=== PATIENT | female | born 1945 | race Caucasian/White ===

== ENCOUNTER 2018-11-06 16:46 | Outpatient (REF) | payer MEDICARE, BC, SELFPAY ==
[2018-11-06 22:22] LABS: ALT 27 U/L (12-78); AST 16 U/L (15-37); Albumin 4.1 g/dL (3.4-5.0); Alkaline Phosphatase 91 U/L (46-116); Anion Gap 11.8 mmol/L (3-11); BUN 13 mg/dL (7-18); Bilirubin, Total 0.9 mg/dL (0.2-1.0); CO2 26.2 mmol/L (21.0-32.0); CREATININE 0.78 mg/dL (0.55-1.02); Calcium 9.5 mg/dL (8.5-10.1); Chloride 101 mmol/L (98-107); Glucose 114 mg/dL (70-100); Potassium 4.1 mmol/L (3.5-5.1); Sodium 139 mmol/L (136-145); Total Protein 7.3 g/dL (6.4-8.2)
== END 2018-11-06 17:06 ==
LOC: NCHCN 16:46
PROVIDERS: PCP Family Medicine; Visit Provider Family Medicine
DX: I10 Essential (primary) hypertension (principal); E66.3 Overweight
CPT/HCPCS: 80053

== ENCOUNTER 2019-03-13 16:53 | Outpatient (REF) | payer MEDICARE, BC, SELFPAY ==
[2019-03-13 22:12] LABS: Anion Gap 9.4 mmol/L (3-11); BUN 14 mg/dL (7-18); CO2 26.6 mmol/L (21.0-32.0); CREATININE 0.78 mg/dL (0.55-1.02); Chloride 102 mmol/L (98-107); Glucose 113 mg/dL (70-100); Magnesium 2.1 mg/dL (1.8-2.4); Sodium 138 mmol/L (136-145); TSH (W/Ref FT4) 1.23 uIU/mL (0.36-3.74)
== END 2019-03-13 17:13 ==
LOC: NCHCN 16:53
PROVIDERS: PCP Family Medicine; Visit Provider Family Medicine
DX: I10 Essential (primary) hypertension (principal); R00.2 Palpitations
CPT/HCPCS: 80048; 83735; 84443

== ENCOUNTER 2019-08-04 23:17 | Emergency (ER) | payer MEDICARE, BC, SELFPAY ==
[2019-08-04 23:39] VITALS: BP 182/118; PULSE 141; RESP 16; TEMP 36.3; O2SAT 98
--- NOTE | 2019-08-04 23:39 | ED.GENADUL_ITS ---
Discharge Plan Disposition Patient Disposition: HOME Condition: Stable Discharge Details Chief Complaint: Palpitatns Clinical Impression: Atrial flutter with rapid ventricular response Primary Care Provider: Isidro Schmidt ED Provider: Bony Hurley Home Meds and New Rx's Prescriptions: Continued metoprolol succinate [Toprol XL] 25 MG tablet extended release 24 hr 87.5 mg PO DAILY Qty: 135 RF: 4 lisinopril 20 MG tablet 20 mg PO BID Qty: 180 RF: 4 magnesium oxide 400 MG capsule 400 mg PO TID RF: 0 multivitamin Tablet 1 tab PO DAILY RF: 0 ascorbic acid (vitamin C) [Vitamin C] 1,000 mg Tablet 2 g PO BID RF: 0 cyanocobalamin (vitamin B-12) [Vitamin B-12] 100 mcg Tablet 400 mcg PO DAILY RF: 0 Shasha 2 tab PO HS RF: 0 Discharge Instructions Instructions: Atrial Flutter (ED) Additional Instructions: follow up with your primary care provider within 1 week if you feel your heart rate is elevated again or have chest pain/pressure, difficulty breathing or feel more ill return to the emergency department Medical Decision Making 74 yo female with hx of htn and no prior cardiac history comes in with complaints of feeling her heart beating fast all day. She states she woke up with it this morning and felt it all day but did not bother her until she went to sleep and was unable to sleep through it because it was annoying so she came here. She denies any pain, pressure, dyspnea, fevers and states she otherwise feels fine. She is in what is aflutter on ekg with rate of 140 hd stable. Will obtain lab work including troponin, cbc and chemistries and also give diltiazem and monitor. pt's HR decreased to 70 after IV diltiazem given and feels much better and remains HD stable, continue to monitor labs unremarkable and patient is asympatomtic. She is HD stable with HR in the 70's. I offered observation admission but given she has normal rate and reassuring lab work she prefers d/c with close f/u with pcp. She understands to return if she has pain, increased heart rates or feels more ill in any way Differential Diagnosis Differential Diagnosis: aflutter, afib, svt Lab Data Lab results reviewed: Yes I reviewed the patient's lab results. ECG Data Attestation: I personally reviewed and interpreted this ECG (s) as follows: Prior ECG tracings: not available for review Interpretation: aflutter, rate of 142, pr 473, qtc 473 2nd ekg shows aflutter, rate of 72, qtc 418, no acute st t wave ischemic finidings HPI General Mode of arrival: ambulatory . Date/Time Provider Initiated Documentation: 08/04/19 23:21 . Limitations to Documentation: no limitations . Information obtained by: patient . History of Present Illness 74 year old F presents to the emergency department with the chief complaint of palpitations, described as moderate, Patient started experiencing this hour(s) (12) and it has been constant. No relieving factors improve symptom(s), No exacerbating factors reported . Patient notes no other symptoms.. Patient did receive the following treatments prior to arrival, none Related Data Home Medications Medication Instructions Recorded Confirmed metoprolol succinate [Toprol XL] 87.5 mg PO DAILY #135 tab-cap 04/09/15 08/05/19 lisinopril 20 mg PO BID #180 tab 04/17/15 08/05/19 magnesium oxide 400 mg PO TID 09/17/15 08/05/19 Shasha 2 tab PO HS 08/05/19 08/05/19 ascorbic acid (vitamin C) [Vitamin 2 g PO BID 08/05/19 08/05/19 C] cyanocobalamin (vitamin B-12) 400 mcg PO DAILY 08/05/19 08/05/19 [Vitamin B-12] multivitamin 1 tab PO DAILY 08/05/19 08/05/19 Allergies Allergy/AdvReac Type Severity Reaction Status Date / Time No Known Allergies Allergy Unverified 09/17/15 10:18 Review of Systems All systems reviewed & are unremarkable except as noted in HPI and below Constitutional Constitutional: Denies chills, Denies fever(s) and Denies weakness Cardiovascular Cardiovascular: Denies dyspnea Respiratory Respiratory: Denies cough and Denies dyspnea Gastrointestinal Gastrointestinal: Denies abdominal pain, Denies nausea and Denies vomiting Musculoskeletal Musculoskeletal: Denies joint swelling Neurologic Neurologic: Denies weakness Psychiatric Psychiatric: Denies depression PFSH Family History Mother Essential hypertension Heart disease Stroke Father Essential hypertension Heart disease Stroke Sister Essential hypertension Personal history of malignant neoplasm BREAST Grandfather Heart disease Grandfather Personal history of malignant neoplasm Lung Grandmother Heart disease Stroke Grandmother No problems noted. Social History Smoking/Tobacco Use Status: Former Tobacco Use Alcohol Intake: current Alcohol Intake frequency: holidays/special occasions only Drug use: Never Substance use type: does not use Do you feel safe at home: Yes Do you feel safe in your relationship?: Yes Exam Const General: no acute distress Orientation: alert HENMT Head: normal to inspection Ears: external ears normal General nose exam: external nose normal Mouth: moist mucous membranes Eyes General: appearance normal, both eyes and all related structures Neck Neck: normal visual inspection Resp Effort & Inspection: normal respiratory effort and able to speak in complete sentences Cardio Rate: tachycardic Skin General skin exam: no rashes or lesions noted Neuro General: alert and oriented x3 Extrem General: normal to inspection Psych Mental Status: mental status grossly normal Critical Care Time Critical Care Time Critical Care Time: Yes Total Critical Care Time: 45 (minutes) Attestation: Time spent reviewing lab work, ekg review, hemodynamic monitoring and administering IV rachelle blockers in patient with aflutter with rapid ventricular response and potential to deteriorate at any time
[2019-08-04 23:46] LABS: Abs Immature Grans 0.03 k/cumm (0.0-0.09); Absolute Basophil Count 0.05 k/cumm (0.0-0.2); Absolute Eosinophil Count 0.09 k/cumm (0.0-0.7); Absolute Lymphocyte Count 1.35 k/cumm (1.2-3.4); Absolute Monocyte Count 0.55 k/cumm (0.11-0.7); Absolute Neutrophil Count 5.69 k/cumm (1.2-6.7); Basophils % 0.6; Eosinophils % 1.2; HCT 44.7 % (36.0-46.0); HGB 14.8 g/dL (12.0-15.5); Immature Grans % 0.4 %; Lymphocytes % 17.4; Mean Corp. HGB Concentration 33.1 g/dL (32.0-36.0); Mean Corpuscular Hemoglobin 30.5 pg (27.0-33.0); Mean Platelet Volume 10.5 fL (8.0-11.0); Monocytes % 7.1; Neutrophils % 73.3; Platelet Count 312 x1000/uL (130-400); RBC 4.86 m/cumm (4.00-5.20); RBC Distribution Width 13.2 % (11.7-14.6); White Blood Cell Count 7.76 k/cumm (4.4-10.8)
[2019-08-04 23:47] VITALS: BP 172/117; PULSE 141
[2019-08-04] MEDS: dilTIAZem 25 MG/5 ML VIAL 20 MG IVP (23:47)
[2019-08-04] MEDS: Normal Saline Flush 10 ML SYR IVP (23:48)
[2019-08-04] MEDS: Normal Saline 1,000 ML 1000 ML IV (23:48)
[2019-08-04 23:52] VITALS: BP 157/85; PULSE 72
[2019-08-04 23:59] LABS: PTT Activated 23.2 sec (21.0-31.4); Prothrombin Time 9.9 sec (9.3-11.0)
[2019-08-05 00:01] VITALS: BP 157/85; PULSE 71; RESP 19; O2SAT 94
[2019-08-05 00:01] LABS: ALT 30 U/L (14-59); AST 19 U/L (15-37); Alkaline Phosphatase 93 U/L (46-116); Anion Gap 11.4 mmol/L (3-11); BUN 9 mg/dL (7-18); Bilirubin, Total 1.4 mg/dL (0.2-1.0); CO2 25.6 mmol/L (21.0-32.0); CREATININE 0.85 mg/dL (0.55-1.02); Calcium 8.7 mg/dL (8.5-10.1); Chloride 105 mmol/L (98-107); Glucose 119 mg/dL (74-106); Magnesium 2.2 mg/dL (1.8-2.4); Sodium 142 mmol/L (136-145); Total Protein 7.4 g/dL (6.4-8.2); Troponin I < 0.05 ng/Ml (<0.06)
--- NOTE | 2019-08-05 00:18 | NUR.NOTE ---
To room 7 with c/o palpitations, racing heart. Pt states awoke with palpitations this am, continued all day. Was unable to sleep tonight d/t racing heart sensation. Denies chest pain, SOB. Reports intermittent tightness in neck feels like necklace choking me. No tightness currently. LSCTA. #18 LAC, labs drawn. HR initially 141, down to 72 after 20mg IV Cardizem, SR with occasional PVC's. Pt does not note feeling any different after meds. NS infusing.
[2019-08-05 00:36] VITALS: BP 151/78; PULSE 72; RESP 14; O2SAT 96
--- NOTE | 2019-08-05 12:56 | NUR.NOTE ---
Nursing Note: Faxed to [facility] the referral for follow up and all the patient information from the ED visit. Ioana Galvan.
== END 2019-08-05 00:35 | disposition home or self-care (01) ==
PROVIDERS: Emergency Provider Emergency Medicine; PCP Family Medicine
DX: R00.2 Palpitations (principal); I48.92 Unspecified atrial flutter; I47.2 Ventricular tachycardia; I10 Essential (primary) hypertension
CPT/HCPCS: 36415; 80053; 93005; 96361; 96374; 99291; 83735; 84484; 85025; 85610; 85730; 93010

== ENCOUNTER 2019-08-21 04:22 | Inpatient (IN) | payer MEDICARE, BC, SELFPAY ==
[2019-08-21] VITALS (107 sets, daily range): BP systolic 135–214; BP diastolic 74–154; PULSE 51–150; RESP 9–25; TEMP 36.5–36.9; O2SAT 87–98
--- NOTE | 2019-08-21 04:45 | DI.RAD_ITS ---
EXAM: XR CHEST 2V PA LATERAL CLINICAL HISTORY: palpitations. TECHNIQUE: 2D digital imaging was performed. COMPARISON: No exams were available for comparison FINDINGS: LUNGS: Mild prominence of the interstitial markings are present. There is a small pleural effusion i dentified in the posterior costophrenic sulcus. HEART: Normal. MEDIASTINUM: Normal. OTHER FINDINGS:Mild prominence of the pulmonary vasculature is noted. BONE:Appropriate degenerative changes are seen in the spine. IMPRESSION: Mild interstitial prominence and small pleural effusion. Mild pulmonary edema cannot be excluded. P lease correlate clinically. DATA REPOSITORY: RADIATION DOSE DELIVERED:
--- NOTE | 2019-08-21 04:58 | W.ED.GENAD ---
Discharge Plan Disposition Patient Disposition: [facility] INPATIENT Condition: Fair Discharge Details Chief Complaint: Palpitatns Clinical Impression: Atrial flutter with rapid ventricular response Primary Care Provider: Isidro Schmidt ED Provider: David Mack Derby Anna and New Rx's Prescriptions: No Action lisinopril 20 MG tablet 20 mg PO BID Qty: 180 RF: 4 magnesium oxide 400 MG capsule 400 mg PO TID RF: 0 multivitamin Tablet 1 tab PO DAILY RF: 0 ascorbic acid (vitamin C) [Vitamin C] 1,000 mg Tablet 2 g PO BID RF: 0 cyanocobalamin (vitamin B-12) [Vitamin B-12] 100 mcg Tablet 400 mcg PO DAILY RF: 0 Shasha 2 tab PO HS RF: 0 metoprolol tartrate 50 mg tablet 50 mg PO DAILY AM RF: 0 metoprolol tartrate 37.5 mg tablet 37.5 mg PO HS RF: 0 Medical Decision Making Patient presenting with palpitations and found to be in SVT in the 140 range. Per previous notes this was atrial flutter. Less clear today but given history and response to diltiazem last time we will proceed with same. Of note patient is on metoprolol tartrate although low dosing. She did take extra dose when she woke up with palpitations. She denies having chest pain or shortness of breath. She came off Norvasc in the past due to lower extremity/ankle edema. Previous laboratory work-up showed normal hemoglobin and electrolytes with negative troponin. No TSH or d-dimer done. This evening will obtain both as well as repeat lytes. We will also obtain chest x-ray. Patient slowed almost immediately into the 70s with a diltiazem. She remained in atrial flutter. Chest x-ray shows mild interstitial prominence but no overt edema. She does appear to have some cardiomegaly. Electrolytes continue to be normal. TSH a little high but free T4 normal. D-dimer came back markedly elevated. I have seen her dip into the low 90s high 80s on pulse oximetry as well as remain in the high 90s and normal on room air. She continues to be in atrial flutter. She was discharged in atrial flutter. Quite possible that she is been in atrial flutter and never converted. She has a Tam vas score of 3 suggesting she should be anticoagulated. She has not yet had an echo. She has elevated d-dimer. Our CT scan is currently down and waiting repairs. After discussion with patient and her as well as with hospitalist decided the best course of action is to admit to the hospital on telemetry to obtain cardiac echo and cardiology consult today. Presume CAT scan comes back up today will also need CTA to rule out PE. Will dose with Lovenox 1 mg/kg now. She remains in rate controlled atrial flutter. Blood pressure has been fine. Medical Records Medical records reviewed: Yes I reviewed the patient's medical records. Imaging Data Radiologic Study: Attestation: I personally reviewed and interpreted this imaging study as follows: Imaging: X-Ray My impression: some cardiomegaly; ? increase interstial markings Radiologist's impression: TECHNIQUE: Imaging protocol: XR of the chest Views: 2 views. COMPARISON: No relevant prior studies available. FINDINGS: Lungs: Mild interstitial prominence. No consolidation. Pleural space: Question trace fluid in the minor fissure. No pneumothorax. Heart/Mediastinum: Borderline cardiomegaly. Bones/joints: Unremarkable. IMPRESSION: Mild interstitial prominence and question trace right fissural fluid. Mild interstitial edema cannot be completely excluded Lab Data Lab results reviewed: Yes I reviewed the patient's lab results. ECG Data Attestation: I personally reviewed and interpreted this ECG (s) as follows: Prior ECG tracings: available for review Interpretation: #1 -SVT at a rate of 147. Normal axis. Nonspecific ST changes likely rate related. Q waves in the precordial leads V1 through V3 and lead III and aVF. #2 -Atrial flutter at a rate of 77. Normal axis. Nonspecific ST changes. Q waves in the precordial leads V1 through V3 and limb lead III and aVF. HPI General Mode of arrival: ambulatory. Date/Time Provider Initiated Documentation: 08/21/19 04:29. Limitations to Documentation: no limitations. Information obtained by: patient, RN notes reviewed and old records reviewed. HPI Narrative: Patient presents to ED with complaints of palpitations and heart racing. Patient was well asleep by this. She denies having any type of chest pain or pressure. She denies any shortness of breath. She has not been ill. She was here about 2 weeks ago with similar complaints and was found to be in her rapid atrial flutter. Treated with diltiazem and offered admission but declined. Has not seen her primary care because she had been on vacation. Is on metoprolol for high blood pressure and has been continuing this in addition to her lisinopril. When she woke with palpitations she did take another 25 of metoprolol. After few hours she came in here. Related Data Home Medications Medication Instructions Recorded Confirmed lisinopril 20 mg PO BID #180 tab 04/17/15 08/21/19 magnesium oxide 400 mg PO TID 09/17/15 08/21/19 Shasha 2 tab PO HS 08/05/19 08/21/19 ascorbic acid (vitamin C) [Vitamin 2 g PO BID 08/05/19 08/21/19 C] cyanocobalamin (vitamin B-12) 400 mcg PO DAILY 08/05/19 08/21/19 [Vitamin B-12] multivitamin 1 tab PO DAILY 08/05/19 08/21/19 metoprolol tartrate 37.5 mg PO HS 08/21/19 08/21/19 metoprolol tartrate 50 mg PO DAILY AM 08/21/19 08/21/19 Allergies Allergy/AdvReac Type Severity Reaction Status Date / Time No Known Allergies Allergy Unverified 08/21/19 04:33 General Stated Complaint: Palpitatns JOSE: 3 Review of Systems Narrative: As documented in HPI otherwise negative as below. Const: no fever, chills, weakness Resp: no cough, SOB, pleuritic pain CV: no CP, diaphoresis, edema, syncope GI: no abdominal pain, nausea, vomiting, diarrhea Neuro: no headache, numbness, focal weakness, confusion [facility] Medical History Atrial flutter (Acute) HTN (hypertension) (Chronic) Surgical History S/P hernia repair (Chronic) Family History Mother Essential hypertension Heart disease Stroke Father Essential hypertension Heart disease Stroke Sister Essential hypertension Personal history of malignant neoplasm BREAST Grandfather Heart disease Grandfather Personal history of malignant neoplasm Lung Grandmother Heart disease Stroke Grandmother No problems noted. Social History Smoking/Tobacco Use Status: Former Tobacco Use Alcohol Intake: current Alcohol Intake frequency: holidays/special occasions only Drug use: Never Substance use type: does not use Do you feel safe at home: Yes Do you feel safe in your relationship?: Yes Exam Narrative Exam Narrative: Vitals: Afebrile. Tachycardic and hypertensive with normal respiratory rate and room air pulse oximetry. Const: WDWN elderly female in NAD. HEENT: NC/AT. Normal facial exam. Eyes: Normal conjunctiva and sclera. Neck: Supple. Trachea midline. Lungs: Normal respiratory effort. Lungs are clear. Cor: tachy and regular without murmur/gallop. Good radial pulses. GI: Soft. NT/ND. No guarding or rebound. Neuro: A+O x 3. Normal speech, mentation, gait. Cranial nerves II - XII grossly intact. No gross motor or sensory deficit. Ext: No C/C/E. No calf tenderness. Skin: Warm and dry without rash. Course Vital Signs Vital signs: Vital Signs Temperature 97.7 F 08/21/19 04:28 Pulse 146 H 08/21/19 04:28 Respiratory Rate 16 08/21/19 04:28 Blood Pressure 173/128 H 08/21/19 04:28 Pulse Oximetry 98 08/21/19 04:28 Temperature 97.7 F 08/21/19 04:28 Temperature Source Skin 08/21/19 04:28 Pulse 146 H 08/21/19 04:28 Respiratory Rate 16 08/21/19 04:28 Respiratory Effort 08/21/19 04:28 Blood Pressure 173/128 H 08/21/19 04:28 Pulse Oximetry 98 08/21/19 04:28 Oxygen Delivery Method Room Air 08/21/19 04:28 Oxygen Flow Rate 0 08/21/19 04:28 Pain Level 0 08/21/19 04:28 Critical Care Time Critical Care Time Critical Care Time: Yes Total Critical Care Time: 45 Attestation: Upon my evaluation, this patient had a high probability of imminent or life-threatening deterioration, which required my direct attention, intervention, and personal management. I have personally provided minutes of critical care time exclusive of time spent on separately billable procedures. Time includes review of laboratory data, radiology results, discussion with consultants, and monitoring for potential decompensation. Interventions were performed as documented above.
[2019-08-21] MEDS: Lactated Ringers 1,000 ML 150 ML IV (05:05)
[2019-08-21] MEDS: dilTIAZem 25 MG/5 ML VIAL 15 MG IVP (05:06)
--- NOTE | 2019-08-21 05:13 | NUR.NOTE ---
Nursing Note: 0512 Pt heart rate down to 77 BPM.
[2019-08-21 05:31] LABS: Anion Gap 9.8 mmol/L (3-11); BUN 12 mg/dL (7-18); CO2 25.2 mmol/L (21.0-32.0); CREATININE 0.82 mg/dL (0.55-1.02); Calcium 9.4 mg/dL (8.5-10.1); Chloride 104 mmol/L (98-107); Glucose 116 mg/dL (74-106); Magnesium 2.2 mg/dL (1.8-2.4); Potassium 3.9 mmol/L (3.5-5.1); Sodium 139 mmol/L (136-145); TSH (W/Ref FT4) 4.31 uIU/mL (0.36-3.74)
--- NOTE | 2019-08-21 05:37 | DI.VRAD_ITS ---
PROCEDURE INFORMATION: Exam: XR Chest, 2 Views Exam date and time: 08/21/2019 5:27 AM Age: 74 years old Clinical indication: Other: Palpitatations; Patient HX: Palpitations TECHNIQUE: Imaging protocol: XR of the chest Views: 2 views. COMPARISON: No relevant prior studies available. FINDINGS: Lungs: Mild interstitial prominence. No consolidation. Pleural space: Question trace fluid in the minor fissure. No pneumothorax. Heart/Mediastinum: Borderline cardiomegaly. Bones/joints: Unremarkable. IMPRESSION: Mild interstitial prominence and question trace right fissural fluid. Mild interstitial edema cannot be completely excluded Dictated and Authenticated by: Tom Marks MD. Ordering:MEG Hernandez MD
--- NOTE | 2019-08-21 05:55 | NUR.NOTE ---
Nursing Note: Pt continues to rest comfortably. No c/o or requests at this time
[2019-08-21 06:10] LABS: D-Dimer 1393 ng/mlFEU (<500)
[2019-08-21 06:13] LABS: FREE T4 1.26 ng/dL (0.76-1.46)
--- NOTE | 2019-08-21 06:30 | HPE_ITS ---
Date of service: 08/21/19 Time of Service: 06:30 Assessment and Plan Assessment and plan (1) Atrial flutter with rapid ventricular response: Start date: 08/21/19 Status: Acute Assessment and plan: This is a 74-year-old lady who is generally healthy except for chronic hypertension and probable LVH with recent onset of atrial flutter with rapid ventricular response which responded to IV diltiazem in the ED previously and having the same response this presentation. She denies any chest pain or chest pressure and only feels slight air hunger when she is having rapid ventricular response denying dyspnea or diaphoresis. She has no history of CAD. She will be admitted for continue optimization of her ventricular response to her atrial flutter which is baseline rhythm and was started on Lovenox therapeutic dosing until CTA of the chest can be performed to rule out acute PE with her elevated d-dimer. We should consider trending troponins though she is asymptomatic without ischemic changes on her EKG or residential direct support professional. Her atrial flutter is most likely a consequence of chronic hypertension with LVH. She has not seen a corporate logistics manager and this should be done either as an inpatient or scheduled soon as an outpatient. Her metoprolol will be advanced with blood pressure control and heart rate control rather than starting oral diltiazem at this time. Echocardiogram should be updated as well. Patient is a full code. (2) HTN (hypertension): Status: Chronic Assessment and plan: Uncontrolled with continued adjustment of medications. She was on metoprolol 200 mg daily in the recent past with attempted weaning recently at patient's request. For better blood pressure control and the patient may require additional medication such as hydrochlorothiazide once metoprolol and lisinopril have been maximized. She failed amlodipine. We will update echocardiogram as available and follow-up with cardiology. Qualifiers: Hypertension type: essential hypertension Qualified Code(s): I10 - Essential (primary) hypertension History of Present Illness History of Present Illness Chief Complaint: Anxiety palpitations with slight dyspnea Narrative: This is a generally healthy 74-year-old female patient who was awakened palpitations and slight air hunger and reported to the ED for evaluation being found to be in atrial flutter again with rapid ventricular response and responded to IV diltiazem. She is hesitant to call the sensations associated with palpitations shortness of breath or chest pressure and she adamantly denies chest pain. She was recently in the ED and had similar complaints of palpitations and was found to be in rapid ventricular response to atrial flutter. She responded to IV diltiazem at that time as well and went home on her metoprolol having refused to be admitted for further inpatient evaluation. She was to follow-up with her PMD to adjust medications but had not seen her PMD as of yet because of vacations and the patient refusing to see another provider. She also had lisinopril added for blood pressure control having failed amlodipine because of peripheral edema and achiness. She is a non-drinker denies any alcohol use. She does have chronic hypertension and probable LVH by her description of previous echocardiogram. She has never had CAD. She is not on anticoagulants. She has not had any recent peripheral edema and is says she has no pleuritic chest pain or described dyspnea though she states she feels air hunger when she is having palpitations. Review of Systems Narrative: 13 point review of systems otherwise unrevealing or stable. The patient's weight has not been changing. She is very active physically without restrictions. [facility] Medical History Atrial flutter (Acute) HTN (hypertension) (Chronic) Surgical History S/P hernia repair (Chronic) Family History Mother Essential hypertension Heart disease Stroke Father Essential hypertension Heart disease Stroke Sister Essential hypertension Personal history of malignant neoplasm BREAST Grandfather Heart disease Grandfather Personal history of malignant neoplasm Lung Grandmother Heart disease Stroke Grandmother No problems noted. Social History Smoking/Tobacco Use Status: Former Tobacco Use Alcohol Intake: current Alcohol Intake frequency: holidays/special occasions only Drug use: Never Substance use type: does not use Do you feel safe at home: Yes Do you feel safe in your relationship?: Yes Meds Home Medications and Allergies Home Medications Medication Instructions Recorded Confirmed Type lisinopril 20 mg PO BID #180 tab 04/17/15 08/21/19 History Shasha 2 tab PO HS 08/05/19 08/21/19 History ascorbic acid (vitamin C) [Vitamin 2 g PO BID 08/05/19 08/21/19 History C] cyanocobalamin (vitamin B-12) 400 mcg PO DAILY 08/05/19 08/21/19 History [Vitamin B-12] multivitamin 1 tab PO DAILY 08/05/19 08/21/19 History magnesium citrate 1,200 mg PO DAILY 08/21/19 08/21/19 History metoprolol tartrate 37.5 mg PO HS 08/21/19 08/21/19 History metoprolol tartrate 50 mg PO DAILY AM 08/21/19 08/21/19 History Allergies Allergy/AdvReac Type Severity Reaction Status Date / Time No Known Allergies Allergy Unverified 08/21/19 04:33 Exam Narrative Exam Narrative: General: Patient appears younger than stated age and is in no acute distress, alert and oriented x3. HEENT: Normocephalic, eyes with pupils equal and reactive to light symmetrically, extraocular movement intact and sclera anicteric. External ears normal. Oropharynx with moist mucosa and normal dentition. Neck: Supple without JVD or bruits. Back: Normal posture with no CVA tenderness. Lungs: Clear to auscultation and percussion. Breasts: Exam deferred. Heart: Regular rate and rhythm with no murmurs, gallops or rubs appreciated. Abdomen: Normal contour, soft and nontender to palpation with bowel sounds positive all quadrants. No palpable hepatosplenomegaly. No auscultated bruits. Genitalia/rectal: Exam deferred. Extremities: Without clubbing cyanosis or pitting edema. Cap refill normal and peripheral pulses intact. No significant joint abnormalities Skin: Normal color, warm and dry with no rashes or bruising. Neuro: Cranial nerves II through XII grossly intact, no focalizing motor deficits. No Babinski's. Psych: Normal mood and affect. No abnormal thought processes. Remote and recent memory intact. Results Imaging Imaging Studies: Exam: XR Chest, 2 Views Exam date and time: 08/21/2019 5:27 AM Age: 74 years old Clinical indication: Other: Palpitatations; Patient HX: Palpitations TECHNIQUE: Imaging protocol: XR of the chest Views: 2 views. COMPARISON: No relevant prior studies available. FINDINGS: Lungs: Mild interstitial prominence. No consolidation. Pleural space: Question trace fluid in the minor fissure. No pneumothorax. Heart/Mediastinum: Borderline cardiomegaly. Bones/joints: Unremarkable. IMPRESSION: Mild interstitial prominence and question trace right fissural fluid. Mild interstitial edema cannot be completely excluded Dictated and Authenticated by: Tom Marks MD. Labs Result diagrams: 08/21/19 11:12 08/21/19 04:35 Labs: Laboratory Results - last 24 hr 08/21/19 08/21/19 04:35 04:35 D-Dimer 1393 H Sodium 139 Potassium 3.9 Chloride 104 Carbon Dioxide 25.2 Anion Gap 9.8 BUN 12 Creatinine 0.82 Estimated GFR/1.73 m2 >= 60.00 Glucose 116 H Calcium 9.4 Magnesium 2.2 TSH 4.31 H Free T4 1.26 Last Vital Signs Temp 36.5 C 08/21/19 04:28 Pulse 76 08/21/19 06:01 Resp 9 L 08/21/19 06:01 BP 158/75 H 08/21/19 06:01 Pulse Ox 95 08/21/19 06:01
[2019-08-21] MEDS: Enoxaparin 80 MG/0.8 ML SYR SC ×2 (06:38→20:04)
--- NOTE | 2019-08-21 06:59 | NUR.NOTE ---
Nursing Note: Report to Christy Grigsby
[2019-08-21 07:53] LABS: Prothrombin Time 10.1 sec (9.3-11.0)
[2019-08-21] MEDS: Lisinopril 20 MG TAB PO (08:14)
[2019-08-21] MEDS: Metoprolol 50 MG TAB PO ×3 (08:15→20:04)
[2019-08-21] MEDS: Cyanocobalamin 100 MCG TABLET 400 MCG PO (08:15)
[2019-08-21] MEDS: Multivitamin TAB 1 TAB PO (08:16)
--- NOTE | 2019-08-21 10:17 | INITIAL_ITS ---
- If Service Date Differs Date of service: 08/21/19 Time of Service: 10:18 Care Management Initial Assess REASON FOR HOSPITALIZATION:: Atrial flutter with RVR PAST MEDICAL HISTORY/PAST SURGICAL HISTORY:: Medical History . Atrial flutter (Acute). HTN (hypertension) (Chronic). Surgical History . S/P hernia repair (Chronic) PREVIOUS FUNCTIONAL STATUS/SOCIAL/FAMILY SUPPORTS:: Ladan lives in [place] with her Richard and their dog and 3 cats. Ladan and Richard have a son and a daughter. 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 She does not receive any services. ADVANCE DIRECTIVES:: Has AD. Sister Virgen Pelletier is her HCA. Has patient been provided with information about the portal?: Yes Did the patient sign up for the portal?: No CODE STATUS:: Full Code INSURANCE COVERAGE / FINANCIAL ISSUES:: Medicare. BS CURRENT HOME/COMMUNITY SERVICES/EQUIPMENT:: none PRIMARY CARE PHYSICIAN:: Isidro Schmidt POTENTIAL DISCHARGE NEEDS:: Follow up with PCP and discharge plan of care PATIENT/FAMILY EDUCATION NEEDS:: Discharge plan, limitations, follow up jenni, [facility]. TRANSPORTATION:: via private vehicle with family when ready PLAN:: Ladan will likely be discharged home with no new services. She will follow up with her PCP and discharge plan of care. EDUARDA tenorio continue to support patient, family and discharge planning needs.
--- NOTE | 2019-08-21 10:45 | DI.US_ITS ---
EXAM: US EXTREMITY VENOUS BI CLINICAL HISTORY: ELEVATED D-DIMER, CONCERN FOR DVT. TECHNIQUE: Bilateral lower extremity venous ultrasound performed using grayscale, color-flow, and sp ectral Doppler analysis. COMPARISON: No exams were available for comparison FINDINGS: The bilateral common femoral, femoral and popliteal veins demonstrate normal compressibility, augment ation, and color Doppler. The posterior tibial veins are patent. The saphenofemoral junctions are unr emarkable. There is a 4.7 x 2.0 x 2.6 cm fluid collection in the right popliteal fossa. There is a 4 .4 x 2.1 x 2.1 cm fluid collection in the left popliteal fossa. The soft tissues are unremarkable. IMPRESSION: Right: Negative for DVT Left: Negative for DVT Bilateral popliteal cysts. DATA REPOSITORY:
--- NOTE | 2019-08-21 10:45 | DI.NM_ITS ---
EXAM: NM LUNG SCAN PERFUSION CLINICAL HISTORY: concern for PE. TECHNIQUE: Injected Dose: Ventilation: 28.9 mCi Tc-99m DTPA via inhalation Perfusion: 5.8 mCi Tc-99m MAA via IV COMPARISON: XR CHEST 2V PA LATERAL from 08/21/2019 FINDINGS: Chest X-Ray: Clear lungs. Perfusion: Normal. Ventilation:Normal IMPRESSION: 1. Low probability VQ examination. . . . Modified PIOPED II criteria Probability Criteria High Two or more segments of V/Q mismatch Low Normal Perfusion, Non segmental perfusion abnormalitie s, pleural effusion in at least 1/3 of pleural cavity with no other defect Radiograph/perfusion matched defect in mid to upper lung confined to segment, one to three small segmental perfusion defects (<25% of segment) Perfusion defect smaller than corresponding radiogra phic lesion. Intermediate All other findings DATA REPOSITORY:
[2019-08-21 11:23] LABS: Abs Immature Grans 0.01 k/cumm (0.0-0.09); Absolute Basophil Count 0.05 k/cumm (0.0-0.2); Absolute Eosinophil Count 0.06 k/cumm (0.0-0.7); Absolute Monocyte Count 0.45 k/cumm (0.11-0.7); Eosinophils % 1.3; HCT 39.8 % (36.0-46.0); HGB 12.8 g/dL (12.0-15.5); Immature Grans % 0.2 %; Lymphocytes % 25.2; Mean Corp. HGB Concentration 32.2 g/dL (32.0-36.0); Mean Corpuscular Hemoglobin 29.8 pg (27.0-33.0); Mean Corpuscular Volume 92.8 fL (80-95); Mean Platelet Volume 10.2 fL (8.0-11.0); Monocytes % 9.4; Neutrophils % 62.9; Platelet Count 291 x1000/uL (130-400); RBC 4.29 m/cumm (4.00-5.20); RBC Distribution Width 13.4 % (11.7-14.6); White Blood Cell Count 4.77 k/cumm (4.4-10.8)
[2019-08-21] MEDS: dilTIAZem 25 MG/5 ML VIAL 10 MG IVP (11:46)
[2019-08-21] MEDS: dilTIAZem 125 MG in Normal Saline 100 ML IV (11:48)
[2019-08-21 11:52] LABS: NT-proBNP 2666 pg/mL (<300); Troponin I < 0.05 ng/Ml (<0.06)
[2019-08-21] MEDS: Normal Saline 1,000 ML 30 ML IV (12:00)
[2019-08-21] MEDS: Metoprolol 5 MG/5 ML VIAL IVP ×3 (12:31→22:52)
--- NOTE | 2019-08-21 12:35 | W.PM.PROGNOT ---
Date of Service Date of service: 08/21/19 Time of Service: 12:36 Assessment and Plan Assessment and plan (1) Atrial flutter with rapid ventricular response: Status: Resolved Assessment and plan: Now rate controlled. Transition from IV cardizem to PO. Increase lopressor to 50 mg PO Q6hrs. Obtain copy of echo from [facility]. Continue anticoagulation with lovenox empirically. Given the fact that the patient has clinical CHF, the patient qualifies for anticoagulation. Can likely be transitioned out of ICU later today assuming HR stays controlled and BP improves. (2) Hypertensive urgency: Status: Acute Assessment and plan: As above. D/c MIVF and given lasix 20 mg IV x1. Increase beta anurag. Continue cardizem (switching from IV to PO). Would switch from Mj-i to ARB. Given prn IV lopressor. (3) Chest discomfort: Status: Acute Assessment and plan: R/o ACS and PE. Continue cardiac monitoring, check troponin at 2:30 pm, await VQ scan/venous doppler BLE's. (4) Acute CHF: Status: Acute Assessment and plan: Obtaining old echo results because we do not know prior EF. D/c IVF. Diurese gently. No echo available at [facility] today or tomorrow. Will need outpatient echo. Monitor I/O's, daily weights. (5) DVT prophylaxis: Status: Acute Assessment and plan: On therapeutic lovenox. (6) Discharge planning issues: Status: Acute Assessment and plan: Full code. Transferred to the ICU. Total Critical Care Time 45 minutes. Subjective Subjective Interval history since last seen: Transferred to the ICU due to Rapid Aflutter in 140's and SBPs in 180-220s. However, on arrival to the ICU, the HR was already in the 70's. Tolerating cardizem gtt - truthfully, without effect on either BP or HR. Denies dizziness, chest pain/discomfort at this time, shortness of breath at rest (endorses it on exertion). Denies n/v. States her echo at [facility] was several years ago, not recent. Exam Narrative Exam Narrative: General: Very pleasant female, appears much younger than her stated age, A&Ox3, sitting comfortably in a chair, having lunch HEENT: EOMI, MMM Heart: RRR, no m/r/g Lungs: Crackles at B bases Abdomen: soft, nontender, nondistended Extremities: no e/c/c BLE's Objective Objective Clinical Data: Abnormal lab results 08/21/19 08/21/19 08/21/19 Range/Units 04:35 04:35 11:12 D-Dimer 1393 H (<500) ng/mlFEU Glucose 116 H (74-106) mg/dL NT-Pro-B Natriuret Pep 2666 H (<300) pg/mL TSH 4.31 H (0.36-3.74) uIU/mL Vital Signs Temperature 36.6 C 08/21/19 12:10 Temperature Source Temporal Artery Scan 08/21/19 12:10 Pulse 79 08/21/19 12:10 Pulse Rhythm Regular 08/21/19 08:25 Pulse 80 08/21/19 10:45 Respiratory Rate 18 08/21/19 08:13 Respiratory Effort Non-Labored 08/21/19 12:10 Respiratory Depth Normal 08/21/19 12:10 Respiratory Pattern Normal 08/21/19 12:10 Blood Pressure 190/86 H 08/21/19 12:10 Blood Pressure Mean 120 08/21/19 12:10 Blood Pressure Position Sitting 08/21/19 12:10 Pulse Oximetry 98 08/21/19 12:10 Oxygen Delivery Method Room Air 08/21/19 12:10 Oxygen Flow Rate 0 08/21/19 12:10 Pain Level 3 08/21/19 12:10 Intake & Output 08/20/19 08/21/19 08/21/19 23:59 11:59 23:59 Weight 77.5 kg Other: Urine Appearance Clear Laboratory Results WBC 4.77 k/cumm (4.4-10.8) 08/21/19 11:12 RBC 4.29 m/cumm (4.00-5.20) 08/21/19 11:12 Hgb 12.8 g/dL (12.0-15.5) 08/21/19 11:12 Hct 39.8 % (36.0-46.0) 08/21/19 11:12 MCV 92.8 fL (80-95) 08/21/19 11:12 MCH 29.8 pg (27.0-33.0) 08/21/19 11:12 MCHC 32.2 g/dL (32.0-36.0) 08/21/19 11:12 RDW 13.4 % (11.7-14.6) 08/21/19 11:12 Plt Count 291 x1000/uL (130-400) 08/21/19 11:12 MPV 10.2 fL (8.0-11.0) 08/21/19 11:12 Immature Gran % 0.2 % 08/21/19 11:12 Neutrophils % 62.9 08/21/19 11:12 Lymphocytes % 25.2 08/21/19 11:12 Monocytes % 9.4 08/21/19 11:12 Eosinophils % 1.3 08/21/19 11:12 Basophils % 1.0 08/21/19 11:12 Absolute Neutrophils 3.00 k/cumm (1.2-6.7) 08/21/19 11:12 Absolute Lymphocytes 1.20 k/cumm (1.2-3.4) 08/21/19 11:12 Absolute Monocytes 0.45 k/cumm (0.11-0.7) 08/21/19 11:12 Absolute Eosinophils 0.06 k/cumm (0.0-0.7) 08/21/19 11:12 Absolute Basophils 0.05 k/cumm (0.0-0.2) 08/21/19 11:12 PT 10.1 sec (9.3-11.0) 08/21/19 04:35 INR 1.0 (0.9-1.1) 08/21/19 04:35 D-Dimer 1393 ng/mlFEU (<500) H 08/21/19 04:35 Sodium 139 mmol/L (136-145) 08/21/19 04:35 Potassium 3.9 mmol/L (3.5-5.1) 08/21/19 04:35 Chloride 104 mmol/L (98-107) 08/21/19 04:35 Carbon Dioxide 25.2 mmol/L (21.0-32.0) 08/21/19 04:35 Anion Gap 9.8 mmol/L (3-11) 08/21/19 04:35 BUN 12 mg/dL (7-18) 08/21/19 04:35 Creatinine 0.82 mg/dL (0.55-1.02) 08/21/19 04:35 Estimated GFR/1.73 m2 >= 60.00 (mL/min/1.73m2) 08/21/19 04:35 Glucose 116 mg/dL (74-106) H 08/21/19 04:35 Calcium 9.4 mg/dL (8.5-10.1) 08/21/19 04:35 Magnesium 2.2 mg/dL (1.8-2.4) 08/21/19 04:35 Troponin I < 0.05 ng/Ml (<0.06) 08/21/19 11:12 NT-Pro-B Natriuret Pep 2666 pg/mL (<300) H 08/21/19 11:12 TSH 4.31 uIU/mL (0.36-3.74) H 08/21/19 04:35 Free T4 1.26 ng/dL (0.76-1.46) 08/21/19 04:35 VQ scan, doppler BLE's pending
[2019-08-21] MEDS: Normal Saline Flush 10 ML SYR IVP ×2 (12:45→17:35)
[2019-08-21] MEDS: Furosemide 20 MG/2 ML VIAL IVP (12:45)
[2019-08-21] MEDS: dilTIAZem 30 MG TAB PO (13:12)
--- NOTE | 2019-08-21 15:37 | PHA.ADMREV ---
Pharmacy Clinical Review - Admission Clinical Review (Last Reviewed 08/21/19 @ 12:11 by Elpidio Devi) DVT prophylaxis (Acute) Discharge planning issues (Acute) Acute CHF (Acute) Chest discomfort (Acute) Hypertensive urgency (Acute) No Known Allergies Allergy (Unverified 08/21/19 04:33) Height 5 ft 4 in Weight 77.5 kg - Renal Dosing Renal Dosing: BUN 12 mg/dL (7-18) 08/21/19 04:35 Creatinine 0.82 mg/dL (0.55-1.02) 08/21/19 04:35 Medications needing adjustments: Reviewed (CrCl ~53ml/min) - Anticoagulation Anticoagulation: Hgb 12.8 g/dL (12.0-15.5) 08/21/19 11:12 Hct 39.8 % (36.0-46.0) 08/21/19 11:12 Plt Count 291 x1000/uL (130-400) 08/21/19 11:12 INR 1.0 (0.9-1.1) 08/21/19 04:35 Creatinine 0.82 mg/dL (0.55-1.02) 08/21/19 04:35 DVT Prohphylaxis: Reviewed Medications: Enoxaparin Therapeutic Anticoagulation: Reviewed Medications: Enoxaparin (80mg q12h) - Opiate Usage Evaluate Pain Scale/Pains Meds: N/A Scheduled Bowel Reg ordered if on Opiates?: Yes (PRN) - Relevant Labs Sodium 139 mmol/L (136-145) 08/21/19 04:35 Potassium 3.9 mmol/L (3.5-5.1) 08/21/19 04:35 Chloride 104 mmol/L (98-107) 08/21/19 04:35 Magnesium 2.2 mg/dL (1.8-2.4) 08/21/19 04:35 Electrolytes, C-Reactive P, ESR: Reviewed - Antimicrobial Stewardship Antibiotic appropriateness: N/A Surgical Abx d/c within 24 hr: N/A Culture review/Resistance: N/A - DM Control DM Control: Glucose 116 mg/dL (74-106) H 08/21/19 04:35 Insulin Dosing: N/A - Heart Failure/LA Heart Failure/LA: Troponin I < 0.05 ng/Ml (<0.06) 08/21/19 11:12 NT-Pro-B Natriuret Pep 2666 pg/mL (<300) H 08/21/19 11:12 EF%, ULISES's, B-Blockers, Diuretics: Reviewed (Dilt GTT started 08/20 @ 1148 + PO 30mg q6h, metoprolol 50mg po q6h) - BP Control BP Control: Blood Pressure [Left Arm] 190/86 Blood Pressure 176/89 Blood Pressure 171/96 Blood Pressure 178/98 Blood Pressure 200/95 Blood Pressure 189/98 Blood Pressure 190/86 Blood Pressure 180/90 Blood Pressure 160/115 Blood Pressure 165/115 Blood Pressure 182/97 Blood Pressure 169/98 Blood Pressure 182/105 Blood Pressure 189/101 Blood Pressure 202/95 Blood Pressure 212/78 Blood Pressure 201/107 Blood Pressure 151/74 Blood Pressure 158/75 Blood Pressure 146/76 Blood Pressure 151/89 Blood Pressure 157/92 Blood Pressure 150/87 Blood Pressure 156/80 Blood Pressure 135/107 Blood Pressure 147/111 Blood Pressure 137/104 Blood Pressure 158/117 Blood Pressure 174/123 Blood Pressure 173/128 If elevated: Reviewed - QTc Review If Elevated: Reviewed (QTc 439) - IV to PO Switch IV Medications: Reviewed - Home Meds Home Med List reviewed: Reviewed (Lisinopril 20mg BID) - Current meds Current Medication Order Review: Reviewed - Comments Comments/Follow Ups: Now rate controlled, transitioning from IV to PO cardizem. Continue lmwh, pt does have clinical CHF - was given IV 20mg x1. Will need and echo done as an outpt
[2019-08-21 16:26] LABS: Troponin I < 0.05 ng/Ml (<0.06)
--- NOTE | 2019-08-21 19:02 | NUR.NOTE ---
[facility] contacted for echo results. took fax number for icu and states they will end report Nursing Note:
[2019-08-21] MEDS: Ascorbic Acid 500 MG TAB 2000 MG PO (20:04)
[2019-08-22] VITALS (122 sets, daily range): BP systolic 101–189; BP diastolic 52–146; PULSE 51–155; RESP 10–34; TEMP 36.5–36.8; O2SAT 93–100
[2019-08-22] MEDS: Metoprolol 50 MG TAB PO ×4 (02:03→19:28)
[2019-08-22] MEDS: Metoprolol 5 MG/5 ML VIAL IVP ×3 (06:00→18:35)
[2019-08-22] MEDS: dilTIAZem 125 MG in Normal Saline 100 ML IV (06:49)
[2019-08-22 06:55] LABS: Abs Immature Grans 0.01 k/cumm (0.0-0.09); Absolute Basophil Count 0.04 k/cumm (0.0-0.2); Absolute Eosinophil Count 0.16 k/cumm (0.0-0.7); Absolute Lymphocyte Count 1.18 k/cumm (1.2-3.4); Absolute Monocyte Count 0.39 k/cumm (0.11-0.7); Absolute Neutrophil Count 2.21 k/cumm (1.2-6.7); HCT 42.7 % (36.0-46.0); Immature Grans % 0.3 %; Lymphocytes % 29.6; Mean Corp. HGB Concentration 32.8 g/dL (32.0-36.0); Mean Corpuscular Hemoglobin 29.9 pg (27.0-33.0); Mean Platelet Volume 10.9 fL (8.0-11.0); Monocytes % 9.8; Neutrophils % 55.3; Platelet Count 303 x1000/uL (130-400); RBC 4.69 m/cumm (4.00-5.20); RBC Distribution Width 13.2 % (11.7-14.6); White Blood Cell Count 3.99 k/cumm (4.4-10.8)
[2019-08-22 06:56] LABS: Anion Gap 9.6 mmol/L (3-11); BUN 8 mg/dL (7-18); CO2 27.4 mmol/L (21.0-32.0); CREATININE 0.76 mg/dL (0.55-1.02); Calcium 8.7 mg/dL (8.5-10.1); Chloride 106 mmol/L (98-107); Glucose 95 mg/dL (74-106); Potassium 3.4 mmol/L (3.5-5.1); Sodium 143 mmol/L (136-145)
[2019-08-22] MEDS: Multivitamin TAB 1 TAB PO (08:15)
[2019-08-22] MEDS: Ascorbic Acid 500 MG TAB 2000 MG PO ×2 (08:15→19:28)
[2019-08-22] MEDS: Enoxaparin 80 MG/0.8 ML SYR SC ×2 (08:16→19:28)
[2019-08-22] MEDS: Cyanocobalamin 100 MCG TABLET 400 MCG PO (08:16)
[2019-08-22] MEDS: Potassium Chloride 20 MEQ TABCR 40 MEQ PO (08:19)
[2019-08-22] MEDS: Losartan 50 MG TAB PO ×2 (08:19→19:28)
--- NOTE | 2019-08-22 08:36 | W.PM.PROGNOT ---
Date of Service Date of service: 08/22/19 Time of Service: 12:15 Assessment and Plan Assessment and plan (1) Atrial flutter with rapid ventricular response: Status: Resolved Assessment and plan: Now again rate controlled. Transitioned to PO cardizem yet again (30 TID due to low HR yesterday - down to 30's briefly) in combination with Po Lopressor - currently at 50 Q6hrs. Will try to obtain echo tomorrow. Continue lovenox empirically. Will find out if eliquis is covered. CHADSVASC score is 2 Keep in ICU. (2) Hypertensive urgency: Status: Acute Assessment and plan: As above. Continue cardizem, metoprolol. Started on losartan [address] of lisinopril and aldactone also added, especially given hypokalemia. BP's slightly better. Continue to monitor in the ICU. (3) Chest discomfort: Status: Acute Assessment and plan: No evidence of ACS or PE. (4) Acute CHF: Status: Resolved Assessment and plan: At least partially iatrogenic due to aggressive IVF yesterday. Today, she is euvolemic. Hoping for echo tomorrow. Started on aldactone predominantly for BP control. Monitor I/O's, daily weights. (5) DVT prophylaxis: Status: Acute Assessment and plan: On therapeutic lovenox. Looking into coverage for eliquis (6) Discharge planning issues: Status: Acute Assessment and plan: Full code. Total Critical Care Time 45 minutes. Subjective Subjective Interval history since last seen: No CP, SOB, dizziness. Nausea this am, no vomiting, and this has now resolved. HR in 70's; did go into 150's - Aflutter this am. Received 10 IV lopressor, 50 PO lopressor, placed on cardizem gtt @5 mg/hr this am; HR came down to 70's - transitioned to PO cardizem. Also received losartan and aldactone, SBP now in 150's. 98% on RA. She is inquiring whether or not she should be on blood thinners. She wants to find out whether her insurance covers it. Exam Narrative Exam Narrative: General: Very pleasant female, A&Ox3, sitting comfortably in a chair. HEENT: EOMI, MMM Heart: RRR, no m/r/g Lungs: CTAB Abdomen: soft, nontender, nondistended Extremities: no e/c/c BLE's Objective Objective Clinical Data: Abnormal lab results 08/21/19 08/22/19 08/22/19 Range/Units 11:12 05:58 05:58 WBC 3.99 L (4.4-10.8) k/cumm Absolute Lymphocytes 1.18 L (1.2-3.4) k/cumm Potassium 3.4 L (3.5-5.1) mmol/L NT-Pro-B Natriuret Pep 2666 H (<300) pg/mL Vital Signs Temperature 36.8 C 08/22/19 04:17 Temperature Source Temporal Artery Scan 08/22/19 04:17 Pulse 155 H 08/22/19 06:38 Pulse Rhythm Regular 08/21/19 08:25 Pulse 81 08/21/19 23:45 Respiratory Rate 16 08/22/19 04:17 Respiratory Effort Non-Labored 08/22/19 04:17 Respiratory Depth Normal 08/22/19 04:17 Respiratory Pattern Normal 08/22/19 04:17 Blood Pressure 189/129 H 08/22/19 06:38 Blood Pressure Mean 116 08/22/19 04:17 Blood Pressure Position Supine 08/22/19 04:17 Pulse Oximetry 98 08/22/19 04:17 Oxygen Delivery Method Room Air 08/22/19 04:17 Oxygen Flow Rate 0 08/22/19 04:17 Pain Level 0 08/22/19 04:17 Comment 08/21/19 13:50 Intake & Output 08/21/19 08/21/19 08/22/19 11:59 23:59 11:59 Intake Total 1000 / 2218.917 1218.917 / 2218.917 Output Total 2180 / 2180 150 / 150 Balance 1000 / 38.917 -961.083 / 38.917 -150 / -150 Weight 77.5 kg Intake: IV 1000 / 1178.917 178.917 / 1178.917 Oral 1040 / 1040 Output: Urine 2180 / 2180 150 / 150 Other: Urine Color Pale Yellow Urine Appearance Clear Clear Clear Urine Odor Normal Comment Patient in DI at this time. She voided 2 more times in bathroom--unsure of urine output amount. Mixed with toilet paper. Voiding Methods Bedside Commode Laboratory Results WBC 3.99 k/cumm (4.4-10.8) L 08/22/19 05:58 RBC 4.69 m/cumm (4.00-5.20) 08/22/19 05:58 Hgb 14.0 g/dL (12.0-15.5) 08/22/19 05:58 Hct 42.7 % (36.0-46.0) 08/22/19 05:58 MCV 91.0 fL (80-95) 08/22/19 05:58 MCH 29.9 pg (27.0-33.0) 08/22/19 05:58 MCHC 32.8 g/dL (32.0-36.0) 08/22/19 05:58 RDW 13.2 % (11.7-14.6) 08/22/19 05:58 Plt Count 303 x1000/uL (130-400) 08/22/19 05:58 MPV 10.9 fL (8.0-11.0) 08/22/19 05:58 Immature Gran % 0.3 % 08/22/19 05:58 Neutrophils % 55.3 08/22/19 05:58 Lymphocytes % 29.6 08/22/19 05:58 Monocytes % 9.8 08/22/19 05:58 Eosinophils % 4.0 08/22/19 05:58 Basophils % 1.0 08/22/19 05:58 Absolute Neutrophils 2.21 k/cumm (1.2-6.7) 08/22/19 05:58 Absolute Lymphocytes 1.18 k/cumm (1.2-3.4) L 08/22/19 05:58 Absolute Monocytes 0.39 k/cumm (0.11-0.7) 08/22/19 05:58 Absolute Eosinophils 0.16 k/cumm (0.0-0.7) 08/22/19 05:58 Absolute Basophils 0.04 k/cumm (0.0-0.2) 08/22/19 05:58 PT 10.1 sec (9.3-11.0) 08/21/19 04:35 INR 1.0 (0.9-1.1) 08/21/19 04:35 D-Dimer 1393 ng/mlFEU (<500) H 08/21/19 04:35 Sodium 143 mmol/L (136-145) 08/22/19 05:58 Potassium 3.4 mmol/L (3.5-5.1) L 08/22/19 05:58 Chloride 106 mmol/L (98-107) 08/22/19 05:58 Carbon Dioxide 27.4 mmol/L (21.0-32.0) 08/22/19 05:58 Anion Gap 9.6 mmol/L (3-11) 08/22/19 05:58 BUN 8 mg/dL (7-18) 08/22/19 05:58 Creatinine 0.76 mg/dL (0.55-1.02) 08/22/19 05:58 Estimated GFR/1.73 m2 >= 60.00 (mL/min/1.73m2) 08/22/19 05:58 Glucose 95 mg/dL (74-106) 08/22/19 05:58 Calcium 8.7 mg/dL (8.5-10.1) 08/22/19 05:58 Magnesium 2.0 mg/dL (1.8-2.4) 08/22/19 05:58 Troponin I < 0.05 ng/Ml (<0.06) 08/21/19 15:50 NT-Pro-B Natriuret Pep 2666 pg/mL (<300) H 08/21/19 11:12 TSH 4.31 uIU/mL (0.36-3.74) H 08/21/19 04:35 Free T4 1.26 ng/dL (0.76-1.46) 08/21/19 04:35
--- NOTE | 2019-08-22 08:42 | PDOC.CMIN ---
- If Service Date Differs Date of service: 08/22/19 Time of Service: 08:42 Care Management Initial Assess REASON FOR HOSPITALIZATION:: aflutter, hypertension
--- NOTE | 2019-08-22 10:00 | W.NUTCONSULT ---
Date of service: 08/22/19 Time of Service: 10:00 Nutritional Consult ASSESSMENT: 74 year old female admitted to ICU. PMH: A fib, CHF, HTN, Hx of DVT. BMI wnl for age. Following Heart Healthy Diet with adequate intake. Not considered at nutritional risk. MONITORING AND EVALUATION: will monitor po intake, weight and labs dailly Time Spent in Nutritional Counseling and Treatment: 0 time spent face to face
[2019-08-22] MEDS: dilTIAZem 30 MG TAB PO ×2 (10:40→17:49)
[2019-08-22] MEDS: Spironolactone 25 MG TAB PO (11:40)
--- NOTE | 2019-08-22 13:53 | CHAPLAIN ---
Ladan was sitting up in a chair when I visited. She was very pleasant and easily engaged in a conversation. She said she believes she has turned the corner, and is feeling better. Family members have been in to visit and will be returning. Ladan lives in [place]. Although she was being encouraged to nap, Ladan said she doesn't want to. She was able to sleep some last night, she said, with the help of ear plugs and an eye mask.
--- NOTE | 2019-08-22 18:56 | PDOC.CMPRO ---
- If Service Date Differs Date of service: 08/22/19 Time of Service: 18:56 Care Management Progress Note S/O: Ladan is now medical surgical overflow and remains in the ICU. Her heart rates have improved she is alert and sitting up in the bed. Medications continue to be adjusted to manage her blood pressure. Ladan will need to be on Eliquis a prescription was faxed to [facility] in [place]. According to Ladan she uses a mail order pharmacy through [facility] and does not have a local pharmacy. She will need to obtain her new medications through the pharmacy then obtain her refills from [facility] mail order. Ladan will need a follow up scheduled at [facility] which she states she has a difficult time obtaining an appointment. Appointment will need to be made prior to discharge from the hospital. Ladan's daughter is preset at time of assessment and appears supportive. A: Ladan is a 74 year old female admitted with aflutter and hypertension. Ladan is independent at baseline, she manages her own medications and transportation. 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 She feels that she is going to have to stop this work due to stress and ability to manage her blood pressure. P:Ladan will be discharged home on new medications, she will need assistance with coordinating medications through a local pharmacy and follow up appointment with provider. She may benefit from an Eliquis card to get through the first thirty days. Spouse will transport home at time of discharge. CM to assess for ongoing discharge needs
[2019-08-22] MEDS: Melatonin 3 MG TAB 12 MG PO (19:29)
[2019-08-23] VITALS (83 sets, daily range): BP systolic 129–218; BP diastolic 65–146; PULSE 51–155; RESP 10–34; TEMP 36.3–36.7; O2SAT 94–98
--- NOTE | 2019-08-23 | DI.US_ITS ---
APPROVED REPORT EXAM: Comprehensive 2D, Doppler, and color-flow Echocardiogram Patient Location: In-Patient Room/Bed: 219A Hybrid Car Mechanic: Daylin Osei RDCS (AE) Indications: Atrial flutter, Chest pain, CHF Conclusion Left Ventricle : The left ventricle is normal size. Left ventricular systolic function is mildly dec reased. There is normal left ventricular wall thickness. There is normal LV segmental wall motion. Diastolic function cannot be graded due to atrial flutter but there is evidence of high LV filling pr essure. LVEF is 40-44%. Right Ventricle : The right ventricle is normal size. The right ventricular systolic function is norm al. Atria : The left atrium is enlarged. The right atrium size is normal. Aortic Valve : The Aortic valve is sclerotic. Aortic valve is trileaflet. No aortic regurgitation is present. There is no aortic valvular stenosis. Mitral Valve : Mitral valve leaflets are mildly thickened. Mild to moderate mitral regurgitation. Mil d to moderate mitral stenosis via mitral valve area (mitral valve mean gradient was obtained) Great Vessels : IVC is normal in size and collapses >50% with inspiration. Estimated RVSP is 25-30 m mHg. There is no prior echocardiogram available for comparison. Wall motion Left Ventricle The left ventricle is normal size. Left ventricular systolic function is mildly decreased. There is n ormal left ventricular wall thickness. There is normal LV segmental wall motion. Diastolic function c annot be graded due to atrial flutter but there is evidence of high LV filling pressure. LVEF is 40-4 4%. Right Ventricle The right ventricle is normal size. The right ventricular systolic function is normal. Atria The left atrium is enlarged. The right atrium size is normal. Aortic Valve The Aortic valve is sclerotic. Aortic valve is trileaflet. There is no aortic valvular stenosis. No a ortic regurgitation is present. Mitral Valve Mitral valve leaflets are mildly thickened. Mild to moderate mitral stenosis via mitral valve area (m itral valve mean gradient was not obtained) Mild to moderate mitral regurgitation. Tricuspid Valve The tricuspid valve is normal in structure. There is no tricuspid valve stenosis. Mild tricuspid regu rgitation. Pulmonic Valve The pulmonary valve is normal in structure. There is no pulmonic valvular stenosis. There is no pulmo johanna valvular regurgitation. Great Vessels The aortic root is normal in size. The ascending aorta is mildly dilated. IVC is normal in size and c ollapses >50% with inspiration. Estimated RVSP is 25-30 mmHg. Pericardium There is no pericardial effusion. 2D Dimensions IVSD d PLAX 0.98 cm F: 0.6-1.0 LV Vol A2C d MOD 57.8 mL LVPW d PLAX 0.98 cm F: 0.6 - 1.0 LV Vol A4C d MOD 77.4 mL LVID d PLAX 4.08 cm F: 3.8 - 5.2 LA vol/ BSA A2C s A-L 44.1 mL/m2 LVDs 3.05 cm F: 2.2 - 3.5 LA vol/ BSA A4C s A-L 41.5 mL/m2 Ao Root d 3.26 cm F: 2.7 - 3.3 LA Vol/ BSA Biplane s A-L 43.2 mL/m2 RA Area A4C 20.93 cm2 LA Area A4C s MOD 22.95 cm2 RA Vol/ BSA A4C s A-L 38.7 mL/m2 LA Area A2C s MOD 23.89 cm2 Ao Asc Diam d 3.21 cm F: 2.3 - 3.1 LV EF A4C MOD 40.6 % LV EF Teichholz 49.4 % LV EF A2C MOD 44.7 % LVEF (Omalley's) 41.50 % F: 54 - 74 LV EF Biplane MOD 41.5 % LV Volume 52.34 mL F: 46 - 106 LV Volume Index 28.91 mL/m2 F: 29 - 61 LV Vol Biplane MOD 67.5 mL FS 24.65 % LV Diastology MV E' medial 0.070 (>0.07 m/s) MV E Vmax 1.81 (0.4-1.3 m/s) LV E/e MED 25.75 (<14) MV E' lateral 0.073 (>0.1 m/s) LV E/e LAT 24.85 (<14) MV E/E' medial 25.77 MV E/E' lateral 24.90 Aortic Valve LVOT Area 2.40 cm2 AoV Area Vmax 2.18 cm2 LVOT Vmax 1.10 m/s AoV Area/ BSA (Vmax) 1.20 cm2/m2 LVOT Mean Ty. 0.64 m/s ASHTYN Mean Ty. 1.73 cm2 LVOT Peak Grad 4.9 mmHg ASHTYN Mean Ty. Index 0.95 cm2/m2 LVOT Mean Grad 2.0 mmHg LVOT VTI 0.217 m LVOT Diam s 1.70 cm (M/F) 1.5-2.5 AoV Vmax 1.21 (0.5-1.3 m/s) Velocity Ratio 0.90 AoV Mean Ty. 0.88 m/s AoV Peak Grad 5.9 mmHg LVOT SV 51.92 mL AoV Mean Grad 3.5 (<5 mmHg) AoV VTI 0.256 (0.18-0.25 m) AoV Area VTI 2.03 (2.5-4.5 cm2) AoV Area/ BSA (VTI) 1.12 cm/m2 Mitral Valve MV DT 283 (160-240 msec) MR Vmax 4.97 m/s MV PHT 82 msec MR VTI 1.518 m MV Area PHT 2.68 cm2 MR Peak Grad 98.8 mmHg MV VTI 0.465 m MR Mean Grad 63.9 mmHg MV Area VTI 1.12 (4.0-6.0 cm2) MR PISA Radius 0.41 cm MR EROA 0.08 cm2 MR Aliasing Velocity 0.35 m/s MR PISA 1.07 cm2 Pulmonary Valve PV Vmax 0.87 (0.5-1.5 m/s) RVOT Peak Gr. 3.40 mmHg PV Peak Grad 3.0 mmHg RVOT Mean Gr. 1.85 mmHg PV Mean Grad 1.7 mmHg RVOT VTI 0.203 m PV VTI 0.173 m RVOT Vmax 0.92 m/s Tricuspid Valve TR Peak Grad 26.0 mmHg TR Vmax 2.55 m/s RA Pressure 3.00 mmHg RVSP (TR) 29.1 mmHg
[2019-08-23] MEDS: Normal Saline Flush 10 ML SYR IVP ×3 (00:27→18:32)
[2019-08-23] MEDS: Metoprolol 5 MG/5 ML VIAL IVP ×3 (00:43→18:12)
[2019-08-23] MEDS: Metoprolol 50 MG TAB PO ×4 (00:51→19:11)
[2019-08-23] MEDS: dilTIAZem 30 MG TAB PO (05:23)
[2019-08-23 06:44] LABS: Abs Immature Grans 0.02 k/cumm (0.0-0.09); Absolute Basophil Count 0.07 k/cumm (0.0-0.2); Absolute Eosinophil Count 0.18 k/cumm (0.0-0.7); Absolute Lymphocyte Count 1.21 k/cumm (1.2-3.4); Absolute Monocyte Count 0.33 k/cumm (0.11-0.7); Absolute Neutrophil Count 2.21 k/cumm (1.2-6.7); Basophils % 1.7; Eosinophils % 4.5; HGB 13.2 g/dL (12.0-15.5); Immature Grans % 0.5 %; Lymphocytes % 30.1; Mean Corpuscular Hemoglobin 30.2 pg (27.0-33.0); Mean Corpuscular Volume 91.5 fL (80-95); Mean Platelet Volume 10.7 fL (8.0-11.0); Monocytes % 8.2; Platelet Count 292 x1000/uL (130-400); RBC 4.37 m/cumm (4.00-5.20); RBC Distribution Width 13.1 % (11.7-14.6); White Blood Cell Count 4.02 k/cumm (4.4-10.8)
[2019-08-23 06:57] LABS: Anion Gap 9.8 mmol/L (3-11); BUN 12 mg/dL (7-18); CO2 26.2 mmol/L (21.0-32.0); CREATININE 0.73 mg/dL (0.55-1.02); Calcium 9.1 mg/dL (8.5-10.1); Chloride 106 mmol/L (98-107); Glucose 102 mg/dL (74-106); Magnesium 2.2 mg/dL (1.8-2.4); Potassium 4.1 mmol/L (3.5-5.1); Sodium 142 mmol/L (136-145)
[2019-08-23] MEDS: Enoxaparin 80 MG/0.8 ML SYR SC (08:37)
[2019-08-23] MEDS: Ascorbic Acid 500 MG TAB 2000 MG PO ×2 (08:38→19:11)
[2019-08-23] MEDS: dilTIAZem CD 120 MG CAPCR PO (08:38)
[2019-08-23] MEDS: Multivitamin TAB 1 TAB PO (08:38)
[2019-08-23] MEDS: Losartan 50 MG TAB PO ×2 (08:38→19:11)
[2019-08-23] MEDS: Cyanocobalamin 100 MCG TABLET 400 MCG PO (08:38)
[2019-08-23] MEDS: Spironolactone 25 MG TAB PO ×2 (08:38→19:11)
--- NOTE | 2019-08-23 14:51 | CMPROGNOTE_ITS ---
- If Service Date Differs Date of service: 08/23/19 Time of Service: 14:51 Care Management Progress Note S/O: Ladan is now medical surgical overflow and remains in the ICU. Her heart rates had improved yesterday but overnight and during the day today have returned to the 150's. Additionally, Rupalis blood pressure remains high, over 200 systolic at times. Ladan will need to be on Eliquis a prescription was faxed to [facility] in [place]. According to Ladan she uses a mail order pharmacy [facility] and does not have a local pharmacy. She will need to obtain her new medications through the pharmacy then obtain her refills from [facility] mail order. A follow up appointment was scheduled at [facility] by EDUARDA for Monday08/30/19 at 10:05 am with Rhona Elliott MD. Ladan's regular PCP in that practice is on vacation. Ladan's daughter is preset at time of assessment and appears supportive. A: Ladan is a 74 year old female admitted with aflutter and hypertension. Ladan is independent at baseline, she manages her own medications and transportation. 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 She feels that she is going to have to stop this work due to stress and ability to manage her blood pressure. P:Ladan will be discharged home on new medications. She will need assistance with coordinating medications through a local pharmacy and follow up appointment with provider. She may benefit from an Eliquis card to get through the first thirty days. Spouse will transport home at time of discharge. CM to assess for ongoing discharge needs.
--- NOTE | 2019-08-23 16:49 | PGE_ITS ---
Date of Service Date of service: 08/23/19 Time of Service: 16:49 Assessment and Plan Assessment and plan (1) Atrial flutter with rapid ventricular response: Status: Resolved Assessment and plan: With periodic spikes in HR. Now, in fact, in NSR. Cardizem CD increased to 180 mg for tomorrow am; lopressor 50 mg PO Q6H is being converted to toprol XL 200. Now again rate controlled. Echo with reduced EF, no sign of intracardiac thrombus. Does have mild pulmonary hypertension and will need an outpatient sleep study. Will transition to eliqu. Transferred to [facility] floor. (2) Hypertensive urgency: Status: Acute Assessment and plan: As above. Continue cardizem, metoprolol, losartan (BID) and aldactone (BID). Needs to address underlying anxiety. Would benefit from outpatient workup of secondary causes of hypertension. (3) Chest discomfort: Status: Acute Assessment and plan: No evidence of ACS or PE. Does have sx c/w reflux and dysphagia for solids. Outpatient referral for an EGD on discharge. Start PPI. (4) Acute CHF: Status: Resolved Assessment and plan: Combined, systolic and diastolic. EF 40-44%. BP control is meyer. Euvolemic. Will need an outpatient stress test. (5) DVT prophylaxis: Status: Acute Assessment and plan: Transition to [facility] (6) Discharge planning issues: Status: Acute Assessment and plan: Full code. Hoping for discharge home tomorrow. Subjective Subjective Interval history since last seen: Ms Patel denies dizziness, reports chest discomfort - sometimes feeling like solids get stuck in her esophagus. Endorses some shortness of breath on exertion. Denies n/v. She reports anxiety and wants me to write her lorazepam, even though she states her PCP will not write it for her. She states she has seen a therapist for her anxiety in the past, but is not sure she can afford one now. Converted to NSR. Exam Narrative Exam Narrative: General: Very pleasant female, A&Ox3, sitting comfortably in a chair, but very anxious HEENT: EOMI, MMM Heart: RRR, no m/r/g Lungs: CTAB Abdomen: soft, nontender, nondistended Extremities: no e/c/c BLE's Objective Objective Clinical Data: Abnormal lab results 08/23/19 Range/Units 06:15 WBC 4.02 L (4.4-10.8) k/cumm Vital Signs Temperature 36.7 C 08/23/19 15:45 Temperature Source Temporal Artery Scan 08/23/19 15:45 Pulse 78 08/23/19 15:46 Pulse Rhythm Regular 08/23/19 15:42 Pulse 90 08/23/19 13:31 Respiratory Rate 11 L 08/23/19 15:46 Respiratory Effort Non-Labored 08/23/19 15:42 Respiratory Depth Normal 08/23/19 15:42 Respiratory Pattern Normal 08/23/19 15:42 Blood Pressure 158/87 H 08/23/19 15:46 Blood Pressure Mean 97 08/23/19 13:31 Blood Pressure Position Sitting 08/22/19 15:01 Pulse Oximetry 98 08/23/19 15:45 Oxygen Delivery Method Room Air 08/23/19 15:45 Oxygen Flow Rate 0 08/23/19 15:45 Pain Level 0 08/23/19 15:46 Comment 08/21/19 13:50 Intake & Output 08/22/19 08/23/19 08/23/19 23:59 11:59 23:59 Intake Total 1432.5 / 1577.167 240 / 480 240 / 480 Output Total 775 / 1425 500 / 500 Balance 657.5 / 152.167 -260 / -20 240 -20 Weight 76.8 kg Intake: IV 332.5 / 357.167 Oral 1100 / 1220 240 / 480 240 / 480 Output: Urine 775 / 1425 500 / 500 Other: Urine Color Yellow Yellow Urine Appearance Clear Clear Clear Urine Odor Normal Comment Clear, yellow urine. Voiding Methods Bedside Commode Bedside Commode Laboratory Results WBC 4.02 k/cumm (4.4-10.8) L 08/23/19 06:15 RBC 4.37 m/cumm (4.00-5.20) 08/23/19 06:15 Hgb 13.2 g/dL (12.0-15.5) 08/23/19 06:15 Hct 40.0 % (36.0-46.0) 08/23/19 06:15 MCV 91.5 fL (80-95) 08/23/19 06:15 MCH 30.2 pg (27.0-33.0) 08/23/19 06:15 MCHC 33.0 g/dL (32.0-36.0) 08/23/19 06:15 RDW 13.1 % (11.7-14.6) 08/23/19 06:15 Plt Count 292 x1000/uL (130-400) 08/23/19 06:15 MPV 10.7 fL (8.0-11.0) 08/23/19 06:15 Immature Gran % 0.5 % 08/23/19 06:15 Neutrophils % 55.0 08/23/19 06:15 Lymphocytes % 30.1 08/23/19 06:15 Monocytes % 8.2 08/23/19 06:15 Eosinophils % 4.5 08/23/19 06:15 Basophils % 1.7 08/23/19 06:15 Absolute Neutrophils 2.21 k/cumm (1.2-6.7) 08/23/19 06:15 Absolute Lymphocytes 1.21 k/cumm (1.2-3.4) 08/23/19 06:15 Absolute Monocytes 0.33 k/cumm (0.11-0.7) 08/23/19 06:15 Absolute Eosinophils 0.18 k/cumm (0.0-0.7) 08/23/19 06:15 Absolute Basophils 0.07 k/cumm (0.0-0.2) 08/23/19 06:15 PT 10.1 sec (9.3-11.0) 08/21/19 04:35 INR 1.0 (0.9-1.1) 08/21/19 04:35 D-Dimer 1393 ng/mlFEU (<500) H 08/21/19 04:35 Sodium 142 mmol/L (136-145) 08/23/19 06:15 Potassium 4.1 mmol/L (3.5-5.1) D 08/23/19 06:15 Chloride 106 mmol/L (98-107) 08/23/19 06:15 Carbon Dioxide 26.2 mmol/L (21.0-32.0) 08/23/19 06:15 Anion Gap 9.8 mmol/L (3-11) 08/23/19 06:15 BUN 12 mg/dL (7-18) 08/23/19 06:15 Creatinine 0.73 mg/dL (0.55-1.02) 08/23/19 06:15 Estimated GFR/1.73 m2 >= 60.00 (mL/min/1.73m2) 08/23/19 06:15 Glucose 102 mg/dL (74-106) 08/23/19 06:15 Calcium 9.1 mg/dL (8.5-10.1) 08/23/19 06:15 Magnesium 2.2 mg/dL (1.8-2.4) 08/23/19 06:15 Troponin I < 0.05 ng/Ml (<0.06) 08/21/19 15:50 NT-Pro-B Natriuret Pep 2666 pg/mL (<300) H 08/21/19 11:12 TSH 4.31 uIU/mL (0.36-3.74) H 08/21/19 04:35 Free T4 1.26 ng/dL (0.76-1.46) 08/21/19 04:35 Echo: Left Ventricle : The left ventricle is normal size. Left ventricular systolic function is mildly decreased. There is normal left ventricular wall thickness. There is normal LV segmental wall motion. Diastolic function cannot be graded due to atrial flutter but there is evidence of high LV filling pressure. LVEF is 40-44%. Right Ventricle : The right ventricle is normal size. The right ventricular systolic function is normal. Atria : The left atrium is enlarged. The right atrium size is normal. Aortic Valve : The Aortic valve is sclerotic. Aortic valve is trileaflet. No aortic regurgitation is present. There is no aortic valvular stenosis. Mitral Valve : Mitral valve leaflets are mildly thickened. Mild to moderate mitral regurgitation. Mild to moderate mitral stenosis via mitral valve area (mitral valve mean gradient was obtained) Great Vessels : IVC is normal in size and collapses >50% with inspiration. Estimated RVSP is 25-30 mmHg. There is no prior echocardiogram available for comparison.
[2019-08-23] MEDS: Apixaban 5 MG TAB PO (19:25)
[2019-08-24] VITALS (24 sets, daily range): BP systolic 150–201; BP diastolic 78–103; PULSE 51–153; RESP 12–25; TEMP 36.4; O2SAT 94–97
[2019-08-24] MEDS: Metoprolol 5 MG/5 ML VIAL IVP (00:29)
[2019-08-24] MEDS: Normal Saline Flush 10 ML SYR IVP (00:30)
[2019-08-24] MEDS: Metoprolol 50 MG TAB PO (02:02)
[2019-08-24] MEDS: Metoprolol CR 50 MG TABCR 200 MG PO (07:05)
[2019-08-24] MEDS: Losartan 50 MG TAB PO (07:06)
[2019-08-24] MEDS: Multivitamin TAB 1 TAB PO (07:06)
[2019-08-24] MEDS: Spironolactone 25 MG TAB PO (07:06)
[2019-08-24] MEDS: Apixaban 5 MG TAB PO (07:07)
[2019-08-24] MEDS: Cyanocobalamin 100 MCG TABLET 400 MCG PO (07:07)
[2019-08-24] MEDS: dilTIAZem CD 180 MG CAPCR PO (08:05)
--- NOTE | 2019-08-24 08:17 | CMPROGNOTE_ITS ---
Care Management Progress Note S/O: Ladan remains inpatient at this time, in the ICU but on M/S status. Her heart rates continue to be monitored closely, CM continues to follow. A: Ladan is a 74 year old female admitted with aflutter and hypertension. Ladan is independent at baseline, she manages her own medications and transportation. 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 She feels that she is going to have to stop this work due to stress and ability to manage her blood pressure. P: Ladan will be discharged home on new medications. She will need assistance with coordinating medications through a local pharmacy and follow up appointment with provider. A follow up appointment was scheduled at [facility] by CM for Monday08/30/19 at 10:05 am with Rhona Elliott MD. She may benefit from an Eliquis card to get through the first thirty days. Spouse will transport home at time of discharge. CM to assess for ongoing discharge needs.
[2019-08-24] MEDS: dilTIAZem 60 MG TAB PO (11:59)
--- NOTE | 2019-08-24 14:01 | W.PM.DS.N ---
Date of service: 08/24/19 Time of Service: 14:03 DS: Diagnosis Discharge Diagnosis (1) Atrial flutter with rapid ventricular response: Status: Resolved Asessment and Plan: Initially persistent and then intermittent atrial flutter with rapid ventricular response. Medication manipulations during hospitalization included first parenteral then oral diltiazem and metoprolol with dose titration up on both. By day of discharge heart rates mainly in the 70-80 range but telemetry suggesting continuation of atrial flutter with 3-1 block. Started on anticoagulation. Discussion on efforts at restoring sinus rhythm and no action taken, defer to cardiology follow-up. Diagnostics: Flat (-) troponins. BNP elevated on admission 2666. Echocardiogram with normal LV size, mild impairment of LVEF at 40 to 44% with elevated filling pressure, reading compromised by presence of atrial flutter. Sclerotic aortic valve with no significant regurgitation or stenosis. Mild to moderate mitral insufficiency and stenosis. Estimated RV systolic pressure 25 to 30 mm. She is being discharged with a 48-hour Holter monitor to assess control of heart rate and rhythm on discharge medications. She expressed a preference to have cardiology follow-up at [facility] and will be scheduled to see Dr. Leal as an outpatient. She is being discharged on the medications noted below as well as apixaban 5 mg twice daily. She has requested a 3-week supply of medications anticipating that at her outpatient follow-up primary healthcare market consultant will then send prescriptions (doses possibly altered depending upon heart rate and blood pressure) to her mail order pharmacy. (2) Hypertensive urgency: Status: Acute Asessment and Plan: Blood pressures during early hospitalization 200s over low 100s. With progressive increase in calcium channel anurag, beta-anurag and the addition of spironolactone, and switching lisinopril to losartan, blood pressure control improved but was far from perfect. By the afternoon of discharge systolic blood pressures consistently in the 150- 160s range, diastolics in the upper 80s to low 90s. Diagnostics: BUN 8 creatinine 0.76. TSH 4.31, free T4 normal at 1.26. Being discharged on metoprolol 200 mg daily, diltiazem 240 mg daily, spironolactone 25 mg twice daily and I am placing her back on her home lisinopril 20 mg twice daily as I see no advantage to switching this to losartan and adding to her medication cost. (3) Acute CHF: Status: Resolved Asessment and Plan: Attributed to rapid heart rate and high blood pressure, she did not require any additional treatment beyond the treatments mentioned above directed towards slowing her heart rate down and addressing her blood pressure (which included the addition of spironolactone). Admission weight was 77.5 kg, discharge weight 75.4 kg. (4) Dysphagia: Status: Acute Asessment and Plan: She complained of central chest discomfort early in hospitalization prompting cycling of troponins which were all negative, low probability lung ventilation/perfusion scan (CT scanner down) and duplex scan of the lower extremities negative for DVT (incidental finding of bilateral popliteal cyst). As time went on this evolved more into dysphagia. She was placed on a PPI. The symptoms resolved. On the day of discharge she stated that she did not want to continue on the medication and would try to manage the symptom nonpharmacologically. The possibility of EGD was discussed with her but no referral was made. Discharge Plan Disposition Patient Disposition: HOME Condition: Improving Discharge Details Chief Complaint: Palpitatns Clinical Impression: Atrial flutter with rapid ventricular response Reason For Visit: ATRIAL FLUTTER WITH RVR, HYPERTENSION Admit Date/Time: 08/21/19 06:32 Admit Provider: Elpidio Devi Attending Provider: Elpidio Devi Primary Care Provider: Isidro Schmidt ED Provider: [facility] Course Hospital Course: 74-year-old woman with a history of medically refractory hypertension (?) Admitted through the emergency room with recurrent palpitations, rapid heart rate, found to be in recurrent atrial flutter with rapid ventricular response. She had been seen in the emergency room approximately 2 weeks prior with palpitations and narrow complex tachyarrhythmia. At that ER visit she slowed promptly with IV diltiazem and was discharged for outpatient follow-up. On re-presentation was again in narrow complex tachyarrhythmia with elevated blood pressure. She denied chest pain. Her BNP was elevated. Her d-dimer was elevated. She had recently discontinued amlodipine because of progressive lower extremity edema. She was admitted for further evaluation rate/rhythm control and management of her blood pressure. Please refer to the discharge diagnoses for details regarding hospital course by problem. Home Meds and New Rx's Prescriptions: New spironolactone 25 mg Tablet 25 mg PO BID Qty: 42 RF: 1 diltiazem HCl 240 mg capsule,extended release 24hr 240 mg PO DAILY Qty: 21 RF: 1 Eliquis 5 mg tablet 5 mg PO BID Qty: 60 RF: 1 metoprolol succinate 200 mg tablet extended release 24 hr 200 mg PO DAILY Qty: 21 RF: 1 Continued lisinopril 20 MG tablet 20 mg PO BID Qty: 180 RF: 4 multivitamin Tablet 1 tab PO DAILY RF: 0 ascorbic acid (vitamin C) [Vitamin C] 1,000 mg Tablet 2 g PO BID RF: 0 cyanocobalamin (vitamin B-12) [Vitamin B-12] 100 mcg Tablet 400 mcg PO DAILY RF: 0 Shasha 2 tab PO HS RF: 0 magnesium citrate 100 mg Tablet 1,200 mg PO DAILY RF: 0 Discontinued metoprolol tartrate 50 mg tablet 50 mg PO DAILY AM RF: 0 metoprolol tartrate 37.5 mg tablet 37.5 mg PO HS RF: 0 Discharge Instructions Instructions: Atrial Flutter (DC), Chronic Hypertension (DC), Safe Use of Anticoagulants (DC) Additional Instructions: Call your primary healthcare market consultant if you experience any side effects from your current medication. Return to the heart monitor to the hospital in 48 hours. Expect a phone call with cardiology appointment. If you do not hear anything by midweek, call the [facility] specialty clinic. Referrals: Rosalinda Mosqueda [ NON-[facility] STAFF PHYSICIAN] - 08/30/19 10:20 am (Keep the previously scheduled appointment with Dr. Mosqueda on August 29) Activity:: Activity as Tolerated Equipment/Supplies:: No Equipment Needed Diet:: Normal Diet Discharge Orders Discharge Orders: Discharge Order (Routine); Ordered 08/24/19 Ordered By: Dylon Good DS: Summary Status at Discharge Functional status at discharge: independent ambulation Overall status at discharge: patient is back to baseline Mental Status: mental status grossly normal Speech and Movement: speech and movement normal Mood: congruent mood Affect: normal affect Time Spent with Patient providing and/or coordinating discharge services: Greater than 30 minutes Exam Narrative Exam Narrative: On the day of discharge she is in good spirits, no distress. Telemetry at the time of discharge showing what I suspect to be continued atrial flutter with 3-1 block, heart rate in the upper 70s. Blood pressure 150-160 systolic over 85-88. Neck veins are flat. Lungs clear. Heart rhythm sounds regular, no murmur S3 or S4 heard. Active bowel sounds with no abdominal tenderness. No pitting edema of the lower extremities. Psych Mental Status: mental status grossly normal Speech and Movement: speech and movement normal Mood: congruent mood Affect: normal affect DS: Data Vitals/I&O Vitals and I&O: Vital Signs Temperature 36.4 C L 08/24/19 08:07 Temperature Source Temporal Artery Scan 08/24/19 08:07 Pulse 77 08/24/19 13:07 Pulse Rhythm Regular 08/24/19 08:07 Pulse 76 08/24/19 13:07 Respiratory Rate 18 08/24/19 13:07 Respiratory Effort Non-Labored 08/24/19 08:07 Respiratory Depth Normal 08/24/19 08:07 Respiratory Pattern Normal 08/24/19 08:07 Blood Pressure 163/95 H 08/24/19 13:07 Blood Pressure Mean 110 08/24/19 13:07 Blood Pressure Position Sitting 08/22/19 15:01 Pulse Oximetry 97 08/24/19 10:57 Oxygen Delivery Method Room Air 08/24/19 08:07 Oxygen Flow Rate 0 08/24/19 08:07 Pain Level 0 08/24/19 08:07 Comment 08/21/19 13:50 Intake & Output 08/23/19 08/24/19 08/24/19 23:59 11:59 23:59 Intake Total 480 / 720 810 / 810 Output Total 1525 / 2025 925 / 925 Balance -1045 / -1305 -115 / -115 Weight 75.4 kg Intake: IV Oral 480 / 720 800 / 800 Output: Urine 1525 / 5 925 / 925 Other: Urine Color Yellow Yellow Urine Appearance Clear Clear Urine Odor Normal Normal Comment In toilet per patient. Voiding Methods Bedside Commode Toilet please refer to discharge diagnosis section for other diagnostics. [facility] Medical History Atrial flutter (Acute) HTN (hypertension) (Chronic) Surgical History S/P hernia repair (Chronic) Family History Mother Essential hypertension Heart disease Stroke Father Essential hypertension Heart disease Stroke Sister Essential hypertension Personal history of malignant neoplasm BREAST Grandfather Heart disease Grandfather Personal history of malignant neoplasm Lung Grandmother Heart disease Stroke Grandmother No problems noted. Social History Smoking/Tobacco Use Status: Former Tobacco Use Alcohol Intake: current Alcohol Intake frequency: holidays/special occasions only Drug use: Never Substance use type: does not use Do you feel safe at home: Yes Do you feel safe in your relationship?: Yes
== END 2019-08-24 15:15 | disposition home or self-care (01) | DRG 308 ==
LOC: ER 07:36 → MS 07:46 → ICU 11:08
PROVIDERS: Internal Medicine; Admitting Provider Family Medicine; Emergency Provider Emergency Medicine; PCP Family Medicine; Visit Provider Family Medicine
DX: I48.92 Unspecified atrial flutter (principal); I50.41 Acute combined systolic (congestive) and diastolic (congestive) heart failure; I16.0 Hypertensive urgency; Z87.891 Personal history of nicotine dependence; I11.0 Hypertensive heart disease with heart failure; E87.6 Hypokalemia; I27.20 Pulmonary hypertension, unspecified; I08.3 Combined rheumatic disorders of mitral, aortic and tricuspid valves; R13.10 Dysphagia, unspecified
CPT/HCPCS: 36415; 80048; 93005; 93306; 96361; 96372; 96374; 99223; 99232; 99239; 99285; 99291; 71046; 78580; 83735; 83880; 84439; 84443; 84484; 85025; 85379; 85610; 93010; 93225; 93970; J1650; J1941

== ENCOUNTER → 2019-08-23 08:49 | Outpatient (BNVA) | payer MEDICARE, BC, SELFPAY | PROVIDERS: PCP Family Medicine; Referring Provider Family Medicine; Visit Provider Internal Medicine Cardiovascular Disease | DX: R69 Illness, unspecified (principal) ==

== ENCOUNTER 2019-08-25 16:01 | Emergency (ER) | payer MEDICARE, BC, SELFPAY ==
[2019-08-25] VITALS (27 sets, daily range): BP systolic 118–184; BP diastolic 70–116; PULSE 73–152; RESP 10–25; TEMP 36.2; O2SAT 91–99
--- NOTE | 2019-08-25 16:30 | DI.RAD_ITS ---
EXAM: XR CHEST 2V PA LATERAL CLINICAL HISTORY: Palpitations TECHNIQUE: 2D digital imaging was performed. COMPARISON: XR CHEST 2V PA LATERAL from 08/21/2019 FINDINGS: MEDIASTINUM: Normal. HEART: Normal. PULMONARY VASCULATURE: Normal. LUNGS: Clear. PLEURAL SPACE: No pleural effusion or pneumothorax. BONE:Normal. OTHER FINDINGS:Normal. IMPRESSION: No acute pulmonary findings. DATA REPOSITORY: RADIATION DOSE DELIVERED:
--- NOTE | 2019-08-25 16:30 | W.ED.GENAD ---
Discharge Plan Disposition Patient Disposition: HOME Condition: Stable Discharge Details Chief Complaint: Palpitatns Clinical Impression: Atrial flutter Primary Care Provider: Isidro Schmidt ED Provider: Gennaro Finnegan Home Meds and New Rx's Prescriptions: Continued lisinopril 20 MG tablet 20 mg PO BID Qty: 180 RF: 4 multivitamin Tablet 1 tab PO DAILY RF: 0 ascorbic acid (vitamin C) [Vitamin C] 1,000 mg Tablet 2 g PO BID RF: 0 cyanocobalamin (vitamin B-12) [Vitamin B-12] 100 mcg Tablet 400 mcg PO DAILY RF: 0 Shasha 2 tab PO HS RF: 0 magnesium citrate 100 mg Tablet 1,200 mg PO DAILY RF: 0 spironolactone 25 mg Tablet 25 mg PO BID Qty: 42 RF: 1 diltiazem HCl 240 mg capsule,extended release 24hr 240 mg PO DAILY Qty: 21 RF: 1 Eliquis 5 mg tablet 5 mg PO BID Qty: 60 RF: 1 metoprolol succinate 200 mg tablet extended release 24 hr 200 mg PO DAILY Qty: 21 RF: 1 Discharge Instructions Instructions: Atrial Flutter (ED) Additional Instructions: At this time your heart responded nicely to the IV medications. Blood work is unremarkable for emergent process. Given your complicated last 3 weeks, recent discharge from our hospital yesterday, we did discuss further observation here at our facility but she would rather be discharged home. Given you are currently feeling asymptomatic and appears stable I believe this to be reasonable but do understand you may need to return to the ER for new, worsening, or evolving symptoms. Otherwise it sounds as though you should be having a club car attendant reach out to you tomorrow to discuss ongoing therapy, reevaluation, and to evaluate your Holter monitor. Medical Decision Making 74-year-old female who is been experiencing difficult to control atrial flutter over the past 3 weeks. Most currently discharged from our hospital yesterday. During her stay she did have a low probability VQ scan and negative lower extremity Doppler to rule out DVT-PE. She reports that since she was discharged she has taken all of her medications as directed, including metoprolol, diltiazem, Eliquis. She reports that she can feel her heart racing but has no pain or shortness of breath. She is otherwise asymptomatic. Outside of her heart rate in the 150s and her mild hypertension, she appears well and in no distress. It appears as though diltiazem essentially what was broke her refractory atrial flutter. Will obtain cardiac work-up and give 20 IV diltiazem. Diltiazem given in a very short period of time her heart rate was in the 70s. She reports being asymptomatic. She and her are eager to be discharged from the hospital now that her heart rate is normal however I explained to her that her work-up is not complete and I did want to observe her to be sure she did not go back into atrial flutter. Chest x-ray read by virtual radiology as no acute process. Her laboratory values do reveal a BNP of 1050 however this is trending downward from when compared to her recent hospitalization. Work-up otherwise unremarkable. Initial troponin was undetectable. Patient remained asymptomatic and did not go back into atrial flutter with a rapid ventricular response. Patient was agreeable to a repeat EKG. Performed at 1823 reveals atrial flutter, rate of 75. No acute ST elevation or depression segments. I explained to the patient that she was still in atrial flutter but no longer in a rapid ventricular response. I explained to her that I would like to obtain a 3-hour troponin however she would like to be discharged. I did explain to her that outside of obtaining the troponin here in the ER we could even admit her to the hospital for observation given her refractory atrial flutter. Certainly cannot predict whether or not she will go back into atrial flutter requiring another ER visit or hospitalization. She reports that she is asymptomatic now, understands the risks, is wearing a Holter monitor, and is being called by a cardiology team tomorrow. Disposition decision made weighing the risk and benefits of hospitalization versus outpatient treatment, the risk for further decompensation, and the patient's wishes. She was encouraged to return immediately to the ER for new or worsening symptoms. Medical Records Medical records reviewed: Yes I reviewed the patient's medical records. Imaging Data Radiologic Study: Imaging: X-Ray Radiologist's impression: Chest x-ray negative per virtual radiology Lab Data Lab results reviewed: Yes I reviewed the patient's lab results. Lab results narrative: Laboratory Tests Range/Units 08/25/19 08/25/19 08/25/19 16:40 16:40 16:40 WBC (4.4-10.8) k/cumm 5.71 RBC (4.00-5.20) m/cumm 4.65 Hgb (12.0-15.5) g/dL 13.9 Hct (36.0-46.0) % 42.7 MCV (80-95) fL 91.8 MCH (27.0-33.0) pg 29.9 MCHC (32.0-36.0) g/dL 32.6 RDW (11.7-14.6) % 13.3 Plt Count (130-400) x1000/uL 319 MPV (8.0-11.0) fL 10.6 Immature Gran % % 0.4 Neutrophils % 63.6 Lymphocytes % 23.5 Monocytes % 10.0 Eosinophils % 1.8 Basophils % 0.7 Absolute Neutrophils (1.2-6.7) k/cumm 3.64 Absolute Lymphocytes (1.2-3.4) k/cumm 1.34 Absolute Monocytes (0.11-0.7) k/cumm 0.57 Absolute Eosinophils (0.0-0.7) k/cumm 0.10 Absolute Basophils (0.0-0.2) k/cumm 0.04 PT (9.3-11.0) sec 10.2 INR (0.9-1.1) 1.0 APTT (21.0-31.4) sec 23.1 Sodium (136-145) mmol/L 139 Potassium (3.5-5.1) mmol/L 4.5 Chloride (98-107) mmol/L 103 Carbon Dioxide (21.0-32.0) mmol/L 26.0 Anion Gap (3-11) mmol/L 10.0 BUN (7-18) mg/dL 13 Creatinine (0.55-1.02) mg/dL 0.93 Estimated GFR/1.73 m2 (mL/min/1.73m2) 59.26 Glucose (74-106) mg/dL 107 H Calcium (8.5-10.1) mg/dL 9.2 Magnesium (1.8-2.4) mg/dL 2.3 Total Bilirubin (0.2-1.0) mg/dL 1.3 H AST (15-37) U/L 52 H ALT (14-59) U/L 64 H Alkaline Phosphatase (46-116) U/L 81 Troponin I (<0.06) ng/Ml < 0.05 NT-Pro-B Natriuret Pep (<300) pg/mL 1050 H Total Protein (6.4-8.2) g/dL 7.6 Albumin (3.4-5.0) g/dL 4.2 TSH (0.36-3.74) uIU/mL 3.06 Range/Units 08/25/19 19:34 WBC (4.4-10.8) k/cumm RBC (4.00-5.20) m/cumm Hgb (12.0-15.5) g/dL Hct (36.0-46.0) % MCV (80-95) fL MCH (27.0-33.0) pg MCHC (32.0-36.0) g/dL RDW (11.7-14.6) % Plt Count (130-400) x1000/uL MPV (8.0-11.0) fL Immature Gran % % Neutrophils % Lymphocytes % Monocytes % Eosinophils % Basophils % Absolute Neutrophils (1.2-6.7) k/cumm Absolute Lymphocytes (1.2-3.4) k/cumm Absolute Monocytes (0.11-0.7) k/cumm Absolute Eosinophils (0.0-0.7) k/cumm Absolute Basophils (0.0-0.2) k/cumm PT (9.3-11.0) sec INR (0.9-1.1) APTT (21.0-31.4) sec Sodium (136-145) mmol/L Potassium (3.5-5.1) mmol/L Chloride (98-107) mmol/L Carbon Dioxide (21.0-32.0) mmol/L Anion Gap (3-11) mmol/L BUN (7-18) mg/dL Creatinine (0.55-1.02) mg/dL Estimated GFR/1.73 m2 (mL/min/1.73m2) Glucose (74-106) mg/dL Calcium (8.5-10.1) mg/dL Magnesium (1.8-2.4) mg/dL Total Bilirubin (0.2-1.0) mg/dL AST (15-37) U/L ALT (14-59) U/L Alkaline Phosphatase (46-116) U/L Troponin I (<0.06) ng/Ml Cancelled NT-Pro-B Natriuret Pep (<300) pg/mL Total Protein (6.4-8.2) g/dL Albumin (3.4-5.0) g/dL TSH (0.36-3.74) uIU/mL ECG Data Attestation: I personally reviewed and interpreted this ECG (s) as follows: Interpretation: EKG performed at 1618. Reveals supraventricular tachycardia, narrow complex, no P wave. Rate of 153. No acute ST elevation or depression segments. HPI General Mode of arrival: ambulatory. Date/Time Provider Initiated Documentation: 08/25/19 16:08. Limitations to Documentation: no limitations. Information obtained by: patient. HPI Narrative: This is a 74-year-old female with history of atrial flutter with rapid ventricular response, hypertension, hypertensive urgency, CHF who was actually discharged from our hospital yesterday for atrial flutter. She reports that she was discharged around 4 PM, felt as though she did go back into atrial flutter a couple of times yesterday but then spontaneously resolved on its own. Today around 2:00 she felt as though she went back into atrial flutter and it has not resolved. She reports that she is taking her new prescribed medications as directed which includes diltiazem and Eliquis. She denies any chest pain whatsoever. She denies any shortness of breath. She is wearing a Holter monitor and she is expecting a call that was set up during her hospitalization from cardiology tomorrow for prompt outpatient evaluation and cardiology follow-up. She denies recent illness or trauma. She reports prior to 3 weeks ago she never had a cardiac history. She was seen in the ER initially for atrial flutter, treated in the ER 3 weeks ago and subsequently sent home. Was doing well until her recent hospitalization. Related Data Home Medications Medication Instructions Recorded Confirmed lisinopril 20 mg PO BID #180 tab 04/17/15 08/25/19 Shasha 2 tab PO HS 08/05/19 08/25/19 ascorbic acid (vitamin C) [Vitamin 2 g PO BID 08/05/19 08/25/19 C] cyanocobalamin (vitamin B-12) 400 mcg PO DAILY 08/05/19 08/25/19 [Vitamin B-12] multivitamin 1 tab PO DAILY 08/05/19 08/25/19 magnesium citrate 1,200 mg PO DAILY 08/21/19 08/25/19 Eliquis 5 mg PO BID #60 tab 08/24/19 08/25/19 diltiazem HCl 240 mg PO DAILY #21 cap 08/24/19 08/25/19 metoprolol succinate 200 mg PO DAILY #21 tab 08/24/19 08/25/19 spironolactone 25 mg PO BID #42 tab 08/24/19 08/25/19 Previous Rx's Medication Instructions Recorded Eliquis 5 mg PO BID #60 tab 08/24/19 diltiazem HCl 240 mg PO DAILY #21 cap 08/24/19 metoprolol succinate 200 mg PO DAILY #21 tab 08/24/19 spironolactone 25 mg PO BID #42 tab 08/24/19 Allergies Allergy/AdvReac Type Severity Reaction Status Date / Time No Known Allergies Allergy Unverified 08/25/19 16:25 General Stated Complaint: Palpitatns JOSE: 2 Review of Systems Constitutional Constitutional: Denies fatigue and Denies fever(s) Eyes Eyes: Denies change in vision ENT Ears, Nose, Mouth, and Throat: Denies dizziness Cardiovascular Cardiovascular: Denies chest pain, Denies syncope, Reports rapid heart rate and Denies dyspnea Respiratory Respiratory: Denies cough and Denies dyspnea Gastrointestinal Gastrointestinal: Denies abdominal pain, Denies nausea and Denies vomiting Musculoskeletal Musculoskeletal: Denies back pain and Denies myalgias Integumentary/Breasts Skin/Breast: Denies rash Neurologic Neurologic: Denies dizziness and Denies syncope Endocrine Endocrine: Denies fatigue [facility] Medical History Atrial flutter (Acute) HTN (hypertension) (Chronic) Surgical History S/P hernia repair (Chronic) Family History Mother Essential hypertension Heart disease Stroke Father Essential hypertension Heart disease Stroke Sister Essential hypertension Personal history of malignant neoplasm BREAST Grandfather Heart disease Grandfather Personal history of malignant neoplasm Lung Grandmother Heart disease Stroke Grandmother No problems noted. Social History Smoking/Tobacco Use Status: Former Tobacco Use Alcohol Intake: current Alcohol Intake frequency: holidays/special occasions only Drug use: Never Substance use type: does not use Do you feel safe at home: Yes Do you feel safe in your relationship?: Yes Exam Const General: cooperative, healthy appearing, comfortable and no acute distress Orientation: alert, awake and oriented x3 HENMT Head: normal to inspection, normocephalic and atraumatic Mouth: moist mucous membranes Eyes Conjunctivae: conjunctivae normal Neck Neck: normal visual inspection, full ROM, trachea midline and supple Chest Chest: normal palpation of entire chest wall and other (Patient is wearing a Holter monitor) Resp Effort & Inspection: normal respiratory effort and able to speak in complete sentences Auscultation: clear to auscultation bilaterally Cardio Rate: tachycardic (In the 150s) GI Palpation: not soft and nontender Back/Spine/Pelvis Back: No back tenderness Skin General skin exam: no rashes or lesions noted Neuro General: alert, awake, moves all extremities and no focal motor deficits Cranial Nerves: CN's II-XI intact bilaterally Cognition: normal cognition Speech: speech normal Gait: normal gait Motor: muscle tone normal throughout Sensory Exam: no sensory deficits noted Extrem General: normal to inspection, full ROM and normal capillary refill Psych Appearance: grossly normal Mental Status: mental status grossly normal Course Vital Signs Vital signs: Vital Signs Temperature 36.2 C L 08/25/19 16:14 Pulse 150 H 08/25/19 16:14 Respiratory Rate 16 08/25/19 16:14 Blood Pressure 160/107 H 08/25/19 16:14 Pulse Oximetry 96 08/25/19 16:14 Temperature 36.2 C L 08/25/19 16:14 Temperature Source Skin 08/25/19 16:14 Pulse 150 H 08/25/19 16:14 Respiratory Rate 16 08/25/19 16:14 Respiratory Effort Non-Labored 08/25/19 16:14 Blood Pressure 160/107 H 08/25/19 16:14 Blood Pressure Position Sitting 08/25/19 16:14 Pulse Oximetry 96 08/25/19 16:14 Oxygen Delivery Method Room Air 08/25/19 16:14 Oxygen Flow Rate 0 08/25/19 16:14 Pain Level 0 08/25/19 16:14 Critical Care Time Critical Care Time Critical Care Time: Yes Total Critical Care Time: 35 Attestation: Upon my evaluation, this patient had a high probability of clinically significant, life-threatening deterioration due to their current medical conditions, which required my direct attention, intervention, and personal management. I have personally provided greater than 30 minutes of critical care time exclusive of the time spend on separately billable procedures. Time includes obtaining a history, examining the patient, pulse oximetry, review of laboratory data, radiology results, discussion with consultants, arranging urgent treatment with development of a management plan, evaluation of patient's response to treatment, and monitoring for potential decompensation. Interventions were performed as documented above.
[2019-08-25 16:45] LABS: Abs Immature Grans 0.02 k/cumm (0.0-0.09); Absolute Basophil Count 0.04 k/cumm (0.0-0.2); Absolute Lymphocyte Count 1.34 k/cumm (1.2-3.4); Absolute Monocyte Count 0.57 k/cumm (0.11-0.7); Absolute Neutrophil Count 3.64 k/cumm (1.2-6.7); Basophils % 0.7; Eosinophils % 1.8; HCT 42.7 % (36.0-46.0); HGB 13.9 g/dL (12.0-15.5); Immature Grans % 0.4 %; Lymphocytes % 23.5; Mean Corp. HGB Concentration 32.6 g/dL (32.0-36.0); Mean Corpuscular Hemoglobin 29.9 pg (27.0-33.0); Mean Corpuscular Volume 91.8 fL (80-95); Mean Platelet Volume 10.6 fL (8.0-11.0); Neutrophils % 63.6; Platelet Count 319 x1000/uL (130-400); RBC 4.65 m/cumm (4.00-5.20); RBC Distribution Width 13.3 % (11.7-14.6); White Blood Cell Count 5.71 k/cumm (4.4-10.8)
[2019-08-25] MEDS: dilTIAZem 25 MG/5 ML VIAL 20 MG IVP (16:45)
[2019-08-25] MEDS: Normal Saline 1,000 ML 150 ML IV (16:46)
[2019-08-25 16:57] LABS: PTT Activated 23.1 sec (21.0-31.4); Prothrombin Time 10.2 sec (9.3-11.0)
[2019-08-25 17:06] LABS: ALT 64 U/L (14-59); AST 52 U/L (15-37); Albumin 4.2 g/dL (3.4-5.0); Alkaline Phosphatase 81 U/L (46-116); BUN 13 mg/dL (7-18); Bilirubin, Total 1.3 mg/dL (0.2-1.0); CREATININE 0.93 mg/dL (0.55-1.02); Calcium 9.2 mg/dL (8.5-10.1); Chloride 103 mmol/L (98-107); Estimated GFR 59.26 (mL/min/1.73m2); Glucose 107 mg/dL (74-106); Magnesium 2.3 mg/dL (1.8-2.4); NT-proBNP 1050 pg/mL (<300); Potassium 4.5 mmol/L (3.5-5.1); Sodium 139 mmol/L (136-145); TSH 3.06 uIU/mL (0.36-3.74); Total Protein 7.6 g/dL (6.4-8.2); Troponin I < 0.05 ng/Ml (<0.06)
--- NOTE | 2019-08-25 17:51 | NUR.NOTE ---
16:45 Patient ambulated to bathroom. HR maintained in 70's. Denies shortness of breath or dizziness.
--- NOTE | 2019-08-25 18:26 | DI.VRAD_ITS ---
PROCEDURE INFORMATION: Exam: XR Chest, 2 Views Exam date and time: 08/25/2019 5:48 PM Age: 74 years old Clinical indication: Other: Palpitations TECHNIQUE: Imaging protocol: XR of the chest Views: 2 views. COMPARISON: CR XR CHEST 2V PA LATERAL 08/21/2019 5:26 AM FINDINGS: Lungs: Unremarkable. No consolidation. Pleural space: Unremarkable. No pleural effusion. No pneumothorax. Heart/Mediastinum: Unremarkable. No cardiomegaly. Bones/joints: Unremarkable. Other findings: Overlying EKG wires IMPRESSION: No acute process Dictated and Authenticated by: Mercedez Dominguez MD. Ordering:TANI Burdick MD
== END 2019-08-25 19:30 | disposition home or self-care (01) ==
PROVIDERS: Emergency Provider Physician Assistant; PCP Family Medicine
DX: I48.92 Unspecified atrial flutter (principal); I11.0 Hypertensive heart disease with heart failure; I50.9 Heart failure, unspecified
CPT/HCPCS: 80053; 96374; 99285; 99291; 71046; 83735; 83880; 84443; 84484; 85025; 85610; 85730

== ENCOUNTER 2019-08-26 16:47 | Outpatient (CLI) | payer MEDICARE, BC, SELFPAY ==
--- NOTE | 2019-08-27 12:13 | W.HOLTRPT ---
Date of service: 08/27/19 Time of Service: 12:13 Holter Monitor Report Holter Monitor Note: This is a 2-day event monitor ordered for the indication of atrial flutter. ?The patient was in atrial fibrillation or flutter for the majority of the recording. ?The longest episode of atrial fibrillation/flutter was 1 day and 4 hours. Maximal heart rate was 155 bpm during these episodes. Mean heart rate was 96. ?The patient had no episodes of ventricular tachycardia and rare (0.3%) single ventricular ectopic beats. ?There was no evidence of high degree heart block or pauses greater than 3 seconds. There were no patient triggered events.
== END 2019-08-26 17:07 ==
PROVIDERS: PCP Family Medicine; Visit Provider Family Medicine
DX: I48.91 Unspecified atrial fibrillation (principal)
CPT/HCPCS: 93226

== ENCOUNTER 2019-08-27 12:18 | Outpatient (CLI) | payer MEDICARE, BC, SELFPAY | END 2019-08-27 12:38 | PROVIDERS: PCP Family Medicine; Referring Provider Family Medicine; Visit Provider Internal Medicine Cardiovascular Disease | DX: I48.91 Unspecified atrial fibrillation (principal) | CPT/HCPCS: 93227 ==

== ENCOUNTER 2019-08-30 11:35 | Outpatient (REF) | payer MEDICARE, BC, SELFPAY ==
[2019-08-30 20:28] LABS: ALT 35 U/L (14-59); AST 15 U/L (15-37); Albumin 4.4 g/dL (3.4-5.0); Alkaline Phosphatase 85 U/L (46-116); Anion Gap 9.9 mmol/L (3-11); BUN 13 mg/dL (7-18); Bilirubin, Total 1.2 mg/dL (0.2-1.0); CO2 26.1 mmol/L (21.0-32.0); CREATININE 0.99 mg/dL (0.55-1.02); Calcium 9.5 mg/dL (8.5-10.1); Chloride 103 mmol/L (98-107); Estimated GFR 55.14 (mL/min/1.73m2); Glucose 111 mg/dL (74-106); Sodium 139 mmol/L (136-145); Total Protein 7.7 g/dL (6.4-8.2)
== END 2019-08-30 11:55 ==
LOC: NCHCN 11:35
PROVIDERS: PCP Family Medicine; Visit Provider Internal Medicine
DX: I48.0 Paroxysmal atrial fibrillation (principal)
CPT/HCPCS: 80053

== ENCOUNTER → 2019-10-01 13:42 | Outpatient (BNVA) | payer MEDICARE, BC, SELFPAY | PROVIDERS: PCP Family Medicine; Referring Provider Family Medicine; Visit Provider Internal Medicine Cardiovascular Disease | DX: I48.92 Unspecified atrial flutter (principal); I10 Essential (primary) hypertension | CPT/HCPCS: 99204; 99443 ==

== ENCOUNTER 2019-10-16 19:35 | Observation (INO) | payer MEDICARE, BC, SELFPAY ==
[2019-10-16] VITALS (18 sets, daily range): BP systolic 103–159; BP diastolic 61–117; PULSE 69–148; RESP 14–22; TEMP 36.5; O2SAT 93–100
--- NOTE | 2019-10-16 19:31 | W.ED.GENAD ---
Discharge Plan Disposition Patient Disposition: [facility] INPATIENT Condition: Fair Discharge Details Chief Complaint: SOB Clinical Impression: Acute dyspnea, Hyponatremia, AILYN (acute kidney injury) Primary Care Provider: Isidro Schmidt ED Provider: Jaclyn Martinez Home Meds and New Rx's Prescriptions: No Action Xarelto 20 mg tablet 20 mg PO DAILY RF: 0 Zymex PO RF: 0 Cardiotrophin PO RF: 0 Livaplex PO RF: 0 lisinopril 20 MG tablet 20 mg PO BID Qty: 180 RF: 4 multivitamin Tablet 1 tab PO DAILY RF: 0 cyanocobalamin (vitamin B-12) [Vitamin B-12] 100 mcg Tablet 400 mcg PO DAILY RF: 0 Shasha 3 tab PO HS RF: 0 magnesium citrate 100 mg Tablet 1,200 mg PO DAILY RF: 0 spironolactone 25 mg Tablet 25 mg PO BID Qty: 42 RF: 1 diltiazem HCl 240 mg capsule,extended release 24hr 240 mg PO DAILY Qty: 21 RF: 1 metoprolol succinate 200 mg tablet extended release 24 hr 200 mg PO DAILY Qty: 21 RF: 1 Medical Decision Making Patient is a pleasant 74 year old female, brought in via EMS, with c/c of SOB. States that it began 3 hrs prior to arrival. States she had been lifting large bags of rock salt from her car. Shortly after, she was working in her garden when SOB began. STates that since her recent admission she is been having intermittent nausea. Her primary care is a series of medication changes. She reports that her metoprolol was doubled, spironolactone, Xarelto was added as was her diltiazem on her last admission. This was when the patient was diagnosed and treated for atrial fibrillation with rapid ventricular response. She endorses SOB with exertion since her recent discharge. States that today was worse than what she has been experiencing. States that her SOB lasted one hour and was accompanied by tingling in her bilateral hands. This senstaion persisted past the end of the SOB, shopped just prior ot arrival here. She denies CP. No SOB currently. No nausea associated with symptoms today. Had been feeling well prior to exertion. Denies fevers/chill. States she had 5 episodes of watery diarrhea today which is new. No abdominal pain. No change in medications since discharge. Echo was obtained on recent admission showing normal LV size, mild impairment of LVF at 40-44% with elevated filling pressure, reading compromised by atrial flutter. Sclerotic aortic valve with no significant regurgitation or stenosis. Mild to moderate mitral insufficiency and stenosis. Estimated RV systolic pressure 25 to 30 mm. ECG reviewed by Dr[address] Sage. Patient is in atrial fibrillation, rate of 105. She has ST abnormalities but these are unchanged from previous ECG dated 08/25/2019. No acute ischemic changes noted. CXR reviewed by radiologist: Lungs: No focal areas of consolidation. Pleural space: No pleural effusion or pneumothorax. Heart/Mediastinum: Cardiac and mediastinal silhouettes are unremarkable. Bones/joints: No acute osseus lesion or fracture. IMPRESSION: No acute cardiopulmonary findings. Labs reviewed. Patient's sodium is 120. Her potassium is elevated at 5.7. I am surprised that his numbers based on the clinical exam and plan to repeat his these were obtained in the field by EMS. Initial TSH is a 12.36, no history of thyroid dysfunction per patient report. Repeat labs are obtained. Patient has mild leukocytosis a white count of 11.75. She does have an elevated neutrophil count of 9.4. Sodium is 123. Potassium 5.3. Anion gap 9.0. Patient does have an acute kidney injury with a creatinine of 1.38 and a GFR 37. This is unusual for the patient she has not been elevated historically. Calcium was normal. Initial troponin less than 0.05. TSH now down to 5.14. Urinalysis without significant abnormality. Plan for COVID-19 testing. Patient is receiving IV normal saline. She is eating and drinking in the room. I did show the patient's to update him at her request. Plan to consult with hospitalist regarding the hyponatremia, shortness of breath and need for admission. Consulted with Dr. Anand who agrees to admission for AILYN, SOB, hyponatremia. Discussed plan with patient who is inagreemen with this plan. HPI General Mode of arrival: EMS. Date/Time Provider Initiated Documentation: 10/16/19 20:48. Limitations to Documentation: no limitations. Information obtained by: patient, EMS and RN notes reviewed. History of Present Illness 74 year old F presents to the emergency department with the chief complaint of SOB, described as moderate and similar to prior episodes, Patient started experiencing this hour(s) (began on 1630) and it has been now resolved. Immobilization improves symptom(s), Movement worsens symptoms . Patient notes nausea/vomiting (states she has had nausea since starting new medications, no change with current symptoms), shortness of breath and other (diarrhea); denies chest pain, cough, diaphoresis, fever/chills, loss of appetite, rash, syncope and weakness. Patient did receive the following treatments prior to arrival, none Related Data Home Medications Medication Instructions Recorded Confirmed lisinopril 20 mg PO BID #180 tab 04/17/15 10/16/19 cyanocobalamin (vitamin B-12) 400 mcg PO DAILY 08/05/19 10/16/19 [Vitamin B-12] multivitamin 1 tab PO DAILY 08/05/19 10/16/19 magnesium citrate 1,200 mg PO DAILY 08/21/19 10/16/19 diltiazem HCl 240 mg PO DAILY #21 cap 08/24/19 10/16/19 metoprolol succinate 200 mg PO DAILY #21 tab 08/24/19 10/16/19 spironolactone 25 mg PO BID #42 tab 08/24/19 10/16/19 Cardiotrophin PO 10/01/19 10/01/19 Livaplex PO 10/01/19 10/01/19 Shasha 3 tab PO HS 10/01/19 10/01/19 Zymex PO 10/01/19 rivaroxaban 20 mg tablet 20 mg PO DAILY 10/01/19 10/16/19 Previous Rx's Medication Instructions Recorded diltiazem HCl 240 mg PO DAILY #21 cap 08/24/19 metoprolol succinate 200 mg PO DAILY #21 tab 08/24/19 spironolactone 25 mg PO BID #42 tab 08/24/19 Allergies Allergy/AdvReac Type Severity Reaction Status Date / Time No Known Allergies Allergy Unverified 10/16/19 19:43 General JOSE: 2 Review of Systems Constitutional Constitutional: Reports as per HPI, Denies chills, Denies fatigue, Denies fever(s), Denies frequent falls and Denies headache(s) Eyes Eyes: Denies change in vision ENT Ears, Nose, Mouth, and Throat: Denies headache(s) and Denies odynophagia Cardiovascular Cardiovascular: Denies chest pain, Denies dyspnea and Denies dyspnea on exertion Respiratory Respiratory: Denies cough, Denies dyspnea and Denies dyspnea on exertion Gastrointestinal Gastrointestinal: Denies abdominal pain, Denies hematochezia, Reports change in bowel habits, Denies cramping, Denies fecal incontinence, Reports diarrhea (5 watery bowel movements today), Reports nausea (associates with medication changes), Denies odynophagia and Denies vomiting Genitourinary Genitourinary: Reports as per HPI, Denies urinary incontinence and Denies urinary hesitancy Musculoskeletal Musculoskeletal: Reports as per HPI, Reports back pain, Denies muscle weakness, Denies numbness, Denies radiating pain into limb, Reports stiffness and Denies tingling Integumentary/Breasts Skin/Breast: Reports as per HPI and Denies rash Neurologic Neurologic: Reports as per HPI, Denies frequent falls, Denies headache(s), Denies localized weakness, Denies numbness, Denies radicular pain, Denies sensory deficit, Denies tingling and Denies paresthesias Endocrine Endocrine: Denies fatigue [facility] Medical History Atrial flutter (Acute) HTN (hypertension) (Chronic) Surgical History S/P hernia repair (Chronic) Family History Mother Essential hypertension Heart disease Stroke Father Essential hypertension Heart disease Stroke Sister Essential hypertension Personal history of malignant neoplasm BREAST Grandfather Heart disease Grandfather Personal history of malignant neoplasm Lung Grandmother Heart disease Stroke Grandmother No problems noted. Social History Smoking/Tobacco Use Status: Former Tobacco Use Quit Date: 06/19/84 Tobacco: How many years used: 20 Alcohol Intake: current Alcohol Intake frequency: holidays/special occasions only Alcohol type: wine Drug use: Never Substance use type: does not use What type of physical activity do you participate in: walking and other Details: hikes Duration: 15-30 minutes/day Frequency: daily Do you feel safe at home: Yes Do you feel safe in your relationship?: Yes Exam Const General: cooperative, healthy appearing, comfortable, no acute distress, well developed and well groomed Nutritional Appearance: average body habitus and well nourished Orientation: alert and awake Eyes General: appearance normal, both eyes and all related structures Neck Neck: normal visual inspection, full ROM, no lymphadenopathy and no meningeal signs Resp Effort & Inspection: normal respiratory effort and able to speak in complete sentences Auscultation: clear to auscultation bilaterally, no rales, no rhonchi and no wheezes Cardio Rate: tachycardic Rhythm: abnormal rhythm irregularly irregular Heart Sounds: S1 normal and S2 normal GI Inspection: normal to inspection Palpation: soft, not rigid and nontender Skin General skin exam: no rashes or lesions noted Neuro General: patient alert and patient awake Cognition: normal cognition Speech: speech normal Gait: normal gait Motor: muscle tone normal throughout, strength 5/5 throughout, no movement abnormalities noted and no fasciculations DTR's: Rt Patellar: 2+, Lt Patellar: 2+, Rt Ankle: 2+ and Lt Ankle: 2+ Extrem General: normal to inspection, full ROM, capillary refill normal, no joint enlargement, no pedal edema, no calf tenderness and normal gait Psych Appearance: grossly normal and well kempt Mental Status: mental status grossly normal Speech and Movement: speech and movement normal
--- NOTE | 2019-10-16 20:17 | DI.RAD_ITS ---
EXAM: XR PORTABLE CHEST AP CLINICAL HISTORY: SOB. TECHNIQUE: 2D digital imaging was performed. COMPARISON: XR CHEST 2V PA LATERAL from 08/25/2019 FINDINGS: LUNGS: Clear. No pleural abnormality seen. HEART: Normal. MEDIASTINUM: Normal. OTHER FINDINGS: None. IMPRESSION: No acute pulmonary findings. DATA REPOSITORY: RADIATION DOSE DELIVERED:
[2019-10-16 20:20] LABS: ALT 25 U/L (14-59); AST 21 U/L (15-37); Albumin 4.7 g/dL (3.4-5.0); Alkaline Phosphatase 93 U/L (46-116); Anion Gap 11.4 mmol/L (3-11); BUN 15 mg/dL (7-18); Bilirubin, Total 1.4 mg/dL (0.2-1.0); CO2 21.6 mmol/L (21.0-32.0); CREATININE 1.58 mg/dL (0.55-1.02); Calcium 10.1 mg/dL (8.5-10.1); Chloride 87 mmol/L (98-107); Estimated GFR 32.15 (mL/min/1.73m2); Glucose 100 mg/dL (74-106); Magnesium 2.1 mg/dL (1.8-2.4); Potassium 5.7 mmol/L (3.5-5.1); Total Protein 8.7 g/dL (6.4-8.2); Troponin I < 0.05 ng/Ml (<0.06)
[2019-10-16 20:26] LABS: Sodium 120 mmol/L (136-145)
[2019-10-16 20:27] LABS: TSH (W/Ref FT4) 12.36 uIU/mL (0.36-3.74)
--- NOTE | 2019-10-16 20:29 | DI.VRAD_ITS ---
PROCEDURE INFORMATION: Exam: XR Chest, 1 View Exam date and time: 10/16/2019 8:18 PM Age: 74 years old Clinical indication: Shortness of breath TECHNIQUE: Imaging protocol: XR of the chest Views: 1 view. COMPARISON: CR XR CHEST 2V PA LATERAL 08/25/2019 5:48 PM FINDINGS: Lungs: No focal areas of consolidation. Pleural space: No pleural effusion or pneumothorax. Heart/Mediastinum: Cardiac and mediastinal silhouettes are unremarkable. Bones/joints: No acute osseus lesion or fracture. IMPRESSION: No acute cardiopulmonary findings. Dictated and Authenticated by: Xavier Patel MD. Ordering:HOME Anaya MD
[2019-10-16 20:31] LABS: Abs Immature Grans 0.12 k/cumm (0.0-0.09); Absolute Basophil Count 0.04 k/cumm (0.0-0.2); Absolute Eosinophil Count 0.06 k/cumm (0.0-0.7); Absolute Lymphocyte Count 1.18 k/cumm (1.2-3.4); Absolute Monocyte Count 0.96 k/cumm (0.11-0.7); Basophils % 0.3; Eosinophils % 0.5; HCT 45.6 % (36.0-46.0); HGB 15.8 g/dL (12.0-15.5); Mean Corp. HGB Concentration 34.6 g/dL (32.0-36.0); Mean Corpuscular Hemoglobin 29.8 pg (27.0-33.0); Monocytes % 8.2; Platelet Count 295 x1000/uL (130-400); RBC Distribution Width 12.9 % (11.7-14.6); White Blood Cell Count 11.75 k/cumm (4.4-10.8)
[2019-10-16 20:36] LABS: D-Dimer 456 ng/mlFEU (<500)
[2019-10-16 20:49] LABS: BUN 16 mg/dL (7-18); CREATININE 1.38 mg/dL (0.55-1.02); Calcium 9.6 mg/dL (8.5-10.1); Chloride 90 mmol/L (98-107); Estimated GFR 37.58 (mL/min/1.73m2); Glucose 104 mg/dL (74-106); Potassium 5.3 mmol/L (3.5-5.1)
[2019-10-16 20:51] LABS: Sodium 123 mmol/L (136-145)
[2019-10-16 20:55] LABS: INR 1.1 (0.9-1.1); PTT Activated 27.2 sec (21.0-31.4); Prothrombin Time 10.7 sec (9.3-11.0)
[2019-10-16 21:19] LABS: TSH 5.14 uIU/mL (0.36-3.74)
[2019-10-16 21:21] LABS: FREE T4 1.41 ng/dL (0.76-1.46)
[2019-10-16 21:33] LABS: Bilirubin Negative (Negative); Blood Negative (Negative); Clarity Clear (Clear); Glucose Negative (Negative); Ketones Trace mg/dL (Negative); Leukocyte Esterase Negative (Negative); Nitrite Negative (Negative); Urobilinogen 0.2 EU/dL (Up TO 0.2); pH 8.5 (5-8)
[2019-10-16] MEDS: Normal Saline 1,000 ML 250 ML IV (21:38)
[2019-10-16] MEDS: Normal Saline Flush 10 ML SYR IVP (21:39)
--- NOTE | 2019-10-16 22:38 | HPE_ITS ---
Date of service: 10/16/19 Time of Service: 22:38 Assessment and Plan Assessment and plan (1) SOB (shortness of breath): Status: Acute Assessment and plan: Not entirely clear how today's events hold together. ROB seems to be baseline, perhaps triggered by work in garden, perhaps RVR contributing, all on baseline of mild cardiomyopathy and valvular disease. I think the hand tingling was probably some element of hyperventilation. At any rate she is essentially asymptomatic at present with only definite cardiopulmonary findings of RVR. I would try switching the Cardizem to verapamil for better control, continue beta anurag as is. The electrolyte abnormalities are no doubt from the Spironolactone (plus the ULISES wrt K+). I would avoid this as apparently the indication is HTN, not CHF, and there would be other options. Will also trend troponins though I think ACS not likely. Requests DNR. History of Present Illness History of Present Illness Chief Complaint: SOB Narrative: 74 female with recent hospitalization for AF/RVR, with CHF felt to be secondary to RVR, in s etting of mild decrease EF (40-44%) and mild-mod MR/MS. Beta and calcium blockers adjusted and spironolactone added (for HTN). States has baseline ROB. Today after hauling around 50 lb bags of rock salt felt SOB, then bilateral hand tingling. No CP/cough or fever. Did not resolve as usual with rest so came to ER. In ER findings of note for AF in low-mid 100s; no acute EKG changes; negative CXR and d-Dimer and troponin; and sodium 123 (120 in field) and K 5.3 (5.6 in field). Started on NS infusion. States she feels entirely well at present except for feeling a little tired. Review of Systems All systems reviewed & are unremarkable except as noted in HPI and below PFSH Medical History Atrial flutter (Acute) HTN (hypertension) (Chronic) Surgical History S/P hernia repair (Chronic) Family History Mother Essential hypertension Heart disease Stroke Father Essential hypertension Heart disease Stroke Sister Essential hypertension Personal history of malignant neoplasm BREAST Grandfather Heart disease Grandfather Personal history of malignant neoplasm Lung Grandmother Heart disease Stroke Grandmother No problems noted. Social History Smoking/Tobacco Use Status: Former Tobacco Use Quit Date: 06/19/84 Tobacco: How many years used: 20 Alcohol Intake: current Alcohol Intake frequency: holidays/special occasions only Alcohol type: wine Drug use: Never Substance use type: does not use What type of physical activity do you participate in: walking and other Details: hikes Duration: 15-30 minutes/day Frequency: daily Do you feel safe at home: Yes Do you feel safe in your relationship?: Yes Meds Home Medications and Allergies Home Medications Medication Instructions Recorded Confirmed Type lisinopril 20 mg PO BID #180 tab 04/17/15 10/16/19 History cyanocobalamin (vitamin B-12) 400 mcg PO DAILY 08/05/19 10/16/19 History [Vitamin B-12] multivitamin 1 tab PO DAILY 08/05/19 10/16/19 History magnesium citrate 1,200 mg PO DAILY 08/21/19 10/16/19 History diltiazem HCl 240 mg PO DAILY #21 cap 08/24/19 10/16/19 Rx metoprolol succinate 200 mg PO DAILY #21 tab 08/24/19 10/16/19 Rx spironolactone 25 mg PO BID #42 tab 08/24/19 10/16/19 Rx Cardiotrophin PO 10/01/19 10/01/19 History Livaplex PO 10/01/19 10/01/19 History Shasha 3 tab PO HS 10/01/19 10/01/19 History Zymex PO 10/01/19 History rivaroxaban 20 mg tablet 20 mg PO DAILY 10/01/19 10/16/19 History Allergies Allergy/AdvReac Type Severity Reaction Status Date / Time No Known Allergies Allergy Unverified 10/16/19 19:43 Exam Narrative Exam Narrative: 122/89, 110-148 during my visit; 36.5, 19, 97%. HEENT atraumatric; neck supple; lungs clear; heart irr/irr; abdomen soft NT ; extr: w/o edema, pulse 2+/=; neuro Ox3, non-focal Results Labs Result diagrams: 10/16/19 19:25 10/16/19 20:33 Labs: Laboratory Results - last 24 hr 10/16/19 10/16/19 10/16/19 19:25 19:25 19:50 WBC 11.75 H RBC 5.30 H Hgb 15.8 H Hct 45.6 MCV 86.0 MCH 29.8 MCHC 34.6 RDW 12.9 Plt Count 295 MPV 10.0 Immature Gran % 1.0 Neutrophils % 80.0 Lymphocytes % 10.0 Monocytes % 8.2 Eosinophils % 0.5 Basophils % 0.3 Absolute Neutrophils 9.40 H Absolute Lymphocytes 1.18 L Absolute Monocytes 0.96 H Absolute Eosinophils 0.06 Absolute Basophils 0.04 PT 10.7 INR 1.1 APTT 27.2 D-Dimer 456 Sodium 120 L* Potassium 5.7 H Chloride 87 L Carbon Dioxide 21.6 Anion Gap 11.4 H BUN 15 Creatinine 1.58 H Estimated GFR/1.73 m2 32.15 Glucose 100 Calcium 10.1 Magnesium 2.1 Total Bilirubin 1.4 H AST 21 ALT 25 Alkaline Phosphatase 93 Troponin I < 0.05 Total Protein 8.7 H Albumin 4.7 TSH Free T4 Urine Color Urine Clarity Urine pH Ur Specific [place] Urine Protein Urine Ketones Urine Blood Urine Nitrite Urine Bilirubin Urine Urobilinogen Ur Leukocyte Esterase Urine Glucose 10/16/19 10/16/19 10/16/19 19:51 20:33 20:33 WBC RBC Hgb Hct MCV MCH MCHC RDW Plt Count MPV Immature Gran % Neutrophils % Lymphocytes % Monocytes % Eosinophils % Basophils % Absolute Neutrophils Absolute Lymphocytes Absolute Monocytes Absolute Eosinophils Absolute Basophils PT INR APTT D-Dimer Sodium 123 L* Potassium 5.3 H Chloride 90 L Carbon Dioxide 24.0 Anion Gap 9.0 BUN 16 Creatinine 1.38 H Estimated GFR/1.73 m2 37.58 Glucose 104 Calcium 9.6 Magnesium Total Bilirubin AST ALT Alkaline Phosphatase Troponin I Total Protein Albumin TSH 12.36 H 5.14 H Free T4 1.41 Urine Color Urine Clarity Urine pH Ur Specific [place] Urine Protein Urine Ketones Urine Blood Urine Nitrite Urine Bilirubin Urine Urobilinogen Ur Leukocyte Esterase Urine Glucose 10/16/19 21:20 WBC RBC Hgb Hct MCV MCH MCHC RDW Plt Count MPV Immature Gran % Neutrophils % Lymphocytes % Monocytes % Eosinophils % Basophils % Absolute Neutrophils Absolute Lymphocytes Absolute Monocytes Absolute Eosinophils Absolute Basophils PT INR APTT D-Dimer Sodium Potassium Chloride Carbon Dioxide Anion Gap BUN Creatinine Estimated GFR/1.73 m2 Glucose Calcium Magnesium Total Bilirubin AST ALT Alkaline Phosphatase Troponin I Total Protein Albumin TSH Free T4 Urine Color Yellow Urine Clarity Clear Urine pH 8.5 H Ur Specific [place] 1.020 Urine Protein Negative Urine Ketones Trace H Urine Blood Negative Urine Nitrite Negative Urine Bilirubin Negative Urine Urobilinogen 0.2 Ur Leukocyte Esterase Negative Urine Glucose Negative Last Vital Signs Temp 36.5 C 10/16/19 19:38 Pulse 110 H 10/16/19 22:16 Resp 15 10/16/19 22:20 BP 103/75 10/16/19 22:16 Pulse Ox 95 10/16/19 22:20 COVID-19 Screening Traveled to [place] from one of the affected countries or regions?: NO Recent travel in the [place] within the last 14 days?: No Recent out of the country travel within the last 14 days?: No Exposure or possible exposure to illness during travel?: No Had IN PERSON contact w/suspected or confirmed C-19 person: No Have you had the following symptoms in the past few days?: No
--- NOTE | 2019-10-16 23:18 | NUR.NOTE ---
Nursing Note: Pt appears to have changed rhythm to presumed a flutter at a rate of 126. Dr. Anand present, reviewed strips and made aware. Pt resting at this time with eyes closed. Per Dr. Anand, no ECG necessary at this time. RR even and unlabored. Wakes easily.
[2019-10-16 23:58] LABS: Troponin I < 0.05 ng/Ml (<0.06)
[2019-10-17] VITALS (7 sets, daily range): BP systolic 112–138; BP diastolic 68–92; PULSE 70–135; RESP 15–18; TEMP 36.4–36.6; O2SAT 96–97
[2019-10-17] MEDS: Verapamil 80 MG TAB 40 MG PO ×3 (00:24→02:45)
[2019-10-17] MEDS: Normal Saline 1,000 ML 75 ML IV ×2 (00:53→13:06)
[2019-10-17] MEDS: Normal Saline Flush 10 ML SYR IVP (00:53)
[2019-10-17 06:59] LABS: HCT 38.7 % (36.0-46.0); HGB 13.5 g/dL (12.0-15.5); Mean Corp. HGB Concentration 34.9 g/dL (32.0-36.0); Mean Corpuscular Hemoglobin 30.1 pg (27.0-33.0); Mean Corpuscular Volume 86.4 fL (80-95); Mean Platelet Volume 9.8 fL (8.0-11.0); Platelet Count 291 x1000/uL (130-400); RBC 4.48 m/cumm (4.00-5.20); RBC Distribution Width 12.9 % (11.7-14.6); White Blood Cell Count 6.08 k/cumm (4.4-10.8)
[2019-10-17 07:09] LABS: Anion Gap 7.8 mmol/L (3-11); BUN 17 mg/dL (7-18); CO2 23.2 mmol/L (21.0-32.0); CREATININE 1.05 mg/dL (0.55-1.02); Calcium 9.1 mg/dL (8.5-10.1); Chloride 96 mmol/L (98-107); Estimated GFR 51.52 (mL/min/1.73m2); Glucose 81 mg/dL (74-106); Potassium 4.9 mmol/L (3.5-5.1); Sodium 127 mmol/L (136-145)
[2019-10-17 07:16] LABS: Troponin I < 0.05 ng/Ml (<0.06)
[2019-10-17] MEDS: Metoprolol CR 100 MG TABCR 200 MG PO (08:29)
[2019-10-17] MEDS: Verapamil 80 MG TAB PO (08:29)
[2019-10-17] MEDS: Lisinopril 20 MG TAB PO (08:29)
--- NOTE | 2019-10-17 10:29 | W.PM.PROGNOT ---
Date of Service Date of service: 10/17/19 Time of Service: 10:30 Assessment and Plan Assessment and plan (1) Acute kidney injury: Status: Acute Assessment and plan: improved with IV fluids and holding diuretics, likely pre-renal. will continue to monitor closely, renal dosing if needed. avoid nephrotoxic drugs. (2) Atrial flutter with rapid ventricular response: Status: Resolved Assessment and plan: rate is better controlled now. case discussed with her digital asset coordinator who was open to cardioverting her today but she already ate breakfast so plan is to place her back on her home medications and titrate as needed. she has been anticoagulated on xarelto but did miss a dose yesterday. her sodium is correcting with IV fluids and holding diuretics. (3) HTN (hypertension): Status: Chronic Assessment and plan: blood pressure stable, monitor closely while adjusting cardiac medications Qualifiers: Hypertension type: essential hypertension Qualified Code(s): I10 - Essential (primary) hypertension (4) DVT prophylaxis: Status: Acute Assessment and plan: fully anticoagulated on xarelto (5) Discharge planning issues: Status: Acute Assessment and plan: anticipate discharge to home when medically stable. Subjective Subjective Patient reports: no new complaints, feels better and tolerating a regular diet; denies shortness of breath Objective Objective Clinical Data: Abnormal lab results 10/16/19 10/16/19 10/16/19 Range/Units 19:25 19:50 19:51 WBC 11.75 H (4.4-10.8) k/cumm RBC 5.30 H (4.00-5.20) m/cumm Hgb 15.8 H (12.0-15.5) g/dL Absolute Neutrophils 9.40 H (1.2-6.7) k/cumm Absolute Lymphocytes 1.18 L (1.2-3.4) k/cumm Absolute Monocytes 0.96 H (0.11-0.7) k/cumm Sodium 120 L* (136-145) mmol/L Potassium 5.7 H (3.5-5.1) mmol/L Chloride 87 L (98-107) mmol/L Anion Gap 11.4 H (3-11) mmol/L Creatinine 1.58 H (0.55-1.02) mg/dL Total Bilirubin 1.4 H (0.2-1.0) mg/dL Total Protein 8.7 H (6.4-8.2) g/dL TSH 12.36 H (0.36-3.74) uIU/mL Urine pH (5-8) Urine Ketones (Negative) mg/dL 10/16/19 10/16/19 10/16/19 Range/Units 20:33 20:33 21:20 WBC (4.4-10.8) k/cumm RBC (4.00-5.20) m/cumm Hgb (12.0-15.5) g/dL Absolute Neutrophils (1.2-6.7) k/cumm Absolute Lymphocytes (1.2-3.4) k/cumm Absolute Monocytes (0.11-0.7) k/cumm Sodium 123 L* (136-145) mmol/L Potassium 5.3 H (3.5-5.1) mmol/L Chloride 90 L (98-107) mmol/L Anion Gap (3-11) mmol/L Creatinine 1.38 H (0.55-1.02) mg/dL Total Bilirubin (0.2-1.0) mg/dL Total Protein (6.4-8.2) g/dL TSH 5.14 H (0.36-3.74) uIU/mL Urine pH 8.5 H (5-8) Urine Ketones Trace H (Negative) mg/dL 10/17/19 Range/Units 06:05 WBC (4.4-10.8) k/cumm RBC (4.00-5.20) m/cumm Hgb (12.0-15.5) g/dL Absolute Neutrophils (1.2-6.7) k/cumm Absolute Lymphocytes (1.2-3.4) k/cumm Absolute Monocytes (0.11-0.7) k/cumm Sodium 127 L (136-145) mmol/L Potassium (3.5-5.1) mmol/L Chloride 96 L (98-107) mmol/L Anion Gap (3-11) mmol/L Creatinine 1.05 H (0.55-1.02) mg/dL Total Bilirubin (0.2-1.0) mg/dL Total Protein (6.4-8.2) g/dL TSH (0.36-3.74) uIU/mL Urine pH (5-8) Urine Ketones (Negative) mg/dL Vital Signs Temperature 36.4 C L 10/17/19 08:25 Temperature Source Tympanic 10/17/19 08:25 Pulse 124 H 10/17/19 08:25 Pulse Rhythm Irregular 10/17/19 08:25 Pulse 129 H 10/16/19 23:46 Respiratory Rate 18 10/17/19 08:25 Respiratory Effort Non-Labored 10/17/19 08:25 Respiratory Depth Normal 10/17/19 08:25 Respiratory Pattern Normal 10/17/19 08:25 Blood Pressure 122/92 H 10/17/19 08:25 Blood Pressure Mean 81 10/16/19 23:46 Blood Pressure Position Supine 10/16/19 19:38 Pulse Oximetry 97 10/17/19 08:25 Oxygen Delivery Method Room Air 10/17/19 08:25 Oxygen Flow Rate 0 10/17/19 08:25 Pain Level 0 10/17/19 08:25 Intake & Output 10/16/19 10/16/19 10/17/19 11:59 23:59 11:59 Weight 78.1 kg 78.1 kg Other: Urine Color Yellow Urine Appearance Clear Comment up independently to void Voiding Methods Toilet Laboratory Results WBC 6.08 k/cumm (4.4-10.8) D 10/17/19 06:05 RBC 4.48 m/cumm (4.00-5.20) 10/17/19 06:05 Hgb 13.5 g/dL (12.0-15.5) D 10/17/19 06:05 Hct 38.7 % (36.0-46.0) 10/17/19 06:05 MCV 86.4 fL (80-95) 10/17/19 06:05 MCH 30.1 pg (27.0-33.0) 10/17/19 06:05 MCHC 34.9 g/dL (32.0-36.0) 10/17/19 06:05 RDW 12.9 % (11.7-14.6) 10/17/19 06:05 Plt Count 291 x1000/uL (130-400) 10/17/19 06:05 MPV 9.8 fL (8.0-11.0) 10/17/19 06:05 Immature Gran % 1.0 % 10/16/19 19:25 Neutrophils % 80.0 10/16/19 19:25 Lymphocytes % 10.0 10/16/19 19:25 Monocytes % 8.2 10/16/19 19:25 Eosinophils % 0.5 10/16/19 19:25 Basophils % 0.3 10/16/19 19:25 Absolute Neutrophils 9.40 k/cumm (1.2-6.7) H 10/16/19 19:25 Absolute Lymphocytes 1.18 k/cumm (1.2-3.4) L 10/16/19 19:25 Absolute Monocytes 0.96 k/cumm (0.11-0.7) H 10/16/19: Absolute Eosinophils 0.06 k/cumm (0.0-0.7) 10/16/19 19: Absolute Basophils 0.04 k/cumm (0.0-0.2) 10/16/19 19:25 PT 10.7 sec (9.3-11.0) 10/16/19 19:25 INR 1.1 (0.9-1.1) 10/16/19 19:25 APTT 27.2 sec (21.0-31.4) 10/16/19 19:25 D-Dimer 456 ng/mlFEU (<500) 10/16/19 19:25 Sodium 127 mmol/L (136-145) L 10/17/19 06:05 Potassium 4.9 mmol/L (3.5-5.1) 10/17/19 06:05 Chloride 96 mmol/L (98-107) L 10/17/19 06:05 Carbon Dioxide 23.2 mmol/L (21.0-32.0) 10/17/19 06:05 Anion Gap 7.8 mmol/L (3-11) 10/17/19 06:05 BUN 17 mg/dL (7-18) 10/17/19 06:05 Creatinine 1.05 mg/dL (0.55-1.02) H 10/17/19 06:05 Estimated GFR/1.73 m2 51.52 (mL/min/1.73m2) 10/17/19 06:05 Glucose 81 mg/dL (74-106) 10/17/19 06:05 Calcium 9.1 mg/dL (8.5-10.1) 10/17/19 06:05 Magnesium 2.1 mg/dL (1.8-2.4) 10/16/19 19:50 Total Bilirubin 1.4 mg/dL (0.2-1.0) H 10/16/19 19:50 AST 21 U/L (15-37) 10/16/19 19:50 ALT 25 U/L (14-59) 10/16/19 19:50 Alkaline Phosphatase 93 U/L (46-116) 10/16/19 19:50 Troponin I < 0.05 ng/Ml (<0.06) 10/17/19 06:05 Total Protein 8.7 g/dL (6.4-8.2) H 10/16/19 19:50 Albumin 4.7 g/dL (3.4-5.0) 10/16/19 19:50 TSH 5.14 uIU/mL (0.36-3.74) H 10/16/19 20:33 Free T4 1.41 ng/dL (0.76-1.46) 10/16/19 19:51 Urine Color Yellow (Yellow) 10/16/19 21:20 Urine Clarity Clear (Clear) 10/16/19 21:20 Urine pH 8.5 (5-8) H 10/16/19 21:20 Ur Specific [place] 1.020 (1.005-1.025) 10/16/19 21:20 Urine Protein Negative mg/dL (Negative) 10/16/19 21:20 Urine Ketones Trace mg/dL (Negative) H 10/16/19 21:20 Urine Blood Negative (Negative) 10/16/19 21:20 Urine Nitrite Negative (Negative) 10/16/19 21:20 Urine Bilirubin Negative (Negative) 10/16/19 21:20 Urine Urobilinogen 0.2 EU/dL (Up TO 0.2) 10/16/19 21:20 Ur Leukocyte Esterase Negative (Negative) 10/16/19 21:20 Urine Glucose Negative mg/dL (Negative) 10/16/19 21:20
--- NOTE | 2019-10-17 10:37 | CCONE_ITS ---
Date of service: 10/17/19 Time of Service: 10:37 Assessment and Plan Assessment and plan (1) Atrial fibrillation: Status: Chronic Assessment and plan: 1. Atrial fibrillation with rapid ventricular response. From what I can tell the patient is almost entirely at her baseline. She does have some baseline shortness of breath which is unchanged. Her x-ray does not show any findings consistent with edema. Her creatinine is at her baseline of 1 after some hydration. Troponins have been negative. She was switched from diltiazem to verapamil but had her metoprolol continued overnight. Heart rates were initially pegged in the 120s but she self converted this morning after restarting diltiazem. ?Continue metoprolol and diltiazem ?We discussed at length today the options of rate control versus rhythm control with an antiarrhythmic versus ablation. She is adamant that she does not want to be on antiarrhythmic medication as she has read about the side effects and that makes her nervous. She also does not want to start new medication if she can avoid it. ?I will put in a referral to [facility] electrophysiology ?I also educated her as to the likelihood that she would go in and out of atrial fibrillation as she has been before. As long as she is not terribly symptomatic it is okay to have a high heart rate for a short period of time. ?She is awaiting sleep study. ?She is working with her primary care to address her elevated TSH ?Continue Xarelto. 2. Hypertension: Well-controlled. ?Continue lisinopril, metoprolol and diltiazem. Spironolactone was stopped due to slightly elevated potassium. Her other antihypertensive medications may need to be titrated up in its place. 3. Mildly decreased ejection fraction. Presumed to be tachycardia related though she does have Q waves anteriorly. She has not had an ischemic evaluation but that does not need to be addressed during this admission. This may need to be addressed prior to potential ablation in the future and certainly prior to starting an antiarrhythmic. ?Continue metoprolol and lisinopril ?Please obtain a lipid panel while patient is in-house. History of Present Illness History of Present Illness Chief Complaint: hand tingling Narrative: Ms Patel is a 72-year-old female with past medical history significant for hypertension who has had multiple admissions over the past few months for atrial flutter with rapid response.Ms Patel is a 72-year-old female with past medical history significant for hypertension who has had multiple admissions over the past few months for atrial flutter with rapid response. Yesterday she was out working in the garden carrying heavy bags and noted hand tingling. The hand tingling did not resolve so she came to the emergency room. She was found to be in atrial fibrillation with a heart rate in the low 100s. She recently had a Holter monitor which showed a mean heart rate of 93 in atrial fibrillation with a maximum heart rate of 153. Upon evaluation by the hospitalist she was completely asymptomatic though she did have a slightly elevated potassium at 5.3. Overnight she had episodes with a heart rate consistent at 122-124 as well as intermittent episodes of irregularity. She self cardioverted this morning and is in normal sinus rhythm as I speak with her now. Review of Systems All systems reviewed & are unremarkable except as noted in HPI and below PFSH Medical History Atrial flutter (Acute) HTN (hypertension) (Chronic) Surgical History S/P hernia repair (Chronic) Family History Mother Essential hypertension Heart disease Stroke Father Essential hypertension Heart disease Stroke Sister Essential hypertension Personal history of malignant neoplasm BREAST Grandfather Heart disease Grandfather Personal history of malignant neoplasm Lung Grandmother Heart disease Stroke Grandmother No problems noted. Social History Smoking/Tobacco Use Status: Former Tobacco Use Quit Date: 06/19/84 Tobacco: How many years used: 20 Alcohol Intake: current Alcohol Intake frequency: holidays/special occasions only Alcohol type: wine Drug use: Never Substance use type: does not use What type of physical activity do you participate in: walking and other Details: hikes Duration: 15-30 minutes/day Frequency: daily Do you feel safe at home: Yes Do you feel safe in your relationship?: Yes Exam Const General: comfortable and no acute distress Resp Effort & Inspection: normal respiratory effort Cardio Rate: tachycardic Rhythm: regular rhythm Heart Sounds: S2 normal (No Murmurs, Rubs or Gallops) Neuro General: patient alert and patient oriented x3 Psych Appearance: grossly normal Results Last Vital Signs Temp 36.4 C L 10/17/19 08:25 Pulse 124 H 10/17/19 08:25 Resp 18 10/17/19 08:25 BP 122/92 H 10/17/19 08:25 Pulse Ox 97 10/17/19 08:25 Labs Result diagrams: 10/17/19 06:05 10/17/19 06:05 Labs: Laboratory Results - last 24 hr 10/16/19 10/16/19 10/16/19 19:25 19:25 19:50 WBC 11.75 H RBC 5.30 H Hgb 15.8 H Hct 45.6 MCV 86.0 MCH 29.8 MCHC 34.6 RDW 12.9 Plt Count 295 MPV 10.0 Immature Gran % 1.0 Neutrophils % 80.0 Lymphocytes % 10.0 Monocytes % 8.2 Eosinophils % 0.5 Basophils % 0.3 Absolute Neutrophils 9.40 H Absolute Lymphocytes 1.18 L Absolute Monocytes 0.96 H Absolute Eosinophils 0.06 Absolute Basophils 0.04 PT 10.7 INR 1.1 APTT 27.2 D-Dimer 456 Sodium 120 L* Potassium 5.7 H Chloride 87 L Carbon Dioxide 21.6 Anion Gap 11.4 H BUN 15 Creatinine 1.58 H Estimated GFR/1.73 m2 32.15 Glucose 100 Calcium 10.1 Magnesium 2.1 Total Bilirubin 1.4 H AST 21 ALT 25 Alkaline Phosphatase 93 Troponin I < 0.05 Total Protein 8.7 H Albumin 4.7 TSH Free T4 Urine Color Urine Clarity Urine pH Ur Specific [place] Urine Protein Urine Ketones Urine Blood Urine Nitrite Urine Bilirubin Urine Urobilinogen Ur Leukocyte Esterase Urine Glucose 10/16/19 10/16/19 10/16/19 19:51 20:33 20:33 WBC RBC Hgb Hct MCV MCH MCHC RDW Plt Count MPV Immature Gran % Neutrophils % Lymphocytes % Monocytes % Eosinophils % Basophils % Absolute Neutrophils Absolute Lymphocytes Absolute Monocytes Absolute Eosinophils Absolute Basophils PT INR APTT D-Dimer Sodium 123 L* Potassium 5.3 H Chloride 90 L Carbon Dioxide 24.0 Anion Gap 9.0 BUN 16 Creatinine 1.38 H Estimated GFR/1.73 m2 37.58 Glucose 104 Calcium 9.6 Magnesium Total Bilirubin AST ALT Alkaline Phosphatase Troponin I Total Protein Albumin TSH 12.36 H 5.14 H Free T4 1.41 Urine Color Urine Clarity Urine pH Ur Specific [place] Urine Protein Urine Ketones Urine Blood Urine Nitrite Urine Bilirubin Urine Urobilinogen Ur Leukocyte Esterase Urine Glucose 10/16/19 10/16/19 10/17/19 21:20 23:35 06:05 WBC RBC Hgb Hct MCV MCH MCHC RDW Plt Count MPV Immature Gran % Neutrophils % Lymphocytes % Monocytes % Eosinophils % Basophils % Absolute Neutrophils Absolute Lymphocytes Absolute Monocytes Absolute Eosinophils Absolute Basophils PT INR APTT D-Dimer Sodium Potassium Chloride Carbon Dioxide Anion Gap BUN Creatinine Estimated GFR/1.73 m2 Glucose Calcium Magnesium Total Bilirubin AST ALT Alkaline Phosphatase Troponin I < 0.05 < 0.05 Total Protein Albumin TSH Free T4 Urine Color Yellow Urine Clarity Clear Urine pH 8.5 H Ur Specific [place] 1.020 Urine Protein Negative Urine Ketones Trace H Urine Blood Negative Urine Nitrite Negative Urine Bilirubin Negative Urine Urobilinogen 0.2 Ur Leukocyte Esterase Negative Urine Glucose Negative 10/17/19 10/17/19 06:05 06:05 WBC 6.08 D RBC 4.48 Hgb 13.5 D Hct 38.7 MCV 86.4 MCH 30.1 MCHC 34.9 RDW 12.9 Plt Count 291 MPV 9.8 Immature Gran % Neutrophils % Lymphocytes % Monocytes % Eosinophils % Basophils % Absolute Neutrophils Absolute Lymphocytes Absolute Monocytes Absolute Eosinophils Absolute Basophils PT INR APTT D-Dimer Sodium 127 L Potassium 4.9 Chloride 96 L Carbon Dioxide 23.2 Anion Gap 7.8 BUN 17 Creatinine 1.05 H Estimated GFR/1.73 m2 51.52 Glucose 81 Calcium 9.1 Magnesium Total Bilirubin AST ALT Alkaline Phosphatase Troponin I Total Protein Albumin TSH Free T4 Urine Color Urine Clarity Urine pH Ur Specific [place] Urine Protein Urine Ketones Urine Blood Urine Nitrite Urine Bilirubin Urine Urobilinogen Ur Leukocyte Esterase Urine Glucose
[2019-10-17] MEDS: dilTIAZem 60 MG TAB PO (13:06)
--- NOTE | 2019-10-17 16:10 | DSE_ITS ---
Date of service: 10/17/19 Time of Service: 16:10 DS: Diagnosis Discharge Diagnosis (1) Atrial fibrillation: Status: Chronic Asessment and Plan: rate now controlled. will continue home lopressor and cardizem at usual dose and will be given a small supple of cardizem 30 mg for breakthrough symptoms prn. (2) Acute kidney injury: Status: Acute Asessment and Plan: improved with fluids, spironalactone will be placed hold (3) COVID-19 ruled out: Status: Acute Asessment and Plan: test results still pending at discharge, advised to self isolate until results available. (4) Hyponatremia: Status: Acute Asessment and Plan: improved with IV saline and holding spironalactone Discharge Plan Disposition Patient Disposition: HOME Condition: Fair Discharge Details Chief Complaint: SOB Clinical Impression: Acute dyspnea, Hyponatremia, AILYN (acute kidney injury) Reason For Visit: AFIB Admit Date/Time: 10/16/19 22:59 Admit Provider: Elpidio Anand Attending Provider: Elpidio Anand Primary Care Provider: Isidro Schmidt ED Provider: Jaclyn Martinez [facility] Course Hospital Course: THis is a 74 female with recent hospitalization for AF/RVR, with CHF felt to be secondary to RVR, in setting of mild decrease EF (40-44%) and mild-mod MR/MS. Beta and calcium blockers adjusted and spironolactone added (for HTN). States has baseline ROB. Today was hauling around 50 lb bags of rock salt felt SOB, then bilateral hand tingling. No CP/cough or fever. Did not resolve as usual with rest so came to ER. In ER findings of note for AF in low-mid 100s; no acute EKG changes; negative CXR and d-Dimer and troponin; and sodium 123 (120 in field) and K 5.3 (5.6 in field). she was started on NS infusion and referred to observation. overnight she was started on verapamil. Heart rates were initially in the 120s and she converted this after restarting diltiazem. recommendations from cardiology, Dr Leal who is following her outpatient is to Continue metoprolol and diltiazem and Xarelto. He discusses options moving forward and she would like to move forward with referral for ablation. a referral to [facility] electrophysiology by Dr Leal. ?She is awaiting a sleep study. ?She is working with her primary care to address her elevated TSH She has been given a prescription for cardizem 30 mg tabs to take if symptomatic and heart rate sustained above 120. she was advised to recheck her electrolytes on Monday to follow up with electrolyte disturbances thought to be due to spironalactone. (high K and low Na). This improved with IV hydration overnight with sodium now at 127 from 120 and potassium down to 4.9 from 5.6. She is asymptomatic and agrees with plan to discharge home today. Plan of care discussed with Dr Paez who is in agreement. Home Meds and New Rx's Prescriptions: New diltiazem HCl 30 mg tablet 30 mg PO ONCE PRNQty: 10 RF: 0 Continued Xarelto 20 mg tablet 20 mg PO DAILY RF: 0 Cardiotrophin PO RF: 0 Livaplex PO RF: 0 lisinopril 20 MG tablet 20 mg PO BID Qty: 180 RF: 4 multivitamin Tablet 1 tab PO DAILY RF: 0 cyanocobalamin (vitamin B-12) [Vitamin B-12] 100 mcg Tablet 400 mcg PO DAILY RF: 0 Shasha 3 tab PO HS RF: 0 magnesium citrate 100 mg Tablet 1,200 mg PO DAILY RF: 0 diltiazem HCl 240 mg capsule,extended release 24hr 240 mg PO DAILY Qty: 21 RF: 1 metoprolol succinate 200 mg tablet extended release 24 hr 200 mg PO DAILY Qty: 21 RF: 1 Discontinued spironolactone 25 mg Tablet 25 mg PO BID Qty: 42 RF: 1 Discharge Instructions Instructions: A-fib (Atrial Fibrillation) (DC), Hyponatremia (DC) Additional Instructions: You will be given a small prescription for short acting cardizem 30 mg tabs to take one tab if you have your symptoms AND your heart rate is above 120. You have been referred to [facility] for further evaluation and treatment. Stand Alone Forms: Nursing Discharge Form Referrals: Isidro Schmidt [Primary Care Provider] - (1-2 weeks) Activity:: Activity as Tolerated Equipment/Supplies:: No Equipment Needed Diet:: As Tolerated Discharge Orders Discharge Orders: Discharge Order (Routine); Ordered 10/17/19 Ordered By: Mandi Schofield Other Ambulatory Orders: Basic Metabolic Panel (Routine) Timeframe: 20191021 Location: None Selected Ordered By: Mandi Schofield Magnesium (Routine) Timeframe: 20191021 Location: None Selected Ordered By: Mandi Schofield DS: Summary Status at Discharge Functional status at discharge: independent ambulation Overall status at discharge: patient is back to baseline Mental Status: mental status grossly normal Speech and Movement: speech and movement normal Mood: congruent mood Affect: anxious affect Exam Const General: cooperative, healthy appearing, comfortable, no acute distress, well developed, well groomed and anxious Nutritional Appearance: average body habitus Orientation: alert, awake and oriented x3 Limitations: altered mental status HENMT Head: normal to inspection, normocephalic and atraumatic Mouth: oral mucosae normal Resp Effort & Inspection: normal respiratory effort Auscultation: crackles bilaterally (bases, fine) Cardio Rate: regular rate GI Inspection: normal to inspection Palpation: soft Skin General skin exam: no rashes or lesions noted Neuro General: patient alert, patient awake and patient oriented x3 Cranial Nerves: CN's II-XI intact bilaterally Cognition: normal cognition Speech: speech normal Gait: normal gait Motor: muscle tone normal throughout Extrem General: normal to inspection and full ROM Psych Appearance: grossly normal Mental Status: mental status grossly normal Speech and Movement: speech and movement normal Mood: congruent mood Affect: anxious affect Attitude: cooperative Thought Process: normal Thought Content: normal Insight: insight good Judgment: judgment good DS: Data Vitals/I&O Vitals and I&O: Vital Signs Temperature 36.4 C L 10/17/19 13:00 Temperature Source Tympanic 10/17/19 13:00 Pulse 70 10/17/19 13:00 Pulse Rhythm Irregular 10/17/19 15:30 Pulse 129 H 10/16/19 23:46 Respiratory Rate 18 10/17/19 13:00 Respiratory Effort Non-Labored 10/17/19 15:30 Respiratory Depth Normal 10/17/19 15:30 Respiratory Pattern Normal 10/17/19 15:30 Blood Pressure 138/85 10/17/19 13:00 Blood Pressure Mean 81 10/16/19 23:46 Blood Pressure Position Supine 10/16/19 19:38 Pulse Oximetry 97 10/17/19 13:00 Oxygen Delivery Method Room Air 10/17/19 13:00 Oxygen Flow Rate 0 10/17/19 13:00 Pain Level 0 10/17/19 13:00 Intake & Output 10/16/19 10/17/1920 23:59 11:59 23:59 Intake Total 916.25 / 916.25 Balance 916.25 / 916.25 Weight 78.1 kg 78.1 kg Intake: IV 916.25 / 916.25 Other: Urine Color Yellow Urine Appearance Clear Clear Comment up independently to void Voiding Methods Toilet Data Completed and Pending Labs on day of discharge: Labs from last 24 hours 10/17/19 10/17/19 10/17/19 06:05 06:05 06:05 WBC 6.08 D RBC 4.48 Hgb 13.5 D Hct 38.7 MCV 86.4 MCH 30.1 MCHC 34.9 RDW 12.9 Plt Count 291 MPV 9.8 Immature Gran % Neutrophils % Lymphocytes % Monocytes % Eosinophils % Basophils % Absolute Neutrophils Absolute Lymphocytes Absolute Monocytes Absolute Eosinophils Absolute Basophils PT INR APTT D-Dimer Sodium 127 L Potassium 4.9 Chloride 96 L Carbon Dioxide 23.2 Anion Gap 7.8 BUN 17 Creatinine 1.05 H Estimated GFR/1.73 m2 51.52 Glucose 81 Calcium 9.1 Magnesium Total Bilirubin AST ALT Alkaline Phosphatase Troponin I < 0.05 Total Protein Albumin TSH Free T4 Urine Color Urine Clarity Urine pH Ur Specific [place] Urine Protein Urine Ketones Urine Blood Urine Nitrite Urine Bilirubin Urine Urobilinogen Ur Leukocyte Esterase Urine Glucose COVID-19 PCR Nasopharyn COVID-19 PCR Ref Test Perform Site 10/16/19 10/16/19 10/16/19 23:35 22:11 21:20 WBC RBC Hgb Hct MCV MCH MCHC RDW Plt Count MPV Immature Gran % Neutrophils % Lymphocytes % Monocytes % Eosinophils % Basophils % Absolute Neutrophils Absolute Lymphocytes Absolute Monocytes Absolute Eosinophils Absolute Basophils PT INR APTT D-Dimer Sodium Potassium Chloride Carbon Dioxide Anion Gap BUN Creatinine Estimated GFR/1.73 m2 Glucose Calcium Magnesium Total Bilirubin AST ALT Alkaline Phosphatase Troponin I < 0.05 Total Protein Albumin TSH Free T4 Urine Color Yellow Urine Clarity Clear Urine pH 8.5 H Ur Specific [place] 1.020 Urine Protein Negative Urine Ketones Trace H Urine Blood Negative Urine Nitrite Negative Urine Bilirubin Negative Urine Urobilinogen 0.2 Ur Leukocyte Esterase Negative Urine Glucose Negative COVID-19 PCR Pending Nasopharyn COVID-19 PCR Pending Ref Test Perform Site Pending 04/29/20 04/29/20 04/29/20 20:33 20:33 19:51 WBC RBC Hgb Hct MCV MCH MCHC RDW Plt Count MPV Immature Gran % Neutrophils % Lymphocytes % Monocytes % Eosinophils % Basophils % Absolute Neutrophils Absolute Lymphocytes Absolute Monocytes Absolute Eosinophils Absolute Basophils PT INR APTT D-Dimer Sodium 123 L* Potassium 5.3 H Chloride 90 L Carbon Dioxide 24.0 Anion Gap 9.0 BUN 16 Creatinine 1.38 H Estimated GFR/1.73 m2 37.58 Glucose 104 Calcium 9.6 Magnesium Total Bilirubin AST ALT Alkaline Phosphatase Troponin I Total Protein Albumin TSH 5.14 H 12.36 H Free T4 1.41 Urine Color Urine Clarity Urine pH Ur Specific [place] Urine Protein Urine Ketones Urine Blood Urine Nitrite Urine Bilirubin Urine Urobilinogen Ur Leukocyte Esterase Urine Glucose COVID-19 PCR Nasopharyn COVID-19 PCR Ref Test Perform Site 10/16/19 10/16/19 10/16/19 19:50 19:25 19:25 WBC 11.75 H RBC 5.30 H Hgb 15.8 H Hct 45.6 MCV 86.0 MCH 29.8 MCHC 34.6 RDW 12.9 Plt Count 295 MPV 10.0 Immature Gran % 1.0 Neutrophils % 80.0 Lymphocytes % 10.0 Monocytes % 8.2 Eosinophils % 0.5 Basophils % 0.3 Absolute Neutrophils 9.40 H Absolute Lymphocytes 1.18 L Absolute Monocytes 0.96 H Absolute Eosinophils 0.06 Absolute Basophils 0.04 PT 10.7 INR 1.1 APTT 27.2 D-Dimer 456 Sodium 120 L* Potassium 5.7 H Chloride 87 L Carbon Dioxide 21.6 Anion Gap 11.4 H BUN 15 Creatinine 1.58 H Estimated GFR/1.73 m2 32.15 Glucose 100 Calcium 10.1 Magnesium 2.1 Total Bilirubin 1.4 H AST 21 ALT 25 Alkaline Phosphatase 93 Troponin I < 0.05 Total Protein 8.7 H Albumin 4.7 TSH Free T4 Urine Color Urine Clarity Urine pH Ur Specific [place] Urine Protein Urine Ketones Urine Blood Urine Nitrite Urine Bilirubin Urine Urobilinogen Ur Leukocyte Esterase Urine Glucose COVID-19 PCR Nasopharyn COVID-19 PCR Ref Test Perform Site [facility] Medical History Atrial flutter (Acute) HTN (hypertension) (Chronic) Surgical History S/P hernia repair (Chronic) Family History Mother Essential hypertension Heart disease Stroke Father Essential hypertension Heart disease Stroke Sister Essential hypertension Personal history of malignant neoplasm BREAST Grandfather Heart disease Grandfather Personal history of malignant neoplasm Lung Grandmother Heart disease Stroke Grandmother No problems noted. Social History Smoking/Tobacco Use Status: Former Tobacco Use Quit Date: 06/19/84 Tobacco: How many years used: 20 Alcohol Intake: current Alcohol Intake frequency: holidays/special occasions only Alcohol type: wine Drug use: Never Substance use type: does not use What type of physical activity do you participate in: walking and other Details: hikes Duration: 15-30 minutes/day Frequency: daily Do you feel safe at home: Yes Do you feel safe in your relationship?: Yes
[2019-10-17] MEDS: Rivaroxaban 10 MG TABLET 20 MG PO (17:11)
[2019-10-17 22:25] LABS: COVID-19 RT-PCR UVMMC Result Negative (Negative)
== END 2019-10-17 17:40 | disposition home or self-care (01) ==
LOC: ER 22:50 → MS 10-17 00:07
PROVIDERS: Admitting Provider General Practice; Emergency Provider Physician Assistant; PCP Family Medicine; Visit Provider Internal Medicine
DX: I48.91 Unspecified atrial fibrillation (principal); E87.1 Hypo-osmolality and hyponatremia; N17.9 Acute kidney failure, unspecified; Z03.818 Encounter for observation for suspected exposure to other biological agents ruled out; I10 Essential (primary) hypertension; E87.5 Hyperkalemia; Z79.01 Long term (current) use of anticoagulants
CPT/HCPCS: 80048; 80053; 85027; 93005; 96360; 96361; 99215; 99217; 99222; 99254; 99285; U0003; 71045; 81003; 83735; 84439; 84443; 84484; 85025; 85379; 85610; 85730; 93010; 99219; G0378

== ENCOUNTER → 2019-10-17 10:34 | Outpatient (BNVA) | payer MEDICARE, BC, SELFPAY | PROVIDERS: PCP Family Medicine; Referring Provider Family Medicine; Visit Provider Internal Medicine Cardiovascular Disease | DX: R69 Illness, unspecified (principal) ==

== ENCOUNTER 2019-10-28 02:18 | Outpatient (CLI) | payer MEDICARE, BC, SELFPAY ==
[2019-10-28 16:52] LABS: Anion Gap 8.8 mmol/L (3-11); BUN 12 mg/dL (7-18); CO2 24.2 mmol/L (21.0-32.0); CREATININE 1.02 mg/dL (0.55-1.02); Calcium 9.1 mg/dL (8.5-10.1); Chloride 96 mmol/L (98-107); Estimated GFR 53.27 (mL/min/1.73m2); Glucose 114 mg/dL (74-106); Potassium 4.3 mmol/L (3.5-5.1); Sodium 129 mmol/L (136-145)
[2019-10-28 17:35] LABS: TSH (W/Ref FT4) 3.32 uIU/mL (0.36-3.74)
== END 2019-10-28 02:38 ==
PROVIDERS: PCP Family Medicine; Visit Provider Nurse Practitioner Acute Care
DX: R94.6 Abnormal results of thyroid function studies (principal); I10 Essential (primary) hypertension; E87.5 Hyperkalemia; E87.1 Hypo-osmolality and hyponatremia; N17.9 Acute kidney failure, unspecified; I48.91 Unspecified atrial fibrillation
CPT/HCPCS: 36415; 80048; 83735; 84443

== ENCOUNTER 2019-11-14 16:52 | Outpatient (REF) | payer MEDICARE, BC, SELFPAY ==
[2019-11-14 21:29] LABS: Anion Gap 8.3 mmol/L (3-11); BUN 10 mg/dL (7-18); CO2 26.7 mmol/L (21.0-32.0); CREATININE 0.96 mg/dL (0.55-1.02); Calcium 9.3 mg/dL (8.5-10.1); Chloride 102 mmol/L (98-107); Estimated GFR 57.13 (mL/min/1.73m2); Glucose 96 mg/dL (74-106); Potassium 4.1 mmol/L (3.5-5.1); Sodium 137 mmol/L (136-145)
== END 2019-11-14 17:12 ==
LOC: NCHCN 16:52
PROVIDERS: PCP Family Medicine; Visit Provider Family Medicine
DX: E87.1 Hypo-osmolality and hyponatremia (principal)
CPT/HCPCS: 80048

== ENCOUNTER 2019-12-06 02:58 | Outpatient (CLI) | payer MEDICARE, BC, SELFPAY ==
--- NOTE | 2019-12-06 15:28 | DI.MAMMO_ITS ---
EXAM: MAMMO SCREENING CLINICAL HISTORY: SCREENING, Z12.39 TECHNIQUE: Mammograms were interpreted according to the usual protocol including computer analysis w [employer] CAD system, tomosynthesis and C-view imaging. COMPARISON: 2009 through 2015 FINDINGS: The breasts are composed of scattered fibroglandular densities, Breast Density category B. No suspicious masses or suspicious microcalcifications are seen. No skin thickening or abnormal axillary lymph nodes are seen. Vascular calcifications are incidental ly noted. There has been no significant change from prior exams. IMPRESSION: BI-RADS Category 1 - Negative Yearly screening mammography is recommended. Breast Density Category B, scattered fibroglandular densities.
== END 2019-12-06 03:18 ==
PROVIDERS: PCP Family Medicine; Visit Provider Family Medicine
DX: Z12.31 Encounter for screening mammogram for malignant neoplasm of breast (principal)
CPT/HCPCS: 77063; 77067

== ENCOUNTER 2020-03-20 03:07 | Outpatient (CLI) | payer MEDICARE, BC, SELFPAY ==
[2020-03-20 13:18] LABS: ALT 62 U/L (14-59); AST 43 U/L (15-37); Alkaline Phosphatase 77 U/L (46-116); Anion Gap 6.1 mmol/L (3-11); BUN 10 mg/dL (7-18); Bilirubin, Total 1.7 mg/dL (0.2-1.0); CO2 28.9 mmol/L (21.0-32.0); CREATININE 0.78 mg/dL (0.55-1.02); Calcium 9.3 mg/dL (8.5-10.1); Chloride 105 mmol/L (98-107); Ferritin 289 ng/mL (8-252); Glucose 85 mg/dL (74-106); Potassium 4.1 mmol/L (3.5-5.1); Sodium 140 mmol/L (136-145); TSH 2.39 uIU/mL (0.36-3.74); Total Protein 6.9 g/dL (6.4-8.2)
== END 2020-03-20 03:27 ==
PROVIDERS: Nurse Practitioner; PCP Family Medicine; Visit Provider Family Medicine
DX: R53.83 Other fatigue (principal); M25.50 Pain in unspecified joint
CPT/HCPCS: 36415; 80053; 82728; 84443

== ENCOUNTER 2020-04-16 02:33 | Outpatient (CLI) | payer MEDICARE, BC, SELFPAY ==
[2020-04-16 13:28] LABS: MCHC 32.5 % (32.0-36.0); MCV 95.2 fL (80-95); MPV 9.8 fL (8.0-11.0); Platelet Count 278 10^3/uL (130-400); RDW 14.3 % (11.7-14.6); WBC 5.87 10^3/uL (4.4-10.8)
[2020-04-16 14:19] LABS: Iron 57 ug/dL (50-170); Total Iron Binding Capacity 298 ug/dL (250-450); Transferrin Sat 19 % (15-50)
[2020-04-16 14:33] LABS: ALT 45 U/L (14-59); AST 20 U/L (15-37); Albumin 4.1 g/dL (3.4-5.0); Alkaline Phosphatase 93 U/L (46-116); Anion Gap 7.7 mmol/L (3-11); BUN 12 mg/dL (7-18); Bilirubin, Total 1.9 mg/dL (0.2-1.0); CO2 28.3 mmol/L (21.0-32.0); CREATININE 0.96 mg/dL (0.55-1.02); Calcium 9.3 mg/dL (8.5-10.1); Chloride 103 mmol/L (98-107); Estimated GFR 57.13 (mL/min/1.73m2); Ferritin 251 ng/mL (8-252); Glucose 115 mg/dL (74-106); Potassium 3.5 mmol/L (3.5-5.1); Sodium 139 mmol/L (136-145); Total Protein 7.1 g/dL (6.4-8.2)
[2020-04-22 09:53] LABS: Hepatitis A Antibody IgM Negative (Negative); Hepatitis B surface Ag Negative (Negative); Hepatitis C Ab w Rflx HCV PCR Negative (Negative)
[2020-04-22 09:54] LABS: Hepatitis B Core Antibody Negative (Negative)
[2020-04-22 09:56] LABS: Transferrin 230 mg/dL (201-352)
== END 2020-04-16 02:53 ==
PROVIDERS: PCP Family Medicine; Visit Provider Family Medicine
DX: R78.89 Finding of other specified substances, not normally found in blood (principal)
CPT/HCPCS: 36415; 80053; 85027; 86704; 86709; 86803; 87340; 82728; 83540; 83550; 84466

== ENCOUNTER 2020-05-13 00:33 | Outpatient (CLI) | payer MEDICARE, BC, SELFPAY ==
--- NOTE | 2020-05-13 | DI.US_ITS ---
EXAM: US ABDOMEN INDICATION: ELEVATED FERRITIN,R78.89,ELEVATED TRANSAMINASES,R74.0,? HEMACHROMATOSIS COMPARISON: US US ECHOCARDIOGRAM from 08/23/2019 TECHNIQUE: Ultrasound abdomen performed using standard protocol FINDINGS: Abdominal ultrasound was performed according to the usual protocol. The liver is normal in size and shape. No focal hepatic lesion seen. There is no evidence of cholelithiasis or biliary dilatation. No gallbladder wall thickening or peric holecystic fluid collection. Pancreas appears intact as visualized. Spleen is unremarkable in appearance with no focal lesion. Kidneys are normal in size and shape. No renal mass, hydronephrosis, or nephrolithiasis. Abdominal aorta and IVC are of normal diameter. IMPRESSION: Negative abdominal ultrasound .
== END 2020-05-13 00:53 ==
PROVIDERS: PCP Family Medicine; Visit Provider Family Medicine
DX: R79.89 Other specified abnormal findings of blood chemistry (principal); R74.01 Elevation of levels of liver transaminase levels; E83.110 Hereditary hemochromatosis
CPT/HCPCS: 36415; 76700; 81256

== ENCOUNTER 2020-05-13 02:47 | Outpatient (CLI) | payer MEDICARE, BC, SELFPAY ==
[2020-05-22 11:31] LABS: Specimen WB Whole Blood
== END 2020-05-13 03:07 ==
PROVIDERS: PCP Family Medicine; Visit Provider Family Medicine
DX: E83.110 Hereditary hemochromatosis (principal)
CPT/HCPCS: 36415; 81256

== ENCOUNTER 2020-07-06 15:32 | Observation (INO) | payer MEDICARE, BC, SELFPAY ==
[2020-07-06] VITALS (82 sets, daily range): BP systolic 148–245; BP diastolic 57–170; PULSE 39–69; RESP 10–25; TEMP 36–37.2; O2SAT 86–98
--- NOTE | 2020-07-06 14:22 | HOME_ITS ---
Home Ventilator Equipment Home care company [employer] Reason: Obstructive Sleep Apnea Make: Respironics Model: Dreamstation Mask type: Face mask Mask size: Medium Mode: CPAP Settings: Auto-titrate min 10/ max 16 Oxygen bleed in (lpm): Condition: Good Date last checked: 07/07/20 Year of last sleep study: Compliance Daily Comments: device on RA
--- NOTE | 2020-07-06 15:30 | RT.EKG_ITS ---
APPROVED REPORT Exam: Resting ECG Patient Location: E HR:51 bpm ECG Measurements Heart Rate 51 AXIS SD 85 P 0 QRSd 79 QRS -26 QT 460 T 54 QTc 425 Conclusion Sinus bradycardia...rate< 60 Anterior infarct, old...Q >40mS, abnormal ST-T, V2-V5 Physician: No STEMI, sinus rebekah, unchanged from prior ekg
--- NOTE | 2020-07-06 16:00 | DI.RAD_ITS ---
EXAM: XR PORTABLE CHEST AP CLINICAL HISTORY: shortness of breath, peripheral edema TECHNIQUE: 2D digital imaging was performed. COMPARISON: CR,XR XR PORTABLE CHEST AP from 10/16/2019 FINDINGS: MEDIASTINUM: Normal. HEART: Mildly enlarged compared to the prior examination. PULMONARY VASCULATURE: Increased prominence of the pulmonary vasculature. LUNGS: No focal consolidating infiltrate. Increased interstitial markings particularly in the lung b ases. PLEURAL SPACE: No pneumothorax. There does appear to be blunting of the left costophrenic angle whic h may represent a small effusion. BONE:Within normal limits for the patient's age. OTHER FINDINGS:Normal. IMPRESSION: Cardiomegaly, pulmonary venous congestion and interstitial prominence suspicious for congestive heart failure/fluid overload. DATA REPOSITORY: RADIATION DOSE DELIVERED:
--- NOTE | 2020-07-06 16:00 | RT.EKG_ITS ---
APPROVED REPORT Exam: Resting ECG Patient Location: E HR:52 bpm ECG Measurements Heart Rate 52 AXIS AL 219 P -73 QRSd 90 QRS -22 QT 459 T 47 QTc 429 Conclusion Sinus or ectopic atrial bradycardia...P axis (-45,135), rate< 60 Atrial premature complex...SV complex w/ short R-R interval Borderline prolonged AL interval...AL >212, V-rate 50- 90 Anterior infarct, old...Q >40mS, abnormal ST-T, V2-V5 Physician: no stemi, no change from prior ekg
--- NOTE | 2020-07-06 16:31 | ED.GENADUL_ITS ---
Discharge Plan Disposition Patient Disposition: [facility] INPATIENT Condition: Serious Discharge Details Chief Complaint: GenMedical Clinical Impression: CHF exacerbation, Hypertensive urgency, Atrial fibrillation Primary Care Provider: Isidro Schmidt ED Provider: Sadaf Olivarez Home Meds and New Rx's Prescriptions: No Action Xarelto 20 mg tablet 20 mg PO DAILY RF: 0 Cardiotrophin PO RF: 0 Livaplex PO RF: 0 lisinopril 20 MG tablet 20 mg PO BID Qty: 180 RF: 4 multivitamin Tablet 1 tab PO DAILY RF: 0 cyanocobalamin (vitamin B-12) [Vitamin B-12] 100 mcg Tablet 400 mcg PO DAILY RF: 0 Shasha 3 tab PO HS RF: 0 magnesium citrate 100 mg Tablet 1,200 mg PO DAILY RF: 0 diltiazem HCl 240 mg capsule,extended release 24hr 240 mg PO DAILY Qty: 21 RF: 1 metoprolol succinate 200 mg tablet extended release 24 hr 200 mg PO DAILY Qty: 21 RF: 1 diltiazem HCl 30 mg tablet 30 mg PO ONCE PRNQty: 10 RF: 0 Medical Decision Making Suspicion of pulmonary embolism clinically, patient is anticoagulated on Eliquis for atrial fibrillation history suspect CHF given initial presentation Patient with BNP of 1448, orthopnea with oxygen 89% as needed physician Peripheral edema with JVD and pulmonary vascular congestion on chest x-ray, Lasix IV Initially blood pressure decreased time 70/89, however with exertion, patient blood pressure up to 220/95, we did order dose of nitro and 40 mg of Lasix Patient is agreeable to admission at this time for diuresis Prior echocardiogram showed no ejection fraction of 40 to 44%, with no IV diuresis, IV concerns regarding further decompensation, patient also does not have outpatient cardiology She is agreeable to admission for trending troponin negative, electrolytes negative, TC H within normal range Magnesium does not show endocrinology Case discussed with admitting hospitalist, Dr. Anand Differential Diagnosis Differential Diagnosis: CHF, hypertensive urgency, angina, pulmonary embolism HPI This 75-year-old female presents for intermittent shortness of breath, peripheral edema,+ palpitations. Patient states that her symptoms began approximately 3 months ago. She states they have been gradually worsening she states that she called her surgical supply assistant and asked her to come into the emergency room for evaluation. She is on diltiazem and metoprolol. She took her metoprolol this morning and has yet to take her diltiazem today. She denies any current chest pain or shortness of breath. She states she has not had or thopnea. She was experiencing some exertional dyspnea over the course of the past 2 days. She denies any fever or chills. She has had peripheral edema reportedly. General Date/Time Provider Initiated Documentation: 07/06/20 15:39 . Related Data Home Medications Medication Instructions Recorded Confirmed lisinopril 20 mg PO BID #180 tab 04/17/15 10/16/19 cyanocobalamin (vitamin B-12) 400 mcg PO DAILY 08/05/19 10/16/19 [Vitamin B-12] multivitamin 1 tab PO DAILY 08/05/19 10/16/19 magnesium citrate 1,200 mg PO DAILY 08/21/19 10/16/19 diltiazem HCl 240 mg PO DAILY #21 cap 08/24/19 10/16/19 metoprolol succinate 200 mg PO DAILY #21 tab 08/24/19 10/16/19 Cardiotrophin PO 10/01/19 10/01/19 Livaplex PO 10/01/19 10/01/19 Shasha 3 tab PO HS 10/01/19 10/01/19 rivaroxaban 20 mg tablet 20 mg PO DAILY 10/01/19 10/16/19 diltiazem HCl 30 mg PO ONCE PRN #10 tab 10/17/19 Previous Rx's Medication Instructions Recorded diltiazem HCl 240 mg PO DAILY #21 cap 08/24/19 metoprolol succinate 200 mg PO DAILY #21 tab 08/24/19 diltiazem HCl 30 mg PO ONCE PRN #10 tab 10/17/19 Allergies Allergy/AdvReac Type Severity Reaction Status Date / Time No Known Allergies Allergy Unverified 07/06/20 15:51 General Stated Complaint: GenMedical JOSE: 2 Review of Systems Narrative: Review of systems negative x7+ indicated in [facility] Medical History (Updated 07/06/20 @ 18:45 by JOSE Tello) Atrial flutter HTN (hypertension) Surgical History S/P hernia repair Family History Mother Essential hypertension Heart disease Stroke Father Essential hypertension Heart disease Stroke Sister Essential hypertension Personal history of malignant neoplasm BREAST Grandfather Heart disease Grandfather Personal history of malignant neoplasm Lung Grandmother Heart disease Stroke Grandmother No problems noted. Social History Smoking/Tobacco Use Status: Former Tobacco Use Quit Date: 06/19/84 Tobacco: How many years used: 20 Smoking risk assessment performed?: Yes Alcohol Intake: former Drug use: Never Substance use type: does not use What type of physical activity do you participate in: walking and other Details: hikes Duration: 15-30 minutes/day Frequency: daily Do you feel safe at home: Yes Do you feel safe in your relationship?: Yes Exam Narrative Exam Narrative: Constitutional: Well developed HEENT: No visible signs of trauma, no palpable Tenderness Eyes: Pupils equal round reactive to light and accommodation Neck: Nontender, no visible sign of trauma Musculoskeletal: No lumbar tenderness, no thoracic tenderness, no cervical spine from this, no hip tenderness bilaterally, no left knee tenderness, left ankle tenderness, over lateral malleolus, no papular no obvious deformity, Skin : No discoloration Neuro: Alert, oriented for age Const General: healthy appearing and no acute distress Orientation: oriented x3 HENMT Head: normal to inspection and atraumatic Throat: uvula midline Eyes Conjunctivae: conjunctivae normal Neck Other: + JVD Resp Effort & Inspection: normal respiratory effort Auscultation: clear to auscultation bilaterally Cardio Rate: bradycardic Rhythm: regular rhythm Other: No obvious murmur GI Palpation: soft and nontender Skin General skin exam: no rashes or lesions noted Neuro General: patient alert and patient oriented x3 Extrem Other: 1+ edema bilateral lower extremities, distal pulses intact Course Vital Signs Vital signs: Vital Signs Temperature 37.2 C 07/06/20 15:41 Pulse 53 L 07/06/20 15:41 Respiratory Rate 16 07/06/20 15:41 Blood Pressure 228/82 H 07/06/20 15:41 Pulse Oximetry 95 07/06/20 15:41 Temperature 37.2 C 07/06/20 15:41 Temperature Source Temporal Artery Scan 07/06/20 15:41 Pulse 52 L 07/06/20 15:51 Respiratory Rate 21 07/06/20 15:51 Respiratory Effort Non-Labored 07/06/20 15:48 Blood Pressure 223/118 H 07/06/20 15:51 Pulse Oximetry 93 07/06/20 15:51 Oxygen Delivery Method Room Air 07/06/20 15:51 Oxygen Flow Rate 0 07/06/20 15:51 Pain Level 0 07/06/20 15:51
[2020-07-06 17:14] LABS: Abs Immature Grans 0.02 10^3/uL (0.0-0.06); Absolute Basophil Count 0.05 10^3/uL (0.0-0.2); Absolute Eosinophil Count 0.13 10^3/uL (0.0-0.7); Absolute Monocyte Count 0.26 10^3/uL (0.1-0.8); Absolute Neutrophil Count 3.04 10^3/uL (1.2-6.7); Basophils % 1.1; Eosinophils % 2.9; HCT 42.7 % (36.0-46.0); Immature Grans % 0.4; Lymphocytes % 22.2; MCH 30.2 pg (27.0-33.0); MCHC 32.8 % (32.0-36.0); MCV 92.2 fL (80-95); MPV 10.3 fL (8.0-11.0); Monocytes % 5.8; Neutrophils % 67.6; Nucleated RBC 0 %; Platelet Count 246 10^3/uL (130-400); RBC 4.63 10^6/uL (3.93-5.22); RDW 13.1 % (11.7-14.6); RDW-SD 44.1 fL
[2020-07-06 17:47] LABS: ALT 28 U/L (14-59); AST 15 U/L (15-37); Albumin 3.8 g/dL (3.4-5.0); Alkaline Phosphatase 98 U/L (46-116); Anion Gap 9.1 mmol/L (3-11); BUN 9 mg/dL (7-18); Bilirubin, Total 1.4 mg/dL (0.2-1.0); CO2 27.9 mmol/L (21.0-32.0); CREATININE 0.85 mg/dL (0.55-1.02); Calcium 9.1 mg/dL (8.5-10.1); Chloride 104 mmol/L (98-107); Glucose 89 mg/dL (74-106); Magnesium 2.1 mg/dL (1.8-2.4); NT-proBNP 1428 pg/mL (<300); Potassium 3.6 mmol/L (3.5-5.1); Sodium 141 mmol/L (136-145); Total Protein 8.3 g/dL (6.4-8.2)
[2020-07-06 17:55] LABS: Troponin I < 0.05 ng/mL (<0.06)
--- NOTE | 2020-07-06 18:19 | DI.VRAD_ITS ---
PROCEDURE INFORMATION: Exam: XR Chest, 1 View Exam date and time: 07/06/2020 6:00 PM Age: 75 years old Clinical indication: Patient HX: Shortness of breath; Peripheral edema TECHNIQUE: Imaging protocol: XR of the chest Views: 1 view. COMPARISON: CR XR PORTABLE CHEST AP 10/16/2019 8:14 PM FINDINGS: Lungs: No new mass or consolidation detected. Pleural space: No pneumothorax with minimal blunting of the left costophrenic angle which could represent a small left basilar effusion. Heart/Mediastinum: Cardiac silhouette is enlarged and there is vascular congestion with interval increase in a reticulonodular pattern of increased interstitial density throughout mid and lower lung reyes suggesting an element of congestive failure/fluid overload. Bones/joints: No acute osseous lesions are detected. IMPRESSION: Vascular congestion and interval increase in a reticulonodular pattern of increased interstitial density seen throughout mid and lower lung field suggesting an element of congestive failure/fluid overload. Question minimal left basilar effusion. Please correlate with clinical data. Dictated and Authenticated by: David Bell MD. Ordering:CRISS Talavera MD
[2020-07-06 18:30] LABS: TSH 3.46 uIU/mL (0.36-3.74)
[2020-07-06] MEDS: Furosemide 40 MG/4 ML VIAL IVP (18:59)
--- NOTE | 2020-07-06 19:01 | HPE_ITS ---
Date of service: 07/06/20 Time of Service: 19:01 Assessment and Plan Assessment and plan (1) CHF (congestive heart failure): Status: Chronic Assessment and plan: CHF. As far as I can see this would be a new diagnosis. Etiology not clear, but ischemic or hypertensive cardiomyopathy possible candidates based on current data. Will diurese and begin NTG qtt, and complete r/o. Will obtain ECHO in AM. Will hold beta anurag and CCB for now in light of bradycardia (40s-50s). History of Present Illness History of Present Illness Chief Complaint: SOB Narrative: 75 female with h/o PAF, HTN -- here with a number of months of progressive ROB and variable LE swelling and orthopnea. In ER findings of note for sinus bradycardia, severe HTN, BNP 1428, CXR with pulmonary edema, EKG with old septal ND, trop negative. Patient states she tillman an ECHO at outside facility at some remote time, was normal, denies h/o CHF. Ordered for Lasix and NTG and admitted for further evaluation. Denies CP. No new meds. Review of Systems All systems reviewed & are unremarkable except as noted in HPI and below PFSH Medical History (Updated 07/06/20 @ 19:09 by Elpidio Anand MD) Atrial flutter HTN (hypertension) Surgical History S/P hernia repair Family History Mother Essential hypertension Heart disease Stroke Father Essential hypertension Heart disease Stroke Sister Essential hypertension Personal history of malignant neoplasm BREAST Grandfather Heart disease Grandfather Personal history of malignant neoplasm Lung Grandmother Heart disease Stroke Grandmother No problems noted. Social History Smoking/Tobacco Use Status: Former Tobacco Use Quit Date: 06/19/84 Tobacco: How many years used: 20 Smoking risk assessment performed?: Yes Alcohol Intake: former Drug use: Never Substance use type: does not use What type of physical activity do you participate in: walking and other Detail s: hikes Duration: 15-30 minutes/day Frequency: daily Do you feel safe at home: Yes Do you feel safe in your relationship?: Yes Meds Home Medications and Allergies Home Medications Medication Instructions Recorded Confirmed Type lisinopril 20 mg PO BID #180 tab 04/17/15 10/16/19 History cyanocobalamin (vitamin B-12) 400 mcg PO DAILY 08/05/19 10/16/19 History [Vitamin B-12] multivitamin 1 tab PO DAILY 08/05/19 10/16/19 History magnesium citrate 1,200 mg PO DAILY 08/21/19 10/16/19 History diltiazem HCl 240 mg PO DAILY #21 cap 08/24/19 10/16/19 Rx metoprolol succinate 200 mg PO DAILY #21 tab 08/24/19 10/16/19 Rx Cardiotrophin PO 10/01/19 10/01/19 History Livaplex PO 10/01/19 10/01/19 History Shasha 3 tab PO HS 10/01/19 10/01/19 History rivaroxaban 20 mg tablet 20 mg PO DAILY 10/01/19 10/16/19 History diltiazem HCl 30 mg PO ONCE PRN #10 tab 10/17/19 Rx Allergies Allergy/AdvReac Type Severity Reaction Status Date / Time No Known Allergies Allergy Unverified 07/06/20 15:51 Exam Narrative Exam Narrative: 245/985, 51, 37.2, 22, 93% RA. HEENT atraumatic; neck supple, JVP approx 12 cm; lungs clear but difficult exam due to ambient sound; heart rebekah/ regular, PMI not displaced; abdomen soft and NT; extremities 1+ pedal edema;, neuro Ox3, nonfocal Results Labs Result diagrams: 07/06/20 17:05 07/06/20 17:05 Labs: Laboratory Results - last 24 hr 07/06/20 07/06/20 07/06/20 17:05 17:05 17:05 WBC 4.50 RBC 4.63 Hgb 14.0 Hct 42.7 MCV 92.2 MCH 30.2 MCHC 32.8 RDW 13.1 Plt Count 246 MPV 10.3 Immature Gran % 0.4 Neutrophils % 67.6 Lymphocytes % 22.2 Monocytes % 5.8 Eosinophils % 2.9 Basophils % 1.1 Nucleated RBC % 0 Absolute Neutrophils 3.04 Absolute Lymphocytes 1.00 L Absolute Monocytes 0.26 Absolute Eosinophils 0.13 Absolute Basophils 0.05 Sodium 141 Potassium 3.6 Chloride 104 Carbon Dioxide 27.9 Anion Gap 9.1 BUN 9 Creatinine 0.85 Estimated GFR/1.73 m2 >= 60.00 Glucose 89 Calcium 9.1 Magnesium 2.1 Total Bilirubin 1.4 H AST 15 ALT 28 Alkaline Phosphatase 98 Troponin I < 0.05 NT-Pro-B Natriuret Pep 1428 H Total Protein 8.3 H Albumin 3.8 TSH 3.46 Last Vital Signs Temp 37.2 C 07/06/20 15:41 Pulse 48 L 07/06/20 18:46 Resp 22 07/06/20 18:50 BP 245/85 H 07/06/20 18:46 Pulse Ox 93 07/06/20 18:50 COVID-19 Screening Have you, or household traveled for leisure in last 14 days?: No Had IN PERSON contact w/suspected or confirmed C-19 person: No
[2020-07-06] MEDS: Rivaroxaban 10 MG TABLET 20 MG PO (22:20)
[2020-07-06] MEDS: Magnesium Oxide 400 MG TAB 800 MG PO (22:20)
[2020-07-06] MEDS: Melatonin 3 MG TAB 9 MG PO (22:21)
[2020-07-06] MEDS: Lisinopril 10 MG TAB PO (23:10)
[2020-07-07] VITALS (158 sets, daily range): BP systolic 128–220; BP diastolic 52–131; PULSE 37–84; RESP 11–27; TEMP 36.5–36.8; O2SAT 84–96
[2020-07-07 06:09] LABS: Troponin I < 0.05 ng/mL (<0.06)
[2020-07-07] MEDS: Magnesium Oxide 400 MG TAB PO (08:25)
[2020-07-07] MEDS: Furosemide 20 MG/2 ML VIAL IVP (09:30)
--- NOTE | 2020-07-07 09:50 | PDOC.CMIN ---
- If Service Date Differs Date of service: 07/07/20 Time of Service: 09:50 Care Management Initial Assess REASON FOR HOSPITALIZATION:: CHF PAST MEDICAL HISTORY/PAST SURGICAL HISTORY:: Medical History (Updated 07/06/20 @ 19:09 by Elpidio Anand MD). Atrial flutter. HTN (hypertension). Surgical History . S/P hernia repair PREVIOUS FUNCTIONAL STATUS/SOCIAL/FAMILY SUPPORTS:: Ladan lives in [place] with her Richard. Ladan and Richard have 2 daughters; one lives in [place] and the other is in [place]. They also have 2 grandchildren. Ladan is independent at baseline and does not receive any services. CURRENT FUNCTIONAL STATUS:: Ladan was sitting up in bed when CM met with her. She was pleasant and engaged readily with CM. Ladan denied having been told she has heart failure in the past. She is aware that she has afib, which is actually aflutter, and was been hospitalized earlier this year for this. She stated that she has not been followed by Cardiology in quite a while. She did see Dr. Leal once and had one telemedicine appointment with another freezer person whose name she cannot recall. She is not sure why she has not had follow up but acknowledges that she may have dropped the ball. She would like to see Dr. Mattson in the future. ADVANCE DIRECTIVES:: On file at [facility] Has patient been provided with info about the portal/API?: Yes Did the patient sign up for the portal?: No CODE STATUS:: DNR/DNI INSURANCE COVERAGE / FINANCIAL ISSUES:: Medicare. BS CURRENT HOME/COMMUNITY SERVICES/EQUIPMENT:: none currently PRIMARY CARE PHYSICIAN:: Isidro diego POTENTIAL DISCHARGE NEEDS:: Follow up with PCP, Cardiology and plan of care PATIENT/FAMILY EDUCATION NEEDS:: Discharge plan, limitations, dietary restrictions,importance of daily weights, Ask Me Three TRANSPORTATION:: via private vehicle with PLAN:: Ladan will likely be discharged home with no new services. She will follow up with Cardiology and her PCP and discharge plan of care, Ladan will transport via private vehicle with family. CM will continue to support Ladan and her family and assess for discharge planning concerns.
[2020-07-07] MEDS: amLODIPine 5 MG TAB PO (11:01)
--- NOTE | 2020-07-07 13:58 | W.PM.PROGNOT ---
Date of Service Date of service: 07/07/20 Time of Service: 09:29 Assessment and Plan Assessment and plan (1) CHF (congestive heart failure): Status: Chronic Assessment and plan: Presented with several months of progressively worsening ROB. BNP elevated at 1428. CXR with pulmonary edema Much improved after IV lasix. Cont IV lasix daily. Troponin neg x 2. Echocardiogram results pending. (2) Hypertensive urgency: Status: Acute Assessment and plan: She states longstanding difficult to control BP Now, d/t bradycardia, holding her diltiazem and metoprolol. Cont Lisinopril 10mg daily. Add amlodipine 5 mg daily. Is on a nitroglycerine drip. Will wean off. PRN hydralazine for SBP > 190. (3) Atrial fibrillation: Status: Chronic Assessment and plan: Now in sinus rhythm with bradycardia. Holding cardizem and metoprolol d/t bradycardia. Cont Xarelto for AC Will need cardiology f/u. Subjective Subjective Patient reports: no new complaints, feels better, shortness of breath (Improved; haven't breathed so well in months.) and afebrile Exam Const General: cooperative and no acute distress Nutritional Appearance: overweight Orientation: alert and oriented x3 Neck Neck: full ROM and JVD Resp Effort & Inspection: normal respiratory effort Auscultation: clear to auscultation bilaterally and diminished lung sounds Cardio Rate: bradycardic Rhythm: regular rhythm Heart Sounds: S1 normal and S2 normal GI Palpation: soft and nontender Skin General skin exam: no rashes or lesions noted Extrem General: no pedal edema and no calf tenderness Objective Last Vital Signs Temp 36.5 C 07/07/20 12:26 Pulse 63 07/07/20 13:00 Resp 17 07/07/20 13:00 BP 158/69 H 07/07/20 13:00 Pulse Ox 94 07/07/20 12:26 Laboratory Results - last 24 hr 07/06/20 07/06/20 07/06/20 17:05 17:05 17:05 WBC 4.50 RBC 4.63 Hgb 14.0 Hct 42.7 MCV 92.2 MCH 30.2 MCHC 32.8 RDW 13.1 Plt Count 246 MPV 10.3 Immature Gran % 0.4 Neutrophils % 67.6 Lymphocytes % 22.2 Monocytes % 5.8 Eosinophils % 2.9 Basophils % 1.1 Nucleated RBC % 0 Absolute Neutrophils 3.04 Absolute Lymphocytes 1.00 L Absolute Monocytes 0.26 Absolute Eosinophils 0.13 Absolute Basophils 0.05 Sodium 141 Potassium 3.6 Chloride 104 Carbon Dioxide 27.9 Anion Gap 9.1 BUN 9 Creatinine 0.85 Estimated GFR/1.73 m2 >= 60.00 Glucose 89 Calcium 9.1 Magnesium 2.1 Total Bilirubin 1.4 H AST 15 ALT 28 Alkaline Phosphatase 98 Troponin I < 0.05 NT-Pro-B Natriuret Pep 1428 H Total Protein 8.3 H Albumin 3.8 TSH 3.46 07/07/20 05:30 WBC RBC Hgb Hct MCV MCH MCHC RDW Plt Count MPV Immature Gran % Neutrophils % Lymphocytes % Monocytes % Eosinophils % Basophils % Nucleated RBC % Absolute Neutrophils Absolute Lymphocytes Absolute Monocytes Absolute Eosinophils Absolute Basophils Sodium Potassium Chloride Carbon Dioxide Anion Gap BUN Creatinine Estimated GFR/1.73 m2 Glucose Calcium Magnesium Total Bilirubin AST ALT Alkaline Phosphatase Troponin I < 0.05 NT-Pro-B Natriuret Pep Total Protein Albumin TSH
[2020-07-07] MEDS: Melatonin 3 MG TAB 9 MG PO (20:59)
[2020-07-07] MEDS: Rivaroxaban 10 MG TABLET 20 MG PO (20:59)
[2020-07-07] MEDS: Magnesium Oxide 400 MG TAB 800 MG PO (21:00)
[2020-07-07] MEDS: hydrALAZINE 20 MG/ML VIAL IVP (21:17)
[2020-07-08] VITALS (45 sets, daily range): BP systolic 113–181; BP diastolic 59–108; PULSE 47–138; TEMP 36.7; O2SAT 96
[2020-07-08] MEDS: Metoprolol 5 MG/5 ML VIAL 2.5 MG IVP ×2 (03:44→04:20)
[2020-07-08] MEDS: dilTIAZem 60 MG TAB PO (05:23)
[2020-07-08 07:15] LABS: Anion Gap 9.7 mmol/L (3-11); BUN 12 mg/dL (7-18); CO2 25.3 mmol/L (21.0-32.0); CREATININE 0.83 mg/dL (0.55-1.02); Calcium 9.6 mg/dL (8.5-10.1); Chloride 104 mmol/L (98-107); Glucose 94 mg/dL (74-106); Magnesium 2.3 mg/dL (1.8-2.4); Potassium 3.4 mmol/L (3.5-5.1); Sodium 139 mmol/L (136-145)
[2020-07-08] MEDS: Lisinopril 20 MG TAB PO ×2 (07:51→20:59)
[2020-07-08] MEDS: Magnesium Oxide 400 MG TAB PO (07:51)
[2020-07-08] MEDS: dilTIAZem 30 MG TAB PO ×2 (07:52→14:31)
[2020-07-08] MEDS: POTASSIUM CHLORIDE 10 MEQ/100 ML BAG 50 MEQ IVPB ×2 (08:55→11:13)
--- NOTE | 2020-07-08 09:00 | RT.EKG_ITS ---
APPROVED REPORT Exam: Resting ECG Patient Location: I HR:65 bpm ECG Measurements Heart Rate 65 AXIS AL 73 P 55 QRSd 84 QRS -27 QT 403 T 45 QTc 418 Conclusion Sinus rhythm...normal P axis, V-rate 60- 99 LVH with secondary repolarization abnormality...multi-LVH criteria, abnrm ST-T Anterior infarct, old...Q >40mS, abnormal ST-T, V2-V5
--- NOTE | 2020-07-08 09:29 | PHACLINREV_ITS ---
Pharmacy Admission Review - Admission Clinical Review (Last Reviewed 07/06/20 @ 19:05 by Elpidio Anand MD) CHF exacerbation (Acute) Hypertensive urgency (Acute) No Known Allergies Allergy (Unverified 07/06/20 15:51) Height 5 ft 5.5 in Weight 78.8 kg - Renal Dosing Renal Dosing: BUN 12 mg/dL (7-18) 07/08/20 06:25 Creatinine 0.83 mg/dL (0.55-1.02) 07/08/20 06:25 Medications needing adjustments: Reviewed List of meds needing interventions: eCrCl >54.3 using abw - Anticoagulation Anticoagulation: Hgb 14.0 g/dL (11.2-15.7) 07/06/20 17:05 Hct 42.7 % (36.0-46.0) 07/06/20 17:05 Plt Count 246 10^3/uL (130-400) 07/06/20 17:05 Creatinine 0.83 mg/dL (0.55-1.02) 07/08/20 06:25 Therapeutic Anticoagulation: Reviewed Medications: Rivaroxaban - Opiate Usage Evaluate Pain Scale/Pains Meds: N/A - Relevant Labs Sodium 139 mmol/L (136-145) 07/08/20 06:25 Potassium 3.4 mmol/L (3.5-5.1) L 07/08/20 06:25 Chloride 104 mmol/L (98-107) 07/08/20 06:25 Magnesium 2.3 mg/dL (1.8-2.4) 07/08/20 06:25 Electrolytes, C-Reactive P, ESR: Reviewed (replaced with 20 meq IV K+ this AM) - DM Control DM Control: Glucose 94 mg/dL (74-106) 07/08/20 06:25 Insulin Dosing: N/A - Heart Failure/KY Heart Failure/[place]: Troponin I < 0.05 ng/mL (<0.06) 07/07/20 05:30 NT-Pro-B Natriuret Pep 1428 pg/mL (<300) H 07/06/20 17:05 EF%, ULISES's, B-Blockers, Diuretics: Reviewed (dilt and metoprolol for rate contro l, 20mg IV lasix given yesterday and 40mg day prior in ED -- not currently scheduled, lisinopril dose increased from 10 to 20 BID (home dose), 1 time dose of amlodipine given but scheduled order was discontinued...) - BP Control BP Control: Blood Pressure 140/108 Blood Pressure 145/102 Blood Pressure 125/90 Blood Pressure 146/95 Blood Pressure 146/95 Blood Pressure 177/96 Blood Pressure 172/96 Blood Pressure 143/80 Blood Pressure 154/70 Blood Pressure 151/63 Blood Pressure 147/60 Blood Pressure 147/73 Blood Pressure 132/58 Blood Pressure 138/71 Blood Pressure 138/57 Blood Pressure 155/71 Blood Pressure 143/68 Blood Pressure 148/76 Blood Pressure 149/82 Blood Pressure 158/72 If elevated: Reviewed (home dose of metoprolol = 200mg ER daily, still adjusting other meds for HR control) List meds needing interventions: see above note - Qtc Review If Elevated: Reviewed (425 on admission) - IV to PO Switch IV Medications: Reviewed - Home Meds Home Med List reviewed: Reviewed Relevent Home Meds Not ordered & why?: metoprolol - ordered as 2.5mg IVP prn currently, ropinirole (just added based on rx filled in february for 90 day supply), rest ordered; of note: rx record shows that Xarelto hasn't been filled since November for 90 days - Current meds Current Medication Order Review: Intervened (IV lasix is not scheduled - notified ) - Comments Comments/Follow Ups: anticipate freq med changes until rate and BP control is maintained, monitor BMP, ins/outs, daily wt
--- NOTE | 2020-07-08 12:17 | W.PM.PROGNOT ---
Date of Service Date of service: 07/08/20 Time of Service: 12:18 Assessment and Plan Assessment and plan (1) CHF (congestive heart failure): Status: Chronic Assessment and plan: S/P lasix with good results. No resp complaints. Echocardiogram showed an EF of 65-70%. No wall motion abnormalities. Likely a result of hypertensive urgency and possibly afib with RVR No further lasix being administered currently. BP control. (2) Hypertensive urgency: Status: Acute Assessment and plan: Her home dose of lisinopril is now being given; 20mg BID. Oral cardizem initiated at 60mg Q6H; now in NSR and decreased to 30mg TID. Metoprolol is being held. Amlodipine stopped. (3) Atrial fibrillation: Status: Chronic Assessment and plan: Mild hypokalemia may be a driving factor. Replace and monitor. Telemetry. Oral cardizem; now back in NSR. Previously on metoprolol as well; holding now and will restart if HR dictates and BP tolerates. (4) Hypokalemia: Status: Acute Assessment and plan: IV replacement. Monitor. Subjective Subjective Patient reports: afebrile Interval history since last seen: Transient episode of lightheadness this AM that was coincidental with converting from afib with RVR to normal sinus rhythm. No CP, SOA Exam Const General: cooperative and no acute distress Nutritional Appearance: overweight Orientation: alert and oriented x3 Resp Effort & Inspection: normal respiratory effort Auscultation: clear to auscultation bilaterally Cardio Rate: regular rate Rhythm: regular rhythm Heart Sounds: S1 normal and S2 normal GI Palpation: soft and nontender Extrem General: no pedal edema and no calf tenderness Objective Last Vital Signs Temp 36.8 C 07/07/20 22:49 Pulse 47 L 07/08/20 10:34 Resp 16 07/07/20 22:49 BP 140/108 H 07/08/20 07:00 Pulse Ox 92 07/07/20 21:20 Laboratory Results - last 24 hr 07/08/20 06:25 Sodium 139 Potassium 3.4 L Chloride 104 Carbon Dioxide 25.3 Anion Gap 9.7 BUN 12 Creatinine 0.83 Estimated GFR/1.73 m2 >= 60.00 Glucose 94 Calcium 9.6 Magnesium 2.3
--- NOTE | 2020-07-08 17:06 | PDOC.CMPRO ---
- If Service Date Differs Date of service: 07/08/20 Time of Service: 17:06 Care Management Progress Note S/O: Ladan was sitting up in bed when CM met with her. She appeared to be in good spirits and was watching the inauguration. Ladan shared that she would not be going home today as she had a period of extreme dizziness this morning. Her heart rate has not been controlled and has ranged from 47 to 138.Ladan requested that she have her follow up appointment for Cardiology with Dr. Mattson. She also requested that CM assist with rescheduling her PCP appointment from telehealth to in person. Ladan's Cardiology appointment with Dr. Mattson is scheduled for Monday07/15/20 at 1120 am and her PCP appointment with Gaurav Schmidt is for Monday07/14/20 at 8 am with an arrival time of 7:45 am. A: Ladan is a pleasant 75 year old woman admitted on 07/07/20 with CHF. P: Ladan will likely be discharged home with no new services. She will follow up with Cardiology and her PCP and discharge plan of care, Ladan will transport via private vehicle with family. CM will continue to support Ladan and her family and assess for discharge planning concerns.
[2020-07-08 17:16] LABS: COVID-19 RT-PCR UVMMC Result Negative (Negative)
[2020-07-08] MEDS: Magnesium Oxide 400 MG TAB 800 MG PO (20:59)
[2020-07-08] MEDS: Melatonin 3 MG TAB 9 MG PO (21:00)
[2020-07-08] MEDS: Rivaroxaban 10 MG TABLET 20 MG PO (21:00)
[2020-07-08] MEDS: Normal Saline Flush 10 ML SYR IVP (21:01)
[2020-07-09] VITALS (20 sets, daily range): BP systolic 135–181; BP diastolic 67–91; PULSE 58–92; TEMP 36.3–36.5
[2020-07-09] MEDS: Potassium Chloride 20 MEQ TABCR PO (09:09)
[2020-07-09] MEDS: Lisinopril 20 MG TAB PO (09:09)
[2020-07-09] MEDS: Normal Saline Flush 10 ML SYR IVP (09:09)
--- NOTE | 2020-07-09 09:33 | CCONE_ITS ---
Date of service: 07/09/20 Time of Service: 09:33 Assessment and Plan Assessment and plan (1) Atrial fibrillation: Status: Chronic (2) Diastolic heart failure: Status: Acute (3) HTN (hypertension): Status: Chronic Assessment and plan: The patient has diastolic heart failure, which is now compensated Her blood pressure is much better controlled Current issues include what appears to be sick sinus syndrome. She has paroxysmal atrial fibrillation with symptomatic significant pauses upon conversion back to sinus rhythm. Medical therapy of her atrial fibrillation has been limited by documented sinus bradycardia here in the hospital I have recommended that she have a pacemaker inserted. This will prevent excess saba bradycardia caused by necessary medications for treatment of her PAF. It will also prevent symptomatic long pauses when she converts back from atrial fibrillation to sinus rhythm. The patient is agreeable to transfer to [facility]. While there she may discuss A. fib ablation further, as well as other possible medications for her dysrhythmia Thank you for the opportunity to participate in the care of this patient We will plan eventual follow-up in clinic Qualifiers: Hypertension type: essential hypertension Qualified Code(s): I10 - Essential (primary) hypertension History of Present Illness History of Present Illness Chief Complaint: Paroxysmal atrial fibrillation, bradycardia, diastolic heart failure Narrative: This is a 75-year-old woman who was admitted to the hospital 3 days ago with shortness of breath. She was found to have diastolic heart failure and poorly controlled hypertension. She was diuresed and her respiratory status has dramatically improved. She has additional issues with paroxysmal atrial flutter/fibrillation. Last spring she was hospitalized with atrial fibrillation with an uncontrolled rate. She was treated with diltiazem and metoprolol succinate as well as Xarelto for stroke prevention. She converted to sinus r hythm during that hospitalization. She subsequently had a telephone consultation with EP at [facility], Dr. Griggs. She was interested in A. fib ablation but also was being evaluated for sleep apnea and wished to pursue that first No follow-up occurred after these visits in the spring. The patient described progressive exertional shortness of breath. On presentation she had findings and x-ray consistent with heart failure. Symptoms responded to furosemide. Her echocardiogram showed normal left ventricular systolic function and possibly mild mitral stenosis The patient was bradycardic on presentation with a heart rate between 40 and 50. EKG suggested sinus bradycardia as well as junctional beats. She subsequently developed atrial with a rapid rate, 1 20-1 30. Her beta-anurag and calcium channel anurag had been held on the basis of the initial bradycardia. She was treated acutely with intravenous metoprolol and diltiazem for the rapid atrial fibrillation and did convert to sinus rhythm. With conversion she had an approximately 6 to 7-second pause which was symptomatic with near syncope. She is currently in sinus rhythm in the 70s She does not have any history of coronary artery disease. She is compliant with her CPAP device. She reports that she has been compliant with Xarelto for stroke prevention. She remains interested in A. fib ablation Consults Consult date: 07/09/20 Requesting physician: Marcos Jackson Review of Systems Cardiovascular Cardiovascular: Denies chest pain, Denies chest pain at rest, Reports leg edema, Reports lightheadedness, Reports palpitations, Reports dyspnea, Reports dyspnea on exertion, Reports orthopnea and Reports slow heart rate Respiratory Respiratory: Reports dyspnea and Reports dyspnea on exertion Endocrine Endocrine: Reports palpitations [facility] Medical History (Updated 07/09/20 @ 09:40 by Aaliyah Mattson MD) Atrial flutter Diastolic heart failure HTN (hypertension) Surgical History S/P hernia repair Family History Mother Essential hypertension Heart disease Stroke Father Essential hypertension Heart disease Stroke Sister Essential hypertension Personal history of malignant neoplasm BREAST Grandfather Heart disease Grandfather Personal history of malignant neoplasm Lung Grandmother Heart disease Stroke Grandmother No problems noted. Social History Smoking/Tobacco Use Status: Former Tobacco Use Quit Date: 06/19/84 Tobacco: How many years used: 20 Smoking risk assessment performed?: Yes Alcohol Intake: former Drug use: Never Substance use type: does not use What type of physical activity do you participate in: walking and other Details: hikes Duration: 15-30 minutes/day Frequency: daily Do you feel safe at home: Yes Do you feel safe in your relationship?: Yes Exam Narrative Exam Narrative: Physical examination was not performed Results Last Vital Signs Temp 36.7 C 07/08/20 13:37 Pulse 61 07/09/20 05:00 Resp 16 07/07/20 22:49 BP 145/78 H 07/09/20 05:00 Pulse Ox 96 07/08/20 13:37 Labs Result diagrams: 07/06/20 17:05 07/08/20 06:25 Labs: Laboratory Results - last 24 hr 07/06/20 19:30 SARS-CoV-2 (PCR) Negative Nasopharyn COVID-19 PCR Not Applicable Ref Test Perform Site [facility] lab EKG interpretations Dysrhythmias Sinus rhythms and dysrhythmias: sinus rhythm Blocks, axis, hypertrophy, ST abn Chamber hypertrophy or enlargement: left ventricular hypertrophy or enlargement (LVE) TX, pacemaker, normal Myocardial infarction: anterior TX (old age or indeterminate)
--- NOTE | 2020-07-09 11:31 | W.NUTRFU ---
Date of service: 07/09/20 Time of Service: 11:31 Nutritional Follow up NOTE: 75 year old female admitted with CHF, diastolic heart failure. BMI wnl for age. Following Low Salt diet with adequte intake. Not at nutritional risk at this time. Will continue to follow. Time Spent in Nutritional Counseling and Treatment: 0
--- NOTE | 2020-07-09 12:24 | DSE_ITS ---
Date of service: 07/09/20 Time of Service: 12:25 DS: Diagnosis Discharge Diagnosis (1) Atrial fibrillation: Status: Chronic (2) Diastolic heart failure: Status: Acute (3) HTN (hypertension): Status: Chronic (4) Sick sinus syndrome: Status: Acute Discharge Plan Disposition Patient Disposition: [facility] Condition: Stable Discharge Details Reason For Visit: CHF Admit Date/Time: 07/06/20 19:14 Admit Provider: Elpidio Anand Attending Provider: Elpidio Anand Primary Care Provider: Isidro Schmidt Hospital Course Hospital Course: This is a 75 female with h/o PAF, HTN that presented with a number of months of progressive ROB and variable LE swelling and orthopnea. In ER findings of note for sinus bradycardia, severe HTN with a reading of 22/95, BNP 1428, CXR with pulmonary edema, EKG with old septal MO, trop negative. Patient stated she tillman an ECHO at outside facility at some remote time, was normal, denies h/o CHF. Ordered for Lasix and NTG and admitted for further evaluation. With 2 doses of IV lasix her respiratory status returned to her baseline; no ROB. Because of presenting with bradycardia her home metoprolol and diltiazem were held; lisinopril continued. Her Xarelto was continued. She did develop atrial fibrillation with a rapid ventricular response. IV diltiazem administered. She did convert back to NSR with a 4 second pause; symptomatic with lightheadedness and nausea. Cardiology consulted and recommended pacemaker placement. Also, EP evaluation for possible ablation. Home Meds and New Rx's Prescriptions: No Action Xarelto 20 mg tablet 20 mg PO DAILY RF: 0 Cardiotrophin PO RF: 0 Livaplex PO RF: 0 lisinopril 20 MG tablet 20 mg PO BID Qty: 180 RF: 4 multivitamin Tablet 1 tab PO DAILY RF: 0 cyanocobalamin (vitamin B-12) [Vitamin B-12] 100 mcg Tablet 400 mcg PO DAILY RF: 0 Shasha 3 tab PO HS RF: 0 magnesium citrate 100 mg Tablet 1,200 mg PO DAILY RF: 0 diltiazem HCl 240 mg capsule,extended release 24hr 240 mg PO DAILY Qty: 21 RF: 1 metoprolol succinate 200 mg tablet extended release 24 hr 200 mg PO DAILY Qty: 21 RF: 1 ropinirole 1 mg tablet 1 mg PO HS RF: 0 Discharge Instructions Referrals: Aaliyah Mattson MD [ [facility] STAFF PHYSICIAN] - 07/15/20 11:20 am Isidro Schmidt [Primary Care Provider] - 07/14/20 8:00 am Activity:: Activity as Tolerated Equipment/Supplies:: No Equipment Needed Diet:: Low Sodium Discharge Orders Discharge Orders: Discharge Order (Routine); Ordered 07/09/20 Ordered By: Marcos Jackson DS: Summary Status at Discharge Functional status at discharge: independent ambulation Overall status at discharge: patient is not back to baseline Mental Status: mental status grossly normal Speech and Movement: speech and movement normal Mood: congruent mood Affect: normal affect Exam Const General: cooperative and no acute distress Nutritional Appearance: overweight Orientation: alert and oriented x3 Neck Neck: full ROM and no JVD Resp Effort & Inspection: normal respiratory effort Auscultation: clear to auscultation bilaterally Cardio Rate: regular rate Rhythm: regular rhythm Heart Sounds: S1 normal and S2 normal GI Palpation: soft and nontender Skin General skin exam: no rashes or lesions noted Extrem General: no pedal edema and no calf tenderness Psych Mental Status: mental status grossly normal Speech and Movement: speech and movement normal Mood: congruent mood Affect: normal affect DS: Data Vitals/I&O Vitals and I&O: Vital Signs Temperature 36.5 C 07/09/20 10:00 Temperature Source Temporal Artery Scan 07/09/20 10:00 Pulse 64 07/09/20 11:23 Pulse Rhythm Regular 07/09/20 08:00 Pulse 65 07/09/20 11:23 Respiratory Rate 16 07/07/20 22:49 Respiratory Effort Non-Labored 07/09/20 08:00 Respiratory Depth Normal 07/09/20 08:00 Respiratory Pattern Normal 07/09/20 08:00 Blood Pressure 150/86 H 07/09/20 11:23 Blood Pressure Mean 102 07/09/20 11:23 Blood Pressure Position Supine 07/07/20 12:26 Pulse Oximetry 96 07/08/20 13:37 Oxygen Delivery Method Room Air 07/08/20 13:37 Oxygen Flow Rate 0 07/08/20 13:37 Fraction of Inspired Oxygen (FIO2) 21 07/09/20 10:27 Pain Level 0 07/07/20 15:49 Intake & Output 07/08/20 07/09/20 07/09/20 23:59 11:59 23:59 Intake Total 200 / 600 240 / 240 Output Total 450 / 450 Balance 200 / -250 -210 / -210 Intake: Oral 200 / 500 240 / 240 Output: Urine 450 / 450 Other: Urine Color Yellow Urine Appearance Clear Clear Urine Odor None Stool Size Large Stool Characteristics Soft Brown Voiding Methods Bedside Commode Data Completed and Pending Labs on day of discharge: Labs from last 24 hours 07/06/20 19:30 SARS-CoV-2 (PCR) Negative Nasopharyn COVID-19 PCR Not Applicable Ref Test Perform Site [facility] Medical History (Updated 07/09/20 @ 12:25 by Marcos Jackson MD) Atrial flutter Diastolic heart failure HTN (hypertension) Surgical History S/P hernia repair Family History Mother Essential hypertension Heart disease Stroke Father Essential hypertension Heart disease Stroke Sister Essential hypertension Personal history of malignant neoplasm BREAST Grandfather Heart disease Grandfather Personal history of malignant neoplasm Lung Grandmother Heart disease Stroke Grandmother No problems noted. Social History Smoking/Tobacco Use Status: Former Tobacco Use Quit Date: 06/19/84 Tobacco: How many years used: 20 Smoking risk assessment performed?: Yes Alcohol Intake: former Drug use: Never Substance use type: does not use What type of physical activity do you participate in: walking and other Details: hikes Duration: 15-30 minutes/day Frequency: daily Do you feel safe at home: Yes Do you feel safe in your relationship?: Yes
--- NOTE | 2020-07-09 16:42 | CHAPLAIN ---
Ladan learned this morning that she will be going to [facility] for a pacemaker. Her nurse said she spoke with Ladan's daughter who said Ladan is very nervous about this. Ladan was in bed when I visited. She easily engaged in a conversation. 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 Ladan said she has not taken good care of herself, physically and emotionally, through all this. She talked about ways she plans to care for herself better - walking, time with pets, time spent sitting still alone. She has a sister who is a nurse who has been helping her. She is close to her daughters as well. Ladan said that it has been difficult to realize that she is not in control of much and to trust the process.
== END 2020-07-09 14:50 | disposition short-term general hospital (02) ==
LOC: ER 19:20 → ICU 20:04
PROVIDERS: Internal Medicine; Admitting Provider General Practice; Emergency Provider Physician Assistant; PCP Family Medicine; Visit Provider General Practice
DX: I11.0 Hypertensive heart disease with heart failure (principal); I50.31 Acute diastolic (congestive) heart failure; I48.0 Paroxysmal atrial fibrillation; I49.5 Sick sinus syndrome; I48.92 Unspecified atrial flutter; I25.2 Old myocardial infarction; I16.0 Hypertensive urgency; Z87.891 Personal history of nicotine dependence; E87.6 Hypokalemia; Z79.01 Long term (current) use of anticoagulants
CPT/HCPCS: 36415; 80048; 80053; 93005; 96374; 99222; 99232; 99239; 99253; 99285; U0003; 71045; 83735; 83880; 84443; 84484; 85025; 93010; 93306; 99213; 99217; 99219; 99225; G0378; J0360; J1940; J1941; J3480

== ENCOUNTER → 2020-07-09 08:49 | Outpatient (BNVA) | payer MEDICARE, BC, SELFPAY | PROVIDERS: PCP Family Medicine; Referring Provider Family Medicine; Visit Provider Internal Medicine Cardiovascular Disease | DX: R69 Illness, unspecified (principal) ==

== ENCOUNTER 2020-07-14 10:59 | Outpatient (REF) | payer MEDICARE, BC, SELFPAY ==
[2020-07-14 14:37] LABS: BUN 11 mg/dL (7-18); CREATININE 0.73 mg/dL (0.55-1.02); Calcium 9.7 mg/dL (8.5-10.1); Chloride 104 mmol/L (98-107); Glucose 91 mg/dL (74-106); Potassium 4.3 mmol/L (3.5-5.1); Sodium 138 mmol/L (136-145)
== END 2020-07-14 11:19 ==
LOC: NCHCN 10:59
PROVIDERS: PCP Family Medicine; Visit Provider Family Medicine
DX: I48.91 Unspecified atrial fibrillation (principal)
CPT/HCPCS: 80048

== ENCOUNTER → 2020-07-15 10:48 | Outpatient (BNVA) | payer MEDICARE, BC, SELFPAY | PROVIDERS: PCP Family Medicine; Referring Provider Family Medicine; Visit Provider Internal Medicine Cardiovascular Disease | DX: I48.91 Unspecified atrial fibrillation (principal); I50.30 Unspecified diastolic (congestive) heart failure; Z95.0 Presence of cardiac pacemaker; I49.5 Sick sinus syndrome; I11.0 Hypertensive heart disease with heart failure | CPT/HCPCS: 99214 ==

== ENCOUNTER 2021-03-18 02:17 | Outpatient (CLI) | payer MEDICARE, BC, SELFPAY ==
--- NOTE | 2021-03-18 13:15 | DI.MAMMO_ITS ---
Exam(s) MAMMO SCREENING EXAM: MAMMO SCREENING CLINICAL HISTORY: SCREENING,Z12.39 TECHNIQUE: Bilateral full field digital CC and MLO mammographic images were obtained with 3D tomosyn thesis and utilizing computer aided detection (CAD). COMPARISON: Available for comparison. FINDINGS: Masses/Architectural Distortion: None seen. Microcalcifications: No suspicious pleomorphic-type are seen. Skin Thickening/Nipple Retraction: None. IMPRESSION: 1. No significant interval change with no specific features of malignancy noted. 2. Unless there is more urgent need, screening mammography is recommended, as per [place] [employer] guidelines. BI-RADS Category 1 - Negative Breast Density - Category B - Scattered areas of fibroglandular density Breast density category C or D implies that the patient has dense breast tissue. Dense breast tissue is very common and is not abnormal but dense breast tissue can make it harder to find cancer on a ma mmogram. Also, dense breast tissue may increase their breast cancer risk. This information about the result of the mammogram report was provided to the patient to raise their awareness. Use this report when you speak with the patient about their risks for breast cancer, which includes their family hist ory. At that time, you may recommend for more screening tests (Ultrasound or MRI) as they might be us eful based on their risk. A negative radiographic report should not delay biopsy if a dominant or clinically suspicious mass is present. Up to ten percent of cancers are not identified on mammography. A negative report may reinforce clinical impression. Adenosis and dense breasts may obscure an underlying neoplasm. False positive reports average 6 to 10%. Patient will receive a letter notifying them of these results.
== END 2021-03-18 02:37 ==
PROVIDERS: PCP Family Medicine; Visit Provider Family Medicine
DX: Z12.31 Encounter for screening mammogram for malignant neoplasm of breast (principal)
CPT/HCPCS: 77063; 77067

== ENCOUNTER 2021-04-06 16:28 | Outpatient (REF) | payer MEDICARE, BC, SELFPAY ==
[2021-04-06 22:18] LABS: ALT 28 U/L (14-59); AST 17 U/L (15-37); Albumin 4.1 g/dL (3.4-5.0); Alkaline Phosphatase 121 U/L (46-116); Anion Gap 10.1 mmol/L (3-11); BUN 11 mg/dL (7-18); Bilirubin, Total 1.2 mg/dL (0.2-1.0); CO2 26.9 mmol/L (21.0-32.0); CREATININE 0.9 mg/dL (0.55-1.02); Calcium 9.3 mg/dL (8.5-10.1); Chloride 105 mmol/L (98-107); Glucose 111 mg/dL (74-106); Potassium 3.9 mmol/L (3.5-5.1); Sodium 142 mmol/L (136-145); TSH 1.69 uIU/mL (0.36-3.74); Total Protein 7.2 g/dL (6.4-8.2)
== END 2021-04-06 16:29 | disposition home or self-care (01) ==
LOC: NCHCN 16:28
PROVIDERS: PCP Family Medicine; Visit Provider Family Medicine
DX: I10 Essential (primary) hypertension (principal); R74.01 Elevation of levels of liver transaminase levels; R94.5 Abnormal results of liver function studies
CPT/HCPCS: 80053; 84443

== ENCOUNTER 2021-06-25 01:42 | Outpatient (CLI) | payer MEDICARE, BC, SELFPAY ==
[2021-06-25 12:12] VITALS: BP 165/90; PULSE 69; RESP 22; TEMP 36.9; O2SAT 98
[2021-06-25] MEDS: Normal Saline 250 ML 30 ML IV (12:40)
[2021-06-25] MEDS: Normal Saline Flush 10 ML SYR IVP (12:40)
[2021-06-25 12:55] VITALS: BP 146/78; PULSE 60; RESP 20; TEMP 36.8; O2SAT 96
[2021-06-25 13:47] VITALS: BP 147/80; PULSE 60; RESP 20; TEMP 36.6; O2SAT 96
[2021-06-25 14:38] VITALS: BP 151/87; PULSE 60; RESP 20; TEMP 36.8; O2SAT 98
== END 2021-06-25 14:39 ==
LOC: INF 01:42
PROVIDERS: PCP Family Medicine; Visit Provider Family Medicine
DX: U07.1 COVID-19 (principal)
CPT/HCPCS: 96365; Q0047

== ENCOUNTER 2021-07-20 09:51 | Outpatient (REF) | payer MEDICARE, BC, SELFPAY ==
[2021-07-20 14:45] LABS: ALT 24 U/L (14-59); AST 14 U/L (15-37); Alkaline Phosphatase 107 U/L (46-116); Anion Gap 10.4 mmol/L (3-11); BUN 8 mg/dL (7-18); Bilirubin, Total 1.6 mg/dL (0.2-1.0); CO2 26.6 mmol/L (21.0-32.0); CREATININE 0.8 mg/dL (0.55-1.02); Calcium 9.4 mg/dL (8.5-10.1); Calculated LDL 66 mg/dL (<100); Chloride 102 mmol/L (98-107); Cholesterol 151 mg/dL (<200); Glucose 90 mg/dL (74-106); HDL Cholesterol 71 mg/dL (40-60); Potassium 3.9 mmol/L (3.5-5.1); Sodium 139 mmol/L (136-145); Total Protein 7.3 g/dL (6.4-8.2); Triglyceride 70 mg/dL (<150)
== END 2021-07-20 09:52 | disposition home or self-care (01) ==
LOC: NCHCN 09:51
PROVIDERS: PCP Family Medicine; Visit Provider Family Medicine
DX: E78.5 Hyperlipidemia, unspecified (principal); I10 Essential (primary) hypertension
CPT/HCPCS: 80053; 80061

== ENCOUNTER 2022-02-08 15:50 | Outpatient (REF) | payer MEDICARE, BC, SELFPAY ==
[2022-02-08 21:29] LABS: Anion Gap 8.5 mmol/L (3-11); BUN 14 mg/dL (7-18); CO2 26.5 mmol/L (21.0-32.0); CREATININE 0.9 mg/dL (0.55-1.02); Calcium 9.1 mg/dL (8.5-10.1); Chloride 104 mmol/L (98-107); Glucose 106 mg/dL (74-106); Magnesium 2.2 mg/dL (1.8-2.4); Potassium 4.1 mmol/L (3.5-5.1); Sodium 139 mmol/L (136-145)
== END 2022-02-08 15:51 | disposition home or self-care (01) ==
LOC: NCHCN 15:50
PROVIDERS: PCP Family Medicine; Visit Provider Family Medicine
DX: I48.91 Unspecified atrial fibrillation (principal); R94.6 Abnormal results of thyroid function studies
CPT/HCPCS: 80048; 83735; 84443

== ENCOUNTER → 2022-03-21 01:38 | Outpatient (CLI) | payer MEDICARE, BC, SELFPAY ==
--- NOTE | 2022-03-21 | DI.MAMMO_ITS ---
Exam(s) MAMMO SCREENING EXAM: MAMMO SCREENING CLINICAL HISTORY: SCREENING FOR BREAST CANCER Z12.39 TECHNIQUE: Mammograms were interpreted according to the usual protocol including computer analysis w Relative[employer]ai CAD system, tomosynthesis and C-view imaging. COMPARISON: 2012 through 2020 FINDINGS: The breasts are composed of scattered fibroglandular densities, Breast Density category B. No suspicious masses or suspicious microcalcifications are seen. Incidental vascular calcifications. No skin thickening or abnormal axillary lymph nodes are seen. There has been no significant change from prior exams. IMPRESSION: BI-RADS Category 1, Negative mammogram Yearly screening mammography is recommended. Breast Density - Category B, scattered fibroglandular densities. A negative radiographic report should not delay biopsy if a dominant or clinically suspicious mass is present. Up to ten percent of cancers are not identified on mammography. A negative report may reinforce clinical impression. Adenosis and dense breasts may obscure an underlying neoplasm. False positive reports average 6 to 10%. Patient will receive a letter notifying them of these results.
== END ==
PROVIDERS: PCP Family Medicine; Visit Provider Family Medicine
DX: Z12.31 Encounter for screening mammogram for malignant neoplasm of breast (principal)
CPT/HCPCS: 77063; 77067

== ENCOUNTER 2023-02-16 18:58 | Outpatient (REF) | payer MEDICARE, BC, SELFPAY ==
[2023-02-16 20:52] LABS: ALT 18 U/L (14-59); AST 14 U/L (15-37); Albumin 3.9 g/dL (3.4-5.0); Alkaline Phosphatase 92 U/L (46-116); Anion Gap 10.8 mmol/L (3-11); BUN 11 mg/dL (7-18); Bilirubin, Total 1.1 mg/dL (0.2-1.0); CO2 25.2 mmol/L (21.0-32.0); CREATININE 0.9 mg/dL (0.55-1.02); Calcium 9.4 mg/dL (8.5-10.1); Chloride 106 mmol/L (98-107); Estimated GFR 66.67 (mL/min/1.73m2); Glucose 125 mg/dL (74-106); Magnesium 2.2 mg/dL (1.8-2.4); Sodium 142 mmol/L (136-145); Total Protein 7.3 g/dL (6.4-8.2)
[2023-02-16 21:41] LABS: Vitamin B12 1415 pg/mL (193-986)
== END 2023-02-16 18:59 | disposition home or self-care (01) ==
LOC: NCHCN 18:58
PROVIDERS: PCP Family Medicine; Visit Provider Family Medicine
DX: R94.6 Abnormal results of thyroid function studies (principal); E78.5 Hyperlipidemia, unspecified; I48.91 Unspecified atrial fibrillation; I10 Essential (primary) hypertension; E66.3 Overweight; Z86.2 Personal history of diseases of the blood and blood-forming organs and certain disorders involving the immune mechanism
CPT/HCPCS: 80053; 82607; 83735; 84443

== ENCOUNTER → 2023-03-24 00:17 | Outpatient (CLI) | payer MEDICARE, BC, SELFPAY ==
--- NOTE | 2023-03-24 | DI.MAMMO_ITS ---
Exam(s) MAMMO SCREENING EXAM: MAMMO SCREENING CLINICAL HISTORY: SCREENING, Z12.39 TECHNIQUE: Mammograms were interpreted according to the usual protocol including computer analysis w Variable CAD system, tomosynthesis and C-view imaging. COMPARISON: 2014 through 2021 FINDINGS: The breasts are composed of scattered fibroglandular densities, Breast Density category B. No suspicious masses or suspicious microcalcifications are seen. No skin thickening or abnormal axillary lymph nodes are seen. There has been no significant change from prior exams. IMPRESSION: BI-RADS Category 1, Negative mammogram Yearly screening mammography is recommended. Breast Density - Category B, scattered fibroglandular densities. A negative radiographic report should not delay biopsy if a dominant or clinically suspicious mass is present. Up to ten percent of cancers are not identified on mammography. A negative report may reinforce clinical impression. Adenosis and dense breasts may obscure an underlying neoplasm. False positive reports average 6 to 10%. Patient will receive a letter notifying them of these results.
== END ==
PROVIDERS: PCP Family Medicine; Visit Provider Family Medicine
DX: Z12.31 Encounter for screening mammogram for malignant neoplasm of breast (principal)
CPT/HCPCS: 77063; 77067

== ENCOUNTER 2023-04-08 10:07 | Emergency (ER) | payer MEDICARE, BC, SELFPAY ==
--- NOTE | 2023-04-08 10:15 | DI.RAD_ITS ---
Exam(s) XR FOOT RT COMPLETE EXAM: XR FOOT RT COMPLETE CLINICAL HISTORY: dorsal/lateral pain. TECHNIQUE: 2D digital imaging was performed. COMPARISON: No exams were available for comparison FINDINGS: 3 views There is soft tissue swelling of the dorsal aspect of the foot. No radiopaque foreign body seen. There is no evidence of fracture nor diastasis of the Lisfranc joint. Bone density normal. No osseo us lesions. No erosions. Large inferior calcaneal spur is incidentally noted. Also incidentally no jeri is a calcific density off the lateral aspect of the interphalangeal joint of the great toe which does not have the appearance of fracture fragment and may represent a sesamoid bone at this level. IMPRESSION: Dorsal soft tissue swelling. No acute fractures. No evidence of osteomyelitis. DATA REPOSITORY: RADIATION DOSE DELIVERED:
[2023-04-08 10:18] VITALS: BP 192/80; PULSE 66; RESP 18; TEMP 36.8; O2SAT 98
--- NOTE | 2023-04-08 10:51 | DI.VRAD_ITS ---
PROCEDURE INFORMATION: Exam: XR Right Foot Exam date and time: 04/08/2023 10:36 AM Age: 77 years old Clinical indication: Other: Dorsal/lateral pain and swelling TECHNIQUE: Imaging protocol: Radiologic exam of the right foot. Views: 3 or more views. COMPARISON: US EXTREMITY VENOUS BI 08/21/2019 1:28 PM FINDINGS: Bones/joints: There is no evidence of acute fracture in any of the visualized osseous structures.. There is no evidence of malalignment or dislocation of any visualized joint. Soft tissues: Soft tissue swelling over the dorsum of the foot IMPRESSION: 1. There is no evidence of acute fracture in any of the visualized osseous structures.. 2. There is no evidence of malalignment or dislocation of any visualized joint. Dictated and Authenticated by: Mercedez Dominguez MD. Ordering:BUCK Espinosa MD
--- NOTE | 2023-04-08 11:01 | ED.GENADUL_ITS ---
Discharge Plan Disposition Patient Disposition: Home Discharge Details Clinical Impression: Hematoma of right foot Primary Care Provider: Isidro Schmidt ED Provider: Jesús Odell Home Meds and New Rx's Prescriptions: Continued sotalol 80 mg tablet 80 mg PO BID amlodipine 10 mg tablet 5 mg PO DAILY Xarelto 20 mg tablet 20 mg PO DAILY Rx Instructions: must administer with evening meal lisinopril 20 mg tablet 40 mg PO BID Qty: 180 labetalol 200 mg tablet 300 mg PO BID atorvastatin [Lipitor] 10 mg tablet 10 mg PO QHS magnesium citrate 100 mg tablet 400 mg PO TID cyanocobalamin (vitamin B-12) [Vitamin B-12] 100 mcg Tablet 400 mcg PO DAILY Shasha 3 tab PO HS Patient Comments: OTC med contains melatonin. 3 tabs 3mg each Discharge Instructions Instructions: Hematoma (ED) Additional Instructions: Continue to take your medication as prescribed but monitor for any abnormal bleeding including dark or tarry stools, other areas of abnormal bruising, severe bleeding gums. If this occurs you should be seen immediately for reassessment given that you are on blood thinners. Otherwise you may continue conservative management of your bruising to your foot and follow-up with your primary care provider for reassessment if not improving in the next week. Referrals: Isidro Schmidt [Primary Care Provider] - 1 week (As needed for reassessment) Discharge Data Discharge Date/Time-TO BE ENTERED AT DEPARTURE: 04/08/23 11:21 Medical Decision Making Patient presenting to the emergency department for chief complaint of right foot pain. Patient reports on she removed her shoe and immediately her foot started swelling and causing significant pain and discomfort. Patient denies any known injury or trauma and denies all other symptoms. Patient is on blood thinner for atrial fibrillation but denies any cardiac or other symptoms. Physical exam shows diffuse dorsal ecchymosis and swelling to the right foot with tenderness and some slight erythema and more deep bruising over dorsal lateral foot. I suspect occult injury with high probability of a simple trauma to superficial venous causing hematoma and pain. This time symptoms are not clinically consistent with cellulitis, DVT, or superficial thrombophlebitis. We will perform radiological imaging to rule out any acute bony fracture. Patient denies any need for pain medication pending results. Reviewed radiological imaging along with radiologist interpretation that shows no acute findings. I suspect again occult injury with hematoma. Will recommend conservative management and monitoring of symptoms along with return and follow- up precautions discussed. After discussion of diagnosis and plan of care patient has no further needs, questions, or concerns and states clear understanding to return to the emergency department for any worsening symptoms. This documentation was generated using Seen dictation system, please disregard any oddities of phrase or misspellings. Imaging Data Radiologic Study: Imaging: X-Ray Radiologist's impression: Exam(s) PROCEDURE INFORMATION: Exam: XR Right Foot Exam date and time: 04/08/2023 10:36 AM Age: 77 years old Clinical indication: Other: Dorsal/lateral pain and swelling TECHNIQUE: Imaging protocol: Radiologic exam of the right foot. Views: 3 or more views. COMPARISON: US EXTREMITY VENOUS BI 08/21/2019 1:28 PM FINDINGS: Bones/joints: There is no evidence of acute fracture in any of the visualized osseous structures.. There is no evidence of malalignment or dislocation of any visualized joint. Soft tissues: Soft tissue swelling over the dorsum of the foot IMPRESSION: 1. There is no evidence of acute fracture in any of the visualized osseous structures.. 2. There is no evidence of malalignment or dislocation of any visualized joint. HPI General Mode of arrival: ambulatory . Date/Time Provider Initiated Documentation: 04/08/23 10:26 . Limitations to Documentation: no limitations . Information obtained by: patient and RN notes reviewed . History of Present Illness 77 year old F presents to the emergency department with the chief complaint of Right foot pain, described as moderate and severe, and is localized to the right and lower extremity. Patient reports no radiation. Patient started experiencing this day(s) (2) and it has been constant. No relieving factors improve symptom(s), No exacerbating factors reported . Patient notes no other symptoms.. Patient did receive the following treatments prior to arrival, cold therapy Related Data Home Medications Medication Instructions Recorded Confirmed cyanocobalamin (vitamin B-12) 100 400 mcg PO DAILY 08/05/19 04/08/23 mcg tablet (Vitamin B-12) Shasha 3 tab PO HS sleep aid 10/01/19 04/08/23 rivaroxaban 20 mg tablet (Xarelto) 20 mg PO DAILY 10/01/19 04/08/23 sotalol 80 mg tablet 80 mg PO BID 07/15/20 04/08/23 atorvastatin 10 mg tablet (Lipitor) 10 mg PO QHS 10/12/20 04/08/23 labetalol 200 mg tablet 300 mg PO BID 10/12/20 04/08/23 lisinopril 20 mg tablet 40 mg PO BID #180 tabs 10/12/20 04/08/23 magnesium citrate 100 mg tablet 400 mg PO TID 10/23/20 04/08/23 amlodipine 10 mg tablet 5 mg PO DAILY 12/18/20 04/08/23 Allergies Allergy/AdvReac Type Severity Reaction Status Date / Time No Known Allergies Allergy Verified 04/08/23 10:27 General Stated Complaint: Cellulitis JOSE: 4 Review of Systems Constitutional Constitutional: Denies chills and Denies fever(s) Cardiovascular Cardiovascular: Denies chest pain and Denies dyspnea Respiratory Respiratory: Denies dyspnea Musculoskeletal Musculoskeletal: Reports as per HPI, Reports joint swelling, Denies numbness and Denies tingling Integumentary/Breasts Skin/Breast: Reports unusual bruising Neurologic Neurologic: Denies numbness and Denies tingling PFSH All Active Problems (Updated 04/08/23 @ 11:09 by Jesús Odell NP) Hematoma of right foot (Acute) DNI (do not intubate) (Acute) DNR (do not resuscitate) (Acute) Dysphagia, pharyngeal phase (Acute) Elevated TSH (Acute) Snoring (Acute) Obstructive sleep apnea (Chronic) Periodic limb movement disorder (Acute) Central apnea (Acute) Elevated levels of transaminase & lactic acid dehydrogenase (Acute) Elevated ferritin (Acute) Neck pain (Acute) Knee pain, right (Acute) Dyspnea on exertion (Acute) Nausea (Acute) Lower extremity edema (Acute) Hypertension (Chronic) Pacemaker (Acute) [employer] PPM on 07/10/2020 Sick sinus syndrome (Acute) Diastolic heart failure (Chronic) Hypokalemia (Acute) CHF (congestive heart failure) (Chronic) CHF exacerbation (Acute) Hypertensive urgency (Acute) Atrial fibrillation (Chronic) Hyponatremia (Acute) COVID-19 ruled out (Acute) Atrial fibrillation (Chronic) Acute kidney injury (Acute) SOB (shortness of breath) (Acute) Dysphagia (Acute) DVT prophylaxis (Acute) Discharge planning issues (Acute) Chest discomfort (Acute) Hypertensive urgency (Acute) S/P hernia repair (Chronic) Atrial flutter (Acute) HTN (hypertension) (Chronic) Medical History Total bilirubin, elevated Family History Mother Essential hypertension Heart disease Stroke Father Essential hypertension Heart disease Stroke Sister Essential hypertension Personal history of malignant neoplasm BREAST Grandfather Heart disease Grandfather Personal history of malignant neoplasm Lung Grandmother Heart disease Stroke Grandmother No problems noted. Social History Smoking/Tobacco Use Status: Former Tobacco Use Quit Date: 06/19/84 Tobacco: How many years used: 20 Smoking risk assessment performed?: Yes Alcohol Intake: former Drug use: Never Substance use type: does not use What type of physical activity do you participate in: walking and other Details: hikes Duration: 15-30 minutes/day Frequency: daily Do you feel safe at home: Yes Do you feel safe in your relationship?: Yes Exam Const General: cooperative, no acute distress and not ill appearing Orientation: alert, awake and oriented x3 HENMT Mouth: moist mucous membranes Resp Effort & Inspection: normal respiratory effort, able to speak in complete sentences and no respiratory distress Cardio Rate: regular rate Rhythm: regular rhythm Pulses: normal peripheral pulses Skin General skin exam: no rashes or lesions noted Neuro General: patient alert, patient awake, patient oriented x3, moves all extremit ies and no focal motor deficits Sensory Exam: no sensory deficits noted Extrem Right lower extremity: foot Details: tenderness Location: of the dorsal foot and of the lateral foot, toes with normal ROM, edema, ecchymosis dorsal lateral Details: single and vascular exam Details: dorsalis pedis pulse present, posterior tibial pulse present and normal capillary refill Course Vital Signs Vital signs: Vital Signs Temperature 36.8 C 04/08/23 10:18 Pulse 66 04/08/23 10:18 Respiratory Rate 18 04/08/23 10:18 Blood Pressure 192/80 H 04/08/23 10:18 Pulse Oximetry 98 04/08/23 10:18 Temperature 36.8 C 04/08/23 10:18 Temperature Source Skin 04/08/23 10:18 Pulse 66 04/08/23 10:18 Respiratory Rate 18 04/08/23 10:18 Blood Pressure 192/80 H 04/08/23 10:18 Blood Pressure Position Sitting 04/08/23 10:18 Pulse Oximetry 98 04/08/23 10:18 Oxygen Delivery Method Room Air 04/08/23 10:18 Oxygen Flow Rate 0 04/08/23 10:18 Pain Level 6 04/08/23 10:18
== END 2023-04-08 11:21 | disposition home or self-care (01) ==
PROVIDERS: Emergency Provider Nurse Practitioner Family; PCP Family Medicine
DX: S90.31XA Contusion of right foot, initial encounter; X58.XXXA Exposure to other specified factors, initial encounter; Z79.01 Long term (current) use of anticoagulants
CPT/HCPCS: 99283; 73630; 99284

== ENCOUNTER 2023-04-18 16:24 | Outpatient (REF) | payer MEDICARE, BC, SELFPAY ==
[2023-04-18 20:58] LABS: Abs Immature Grans 0.03 10^3/uL (0.0-0.06); Absolute Eosinophil Count 0.24 10^3/uL (0.0-0.7); Absolute Lymphocyte Count 1.45 10^3/uL (1.2-3.4); Absolute Monocyte Count 0.55 10^3/uL (0.1-0.8); Absolute Neutrophil Count 4.05 10^3/uL (1.2-6.7); Basophils % 1.6; Eosinophils % 3.7; HCT 39.4 % (36.0-46.0); HGB 12.9 g/dL (11.2-15.7); Immature Grans % 0.5; Lymphocytes % 22.6; MCH 29.5 pg (27.0-33.0); MCHC 32.7 % (32.0-36.0); MCV 90 fL (80-95); MPV 11.6 fL (8.0-11.0); Monocytes % 8.6; Platelet Count 295 10^3/uL (130-400); RBC 4.38 10^6/uL (3.93-5.22); RDW 12.2 % (11.7-14.6); RDW-SD 40.2 fL; WBC 6.42 10^3/uL (4.4-10.8)
[2023-04-18 21:51] LABS: C-Reactive Protein 0.41 mg/dL (0.0-0.3)
== END 2023-04-18 16:25 | disposition home or self-care (01) ==
LOC: NCHCN 16:24
PROVIDERS: PCP Family Medicine; Visit Provider Family Medicine
DX: L03.115 Cellulitis of right lower limb (principal); R79.82 Elevated C-reactive protein (CRP)
CPT/HCPCS: 85025; 86140

== ENCOUNTER 2023-10-30 14:59 | Outpatient (REF) | payer MEDICARE, BC, SELFPAY ==
[2023-10-30 21:35] LABS: FREE T4 0.91 ng/dL (0.76-1.46); TSH 2.49 uIU/Ml (0.36-3.74)
== END 2023-10-30 15:00 | disposition home or self-care (01) ==
LOC: NCHCN 14:59
PROVIDERS: PCP Family Medicine; Visit Provider Family Medicine
DX: R94.6 Abnormal results of thyroid function studies (principal)
CPT/HCPCS: 84439; 84443

== ENCOUNTER 2024-02-01 19:58 | Emergency (ER) | payer MEDICARE, BC, SELFPAY ==
--- OUTSIDE RECORDS SUMMARY | 2024-02-01 20:05 | XMS_ITS | Encounter Summary ---
Author Organization [facility] Address [address] [place] [address] Care Team Providers Care Plodder Operator Name Role Phone Gaurav Schmidt MD Primary Care Provide r Reason for Visit * Reason Comments Glaucoma Suspicion Encounter Details Date Type Department Care Team (Late st Contact Info) Description 06/26/2023 13:45 EST Office Visit [facility] [address] [place] [address] Paola Antonio MD [address] [place] [phone] Social History Tobacco Use Types Packs/Day Years Used Date Smoking Tobacco: Former Smokeless Tobacco: Never Alcohol Use Standard Drinks/Week Comments Yes 0 (1 standard drink = 0.6 oz pur e alcohol) occas Interpersonal Safety Answer Date Record ed Physically Hurt Never 01/19/2020 Verbally Threaten Not on file 01/19/2020 Sex and Gender Information Value Date Recorded Sex Assigned at Not on file Gender Identity Not on file Sexual Orientation Not on file documented as of this encounter Functional Status Functional Status Response Date of Assess ment Because of a physical, menta l, or emotional condition, does this person have difficulty doing errands alone such as visiting a doctor's office or shopping? No 06/05/2018 Cognitive Status Response Date of Assessm ent Because of a physical, menta l, or emotional condition, does this person have serious difficulty concentrating, remembering, or making decisions? No 06/05/2018 documented as of this encounter Patient Instructions * Patient Instructions* Paola Antonio MD - 06/26/2023 13:45 EST Images from the original note were not included. Use gel drops 4-6 times a day (Preservative Free) documented in this encounter Progress Notes * Paola Antonio MD - 06/26/2023 1065 EST Chief Complaint Patient presents with Glaucoma Suspicion HPI The patient is a 78 y.o. female glaucoma suspect both eyes, for years. However, has h/o pigmentary glaucoma of both eyes [facility]. Was on gtts for about 15 years- has had allergic reactions to two in the past. Has been off latanoprost since 01/2019. Since last visit came Nuver tech only HVF. Has noticed that near vision has worsened in the past several months, both eyes about the same. Uses Similasan 3 times a day, sometimes more with reading. Thinks she has allergies to preservatives in general. Used to have bifocals. Now using readers she gets through her sister (who works for Dr. Lainez's office). Happy with distance vision. Right Eye: Dryness Left Eye: Dryness Visual Aid: (OTC readers) Current Rx Age Location: Both eyes Pain: Quality: Blurry Severity: Duration: Timing: Lasts: Context: GL suspect of both eyes Modifying factors: Near vision has gotten progressively worse over the past several months. Uses homeopathic artificial tears frequently for dryness throughout the day. States drops give only very brief relief. Not using Latanoprost as of last year Associated Signs & Symptoms: Sees tiny floaters but not bothersome. Denies flashes Attestation: ROS Constitutional: NL ENT/Mouth Cardiovascular: High Blood Pressure (a-fib) Respiratory: Gastrointestinal: NL Genitourinary: NL Musculoskeletal: NL Integumentary: NL Neurologic: NL Psychiatric: NL Endocrine: NL Hematologic: NL Immunologic: NL Case Liner: Exposures: None Other: CARLIN Attestation: Base Eye Exam Visual Acuity (Snellen - Linear) Right Left Dist sc 20/50 -1 20/30 Tonometry (Applanation, 14:18) Right Left Pressure 21 19 Max Pressure Right Left Max 24 22 Pupils Pupils APD Right PERRL None Left PERRL None Visual Adam (Counting fingers) Right Left Full Full Extraocular Movement Right Left Full Full Neuro/Psych Oriented x3: Yes Mood/Affect: Normal Dilation Both eyes: Tropicamide 1%, Phenylephrine 2.5% @ 14:19 Slit Lamp and Fundus Exam External Exam Right Left External Normal Normal Slit Lamp Exam Right Left Lids/Lashes Normal Normal Conjunctiva/Sclera White and quiet White and quiet Cornea Patchy PEE inferiorly, central guttata, no obvious Krukenberg spindle Central guttata, no obvious Krukenberg spindle Anterior Chamber Deep and quiet Deep and quiet Iris Transillumination defects inferiorly, dilates to 6mm Transillumination defects from at 3 o'clock to 6 o'clock, dilates to 6mm Lens 2+ Nuclear sclerosis, cortical vacuoles 2+ Nuclear sclerosis, cortical vacuoles Fundus Exam Right Left Vitreous Posterior vitreous detachment Normal Disc no Drance heme, Peripapillary atrophy no Drance heme, Peripapillary atrophy C/D Ratio V0.7 x H0.55 0.8, sloped Macula mild RPE changes RPE mottling changes Vessels Normal Normal Periphery Normal Normal Refraction Manifest Refraction Sphere Cylinder [place] Dist VA Add Right +0.75 +0.25 160 20/30 +2.50 Left +0.50 +0.25 140 20/25 +2.50 Dist VA Both: 20/20-2 Near VA Both: J1+ DIAGNOSTIC TESTS: OCT, Optic Nerve - OU - Both Eyes OCT Optic Nerve Head and RNFL Right: signal strength: 7/10, Avg thickness 77 microns, borderline thinning superiorly Left: signal strength: 8/10, Avg thickness 78 microns, wnl Ganglion Cell Analysis Right: abnl Left: abnl IMPRESSION & PLAN: Glaucoma suspect, bilateral - Prior history: Notes available from [facility] starting from 03/2012. Listed as suspected pig glaucoma vs. PDS. Was on latanoprost at that time 2012 both eyes. Tmax not on treatment. TargetIOP listed as 15. Pachy 558/573 from previous date. Dorzolamide added bid both eyes 03/2014. IOP upat at that visit (had been running mid teens). One month IOP check still , brimonidine 0.2% both eyes started. One month IOP check 14/14. Kept on regimen of latanoprost qhs both, dorz bid both, brim 0.2% bid both. Was not tolerating dorzolamide (blurry vision, redness/irritation) and so was dc'd 02/2015. IOP stable at 2 month check- kept off dorzolamide. Self dc'd brimonidine 05/2015 (bl urry vision, discomfort)- kept off brimonidine. Was left on latanoprost both eyes only and considered stable up through last note 10/2017. Tmax on drops Left eye: 21 11/2014- was using all 3 but did not use gtts that am. Right eye: 20 05/2015 on latan only. TIDs on undilated exam. No distinct K spindle, although does have some endothelial pigment/guttata.Note that she is also blonde and blue-eyed which could confuse the picture with possible ocular albinism. OCT rnfl 06/27/2023 continues essentially wnl (borderline thinning superiorly right eye that comes and goes), left eye wnl. HVF 09/2022 showed inferior defects right eye not seen on last 2 VFs, inferior defects left eye improved compared to 2019. Left eye has shown persistent defects inferiorly in the past, 2014, 2016, 2016, 2018 but most dense 03/2020, improved 09/2022. IOP by tech priorto dilation. Will continue to consider gl. suspect given normal OCT and good VFs, abnormal disc appearance, but will continue to hold meds. Last HVF 09/2022, last OCT 06/2023, last DFE . - continue to hold latanoprost - f/u 6 months for HVF 24-2 and IOP check - have discussed importance of continued glaucoma testing. Have discussed that even if she feels that her VF results are unreliable due to neck pain/dry eye that I take those factors into account when I interpret a VF and that I understand that there will always be variability. Combined forms of age-related cataract of both eyes - Long discussion about cataract surgery at last visit: Discussed many aspects of cataract surgery- that there is not always the magical result that her friend reported, that perhaps her friend had a more dense cataract than she does; cataract surgery canoften worsen dry eye; cataract surgery may improve her glare with nighttime driving but may worsen her daytime light sensitivity which she states she already has; although with a monofocal lens I target for perfect distance vision there is a chance she will need distance glasses after surgery which she does not use now; she will need to use a series of eye drops and has had allergies to eye drops in the past. She understands that with a monofocal IOL with a distance target she would need glasses for near/perhaps intermediate. Discussed options of premium IOLs and offered her contact info ifstefania is interested in pursuing this. Reminded her that no lens is perfect, however. - observe - not discussed in depth today Posterior vitreous detachment of right eye - retina flat with no holes/tears/retinal detachment. - call for increase in flashes or floaters, decreased vision Dry eye syndrome, bilateral - - continue Similasan tid - can try gel drops if desires- may mix and match Refractive error - continue otc readers I have reviewed the patient's past medical, family, social and surgical history. I have also reviewed the patient's medications, allergies, and problem list. I performed my own HPI and have reviewed the tech's ROS as well. I spent a total of 30 minutes on the date of this encounter meeting with the patient and reviewing documentation/coordinating care as described in the above note. No procedures were performed at the time of the visit. I completed this exam personally. Paola Antonio MD I am scribing for Paola Antonio MD, while she is personally performing the service. MICHAEL Cisneros Patient Education Topic: GS Method: Verbal Taught to: Patient Barriers: None Outcomes: independent Signature: Paola Antonio MD documented in this encounter Plan of Treatment Upcoming Encounters Date Type Department Care Team (Late st Contact Info) Description 04/16/2024 14:00 EDT Office Visit [facility] Ophthalmology [facility] [address] [place] [address] Paola Antonio MD [address] [place] [phone] documented as of this encounter Procedures Procedure Name Priority Date/Time Associated Diagnosis Comments OCT, OPTIC NERVE - OU - BOTH EYES Routine 06/26/2023 13:45 EST Glaucoma suspect of both eyes documented in this encounter Results * OCT, OPTIC NERVE - OU - BOTH EYES (06/26/2023 13:45 EST) Narrative [facility] OPHTHALMOLOGY - 06/27/2023 11:05 EST OCT Optic Nerve Head and RNFL Right: signal strength: 7/10, Avg thickness 77 microns, borderline thinning superiorly Left: signal strength: 8/10, Avg thickness 78 microns, wnl Ganglion Cell Analysis Right: abnl Left: abnl Paola Antonio MD OPHTH TOMOGRAPHY [facility] OPHTHALMOLOGY documented in this encounter Visit Diagnoses Diagnosis Glaucoma suspect of both eyes- Primary Preglaucoma, 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 Medication Sig Dispensed Refills Start Date End Date atorvastatin (LIPITOR) 10 mg tablet 06/07 added in this encounter Eye Exam Visual Acuity (Snellen - Linear) Right eye Left eye Dist sc 20/50 -1 20/30 Tonometry (Applanation, 14:18) Right eye Left eye Pressure 21 19 Max Pressure Right eye Left eye Max 24 22 Pupils Pupils APD Right eye PERRL None Left eye PERRL None Visual Adam (Counting fingers) Right eye Left eye Full Full Extraocular Movement Right eye Left eye Full Full Neuro/Psych Oriented x3: Yes Mood/Affect: Normal Dilation Both eyes: Tropicamide 1%, P henylephrine 2.5% @ 14:19 External Exam Right eye Left eye External Normal Normal Slit Lamp Exam Right eye Left eye Lids/Lashes Normal Normal Conjunctiva/Sclera White and quiet White and julio et Cornea Patchy PEE inferiorl y, central guttata, no obvious Krukenberg spindle Central guttata, no obvious Krukenberg spindle Anterior Chamber Deep and quiet Deep and quiet Iris Transillumination de fects inferiorly, dilates to 6mm Transillumination defects from at 3 o'clock to 6 o'clock, dilates to 6mm Lens 2+ Nuclear sclerosis , cortical vacuoles 2+ Nuclear sclerosis, cortical vacuoles Fundus Exam Right eye Left eye Posterior Vitreous Posterior vitreous detachment Normal Disc no Drance heme, Sapna papillary atrophy no Drance heme, Peripapillary atrophy C/D Ratio V0.7 x H0.55 0.8, sloped Macula mild RPE changes RPE mottling ch anges Vessels Normal Normal Periphery Normal Normal Manifest Refraction Sphere Cylinder [place] Dist VA Add Right eye +0.75 +0.25 160 20/30 +2.50 Left eye +0.50 +0.25 140 20/25 +2.50 Dist VA Both: 20/20-2 Near VA Both: J1+ Care Teams Plodder Operator Relationship Specialty Start Date End Date Gaurav Schmidt MD [address] [place] [id number] PCP - General 03/12/19 documented as of this encounter
--- OUTSIDE RECORDS SUMMARY | 2024-02-01 20:05 | XMS_ITS | Encounter Summary ---
Author Organization [facility] Address [address] [place] [address] Care Team Providers Care Pearl Hand Name Role Phone Gaurav Schmidt MD Primary Care Provide r Encounter Details Date Type Department Care Team (Late st Contact Info) Description 05/13/2020 Lab Requisition [facility] Pathology & Laboratory Medicine - [address] [address] Outr Resulting Lab, Provider Social History Tobacco Use Types Packs/Day Years [...] on file Sexual Orientation Not on file COVID-19 Exposure Response Date Recorded In the last month, have you been in contact with someone who was confirmed or suspected to have Coronavirus / COVID-19? No / Unsure 04/14/2020 14:53 EDT documented as of this encounter Functional Status [...] No 06/05/2018 documented as of this encounter Plan of Treatment Upcoming Encounters Date Type Department Care Team (Late st Contact Info) Description 04/16/2024 14:00 EDT Office Visit [facility] Ophthalmology [facility] [address] [place] [address] Paola Antonio MD [address] [place] [phone] documented as of this encounter Procedures Procedure Name Priority Date/Time Associated Diagnosis Comments TRANSFERRIN After X-Ray 04/16/2020 13:18 EDT documented in this encounter Results * TRANSFERRIN (04/16/2020 13:18 EDT) Transferrin 230 201 - 352 mg/dL 06/04/2020 14:21 EST [facility] Blood VENOUS BLOOD / Unknown 04/16/2020 13:18 EDT 06/03/2020 8:35 EST Provider Outr Resulting Lab CHEMISTRY & BLOOD GAS ORDERABLES [facility] [address] [place] [address] documented in this encounter Visit Diagnoses Not on filedocumented in this encounter Care Teams Pearl Hand Relationship Specialty Start Date End Date Gaurav Schmidt MD [address] [facility] [address] [place] [address] PCP - General 03/12/19 documented as of this encounter
--- OUTSIDE RECORDS SUMMARY | 2024-02-01 20:05 | XMS_ITS | Encounter Summary ---
Author Organization [facility] Address [address] [place] [address] Care Team Providers Care Senior Living Advisor Name Role Phone Gaurav Schmidt MD Primary Care Provide r Encounter Details Date Type Department Care Team (Latest Contact Info) Description 04/14/2020 Travel Social History Tobacco Use Types Packs/Day Years [...] Info) Description 04/16/2024 14:[address] [facility] Ophthalmology [facility] [address] [place] [address] Paola Antonio MD [address] [place] [phone] documented as of this encounter Visit Diagnoses Not on filedocumented in this encounter Care Teams Senior Living Advisor Relationship Specialty Start Date End Date Gaurav Schmidt MD [address] [place] [address] [address] [place], [place] [phone] PCP - General 03/12/19 documented as of this encounter
--- OUTSIDE RECORDS SUMMARY | 2024-02-01 20:05 | XMS_ITS | Encounter Summary ---
Author Organization [facility] Address [address] [place] [address] Care Team Providers Care Licensed Loan Officer Assistant Name Role Phone Gaurav Schmidt MD Primary Care Provide r Encounter Details Date Type Department Care Team (Late st Contact Info) Description 07/07/2020 Lab Requisition [facility] Pathology & Laboratory Medicine - [address] [address] Outr Resulting Lab, Provider Social History Tobacco [...] Info) Description 04/16/2024 14:00 EDT Office Visit [facility] Ophthalmology [address] [address] Paola Antonio MD [address] [place] [phone] documented as of this encounter Procedures Procedure Name Priority Date/Time Associated Diagnosis Comments ZZCOVID-19 TEST [facility] PCR Today 07/06/2020 19:30 EST COVID-19 TESTING Routine 07/06/2020 19:3 0 EST documented in this encounter Results * COVID-19 TEST [facility] PCR (07/06/2020 19:30 EST) Swab ENTIRE NASOPHARYNX / Unknown 07/06/2020 19:30 EST 07/07/2020 16:31 EST Provider Outr Resulting Lab MICROBIOLOGY - GENERAL ORDERABLES Performing Organization Address City/State/[facility] Co de Phone Number [facility] [address] [place] [phone] * COVID-19 TESTING (07/06/2020 19:30 EST) COVID-19 rt-PCR Result Negative Negative 07/08/2020 17:11 EST [facility] Comment: Negative results do not preclude 2019-nCoV infection and should not be used as the sole basis for treatment or other patient management decisions. Negative results must be combined with clinical observations, patient history, and epidemiological information. This test was developed and its performance characteristics determined by [facility]. It has not been cleared or approved by the US Food and Drug Administration. FDA does not require this test to go through premarket FDA review. This test is used for clinical purposes. It should not be regarded as investigational or for research. This laboratory is certified under the Clinical Laboratory Improvement Amendments (CLIA) as qualified to perform high complexity clinical laboratory testing. This test is based on the [facility] COVID-19 Emergency Use Authorization (EUA) assay, with minor modification as defined by the FDA Performed on the Converged Access 7 Flex RT-PCR System. Performing Lab [facility] 07/08/2020 17:11 EST [facility] Swab 07/06/2020 19:3 0 EST 07/07/2020 16:31 EST Provider Outr Resulting Lab MICROBIOLOGY - GENERAL ORDERABLES [facility] [address] [place] [address] documented in this encounter Visit Diagnoses Not on filedocumented in this encounter Care Teams Licensed Loan Officer Assistant Relationship Specialty Start Date End Date Gaurav Schmidt MD [address] [place] [address] PCP - General 03/12/19 documented as of this encounter
--- OUTSIDE RECORDS SUMMARY | 2024-02-01 20:05 | XMS_ITS | Encounter Summary ---
Author Organization [facility] Address [address] [place] [address] Care Team Providers Care Area Captain Name Role Phone Gaurav Schmidt MD Primary Care Provide r Encounter Details Date Type Department Care Team (Late st Contact Info) Description 05/13/2020 Lab Requisition [facility] Pathology & Laboratory Medicine - [address] [address] Outr Resulting Lab, Provider Social History Tobacco [...] Info) Description 04/16/2024 14:00 EDT Office Visit [facility] [address] [place] [address] Paola Antonio MD [address] [place] [phone] documented as of this encounter Procedures Procedure Name Priority Date/Time Associated Diagnosis Comments ACUTE HEPATITIS PROFILE After X-Ray 04/16/2020 13:18 EDT documented in this encounter Results * ACUTE HEPATITIS PROFILE (04/16/2020 13:18 EDT) Hep B Surface Ag Negative Negative 06/04/2020 14:22 EST [facility] Hep C Antibody Negative Negative 06/04/2020 14:22 EST [facility] Hepatitis A Antibody, IgM Negative Negative 06/04/2020 14:22 EST [facility] Comment:The results of this assay can be falsely lowered due to the consumption of Biotin. Hepatitis B Core Ab, Total Negative Negative 06/04/2020 14:22 EST [facility] Blood VENOUS BLOOD / Unknown 04/16/2020 13:18 EDT 06/03/2020 8:35 EST Provider Outr Resulting Lab CHEMISTRY & BLOOD GAS ORDERABLES [facility] [address] [place] [address] documented in this encounter Visit Diagnoses Not on filedocumented in this encounter Care Teams Area Captain Relationship Specialty Start Date End Date Gaurav Schmidt MD [address] [facility] [address] [place] [address] PCP - General 03/12/19 documented as of this encounter
--- OUTSIDE RECORDS SUMMARY | 2024-02-01 20:05 | XMS_ITS | Encounter Summary ---
Author Organization [facility] Address [address] [place] [address] Care Team Providers Care Pollution Control Chemist Name Role Phone Gaurav Schmidt MD Primary Care Provide r Reason for Visit * Reason Comments Tech Appointment Here for Tech only H VF 24-2 Encounter Details Date Type Department Care Team (Late st Contact Info) Description 09/29/2022 11:30 EDT Office Visit [facility] [address] [place] [address] Paola Antonio MD [address] [place] [phone] Social History Tobacco Use Types Packs/Day Years [...] No 06/05/2018 documented as of this encounter Progress Notes * Paola Antonio MD - 09/29/2022 1130 EDT Kerr VF 24-2 Standard - OU - Both Eyes HVF 24-2 Right: 0% FP, 0% FN, 1/14 FL, defects inferotemporally Left: 1% FP, 0% FN, 0/17 FL, defects inferiorly ?? Glaucoma suspect, bilateral - ?? Prior history: ?? Notes available from [facility] starting from 03/2012. Listed as suspected pig glaucoma vs. PDS. Was on latanoprost at that time 2012 both eyes. Tmax not on treatment. TargetIOP listed as 15. Pachy 558/573 from previous date. Dorzolamide added bid both eyes 03/2014. IOP upat at that visit (had been running mid teens). One month IOP check still , brimonidine 0.2% both eyes started. One month IOP check . Kept on regimen of latanoprost qhs both, [...] Right eye: 20 05/2015 on latan only. ? TIDs on undilated exam. No distinct K spindle, although does have some endothelial pigment/guttata.Note that she is also blonde and blue-eyed which could confuse the picture with possible ocular albinism. OCT rnfl 06/2022 continued wnl both eyes compared to priors. HVF 24-2 today 09/29/2022 shows inf erior defects right eye not seen on last 2 VFs, inferior defects left eye improved compared to 2020. Left eye has shown persistent defects inferiorly in the past, 2014, 2016, 2017, 2018 but most dense 03/2020, now improved today 09/29/2022. IOP 18/18 by tech prior to dilation at last visit. Will continue to consider gl. suspect given normal OCT and good VFs, abnormal disc appearance, but will continue to hold meds. Last HVF 09/2022, last OCT 06/2022, last DFE 03/2023 ?? - continue to hold latanoprost - f/u 8 months complete, OCT rnfl - have discussed importance of continued glaucoma testing. Have discussed that even if she feels that her VF results are unreliable due to neck pain/dry eye that I take those factors into account when I interpret a VF and that I understand that there will always be variability. ?? 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 Looks improved today 09/29/2022. 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 documented in this encounter Results * KERR VF 24-2 STANDARD - OU - BOTH EYES (09/29/2022 11:30 EDT) Narrative [facility] OPHTHALMOLOGY - 10/03/2022 19:07 EDT HVF 24-2 Right: 0% FP, 0% FN, 07/02 FL, defects inferotemporally Left: ??1% FP, 0% FN, 0/17 FL, defects inferiorly Paola Antonio MD OPHTH VISUAL FIELD [facility] OPHTHALMOLOGY documented in this encounter Visit Diagnoses Diagnosis Glaucoma suspect of both eyes- Primary Preglaucoma, 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
--- OUTSIDE RECORDS SUMMARY | 2024-02-01 20:05 | XMS_ITS | Encounter Summary ---
Author Organization [facility] Address [address] [place] [address] Care Team Providers Care Torpedo Man Name Role Phone Gaurav Schmidt MD Primary Care Provide r Encounter Details Date Type Department Care Team (Latest Contact Info) Description 03/31/2020 Travel Social History Tobacco Use Types Packs/Day [...] have Coronavirus / COVID-19? No / Unsure 03/31/2020 13:28 EDT documented as of this encounter Functional [...] 04/16/2024 14:00 EDT Office Visit [facility] Op[facility] [address] [place] [address] Paola Antonio MD [address] [place] [phone] documented as of this encounter Visit Diagnoses Not on filedocumented in this encounter Care Teams Torpedo Man Relationship Specialty Start Date End Date Gaurav Schmidt MD [address] [place] [address] [address] [place], [place] [phone] PCP - General 03/12/19 documented as of this encounter
--- OUTSIDE RECORDS SUMMARY | 2024-02-01 20:05 | XMS_ITS | Encounter Summary ---
Author Organization [facility] Address [address] [place] [address] Care Team Providers Care Program Manager Transportation Name Role Phone Gaurav Schmidt MD Primary Care Provide r Reason for Visit * Reason Onset Date Comments Eye Problem 10/06/2022 Encounter Details Date Type Department Care Team (Late st Contact Info) Description 10/06/2022 Telephone [facility] Ophthalmology [facility] [address] [place] [address] Paola Antonio MD [address] [place] [phone] Eye Problem Social History Tobacco Use Types Packs/Day Years [...] No 06/05/2018 documented as of this encounter Miscellaneous Notes * Telephone Encounter - Paola Antonio MD - 10/06/2022 1245 EDT Call to pt on home phone- phone disconnected. Call to pt on cell phone and spoke with her. Advised her that VFs from last week look good, that she can stay off the glaucoma drops for now. Advised herthat we are putting in a 8 month reminder for a complete exam/OCT. She will receive notification a few months before she is due to call us and schedule. Paola Antonio MD documented in this encounter Plan of Treatment Upcoming Encounters Date Type Department Care Team (Late st Contact Info) Description 04/16/2024 14:00 EDT Office Visit [facility] Ophthalmology [facility] [address] [place] [address] Paola Antonio MD [address] [place] [phone] documented as of this encounter Visit Diagnoses Not on filedocumented in this encounter Care Teams Program Manager Transportation Relationship Specialty Start Date End Date Gaurav Schmidt MD [address] [facility] [address] [place] [address] PCP - General 03/12/19 documented as of this encounter
--- OUTSIDE RECORDS SUMMARY | 2024-02-01 20:05 | XMS_ITS | Referral Summary ---
Author Organization [facility] Address [address] [place] [address] Care Team Providers Care Print Line Supervisor Name Role Phone Gaurav Schmidt MD Primary Care Provide r Allergies No known active allergies Medications Medication Sig Dispensed Refills Start Date End Date Status lisinopril (PRINIVIL, ZESTRIL) 40 mg tablet Take 1 Tablet by mouth daily. Active homeopathic drugs (SIMILASAN OPHT) Apply to eye 4 times daily as needed. Active latanoprost (XALATAN) 0.005 % ophthalmic solution Place 1 drop into both eyes at bedtime. 7.5 mL 3 09/11/2018 Active Additional Information Patient not taking.Informant: Self, Reported on 06/26/2023 CANNABIDIOL, CBD, EXTRACT ORAL Take by mouth daily. Ac tive metoprolol XL (TOPROL-XL) 100 mg tablet Take 200 mg by mouth daily. Active DILTiazem (TIAZAC) 240 mg SR capsule Take 240 mg by mouth daily. Active ascorbic acid, vitamin C, 1,000 mg tablet Take 2,000 mg by mouth 2 times daily. Active Cholecalciferol, Vitamin D3, 400 unit tablet Take 1 Tablet by mouth daily. Active rivaroxaban (XARELTO) 2.5 mg tablet Take 1 Tablet by mouth. Active sotaloL (BETAPACE) 120 mg tablet Take 200 mg by mouth daily. 06/28/2022 Active cyanocobalamin 100 mcg tablet Take 1 Tablet by mouth daily. Active amLODIPine (NORVASC) 5 mg tablet Take 1 Tablet by mouth daily. 04/18/2022 Active GRAPE SEED EXTRACT ORAL Take by mouth daily. Acti ve labetalol (NORMODYNE) 300 mg tablet Take 1 Tablet by mouth 2 times daily. Active atorvastatin (LIPITOR) 10 mg tablet 06/07/2023 Active Active Problems Problem Noted Date Diagnosed Date Mitral valve stenosis 11/02/2021 Essential hypertension 07/09/2020 Primary central sleep apnea 07/09/2020 PAF (paroxysmal atrial fibrillation) ([facility]) 0 07/09/2020 CARLIN on CPAP 07/09/2020 Acute on chronic heart failu re with preserved ejection fraction ([facility]) 07/09/2020 Social History Tobacco Use Types Packs/Day Years [...] on file Sexual Orientation Not on file Last Filed Vital Signs Vital Sign Reading Time Taken Comments Blood Pressure 104/69 12/24/2010 0959 EDT Pulse 58 12/24/2010 0959 EDT Temperature 36.7 ??C (98.1 ??F) 12/24/2010 0908 EDT Respiratory Rate 18 12/24/2010 0908 EDT Oxygen Saturation 100% 12/24/2010 0908 EDT Inhaled Oxygen Concentration - - Weight 77.1 kg (170 lb) 12/24/2010 0908 EDT Height - - Body Mass Index - - Functional Status Functional Status Response Date of [...] concentrating, remembering, or making decisions? No 06/05/2018 Plan of Treatment Upcoming Encounters Date Type Department Care Team (Late st Contact Info) Description 04/16/2024 14:00 EDT Office Visit [facility] Ophthalmology [facility] [address] [place] [address] Paola Antonio MD [address] [place] [phone] Care Teams Print Line Supervisor Relationship Specialty Start Date End Date Gaurav Schmidt MD [address] [place] [address] [facility] - General 03/12/19
--- OUTSIDE RECORDS SUMMARY | 2024-02-01 20:05 | XMS_ITS | Clinical Summary ---
Author Organization [facility] Address [address] [place] [address] Care Team Providers Care Data Analytics Chief Scientist Name Role Phone Gaurav Schmidt MD Primary [...] sleep apnea 07/09/2020 PAF (paroxysmal atrial fibrillation) ([facility]) 0 07/09/2020 CARLIN on CPAP 07/09/2020 Acute on chronic heart failu re with preserved ejection fraction ([facility]) 07/09/2020 Medical History Medical History Date Comments Hypertension Atrial fibrillation ([facility]) Family History Medical History Relation Comments Glaucoma Father Cataract Mother Glaucoma Mother Macular Degeneration Mother Diabetes Neg Hx Relation Status Comments Father Mother Social History Tobacco Use Types Packs/Day Years [...] on file Sexual Orientation Not on file Obstetrics History Last Filed Vital Signs Vital Sign Reading Time Taken Comments Blood Pressure 104/69 12/24/2010 0959 EDT Pulse 58 12/24/2010 0959 EDT Temperature 36.7 ??C (98.1 ??F) 12/24/2010 0908 EDT Respiratory Rate 18 12/24/2010 0908 EDT Oxygen Saturation 100% 12/24/2010 0908 EDT Inhaled Oxygen Concentration - - Weight 77.1 kg (170 lb) 12/24/2010 0908 EDT Height - - Body Mass Index - - Plan of Treatment Upcoming Encounters Date Type Department Care Team (Late st Contact Info) Description 04/16/2024 14:00 EDT Office Visit [facility] Ophthalmology [facility] [address] [place] [address] Paola Antonio MD [address] [place] [phone] Health Maintenance Due Date Last Done Comments Hepatitis C Screen 1945 RSV Immunization ( o r 60+ Years) (1 - 1-dose 60+ series) 2007 Fall Risk Screening 2012 COVID-19 Vaccine (2022-24 season) 2023 Care Teams Data Analytics Chief Scientist Relationship Specialty Start Date End Date Gaurav Schmidt MD [address] [facility] [address] [place] [address] [facility] - General 03/12/19
--- OUTSIDE RECORDS SUMMARY | 2024-02-01 20:05 | XMS_ITS | Encounter Summary ---
Author Organization [facility] Address [address] [place] [address] Care Team Providers Care Fire Warden Name Role Phone Gaurav Schmidt MD Primary Care Provide r Reason for Visit * Reason Comments Glaucoma Suspicion Both eyes for HVF 24 -2, RNFL OCT and DFE today Encounter Details Date Type Department Care Team (Late st Contact Info) Description 04/14/2020 15:00 EDT Office Visit [facility] Ophthalmology [facility] [address] [place] [address] Paola Antonio MD [address] [place] [phone] Social History Tobacco Use Types Packs/Day Years [...] Progress Notes * Paola Antonio MD - 04/14/2020 1500 EDT Chief Complaint Patient presents with ??? Glaucoma Suspicion Both eyes for HVF 24-2, RNFL OCT and DFE today HPI The patient is a 74 y.o. female glaucoma suspect both eyes, for years. However, has h/o pigmentary glaucoma of both eyes [facility]. Was on gtts for about 15 years- has had allergic reactions to two in the past. Has been off latanoprost since 01/2019, dry eye still feels muchbetter since stopping it. Using Simsilasan 1-2 times a day, sometimes more if she is reading- uses it on a prn basis. Thinks she has allergies to preservatives in general. Satisfied with distance vision, Rx readers working well- did not bring them with her today. Noticed new floaters in the past few months, has had one brief shooting star episode. No recent eye pain. Right Eye: Dryness, Floaters Left Eye: Dryness, Floaters Visual Aid: Glasses(only reading) Current Rx Age Location: Pain: 0 - No pain Quality: Severity: Duration: Timing: Lasts: Context: pt has not noted change in vision but right eye VA down today, has noted new floaters overlast 3 mos ? both eyes, had one shooting star not sure which eye but only lasted seconds and only once, no pain Modifying factors: latanoprost on hold per your orders Associated Signs & Symptoms: Attestation: ROS Constitutional: NL ENT/Mouth NL Cardiovascular: High Blood Pressure(A-fib) Respiratory: NL Gastrointestinal: NL Genitourinary: NL Musculoskeletal: NL Integumentary: NL Neurologic: NL Psychiatric: NL Endocrine: NL Hematologic: (on Xalelto) Immunologic: NL Beekeeper: Exposures: None Other: Attestation: Base Eye Exam Visual Acuity (Snellen - Linear) Right Left Dist sc 20/30 -2 20/25 -1 Dist ph sc NI Near cc J2 J1+(-2) Checked NV with +2.50 loose lens Tonometry (Applanation, 16:00) Right Left Pressure 18 15 Max Pressure Right Left Max 24 22 Pupils Dark Shape React APD Right 2.5 Round Minimal None Left 2.5 Round Minimal None Visual Adam (Counting fingers) Right Left Full Full Extraocular Movement Right Left Full Full Neuro/Psych Oriented x3: Yes Mood/Affect: Normal Dilation Both eyes: Tropicamide 1%, Phenylephrine 2.5% @ 16:00 Slit Lamp and Fundus Exam External Exam Right Left External Normal Normal Slit Lamp Exam Right Left Lids/Lashes Normal Normal Conjunctiva/Sclera White and quiet White and quiet Cornea Patchy PEE inferiorly, endothelial pigment/guttata, no obvious Krukenberg spindle Endothelial pigment/guttata, no obvious Krukenberg spindle Anterior Chamber Deep and quiet Deep and quiet Iris Transillumination defects inferiorly Transillumination defects from at 3 o'clock to 6 o'clock Lens 2+ Nuclear sclerosis, cortical vacuoles 2+ Nuclear sclerosis, cortical vacuoles Fundus Exam Right Left Vitreous Posterior vitreous detachment Normal Disc no Drance heme, Peripapillary atrophy no Drance heme, Peripapillary atrophy C/D Ratio V0.6 x H0.55 0.8, sloped Macula mild RPE mottling RPE mottling Vessels Normal Normal Periphery Normal Normal Refraction Manifest Refraction Sphere Cylinder [place] Dist VA Right +0.50 +0.75 005 20/30 Left -1.00 +0.75 130 20/20 Manifest Refraction #2 Sphere Cylinder [place] Dist VA Right +0.50 +0.25 005 20/30 Left [place] +0.50 140 20/25-1 DIAGNOSTIC TESTS: OCT, Optic Nerve - OU - Both Eyes OCT Optic Nerve Head and RNFL Right: signal strength: 07/10, Avg thickness 72 microns, borderline superiorly Left: signal strength: 07/10, Avg thickness 75 microns, wnl Ganglion Cell Analysis Right: wnl Left: wnl Kerr VF 24-2 Standard - OU - Both Eyes HVF 24-2 Right: 8% FP, 2% FN, 0/14 FL, wnl Left: 4% FP, 5% FN, 2/18 FL, inferior defects IMPRESSION & PLAN: ??? Glaucoma suspect, bilateral - Prior history: Notes available from [facility] starting from 03/2012. Listed as suspected pig glaucoma vs. PDS. Was on latanoprost at that time 2012 both eyes. Tmax not on treatment. TargetIOP listed as 15. Pachy 558/573 from previous date. Dorzolamide added bid both eyes 03/2014. IOP upat at that visit (had been running mid teens). One month IOP check still 18/17, brimonidine 0.2% both eyes started. One month IOP check /. 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 OCT rnfl today 04/14/2020 essentially wnl both eyes. HVF 24-2 today 04/14/2020 wnl right eye, defects inferiorly left eye but OCT wnl. Left eye has shown persistent defects inferiorly in the past, 2014, 2016, 2017, 2018 but most dense today. IOP today 18/15 by tech prior to dilation- same compared to when she was on latan. Will continue to consider gl. suspect given normal OCT and good VFs,abnormal disc appearance, but will continue to hold meds. Last HV, last OCT 03/2020, last DFE 03/2020 - continue to hold latanoprost - call with pain, eye redness, decreased vision - return in 6 months for repeat HVF 24-2 + IOP check - plan yearly testing ?? 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 - repeat HVF 24-2 in 6 months ??? Combined forms of age-related cataract of both eyes - not visually significant - Observe ??? Posterior vitreous detachment of right eye - retina flat with no holes/tears/retinal detachment. - call for increase in flashes or floaters, decreased vision ?? Dry eye syndrome, bilateral - - continue Simsilasan ??? Refractive error - continue current specs I have reviewed the patient's past medical, family, social and surgical history. I have also reviewed the patient's medications, allergies, and problem list. I performed my own HPI and have reviewed the tech's ROS as well. I completed this exam personally. Paola Antonio MD I am scribing for Paola Antonio MD, while she is personally performing the service. MICHAEL Nunez Patient Education Topic: GS Method: Verbal Taught to: Patient Barriers: None Outcomes: independent Signature: Paola Antonio MD documented in this encounter Plan of Treatment Upcoming Encounters Date Type Department Care Team (Late st Contact Info) Description 04/16/2024 14:00 EDT Office Visit [facility] Ophthalmology - [place] [address] [place] [address] Paola Antonio MD [address] [place] [phone] documented as of this encounter Procedures Procedure Name Priority Date/Time Associated Diagnosis Comments KERR VF 24-2 STANDARD - OU - BOTH EYES Routine 04/14/2020 16:39 EDT Glaucoma suspect of both eyes OCT, OPTIC NERVE - OU - BOTH EYES Routine 04/14/2020 16:39 EDT Glaucoma suspect of both eyes documented in this encounter Results * KERR VF 24-2 STANDARD - OU - BOTH EYES (04/14/2020 16:39 EDT) Narrative [facility] POINT OF CARE - 04/14/2020 16:39 EDT HVF 24-2 Right: 8% FP, 2% FN, 0/14 FL, wnl Left: ??4% FP, 5% FN, 2/18 FL, inferior defects Paola Antonio MD OPHTH VISUAL FIELD Performing Organization Address City/[facility]/ZIP Co de Phone Number [facility] POINT OF CARE * OCT, OPTIC NERVE - OU - BOTH EYES (04/14/2020 16:39 EDT) Narrative [facility] POINT OF CARE - 04/14/2020 16:39 EDT OCT Optic Nerve Head and RNFL Right: signal strength: 07/10, Avg thickness 72 microns, borderline superiorly Left: signal strength: 07/10, Avg thickness 75 microns, wnl Ganglion Cell Analysis Right: wnl Left: wnl Paola Antonio MD OPHTH TOMOGRAPHY Performing Organization Address [facility] Co de Phone Number [facility] documented in this encounter Visit Diagnoses Diagnosis Glaucoma suspect of both eyes- Primary Preglaucoma, unspecified 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 Medication Sig Dispensed Refills Start Date End Date rivaroxaban (XARELTO) 2.5 mg tablet Take 1 Tablet by mouth. Cholecalciferol, Vitamin D3, 400 unit tablet Take 1 Tablet by mouth daily. ascorbic acid, vitamin C, 1,000 mg tablet Take 2,000 mg by mouth 2 times daily. added in this encounter Eye Exam Visual Acuity (Snellen - Linear) Right eye Left eye Dist sc 20/30 -2 20/25 -1 Dist ph sc NI Near cc J2 J1+(-2) Checked NV with +2.50 loose lens Tonometry (Applanation, 16:00) Right eye Left eye Pressure 18 15 Max Pressure Right eye Left eye Max 24 22 Pupils Dark Shape React APD Right eye 2.5 Round Minimal None Left eye 2.5 Round Minimal None Visual Adam (Counting fingers) Right eye Left eye Full Full Extraocular Movement Right eye Left eye Full Full Neuro/Psych Oriented x3: Yes Mood/Affect: Normal Dilation Both eyes: Tropicamide 1%, P henylephrine 2.5% @ 16:00 External Exam Right eye Left eye External Normal Normal Slit Lamp Exam Right eye Left eye Lids/Lashes Normal Normal Conjunctiva/Sclera White and quiet White and julio et Cornea Patchy PEE inferiorl y, endothelial pigment/guttata, no obvious Krukenberg spindle Endothelial pigment/guttata, no obvious Krukenberg spindle Anterior Chamber Deep and quiet Deep and quiet Iris Transillumination de fects inferiorly Transillumination defects from at 3 o'clock to 6 o'clock Lens 2+ Nuclear sclerosis , cortical vacuoles 2+ Nuclear sclerosis, cortical vacuoles Vitreous Posterior vitreous detachment No rmal Fundus Exam Right eye Left eye Disc no Drance heme, Peripapillary at rophy no Drance heme, Peripapillary atrophy C/D Ratio V0.6 x H0.55 0.8, sloped Macula mild RPE mottling RPE mottling Vessels Normal Normal Periphery Normal Normal Manifest Refraction #1 Sphere Cylinder [place] Dist VA Right eye +0.50 +0.75 005 20/30 Left eye -1.00 +0.75 130 20/20 Manifest Refraction #2 Sphere Cylinder [place] Dist VA Right eye +0.50 +0.25 005 20/30 Left eye [place] +0.50 140 20/25-1 Care Teams Fire Warden Relationship Specialty Start Date End Date Gaurav Schmidt MD [address] [place] [id number] PCP - General 03/12/19 documented as of this encounter
--- OUTSIDE RECORDS SUMMARY | 2024-02-01 20:05 | XMS_ITS | Encounter Summary ---
Author Organization Health system Address [address] [place] [address] Care Team Providers Care Head Of Digital Advertising & Integration Name Role Phone Gaurav Schmidt MD Primary Care Provide r Reason for Visit * Reason Comments Follow-up Glaucoma suspect of both eyes - here for a complete exam, HVF 24-2 + rNFL OCT Encounter Details Date Type Department Care Team (Late st Contact Info) Description 07/11/2022 13:[address] [facility] Ophthalmology [facility] [address] [place] [address] Paola Antonio MD [address] [place] [phone] Social History Tobacco Use Types Packs/Day Years [...] Progress Notes * Paola Antonio MD - 07/11/2022 1300 EST Chief Complaint Patient presents with ??? Follow-up Glaucoma suspect of both eyes - here for a complete exam, HVF 24-2 + rNFL OCT HPI The patient is a 77 y.o. female glaucoma suspect both eyes, for years. However, has h/o pigmentary glaucoma of both eyes [facility]. Was on gtts for about 15 years- has had allergic reactions to two in the past. Has been off latanoprost since 01/2019. Last visit here 03/2020,has not seen anyone else in the interim. Has continued to use Simsilasan 3 times a day, sometimes mo re with reading. Thinks she has allergies to preservatives in general. Has noticed since last exam that night time driving has become much more difficult due to glare, family has asked her not to drive at night. Has some bifocals that she does not use for long distance, sometimes uses them for close up. Otherwise uses OTC readers. Very interested in discussing cataract surgery today. She feels they are affecting her quality of life. A good friend told her that the surgery was like turning a light on. Ladan would like to defer VF today, states she has chronic neck problems with pain that make concentrating very difficult and does not feel that she would do an accurate VF. Also feels that her dry eye would contribute to inaccurate VFs. Right Eye: Blurred Vision, Problem with Night Vision Left Eye: Blurred Vision, Problem with Night Vision Visual Aid: Glasses Current Rx Age Location: Pain: 0 - No pain Quality: Severity: Duration: Timing: Lasts: Context: Distance vision is good, feels reading is not good - has readers which does help. Having difficulty driving at night. No flashes of lights or floaters, no pain. Modifying factors: Does not want to have HVF done due to neck problems Associated Signs & Symptoms: Attestation: ROS Constitutional: NL ENT/Mouth Cardiovascular: Respiratory: Gastrointestinal: Genitourinary: Musculoskeletal: Integumentary: Neurologic: Psychiatric: Endocrine: Hematologic: Immunologic: Distribution Engineering Technologist: Exposures: None Other: Attestation: Base Eye Exam Visual Acuity (Snellen - Linear) Right Left Dist sc 20/40 20/30 Dist ph sc 20/30 Tonometry (Applanation, 13:13) Right Left Pressure 18 18 Max Pressure Right Left Max 24 22 Pupils Pupils APD Right PERRL None Left PERRL None Visual Adam (Counting fingers) Right Left Full Full Extraocular Movement Right Left Full Full Neuro/Psych Oriented x3: Yes Mood/Affect: Normal Dilation Both eyes: Tropicamide 1%, Phenylephrine 2.5% @ 13:14 Slit Lamp and Fundus Exam External Exam Right Left External Normal Normal Slit Lamp Exam Right Left Lids/Lashes Normal Normal Conjunctiva/Sclera White and quiet White and quiet Cornea Patchy PEE inferiorly, trace endothelial pigment/guttata, no obvious Krukenberg spindle Verytrace Endothelial pigment/guttata, no obvious Krukenberg spindle Anterior [...] Vessels Normal Normal Periphery Normal Normal Refraction Wearing Rx Sphere Cylinder Right +2.00 Sphere Left +2.00 Sphere Type: SVL-reading Manifest Refraction Sphere Cylinder [place] Dist VA Add Near VA Right +1.00 +0.25 180 20/30 +2.50 J1+ Left [place] +0.50 140 20/20 +2.50 J1+ Cycloplegic Refraction Sphere Cylinder [place] Right +0.50 +0.50 180 Left [place] +0.50 140 DIAGNOSTIC TESTS: OCT, Optic Nerve - OU - Both Eyes OCT Optic Nerve Head and RNFL Right: signal strength: 7/10, Avg thickness 77 microns, wnl Left: signal strength: 8/10, Avg thickness 77 microns, wnl Ganglion Cell Analysis Right: abnormal Left: abnormal IMPRESSION & PLAN: ??? Glaucoma suspect, bilateral - Prior history: Notes available from [facility] starting from 03/2012. 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 OCT rnfl today 07/11/2022 continues wnl both eyes compared to priors. HVF 24-2 03/2020 wnl right eye, defects inferiorly left eye. Left eye has shown persistent defects inferiorly in the past, 2014, 2016, 2017, 2018 but most dense 03/2020. IOP today 18/18 by tech prior to dilation. Will continue to consider gl. suspect given normal OCT and good VFs, abnormal disc appearance, but will continue to hold meds. Last HVF 03/2020, last OCT 06/2022, last DFE 03/2023 - continue to hold latanoprost - discussed importance of continued glaucoma testing. Discussed that even if she feels that her VF results are unreliable due to neck pain/dry eye that I take those factors into account when I interpret a VF and that I understand that there will always be variability. She agrees to return for tech only HVF 24-2, she should feel free to bring ice for her neck if she feels it will help with the neck pain ?? 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 - Repeat HVF 24-2 analytical laboratory technician only, next available (see above) ??? Combined forms of age-related cataract of both eyes - Long discussion about cataract surgery: The patient has symptomatic visually significant cataract(s) in both eye(s). The patient's vision cannot be maximized with a change in the prescription of glasses or contact lenses and this decreasesthe patient's ability to drive at night. Testing for other eye diseases such as age related maculardegeneration and glaucoma have been completed, and these conditions are not contributing to the patient's visual difficulties. R/B/A cataract surgery discussed including bleeding, infection, loss of vision, loss of the eye, retinal detachment, glaucoma, and subsequent surgery. Discussed many other aspects of cataract surgery- that there is not always the magical result that her friend reported, that perhaps her friend had a more dense cataract than she does; cataract surgery can often worsen dry eye; cataract surgery may improve her glare with nighttime driving but may worsen her daytime light sensitivity which she states she already has; although with a monofocal lensI target for perfect distance vision there is [...] premium IOLs and offered her contact info if she is interested in pursuing this. Reminded her that no lens is perfect, however. Ladan will think about cataract surgery and contact us if she wishes to move forward ??? Posterior vitreous detachment of right eye - retina flat with no holes/tears/retinal detachment. - call for increase in flashes or floaters, decreased vision ?? Dry eye syndrome, bilateral - - continue Simsilasan tid ??? Refractive error - continue current specs I have reviewed the patient's past medical, family, social and surgical history. I have also reviewed the patient's medications, allergies, and problem list. I performed my own HPI and have reviewed the tech's ROS as well. I spent a total of 45 minutes on the date of this encounter [...] Description 04/16/2024 14:[address] [facility] - [place] [address] [place] [address] Paola Antonio MD [address] [place] [phone] documented as of this encounter Procedures Procedure Name Priority Date/Time Associated Diagnosis Comments OCT, OPTIC NERVE - OU - BOTH EYES Routine 07/11/2022 16:53 EST Glaucoma suspect of both eyes documented in this encounter Results * OCT, OPTIC NERVE - OU - BOTH EYES (07/11/2022 16:53 EST) Narrative [facility] OPHTHALMOLOGY - 07/11/2022 16:53 EST OCT Optic Nerve Head and RNFL Right: signal strength: 7/10, Avg thickness 77 microns, wnl Left: signal strength: 8/10, Avg thickness 77 microns, wnl Ganglion Cell Analysis Right: abnormal Left: abnormal Paola Antonio MD OPHTH TOMOGRAPHY [facility] OPHTHALMOLOGY documented in this encounter Visit Diagnoses Diagnosis Glaucoma suspect of both eyes- Primary Preglaucoma, unspecified Combined forms of age-related cataract of both eyes Other and combined forms of senile cataract 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 Medication Sig Dispensed Refills Start Date End Date labetalol (NORMODYNE) 300 mg tablet Take 1 Tablet by mouth 2 times daily. GRAPE SEED EXTRACT ORAL Take by mouth daily. amLODIPine (NORVASC) 5 mg tablet Take 1 Tablet by mouth daily. 04/18/2022 cyanocobalamin 100 mcg tablet Take 1 Tablet by mouth daily. sotaloL (BETAPACE) 120 mg tablet Take 200 mg by mouth daily. 06/28/2022 added in this encounter Eye Exam Visual Acuity (Snellen - Linear) Right eye Left eye Dist sc 20/40 20/30 Dist ph sc 20/30 Tonometry (Applanation, 13:13) Right eye Left eye Pressure 18 18 Max Pressure Right eye Left eye Max 24 22 Pupils Pupils APD Right eye PERRL None Left eye PERRL None Visual Adam (Counting fingers) Right eye Left eye Full Full Extraocular Movement Right eye Left eye Full Full Neuro/Psych Oriented x3: Yes Mood/Affect: Normal Dilation Both eyes: Tropicamide 1%, P henylephrine 2.5% @ 13:14 External Exam Right eye Left eye External Normal Normal Slit Lamp Exam Right eye Left eye Lids/Lashes Normal Normal Conjunctiva/Sclera White and quiet White and julio et Cornea Patchy PEE inferiorl y, trace endothelial pigment/guttata, no obvious Krukenberg spindle Very trace Endothelial pigment/guttata, no obvious Krukenberg spindle Anterior [...] anges Vessels Normal Normal Periphery Normal Normal Wearing Rx Sphere Cylinder Right eye +2.00 Sphere Left eye +2.00 Sphere Type: SVL-reading Manifest Refraction Sphere Cylinder [place] Dist VA Add Near VA Right eye +1.00 +0.25 180 20/30 +2.50 J1+ Left eye [place] +0.50 140 20/20 +2.50 J1+ Cycloplegic Refraction Sphere Cylinder [place] Right eye +0.50 +0.50 180 Left eye [place] +0.50 140 Care Teams Head Of Digital Advertising & Integration Relationship Specialty Start Date End Date Gaurav Schmidt MD [address] [place] [address] PCP - General 03/12/19 documented as of this encounter
--- OUTSIDE RECORDS SUMMARY | 2024-02-01 20:06 | XMS_ITS | Encounter Summary ---
Author Organization [facility] Address [address] [place] [address] Care Team Providers Care Senior Behavioral Scientist Name Role Phone Gaurav Schmidt MD Primary Care Provide r Reason for Visit * Reason Comments Follow-up Glaucoma suspect, bi lateral - here for an IOP check Encounter Details Date Type Department Care Team (Late st Contact Info) Description 12/11/2019 10:30 EDT Office Visit [facility] [address] [place] [address] Paola Antonio MD [address] [place] [phone] Social History Tobacco Use Types Packs/Day Years Used Date Smoking Tobacco: Former Smokeless Tobacco: Never Alcohol Use Standard Drinks/Week Comments Yes 0 (1 standard drink = 0.6 oz pur e alcohol) occas Sex and Gender Information Value Date Recorded Sex Assigned at Not on file Gender Identity Not on file Sexual Orientation Not on file COVID-19 Exposure Response Date Recorded In the last month, have you been in contact with someone who was confirmed or suspected to have Coronavirus / COVID-19? No / Unsure 12/11/2019 10:36 EDT documented as of this encounter Functional [...] Progress Notes * Paola Antonio MD - 12/11/2019 1030 EDT Chief Complaint Patient presents with ??? Follow-up Glaucoma suspect, bilateral - here for an IOP check HPI The patient is a 74 y.o. female glaucoma suspect both eyes, for years. However, has h/o pigmentary glaucoma of both eyes based on notes from [facility]. Was on gtts for about 15 years- has had allergic reactions to two in the past. Has been off latanoprost since 01/2019, dry eye still feels muchbetter since stopping it. Using Simsilasan 1-2 times a day. Thinks she has allergies to preservatives in general. Using reading specs more. No pain. Right Eye: Blurred Vision Left Eye: Blurred Vision Visual Aid: Current Rx Age Location: Pain: Quality: Severity: Duration: Timing: Lasts: Context: Has noticed using reading glasses more, no flashes of light or floaters, no pain. Modifying factors: Associated Signs & Symptoms: Attestation: ROS Constitutional: NL ENT/Mouth Cardiovascular: Respiratory: Gastrointestinal: Genitourinary: Musculoskeletal: Integumentary: Neurologic: Psychiatric: Endocrine: Hematologic: Immunologic: Tour Escort: Exposures: None Other: Attestation: Base Eye Exam Visual Acuity (Snellen - Linear) Right Left Dist sc 20/30 20/30 Tonometry (Applanation, 11:06) Right Left Pressure 18 16 Tonometry #2 (Applanation- MD, 12:08) Right Left Pressure 18 16 Max Pressure Right Left Max 24 22 Pupils Pupils APD Right PERRL None Left PERRL None Neuro/Psych Oriented x3: Yes Mood/Affect: Normal Slit Lamp and Fundus Exam External Exam Right Left External Normal Normal Slit Lamp Exam Right Left Lids/Lashes Normal Normal Conjunctiva/Sclera White and quiet White and quiet Cornea Endothelial pigment/guttata, no obvious Krukenberg spindle Endothelial pigment/guttata, no obvious Krukenberg spindle Anterior Chamber Deep and quiet Deep and quiet Iris Transillumination defects inferiorly Transillumination defects from at 3 o'clock to 6 o'clock Lens 2+ Nuclear sclerosis, cortical vacuoles 2+ Nuclear sclerosis, cortical vacuoles Fundus Exam Right Left Vitreous Posterior vitreous detachment Normal Disc Normal, no Drance heme Normal, no Drance heme C/D Ratio V0.6 x H0.55 0.75 DIAGNOSTIC TESTS: IMPRESSION & PLAN: ??? Glaucoma suspect, bilateral - Prior history: Notes available from [facility]] starting from 03/2012. 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 OCT rnfl 03/2018 normal both eyes. HVF 24-2 (09/2018) nl right eye which is c/w available outside records 2014, 2016 (2017 shows inferotemporal defect). Left eye shows persistent defects inferiorly 2014, 2015, 2017 (most dense). OCTs from prior records not in color. IOP today (12/11/2019) 18/16 by josé manuel, 18/16 by - same compared to when she was on latan. Will continue to consider gl. suspect given normal OCT and good VFs, abnormal disc appearance, but will continue to hold meds. Last HVF , last OCT 03/2018, last DFE 03/2018 - continue to hold latanoprost - call with pain, eye redness, decreased vision - return in 3-4 months for HVF 24-2, complete, rnfl OCT - plan yearly testing ?? 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 Combined forms of age-related cataract of both eyes - not visually significant - Observe ??? Posterior vitreous detachment of right eye - retina flat with no holes/tears/retinal detachment. Not examined today. - call for increase in flashes or floaters, decreased vision ?? Dry eye syndrome, bilateral - improved with use of Simsilasan - observe ??? Refractive error - pt to contact us if wants Rx for reading specs- will need to stop by and have us read them beforewe dispense Rx. I have reviewed the patient's past medical, family, social and surgical history. I have also reviewed the patient's medications, allergies, and problem list. I performed my own HPI and have reviewed the tech's ROS as well. I completed this exam personally. Paola Antonio MD I am scribing for Paola Antonio MD, while she is personally performing the service. [place] Mora, MICHAEL Patient Education Topic: GS Method: Verbal Taught to: Patient Barriers: None Outcomes: independent Signature: Paola Antonio MD documented in this encounter Plan of Treatment Upcoming Encounters Date Type Department Care Team (Late st Contact Info) Description 04/16/2024 14:00 EDT Office Visit [facility] [address] [place] [address] Paola Antonio MD [address] [place] [phone] documented as of this encounter Visit Diagnoses Diagnosis Glaucoma suspect, bilateral- Primary documented in this encounter Discontinued Medications Medication Sig Discontinue Reason Start Date End Da te amlodipine (NORVASC) 5 mg tablet Take 5 mg by mouth daily. Alternate therapy 12/11/2019 metoprolol (LOPRESSOR) 100 mg tablet Take by mouth 2 times daily. Alternates 150mg with 138.5mg every other day Alternate therapy 12/11/2019 documented as of this encounter Historical Medications * This list may reflect changes made after this encounter. Medication Sig Dispensed Refills Start Date End Date DILTiazem (TIAZAC) 240 mg SR capsule Take 240 mg by mouth daily. metoprolol XL (TOPROL-XL) 100 mg tablet Take 200 mg by mouth daily. added in this encounter Eye Exam Visual Acuity (Snellen - Linear) Right eye Left eye Dist sc 20/30 20/30 Tonometry #1 (Applanation, 11:06) Right eye Left eye Pressure 18 16 Tonometry #2 (Applanation- MD, 12:08) Right eye Left eye Pressure 18 16 Max Pressure Right eye Left eye Max 24 22 Pupils Pupils APD Right eye PERRL None Left eye PERRL None Neuro/Psych Oriented x3: Yes Mood/Affect: Normal External Exam Right eye Left eye External Normal Normal Slit Lamp Exam Right eye Left eye Lids/Lashes Normal Normal Conjunctiva/Sclera White and quiet White and julio et Cornea Endothelial pigment/ guttata, no obvious Krukenberg spindle Endothelial pigment/guttata, no obvious Krukenberg spindle Anterior Chamber Deep and quiet Deep and quiet Iris Transillumination de fects inferiorly Transillumination defects from at 3 o'clock to 6 o'clock Lens 2+ Nuclear sclerosis , cortical vacuoles 2+ Nuclear sclerosis, cortical vacuoles Vitreous Posterior vitreous detachment No rmal Fundus Exam Right eye Left eye Disc Normal, no Drance heme Normal, n o Drance heme C/D Ratio V0.6 x H0.55 0.75 Care Teams Senior Behavioral Scientist Relationship Specialty Start Date End Date Gaurav Schmidt MD [address] [facility] [address] [place] [address] PCP - General 03/12/19 documented as of this encounter
--- OUTSIDE RECORDS SUMMARY | 2024-02-01 20:06 | XMS_ITS | Encounter Summary ---
Author Organization [facility] Address [address] [place] [address] Care Team Providers Care Contact Lens Assistant Name Role Phone Unavailable Primary Care Provider Unavailabl e Encounter Details Date Type Department Care Team (Late st Contact Info) Description 09/04/2007 Results Only [facility] [address] [place] [address] Kaylynn Fuller MD [address] [place] [address] [place] [address] Social History Tobacco Use Types Packs/Day Years Used Date Smoking Tobacco: Never Assessed Sex and Gender Information Value Date Recorded Sex Assigned at Not on file Gender Identity Not on file Sexual Orientation Not on file documented as of this encounter Plan of Treatment Upcoming Encounters Date Type Department Care Team (Late st Contact Info) Description 04/16/2024 14:00 EDT Office Visit [address] [address] Paola Antonio MD [address] [place] [phone] documented as of this encounter Procedures Procedure Name Priority Date/Time Associated Diagnosis Comments CYTOPATHOLOGY Routine 09/04/2007 0:00 EDT documented in this encounter Results * CYTOPATHOLOGY (09/04/2007 0:00 EDT) Pathology Report: CYTOPATHOLOGY REPORT Reports generated via electronic interface contain original data; however they are lacking the format of the original report. Caution should be taken when reading/interpreti ng unformatted reports. Name: ? NAKIA PATEL ? Accession #: ? [id number] : ? 1945 (Age: 62) ??F ?Collect Date: ? 09/04/2007 Location: ? [facility] ? Receive Date: ? 09/06/2007 Provider: ?KAYLYNN FULLER MD Copy to: ? Specimen/Source: ?ThinPrep Pap Test, Source Not Provided, processed on [employer] ThinPrep Imaging System, with manual evaluation Last Menstrual Period: ? Menstrual/Pregnanc y Status: ? Post Menopausal Other: ? HPVA - HPV testing requested if ASC-US on the current ThinPrep Pap test. ? SPECIMEN ADEQUACY ? Satisfactory for Evaluation - assessment of transformation zone component not applicable ( e.g. atrophy, vaginal sample, hysterectomy) GENERAL CATEGORIZATION ? Negative for Intraepithelial Lesion or Malignancy ? Document reviewed and electronically signed by: ? Kaylynn Connor, SCT(ASCP) ? Report Date: ??09/11/2007 15:44 End of Report VEENA MUÑOZ 09/04/2007 09/06/2007 Kaylynn Fuller MD PATHOLOGY ORDERABLES VEENA MUÑOZ [address] [place] [address] documented in this encounter Visit Diagnoses Not on filedocumented in this encounter
--- OUTSIDE RECORDS SUMMARY | 2024-02-01 20:06 | XMS_ITS | Encounter Summary ---
Author Organization [facility] Address [address] [place] [address] Care Team Providers Care Kicking Machine Operator Name Role Phone Kaylynn Christensen MD Primary Care Provider [phone] Gaurav Schmidt MD Primary Care Provide r Encounter Details Date Type Department Care Team (Late st Contact Info) Description 06/10/2016 Historical Results Only [facility] Radiology Results [address] [place] [address] Gaurav Schmidt MD [address] [place] [phone] Social History Tobacco Use Types Packs/Day Years Used Date Smoking Tobacco: Former Alcohol Use Standard Drinks/Week Comments Yes 0 [...] Info) Description 04/16/2024 14:00 EDT Office Visit [facility] Ophthalmology [facility] [address] [place], [place] [address] Paola Antonio MD [address] [place] [phone] documented as of this encounter Procedures Procedure Name Priority Date/Time Associated Diagnosis Comments 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 EXAM: ULTRASOUND/RENAL ARTERY DUPLEX SCAN EX. D/ (0906) ? CLINICAL INFORMATION: ? I10 HYPTERTENSION ? TREATMENT RESISTENT HYPERTENSION, ? R/O RENAL ARTERY STENOSIS ? See attached report. ??Report also available in PACS. ? [email or web address] ?Reported By: Bhavik Frost MD ? CC: ? Transcribed Date/Time: 06/14/2016 (1128) ? Inspector Bicycle: DAVID ? Printed Date/Time: 12/01/2018 (0023) ? PAGE 1 ? Signed Report ? Procedure Note Bhavik Frost E - 04/24/2019 EXAM: ULTRASOUND/RENAL ARTERY DUPLEX SCAN EX. D/ (09) CLINICAL INFORMATION: I10 HYPTERTENSION TREATMENT RESISTENT HYPERTENSION, R/O RENAL ARTERY STENOSIS See attached report. Report also available in PACS. [email or web address] Reported By: Bhavik Frost MD CC: Transcribed Date/Time: 06/14/2016 (1128) Inspector Bicycle: DAVID Printed Date/Time: 12/01/2018 (0021) PAGE 1 Signed Report Gaurav Schmidt MD IMG US ORDERA BLES documented in this encounter Visit Diagnoses Not on filedocumented in this encounter Care Teams Kicking Machine Operator Relationship Specialty Start Date End Date Kaylynn Christensen MD [address] [place] [address] [place] [address] PCP - General 12/24/10 03/11/19 Gaurav Schmidt MD [address] [place] [address] PCP - General 03/12/19 documented as of this encounter
--- OUTSIDE RECORDS SUMMARY | 2024-02-01 20:06 | XMS_ITS | Encounter Summary ---
Author Organization [facility] Address [address] [place] [address] Care Team Providers Care Cement Or Concrete Finishing Supervisor Name Role Phone Gaurav Schmidt MD Primary Care Provide r Encounter Details Date Type Department Care Team (Late st Contact Info) Description 02/17/2020 Lab Requisition [facility] Pathology & Laboratory Medicine - [address] [id number] Outr Resulting Lab, Provider Social History Tobacco [...] Info) Description 04/16/2024 14:00 EDT Office Visit [facility] Ophthalmology [address] [address] Paola Antonio MD [address] [place] [phone] documented as of this encounter Procedures Procedure Name Priority Date/Time Associated Diagnosis Comments DO NOT ORDER STANDALONE - BROAD COVID TEST Today 02/17/2020 9:33 EDT COVID-19 TESTING Routine 02/17/2020 9:33 EDT documented in this encounter Results * DO NOT ORDER STANDALONE - BROAD COVID TEST (02/17/2020 9:33 EDT) COVID-19 rt-PCR Result NEGATIVE Negative 02/18/2020 13:10 EDT [facility] Comment: 2019-novel Coronavirus (2019-nCoV) not detected by the qRT-PCR assay. Consider testing for other respiratory viruses or re-collecting for 2019-nCoV testing. Note: Optimum timing for peak viral levels during infections caused by 2019-nCoV have not been determined. Collection of multiple specimens from the same patient may be necessary to detect the virus. Limitations Positive results are indicative of active infection with SARS-CoV-2 but do not rule out bacterial infection or co-infection with other viruses. The agent detected may not be the definite cause of disease. In addition, detection of viral RNA may not indicate the presence of infectious virus or that SARS-CoV-2 is the causative agent for clinical symptoms. Negative results do not preclude SARS-CoV-2 infection and should not be used as the sole basis for patient management decisions. Negative results must be combined with clinical observations, patient history, and epidemiological information. False negative results may also occur if amplification inhibitors are present in the specimen or if inadequate numbers of organisms are present in the specimen. Optimum specimen types and timing for peak viral levels during infections caused by SARS-CoV-2 have not been fully determined. Collection of multiple specimens (types and time points) from the same patient may be necessary to detect the virus. The test was validated for use with upper respiratory specimens obtained via nasopharyngeal or oropharyngeal swabs in VTM, UTM, M4, M5, M6, saline, and MTM media. The performance of this test has not been established for other specimens. Specimens collected using other FDA recommended Specimen Collection Materials listed in the FDA COVID-19 [employer] communication (September 12, 2019) are processed with the caveat that they were not all validated for use with this test and the result must be interpreted in this context. Furthermore, a false negative results may occur if a specimen is improperly collected, transported or handled. If the virus mutates in the RT-PCR target region, SARS-CoV-2 may not be detected or may be detected less predictably. Inhibitors or other types of interference may produce a false negative result. An interference study evaluating the effect of common cold medications was not performed. This test is not FDA-cleared but its performance characteristics were established by our CLIA-certified, CAP-accredited, high complexity laboratory in accordance with CLIA regulations, [employer] (CAP) guidelines (Sep 05, 2019), and FDA guidance (Aug 17, 2019). This test is only for use under the Food and Drug Administration's Emergency Use Authorization. Swab ENTIRE NASOPHARYNX / Unknown 02/17/2020 9:33 EDT 02/17/2020 16:16 EDT Provider Outr Resulting Lab MICROBIOLOGY - GENERAL ORDERABLES [facility] [place] * COVID-19 TESTING (02/17/2020 9:33 EDT) COVID-19 rt-PCR Result NEGATIVE Negative 02/18/2020 14:35 EDT [facility] Comment: 2019-novel Coronavirus (2019-nCoV) not detected by the qRT-PCR assay. Consider testing for other respiratory viruses or re-collecting for 2019-nCoV testing. Note: Optimum timing for peak viral levels during infections caused by 2019-nCoV have not been determined. Collection of multiple specimens from the same patient may be necessary to detect the virus. Limitations Positive results are indicative of active infection with SARS-CoV-2 but do not rule out bacterial infection or co-infection with other viruses. The agent detected may not be the definite cause of disease. In addition, detection of viral RNA may not indicate the presence of infectious virus or that SARS-CoV-2 is the causative agent for clinical symptoms. Negative results do not preclude SARS-CoV-2 infection and should not be used as the sole basis for patient management decisions. Negative results must be combined with clinical observations, patient history, and epidemiological information. False negative results may also occur if amplification inhibitors are present in the specimen or if inadequate numbers of organisms are present in the specimen. Optimum specimen types and timing for peak viral levels during infections caused by SARS-CoV-2 have not been fully determined. Collection of multiple specimens (types and time points) from the same patient may be necessary to detect the virus. The test was validated for use with upper respiratory specimens obtained via nasopharyngeal or oropharyngeal swabs in VTM, UTM, M4, M5, M6, saline, and MTM media. The performance of this test has not been established for other specimens. Specimens collected using other FDA recommended Specimen Collection Materials listed in the FDA COVID-19 [employer] communication (September 12, 2019) are processed with the caveat that they were not all validated for use with this test and the result must be interpreted in this context. Furthermore, a false negative results may occur if a specimen is improperly collected, transported or handled. If the virus mutates in the RT-PCR target region, SARS-CoV-2 may not be detected or may be detected less predictably. Inhibitors or other types of interference may produce a false negative result. An interference study evaluating the effect of common cold medications was not performed. This test is not FDA-cleared but its performance characteristics were established by our CLIA-certified, CAP-accredited, high complexity laboratory in accordance with CLIA regulations, [employer] (CAP) guidelines (Sep 05, 2019), and FDA guidance (Aug 17, 2019). This test is only for use under the Food and Drug Administration's Emergency Use Authorization. Performing Lab [facility] 02/18/2020 14:35 EDT [facility] Swab 02/17/2020 9:33 EDT 02/17/2020 16:16 EDT Provider Outr Resulting Lab MICROBIOLOGY - GENERAL ORDERABLES [facility] [address] [place] [address] [facility] [place] documented in this encounter Visit Diagnoses Not on filedocumented in this encounter Care Teams Cement Or Concrete Finishing Supervisor Relationship Specialty Start Date End Date Gaurav Schmidt MD [address] [facility] [address] [place] [address] PCP - General 03/12/19 documented as of this encounter
--- OUTSIDE RECORDS SUMMARY | 2024-02-01 20:06 | XMS_ITS | Encounter Summary ---
Author Organization [facility] Address [address] [place] [address] Care Team Providers Care Fit Model Name Role Phone Kaylynn Christensen MD Primary Care Provider [phone] Reason for Visit * Reason Comments Glaucoma Suspicion Here for 4 month IOP check Encounter Details Date Type Department Care Team (Late st Contact Info) Description 01/22/2019 12:45 EDT Office Visit [facility] Ophthalmology [facility] [address] [place] [address] Paola Antonio MD [address] [place] [phone] Social History Tobacco Use Types Packs/Day Years [...] this encounter Progress Notes * Paola Antonio MD, MD - 01/22/2019 1245 EDT Chief Complaint Patient presents with ??? Glaucoma Suspicion Here for 4 month IOP check HPI The patient is a 73 y.o. female glaucoma suspect at this point, both eyes, h/o pigmentary glaucoma of both eyes based on notes from [facility]. Has been on gtts for about 15 years- has had allergic reactions to two in the past. Tolerates latanoprost well other than some dryness. Has not tried an Rx dry eye drop and prefers not to. Thinks she has allergies to preservatives in general. Uses arttears prn. Used latanoprost last night. Wondering if she needs to stay on the drop. No pain. Right Eye: Dryness Left Eye: Dryness Visual Aid: Current Rx Age Location: Both eyes Pain: 0 - No pain Quality: Severity: Mild Duration: Timing: Lasts: Context: C/o eyes still feeling dry- using art tears when eyes feel irritated, worse at night. Modifying factors: Using latanoprost qhs (used last night) - unsure why she is on this drop still. Associated Signs & Symptoms: Attestation: ROS Constitutional: NL ENT/Mouth Cardiovascular: Respiratory: Gastrointestinal: Genitourinary: Musculoskeletal: Integumentary: Neurologic: Psychiatric: Endocrine: Hematologic: Immunologic: Floor Worker: Exposures: None Other: Attestation: Base Eye Exam Visual Acuity (Snellen - Linear) Right Left Dist sc 20/30 20/25 -2 Tonometry (Applanation, 12:57) Right Left Pressure 17 17 Tonometry #2 (Applanation- MD, 13:17) Right Left Pressure 17 18 Max Pressure Right Left Max 24 [...] history: Notes available from [facility] starting from 03/2012. Listed as suspected pig glaucoma vs. PDS. Was on latanoprost at that time 2011 both eyes. Tmax not on treatment. 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 OCT rnfl 04/10/18 normal both eyes. 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 Left eye shows persistent defects inferiorly 2014, 2016, 2017 (most dense). OCTs from prior records not in color. IOP today (01/22/19) 17/17by tech, by on latanoprost qhs both eyes. Will continue to consider gl. suspect given normal OCT and good VFs, abnormal disc appearance. Last HVF 11/2018, last OCT 03/2018, last DFE 03/2018 - hold latanoprost- discussed with pt glaucoma suspect status, concerning appearance of optic nerves but normal OCT, abnormal HVF left eye (states she is distracted when taking the test)- interested in doing trial off gtts - f/u 4-6 weeks IOP check ?? 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 Refractive error - pt [...] is personally performing the service. Chelsea Mora, COA Patient Education Topic: glaucoma suspect Method: Verbal Taught to: Patient Barriers: None Outcomes: independent Signature: Paola Antonio MD documented in this encounter Plan of Treatment Upcoming Encounters Date Type Department Care Team (Late st Contact Info) Description 04/16/2024 14:00 EDT Office Visit [facility] Ophthalmology [facility] [address] [place] [address] Paola Antonio MD [address] [place] [phone] documented as of this encounter Visit Diagnoses Diagnosis Glaucoma suspect, bilateral- Primary documented in this encounter Eye Exam Visual Acuity (Snellen - Linear) Right eye Left eye Dist sc 20/30 20/25 -2 Tonometry #1 (Applanation, 12:57) Right eye Left eye Pressure 17 17 Tonometry #2 (Applanation- , 13:17) Right eye Left eye Pressure 17 18 Max Pressure Right eye Left eye [...] Ratio V0.6 x H0.55 0.75 Care Teams Fit Model Relationship Specialty Start Date End Date Kaylynn Christensen MD [address] [place] [address] [place] [address] PCP - General 12/24/10 03/11/19 documented as of this encounter
--- OUTSIDE RECORDS SUMMARY | 2024-02-01 20:06 | XMS_ITS | Encounter Summary ---
Author Organization [facility] Address [address] [place] [address] Care Team Providers Care Vending Manager Name Role Phone Gaurav Schmidt MD Primary Care Provide r Encounter Details Date Type Department Care Team (Late st Contact Info) Description 10/17/2019 Lab Requisition [facility] Pathology & Laboratory Medicine - [address] [id number] Outr Resulting Lab, Provider Social History Tobacco [...] Info) Description 04/16/2024 14:00 EDT Office Visit [facility] Ophthalmology [address] [address] Paola Antonio MD [address] [place] [phone] documented as of this encounter Procedures Procedure Name Priority Date/Time Associated Diagnosis Comments ZZCOVID-19 TEST [facility] PCR Today 10/16/2019 22:11 EDT COVID-19 TESTING Routine 10/16/2019 22:1 1 EDT documented in this encounter Results * COVID-19 TEST [facility] PCR (10/16/2019 22:11 EDT) Swab ENTIRE NASOPHARYNX / Unknown 10/16/2019 22:11 EDT 10/17/2019 15:44 EDT Provider Outr Resulting Lab MICROBIOLOGY - GENERAL ORDERABLES [facility] [address] [place] [address] * COVID-19 TESTING (10/16/2019 22:11 EDT) COVID-19 rt-PCR Result Negative Negative 10/17/2019 20:16 EDT [facility] Comment: Negative results do not preclude 2019-nCoV infection and should not be used as the sole basis for treatment or other patient management decisions. Negative results must be combined with clinical observations, patient history, and epidemiological information. This test has not been FDA cleared or approved. This test has been authorized by FDA under an EUA for use by authorized laboratories. This test has been authorized only for detection of nucleic acid from 2019-nCoV, not for any other viruses or pathogens. This test is only authorized for the duration of the declaration that circumstances exist justifying the authorization of emergency use of in vitro diagnostic tests for detection and/or diagnosis of 2019-nCoV under section 564(b)(1) of Act, 21 U.S.C ?? 360bbb-3(b) (1), unless the authorization is terminated or revoked sooner. Performed on the [employer] instrument Performing Lab [facility] 10/17/2019 20:16 EDT [facility] Swab ENTIRE NASOPHARYNX / Unknown 10/16/2019 22:11 EDT 10/17/2019 15:44 EDT Provider Outr Resulting Lab MICROBIOLOGY - GENERAL ORDERABLES [facility] [address] [place] [address] documented in this encounter Visit Diagnoses Not on filedocumented in this encounter Care Teams Vending Manager Relationship Specialty Start Date End Date Gaurav Schmidt MD [address] [place] [id number] PCP - General 03/12/19 documented as of this encounter
--- OUTSIDE RECORDS SUMMARY | 2024-02-01 20:06 | XMS_ITS | Encounter Summary ---
Author Organization [facility] Address [address] [place] [address] Care Team Providers Care Wood Milling Machine Tender Name Role Phone Unavailable Primary Care Provider Unavailabl e Encounter Details Date Type Department Care Team (Late st Contact Info) Description 08/16/2007 Results Only [facility] - [facility] [address] [place] [address] Cam Ryder MD [address] [place] [phone] Social History Tobacco Use Types Packs/Day Years Used Date Smoking Tobacco: Never Assessed Sex and Gender Information Value Date Recorded Sex Assigned at Not on file Gender Identity Not on file Sexual Orientation Not on file documented as of this encounter Plan of Treatment Upcoming Encounters Date Type Department Care Team (Late st Contact Info) Description 04/16/2024 14:00 EDT Office Visit [facility] Ophthalmology [address] [address] Paola Antonio MD [address] [place] [phone] documented as of this encounter Procedures Procedure Name Priority Date/Time Associated Diagnosis Comments RAST PEANUT Routine 08/16/2007 16:51 EST documented in this encounter Results * RAST PEANUT (08/16/2007 16:51 EST) RAST Peanut <0.35Unit: kU/L(Note) Class 0 (Negative <0.35) ? Performed by: [facility] [address] , [address], [place] [address], Lab Dir: ??Massimo Sen ? III, M.D. ? [facility] 08/16/2007 16:5 1 EST 08/16/2007 16:53 EST Cam Ryder MD IMMUNOLOGY AND RICARDO HOPKINS ORDERABLES [facility] [address] [place] [address] documented in this encounter Visit Diagnoses Not on filedocumented in this encounter
--- OUTSIDE RECORDS SUMMARY | 2024-02-01 20:06 | XMS_ITS | Encounter Summary ---
Author Organization [facility] Address [address] [place] [address] Care Team Providers Care Info Print Press Operator Name Role Phone Kaylynn Christensen MD Primary Care Provider [phone] Reason for Visit * Reason Comments Urinary Tract Infection onset yesterday with burning urination c/o freq Encounter Details Date Type Department Care Team (Late st Contact Info) Description 12/24/2010 8:51 EDT - 12/24/2010 10:04 EDT Emergency [facility] Emergency Department - [address] [address] Lisandro Carrillo, PA-C [address] [address] Emergency, MD Ange Urinary tract infection Discharge Disposition: Home or Self Care Social History Tobacco Use Types Packs/Day Years Used Date Smoking Tobacco: Former Alcohol Use Standard Drinks/Week Comments Yes 0 (1 standard drink = 0.6 oz pur e alcohol) occas Sex and Gender Information Value Date Recorded Sex Assigned at Not on file Gender Identity Not on file Sexual Orientation Not on file documented as of this encounter Last Filed Vital Signs Vital Sign Reading Time Taken Comments Blood Pressure 104/69 12/24/2010 0959 EDT Pulse 58 12/24/2010 0959 EDT Temperature 36.7 ??C (98.1 ??F) 12/24/2010 0908 EDT Respiratory Rate 18 12/24/2010 0908 EDT Oxygen Saturation 100% 12/24/2010 0908 EDT Inhaled Oxygen Concentration - - Weight 77.1 kg (170 lb) 12/24/2010 0908 EDT Height - - Body Mass Index - - documented in this encounter Discharge Instructions * Attachments The following attachments cannot be sent through Care Everywhere. * URINARY TRACT INFECTION IN WOMEN: AFTER YOUR VISIT (BENGALI) documented in this encounter Medications at Time of Discharge Medication Sig Dispensed Refills Start Date End Date lisinopril (PRINIVIL, ZESTRIL) 40 mg tablet Take 1 Tablet by mouth daily. amlodipine (NORVASC) 5 mg tablet Take 5 mg by mouth daily. 12/11/2019 ciprofloxacin (CIPRO) 500 mg tablet Take 1 Tab by mouth every 12 hours for 5 days. 10 Tab 0 12/24/2010 12/29/2010 hydrochlorothiazide (HYDRODIURIL) 25 mg tablet Take 25 mg by mouth daily. 03/12/2019 metoprolol XL (TOPROL-XL) 25 mg tablet Take 75 mg by mouth daily. 03/12/2019 phenazopyridine (PYRIDIUM) 200 mg tablet Take 1 Tab by mouth 3 times daily for 2 days. 6 Tab 0 12/24/2010 12/26/2010 documented as of this encounter Ordered Prescriptions Prescription Sig Dispensed Refills Start Date End Da te ciprofloxacin (CIPRO) 500 mg tablet Take 1 Tab by mouth every 12 hours for 5 days. 10 Tab 0 12/24/2010 12/29/2010 phenazopyridine (PYRIDIUM) 200 mg tablet Take 1 Tab by mouth 3 times daily for 2 days. 6 Tab 0 12/24/2010 12/26/2010 documented in this encounter Discharge Disposition Disposition Code Departure Means Destination Home or Self Care Walk-out Home documented in this encounter ED Notes * Lisandro Carrillo - 12/24/2010 0952 EDT DOS: 12/24/2010 Chief Complaint Patient presents with ??? Urinary Tract Infection onset yesterday with burning urination c/o freq The patient is a 65 y.o. female who presents today with Urinary Tract Infection The history is provided by the patient. Urinary Tract Infection This is a new problem. The current episode started 12 to 24 hours ago. The problem occurs every urination. The problem has not changed since onset. The quality of the pain is described as burning. The pain is at a severity of 5/10. The pain is moderate. There has been no fever. Associated symptoms include frequency, hesitancy and urgency. Pertinent negatives include no chills, no nausea, no vomiting, no discharge, no hematuria and no flank pain. Review of Systems Constitutional: Negative for fever and chills. HENT: Negative for neck stiffness. Eyes: Negative for visual disturbance. Respiratory: Negative for shortness of breath. Cardiovascular: Negative for chest pain. Gastrointestinal: Negative for nausea, vomiting and abdominal pain. Genitourinary: Positive for hesitancy, urgency and frequency. Negative for dysuria, hematuria and flank pain. Musculoskeletal: Negative for back pain. Skin: Negative for rash. Neurological: Negative for headaches. Psychiatric/Behavioral: Negative for confusion. All other systems reviewed and are negative. Past Medical History Diagnosis Date ??? Hypertension History reviewed. No pertinent past surgical history. No Known Allergies History Substance Use Topics ??? Smoking status: Former Smoker ??? Smokeless tobacco: Not on file ??? Alcohol Use: Yes occas History reviewed. No pertinent family history. Vital Signs Temp: 36.7 ??C (98.1 ??F) Temp src: Tympanic Pulse: 58 Resp: 18 SpO2: 100 % BP: 104/69 mmHg O2 Device: None (Room air) Physical Exam Nursing note and vitals reviewed. Constitutional: She appears well-developed and well-nourished. HENT: Head: Normocephalic and atraumatic. Right Ear: External ear normal. Left Ear: External ear normal. Nose: Nose normal. Neck: Normal range of motion. Neck supple. No tracheal deviation present. Cardiovascular: Normal rate, regular rhythm and normal heart sounds. Pulmonary/Chest: Breath sounds normal. No respiratory distress. Abdominal: Soft. Bowel sounds are normal. She exhibits no distension. No tenderness. Mild suprapubic tenderness, no flank tenderness bilaterally Musculoskeletal: Normal range of motion. Neurological: She is alert. She has normal strength. No sensory deficit. Skin: No rash noted. Psychiatric: She has a normal mood and affect. Radiology orders: None Procedures ED Course: A medical screening exam was performed. Patient treated for uncomplicated UTI. Has no systemic symptoms, flank pain, or abdominal pain. Patient with dysuria, urgency, frequency.Urinalysis shows leukocytes and blood. Treated with 5 day course of Cipro and Pyridium Disposition: Discharged The patient's pain was managed to an adequate level weighing risk vs. benefit of further medications. Upon departure from the Emergency Department, the patient's pain was 4 on a zero to ten scale. Condition at departure from the Emergency Department: stable Discharge Prescriptions New Prescriptions CIPROFLOXACIN (CIPRO) 500 MG TABLET Take 1 Tab by mouth every 12 hours for 5 days. PHENAZOPYRIDINE (PYRIDIUM) 200 MG TABLET Take 1 Tab by mouth 3 times daily for 2 days. MDM Number of Diagnoses or Management Options Urinary tract infection: Diagnosis management comments: 3 1. Urinary tract infection (599.0D) PCP: MD Isac TEIXEIRA was available for supervision. 12/25/2010 7:20 documented in this encounter Miscellaneous Notes * Scanned Note-Null - Gluer, Scan - 12/24/2010 0000 EDT documented in this encounter Plan of Treatment Upcoming Encounters Date Type Department Care Team (Late st Contact Info) Description 04/16/2024 14:00 EDT Office Visit [facility] [address] [place] [address] Paola Antonio MD [address] [place] [address] documented as of this encounter Procedures Procedure Name Priority Date/Time Associated Diagnosis Comments POCT URINALYSIS Routine 12/24/2010 9:33 EDT documented in this encounter Results * (ABNORMAL) POCT URINALYSIS (12/24/2010 9:33 EDT) Color YELLOW [facility] Clarity, UA Clear [facility] Glucose Neg NEG [facility] Bilirubin Neg NEG [facility] Ketones Neg NEG [facility] Specific [place] 1.010 1.001 - 1.035 [facility] Blood 2+(A) NEG [facility] pH 5.0 4.6 - 8.0 [facility] Protein Neg NEG [facility] Urobilinogen 0.2 0.2 - 1.0 E.U./dl [facility] Nitrite Neg NEG [facility] Leuk Esterase 1+(A) NEG [facility] registered travel nurse ID [id number] Test Performed by Nursing Services [facility] 12/24/2010 9:33 EDT 12/24/2010 9:34 EDT Of Care User Point POINT OF CARE TEST O RDERABLES Performing Organization Address City/State/[facility] Co de Phone Number [facility] [address] [place] [address] documented in this encounter Visit Diagnoses Diagnosis Urinary tract infection Urinary tract infection, site not specified documented in this encounter Historical Medications * This list may reflect changes made after this encounter. Medication Sig Dispensed Refills Start Date End Date lisinopril (PRINIVIL, ZESTRIL) 40 mg tablet Take 1 Tablet by mouth daily. metoprolol XL (TOPROL-XL) 25 mg tablet Take 75 mg by mouth daily. 03/12/2019 hydrochlorothiazide (HYDRODIURIL) 25 mg tablet Take 25 mg by mouth daily. 03/12/2019 amlodipine (NORVASC) 5 mg tablet Take 5 mg by mouth daily. 12/11/2019 added in this encounter Orders Lab Orders Without Results Count Last Ordered D ate First Ordered Date POCT URINE DIPSTICK 1 12/24/2010 documented in this encounter Care Teams Info Print Press Operator Relationship Specialty Start Date End Date Kaylynn Christensen MD [address] [place] [address] [place] [address] PCP - General 12/24/10 03/11/19 documented as of this encounter
--- OUTSIDE RECORDS SUMMARY | 2024-02-01 20:06 | XMS_ITS | Encounter Summary ---
Author Organization [facility] Address [address] [place] [address] Care Team Providers Care Grazing Aide Name Role Phone Unavailable Primary Care Provider Unavailabl e Encounter Details Date Type Department Care Team (Late st Contact Info) Description 09/05/2008 Before PRISM Converted Visit (Maple) [facility] - Maple conversion [address] [place] [address] Kaylynn Christensen MD [address] [place] [address] [place] [address] Social History Tobacco Use Types Packs/Day Years Used Date Smoking Tobacco: Never Assessed Sex and Gender Information Value Date Recorded Sex Assigned at Not on file Gender Identity Not on file Sexual Orientation Not on file documented as of this encounter Plan of Treatment Upcoming Encounters Date Type Department Care Team (Late st Contact Info) Description 04/16/2024 14:00 EDT Office Visit [facility] [address] [place] [address] Paola Antonio MD [address] [place] [address] documented as of this encounter Procedures Procedure Name Priority Date/Time Associated Diagnosis Comments HPV DETECTION, HIGH RISK TYPES Routine 09/05/2008 13:38 EDT CYTOPATHOLOGY Routine 09/05/2008 0:00 EDT documented in this encounter Results * HUMAN PAPILLOMA VIRUS DNA TEST (09/05/2008 13:38 EDT) Specimen Description Cervix, ThinPrep vial [facility] Result Negative for HPV types 16, 18, 31, 33, 35, 39, 45, 51, 52, 56, 58, 59, and 68. [facility] Report Status Final 09/16/2008 [facility] 09/05/2008 13:3 8 EDT 09/11/2008 13:38 EDT Kaylynn Christensen MD MICROBIOLOGY - GENER AL ORDERABLES [facility] [address] [place] [address] * CYTOPATHOLOGY (09/05/2008 0:00 EDT) Pathology Report: CYTOPATHOLOGY REPORT ? Reports generated via electronic interface contain original data; ? however they are lacking the format of the original report. ? Caution should be taken when reading/interpreti ng unformatted reports. ? Name: ? NAKIA PATEL ? Accession #: ? [id number] ? : ? 1945 (Age: 63) ??F ?Collect Date: ? 09/05/2008 ? Location: ? [facility] ? Receive Date: ? 09/09/2008 ? Provider: ?KAYLYNN ERISMAN MD ? Copy to: ? Specimen/Source: ?Pap Test, Cervix, ThinPrep Imaging System with manual ?? evaluation ? Last Menstrual Period: ? Menstrual/Pregnanc y Status: ? Menopausal ? Other: ? Additional clinical information: Crusher And Blender Operator clinical & treatment hx:normal ? HPVDX - HPV testing requested regardless of diagnosis on current ThinPrep Pap ?? test. ? SPECIMEN ADEQUACY ? Satisfactory for Evaluation ? - transformation zone component present ? GENERAL CATEGORIZATION ? Negative for Intraepithelial Lesion or Malignancy ? Document reviewed and electronically signed by: ? Priya V[place],CT(ASCP) ? Report Date: ??09/11/2008 09:17 ? End of Report ? [facility] 09/05/2008 09/09/2008 Kaylynn Christensen MD PATHOLOGY ORDERABLES [facility] [address] [place] [address] documented in this encounter Visit Diagnoses Not on filedocumented in this encounter
--- OUTSIDE RECORDS SUMMARY | 2024-02-01 20:06 | XMS_ITS | Encounter Summary ---
Author Organization [facility] Address [address] [place] [address] Care Team Providers Care Disciplinary Hearing Officer Name Role Phone Kaylynn Christensen MD Primary Care Provider [phone] Reason for Visit * Reason Comments Eye Exam Complete exam Encounter Details Date Type Department Care Team (Late st Contact Info) Description 04/10/2018 14:00 EDT Office Visit [facility] Ophthalmology [facility] [address] [place] [address] Paola Antonio MD [address] [place] [phone] Social History Tobacco Use Types Packs/Day Years Used Date Smoking Tobacco: Former Smokeless Tobacco: Never Alcohol Use Standard Drinks/Week Comments Yes 0 (1 standard drink = 0.6 oz pur e alcohol) occas Sex and Gender Information Value Date Recorded Sex Assigned at Not on file Gender Identity Not on file Sexual Orientation Not on file documented as of this encounter Progress Notes * Paola Antonio MD - 04/10/2018 1400 EDT Chief Complaint Patient presents with ??? Eye Exam Complete exam HPI The patient is a 72 y.o. female with h/o pigmentary glaucoma of both eyes based on notes from [facility]. Has been on gtts for about 15 years- has had allergic reactions to two in the past. Tolerates latanoprost well other than some dryness. Has not tried an Rx dry eye drop and prefers not to. Thinks she has allergies to preservatives in general. Uses Systane PF art tears qid. Used latanoprost last night. Has noticed a floater in both eyes over the past couple of months. Has bifocals, uses them for reading only. Driving difficult at night. No pain. Has difficulty with VF testing due to neck pain. Right Eye: Dryness, Blurred Vision Left Eye: Dryness, Blurred Vision Visual Aid: Glasses (prescription reading) Current Rx Age > 2 years Location: Both eyes Pain: Quality: Severity: Duration: Timing: Lasts: Context: Patient was last seen a few months ago at [facility]. They have followed her for cataracts as well as a rare form of glaucoma for which she takes Latanoprost. Is starting to see a black floater with both eyes within the past couple months. Modifying factors: Notes eyes are very dry and uses Systane gel (tries to use four times daily). Noburning or excess tearing noted, but says eyes feel scratchy. She wears prescription reading glasses, but nothing for distance. Notes night driving is difficult and tries to avoid it. Associated Signs & Symptoms: Latanoprost: Qhs, OU (last used about 6 PM last night). She notes she was on two other IOP meds that were to be used BID, but d/c use of these about 2 years ago due to eye discomfort. Attestation: ROS Constitutional: NL ENT/Mouth NL Cardiovascular: High Blood Pressure Respiratory: NL Gastrointestinal: NL Genitourinary: NL Musculoskeletal: NL Integumentary: NL Neurologic: NL Psychiatric: NL Endocrine: NL Hematologic: NL Immunologic: NL Neurologist: NL Exposures: None Other: Attestation: Base Eye Exam Visual Acuity (Snellen - Linear) Right Left Dist sc 20/25 -2 20/25 -1 Tonometry (Applanation, 14:23) Right Left Pressure 19 18 Pachymetry (03/21/2012) Right Left Thickness 558 573 Pupils Pupils APD Right PERRL None Left PERRL None Visual Adam (Counting fingers) Right Left Result Full Full Extraocular Movement Right Left Result Full Full Neuro/Psych Oriented x3: Yes Mood/Affect: Normal Dilation Both eyes: 1.0% Mydriacyl, 2.5% Phenylephrine @ 14:23 Slit Lamp and Fundus Exam External Exam Right Left External Normal Normal Slit Lamp Exam Right Left Lids/Lashes Normal Normal Conjunctiva/Sclera White and quiet White and quiet Cornea Minimal endothelial pigment/guttata, no obvious Krukenberg spindle Minimal endothelial pigment/guttata, no obvious Krukenberg spindle Anterior Chamber Deep and quiet Deep and quiet Iris Transillumination defects at 6 o'clock post dilation Transillumination defects from 1 o'clock to 6:30 post dilation Lens 2+ Nuclear sclerosis, cortical vacuoles 2+ Nuclear sclerosis, cortical vacuoles Fundus Exam Right Left Vitreous Posterior vitreous detachment Normal Disc Normal Normal C/D Ratio V 0.6 x H 0.55 0.75 Macula Normal Normal Vessels Normal Normal Periphery Normal Normal Refraction Manifest Refraction (Auto) Sphere Cylinder [place] Dist Add Right Keno +0.50 007 Left -1.25 +1.25 149 Manifest Refraction #2 Sphere Cylinder [place] Dist Add Right +0.25 +0.25 010 20/20 +2.50 Left -0.50 +0.25 135 20/20 +2.50 Dist VA Both: 20/20-1 Near VA Both: J1+ Cycloplegic Refraction Sphere Cylinder [place] Right Keno Left -0.75 +0.75 140 DIAGNOSTIC TESTS: OCT Optic Nerve Head and RNFL Right: signal strength: 9/10, Avg thickness 76 microns, wnl Left: signal strength: 8/10, Avg thickness 75 microns, wnl Ganglion Cell Analysis Right: abnl Left: abnl IMPRESSION & PLAN: ??? Glaucoma suspect, bilateral - One note available for review from [facility] 10/26/17. 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 Per pt has been on drops for many years. OCT noted to show a thin sup quadrant right eye, normal left eye. IOP at that visit 16/16, target IOP documented as 15/15. Pachy wnl from 03/2012 both eyes. No management changes were noted at 10/2017 visit. Today TIDs noted on exam, but difficult to evaluate for classic PDS midperipheral TIDs due to dilation. No K spindle, although does have some endothelial pigment/guttata. Note that she is also blondeand blue-eyed which could confuse the picture with possible ocular albinism. OCT rnfl today 04/10/18 normal both eyes. I have no prior OCTs to compare. IOP 19/18 by tech on latanoprost qhs both eyes.For now will consider a glaucoma suspect until more records are available. - continue latanoprost qhs both eyes - f/u 2 months undilated exam, gonio, IOP check ??? Combined forms of age-related cataract of both eyes - not visually significant - Observe ??? Posterior vitreous detachment of right eye - retina flat with no holes/tears/retinal detachment - call for increase in flashes or floaters, decreased vision ?? Dry eye syndrome, bilateral - continue artificial tears- reluctant to try prescription drops (Xiidra, Restasis), could discuss punctal plugs ??? Refractive error - pt to contact [...] she is personally performing the service. MICHAEL Sol Patient Education Topic: glaucoma Method: Verbal Taught to: Patient Barriers: None Outcomes: independent Signature: Paola Antonio MD documented in this encounter Plan of Treatment Upcoming Encounters Date Type Department Care Team (Late st Contact Info) Description 04/16/2024 14:00 EDT Office Visit [facility] Ophthalmology [facility] [address] [place] [address] Paola Antonio MD [address] [place] [address] documented as of this encounter Visit Diagnoses Diagnosis Glaucoma suspect, bilateral- Primary Combined forms of age-related cataract of both eyes Other and combined forms of senile cataract Posterior vitreous detachment of right eye Vitreous degeneration Dry eye syndrome, bilateral Refractive error Unspecified disorder of refraction and accommodation documented in this encounter Eye Exam Visual Acuity (Snellen - Linear) Right eye Left eye Dist sc 20/25 -2 20/25 -1 Tonometry (Applanation, 14:23) Right eye Left eye Pressure 19 18 Max Pressure Right eye Left eye Max 24 22 Pachymetry (03/21/2012) Right eye Left eye Thickness 558 573 Pupils Pupils APD Right eye PERRL None Left eye PERRL None Visual Adam (Counting fingers) Right eye Left eye Full Full Extraocular Movement Right eye Left eye Full Full Neuro/Psych Oriented x3: Yes Mood/Affect: Normal Dilation Both eyes: 1.0% Mydriacyl, 2 .5% Phenylephrine @ 14:23 External Exam Right eye Left eye External Normal Normal Slit Lamp Exam Right eye Left eye Lids/Lashes Normal Normal Conjunctiva/Sclera White and quiet White and julio et Cornea Minimal endothelial pigment/guttata, no obvious Krukenberg spindle Minimal endothelial pigment/guttata, no obvious Krukenberg spindle Anterior Chamber Deep and quiet Deep and quiet Iris Transillumination de fects at 6 o'clock post dilation Transillumination defects from 1 o'clock to 6:30 post dilation Lens 2+ Nuclear sclerosis , cortical vacuoles 2+ Nuclear sclerosis, cortical vacuoles Vitreous Posterior vitreous detachment No rmal Fundus Exam Right eye Left eye Disc Normal Normal C/D Ratio V 0.6 x H 0.55 0.75 Macula Normal Normal Vessels Normal Normal Periphery Normal Normal Manifest Refraction #1 (Auto) Sphere Cylinder [place] Dist VA Add Right eye Keno +0.50 007 Left eye -1.25 +1.25 149 Manifest Refraction #2 Sphere Cylinder [place] Dist VA Add Right eye +0.25 +0.25 010 20/20 +2.50 Left eye -0.50 +0.25 135 20/20 +2.50 Dist VA Both: 20/20-1 Near VA Both: J1+ Cycloplegic Refraction Sphere Cylinder [place] Right eye Keno Left eye -0.75 +0.75 140 Care Teams Disciplinary Hearing Officer Relationship Specialty Start Date End Date Kaylynn Christensen MD [facility] [place] [address] PCP - General 12/24/10 03/11/19 documented as of this encounter
--- OUTSIDE RECORDS SUMMARY | 2024-02-01 20:06 | XMS_ITS | Encounter Summary ---
Author Organization [facility] Address [address] [place] [address] Care Team Providers Care Polymerization Oven Tender Name Role Phone Gaurav Schmidt MD Primary Care Provide r Reason for Visit * Reason Comments Follow-up 4-6 wk f/u GS, both eyes - IOP check Encounter Details Date Type Department Care Team (Late st Contact Info) Description 03/12/2019 13:00 EDT Office Visit [facility] Ophthalmology [facility] [address] [place] [address] Paola Antonio MD [address] [place] [phone] Social History Tobacco Use Types Packs/Day Years [...] Progress Notes * Paola Antonio MD - 03/12/2019 1300 EDT Chief Complaint Patient presents with ??? Follow-up 4-6 wk f/u GS, both eyes - IOP check HPI The patient is a 73 y.o. female glaucoma suspect both eyes. However, has h/o pigmentary glaucoma ofboth eyes [facility]. Has been on gtts for about 15 years- has had allergicreactions to two in the past. Tolerates latanoprost with some dryness. Has been off latanoprost since last visit, dry eye feels much better. Using Simsilasan 1-2 times a day. Thinks she has allergiesto preservatives in general. Not interested in Rx dry eye drops. No pain. Right Eye: Dryness Left Eye: Dryness Visual Aid: Current Rx Age Location: Both eyes Pain: Quality: Severity: Mild Duration: Timing: Lasts: Context: Here for IOP check off of Latanoprost after last visit. Modifying factors: Associated Signs & Symptoms: Attestation: ROS Constitutional: NL ENT/Mouth Cardiovascular: Respiratory: Gastrointestinal: Genitourinary: Musculoskeletal: Integumentary: Neurologic: Psychiatric: Endocrine: Hematologic: Immunologic: Microbiology Professor: Exposures: None Other: Attestation: Base Eye Exam Visual Acuity (Snellen - Linear) Right Left Dist sc 20/25 20/20 -3 Tonometry (Applanation, 13:37) Right Left Pressure 16 16 Tonometry #2 (Applanation-MD, 14:48) Right Left Pressure 20 19 Max Pressure Right Left Max 24 22 Pupils Pupils Right PERRL Left PERRL Neuro/Psych Oriented x3: Yes Mood/Affect: Normal Slit [...] history: Notes available from [facility] starting from 03/2012. Listed as suspected pig [...] right eye which is c/w available ou ide records 2014, 2015 (2017 shows inferotemporal defect). Left eye shows persistent defects inferiorly 2014, 2016, 2017 (most dense). OCTs from prior records not in color. IOP today (02/2019) 16/16 by josé manuel, 20/19 by off latanoprost. Will continue to consider gl. suspect given normal OCT and good VFs, abnormal disc appearance, but will hold meds for now. Last HVF 11/2018, last OCT 03/2018, last DFE 03/2018 - hold latanoprost - call with pain, eye redness, decreased vision - return in 6 months for an IOP check - plan yearly testing ?? [...] 04/16/2024 14:00 EDT Office Visit [facility] Ophthalmology [address] [address] Paola Antonio MD [address] [place] [phone] documented as of this encounter Visit Diagnoses Diagnosis Glaucoma suspect, bilateral- Primary documented in this encounter Discontinued Medications Medication Sig Discontinue Reason Start Date End Da te hydrochlorothiazide (HYDRODIURIL) 25 mg tablet Take 25 mg by mouth daily. 03/12/2019 metoprolol XL (TOPROL-XL) 25 mg tablet Take 75 mg by mouth daily. 03/12/2019 documented as of this encounter Historical Medications * This list may reflect changes made after this encounter. Medication Sig Dispensed Refills Start Date End Date CANNABIDIOL, CBD, EXTRACT ORAL Take by mouth daily. metoprolol (LOPRESSOR) 100 mg tablet Take by mouth 2 times daily. Alternates 150mg with 138.5mg every other day 12/11/2019 added in this encounter Eye Exam Visual Acuity (Snellen - Linear) Right eye Left eye Dist sc 20/25 20/20 -3 Tonometry #1 (Applanation, 13:37) Right eye Left eye Pressure 16 16 Tonometry #2 (Applanation-MD, 14:48) Right eye Left eye Pressure 20 19 Max Pressure Right eye Left eye Max 24 22 Pupils Pupils Right eye PERRL Left eye PERRL Neuro/Psych Oriented x3: Yes Mood/Affect: Normal External [...] Ratio V0.6 x H0.55 0.75 Care Teams Polymerization Oven Tender Relationship Specialty Start Date End Date Gaurav Schmidt MD [address] [place] [address] PCP - General 03/12/19 documented as of this encounter
--- OUTSIDE RECORDS SUMMARY | 2024-02-01 20:06 | XMS_ITS | Encounter Summary ---
Author Organization [facility] Address [address] [place] [address] Care Team Providers Care Public Information Coordinator Name Role Phone Gaurav Schmidt MD Primary Care Provide r Encounter Details Date Type Department Care Team (Latest Contact Info) Description 12/11/2019 Travel Social History Tobacco Use Types Packs/Day [...] Info) Description 04/16/2024 14:00 EDT Office Visit [facility] [address] [place], [place] [phone] Paola Antonio MD [address] [place] [phone] documented as of this encounter Visit Diagnoses Not on filedocumented in this encounter Care Teams Public Information Coordinator Relationship Specialty Start Date End Date Gaurav Schmidt MD [address] [place] [address] [address] [place] [address] PCP - General 03/12/19 documented as of this encounter
--- OUTSIDE RECORDS SUMMARY | 2024-02-01 20:06 | XMS_ITS | Encounter Summary ---
Author Organization [facility] Address [address] [place] [address] Care Team Providers Care Arts Therapist Name Role Phone Kaylynn Christensen MD Primary Care Provider [phone] Encounter Details Date Type Department Care Team (Latest Contact Info) Description 06/10/2016 9:44 EST - 06/10/2016 23:59 EST Hospital Encounter [address] [address] Unknown, Provider, Discharge Disposition: Home or Self Care Social History Tobacco Use Types Packs/Day Years Used Date Smoking Tobacco: Former Alcohol Use Standard Drinks/Week Comments Yes 0 (1 standard drink = 0.6 oz pur e alcohol) occas Sex and Gender Information Value Date Recorded Sex Assigned at Not on file Gender Identity Not on file Sexual Orientation Not on file documented as of this encounter Medications at Time of Discharge Medication Sig Dispensed Refills Start Date End Date lisinopril (PRINIVIL, ZESTRIL) 40 mg tablet Take 1 Tablet by mouth daily. amlodipine (NORVASC) 5 mg tablet Take 5 mg by mouth daily. 12/11/2019 hydrochlorothiazide (HYDRODIURIL) 25 mg tablet Take 25 mg by mouth daily. 03/12/2019 metoprolol XL (TOPROL-XL) 25 mg tablet Take 75 mg by mouth daily. 03/12/2019 documented as of this encounter Discharge Disposition Disposition Code Departure Means Destination Home or Self Nursing Home documented in this encounter Plan of Treatment Upcoming Encounters Date Type Department Care Team (Late st Contact Info) Description 04/16/2024 14:00 EDT Office Visit [facility] Ophthalmology - [place] [address] [place] [address] Paola Antonio MD [address] [facility] [place] [phone] documented as of this encounter Visit Diagnoses Not on filedocumented in this encounter Care Teams Arts Therapist Relationship Specialty Start Date End Date Kaylynn Christensen MD [address] [place] [address] [place] [address] PCP - General 12/24/10 03/11/19 documented as of this encounter
--- OUTSIDE RECORDS SUMMARY | 2024-02-01 20:06 | XMS_ITS | Encounter Summary ---
Author Organization [facility] Address [address] [place] [address] Care Team Providers Care Community Support Specialist Name Role Phone Kaylynn Christensen MD Primary Care Provider Reason for Visit * Reason Onset Date Comments Medical Records 06/05/2018 Encounter Details Date Type Department Care Team (Late st Contact Info) Description 06/05/2018 Telephone [facility] Ophthalmology - [place] [address] [place] [address] Paola Antonio MD [address] [place] [phone] Medical Records Social History Tobacco Use Types Packs/Day Years [...] encounter Miscellaneous Notes * Telephone Encounter - Mohan Priya - 06/05/2018 1636 EST Called and requested a full ophthalmic record (including testing) to be sent to us for review. Jimenez gather records and mail them to us. documented in this encounter Plan of Treatment Upcoming Encounters Date Type Department Care Team (Late st Contact Info) Description 04/16/2024 14:00 EDT Office Visit [facility] Ophthalmology [facility] [address] [place] [address] Paola Antonio MD [address] [place] [phone] documented as of this encounter Visit Diagnoses Not on filedocumented in this encounter Care Teams Community Support Specialist Relationship Specialty Start Date End Date Kaylynn Christensen MD [address] [place] [address] [place] [address] PCP - General 12/24/10 03/11/19 documented as of this encounter
--- OUTSIDE RECORDS SUMMARY | 2024-02-01 20:06 | XMS_ITS | Encounter Summary ---
Author Organization [facility] Address [address] [place] [address] Care Team Providers Care Pc Tech Name Role Phone Unavailable Primary Care Provider Unavailabl e Encounter Details Date Type Department Care Team (Latest Contact Info) Description 08/16/2007 16:29 EST Hospital Encounter [address] [address] Cam Ryder MD [address] [place] [phone] Discharge Disposition: Auto Discharge Social History Tobacco Use Types Packs/Day Years Used Date Smoking Tobacco: Never Assessed Sex and Gender Information Value Date Recorded Sex Assigned at Not on file Gender Identity Not on file Sexual Orientation Not on file documented as of this encounter Discharge Disposition Disposition Code Departure Means Destination Auto Discharge documented in this encounter Plan of Treatment Upcoming Encounters Date Type Department Care Team (Late st Contact Info) Description 04/16/2024 14:00 EDT Office Visit [facility] Ophthalmology [facility] [address] [place] [address] Paola Antonio MD [address] [place] [phone] documented as of this encounter Visit Diagnoses Not on filedocumented in this encounter
--- OUTSIDE RECORDS SUMMARY | 2024-02-01 20:06 | XMS_ITS | Encounter Summary ---
Author Organization [facility] Address [address] [place] [address] Care Team Providers Care Employment Legal Assistant Name Role Phone Kaylynn Christensen MD Primary Care Provider [phone] Reason for Visit * Reason Comments Glaucoma Suspicion Here for HVF and IOP check. Encounter Details Date Type Department Care Team (Late st Contact Info) Description 09/21/2018 13:45 EDT Office Visit [facility] Ophthalmology [facility] [address] [place] [address] Paola Antonio MD [address] [place] [phone] Social History Tobacco Use Types Packs/Day Years [...] Notes * Paola Antonio MD, MD - 09/21/2018 1345 EDT Chief Complaint Patient presents with ??? Glaucoma Suspicion Here for HVF and IOP check. HPI The patient is a 73 y.o. [...] has allergies to preservatives in general. Uses some type of art tears qid- a new one. Spot in vision has disappeared, thinks she may have floaters occasionally. Used latanoprost last night. No pain. Right Eye: Blurred Vision Left Eye: Blurred Vision Visual Aid: Glasses Current Rx Age Location: Both eyes Pain: 0 - No pain Quality: Blurry Severity: Mild Duration: Months Timing: Lasts: Context: C/o increased difficulty reading, now has to wear bifocals when reading. Also has noticed a few faint flashes that occur once in a while, no floaters. Modifying factors: Latanoprost qhs, both eyes - used last night. Associated Signs & Symptoms: Attestation: ROS Constitutional: NL ENT/Mouth Cardiovascular: High Blood Pressure(on meds) Respiratory: Gastrointestinal: Genitourinary: Musculoskeletal: Integumentary: Neurologic: Psychiatric: Endocrine: Hematologic: Immunologic: Seed Collector: Exposures: None Other: Attestation: Base Eye Exam Visual Acuity (Snellen - Linear) Right Left Dist sc 20/25 20/25 -1 Tonometry (Applanation, 14:00) Right Left Pressure 19 17 Tonometry #2 (Applanation-MD, 14:27) Right Left Pressure 19 16 Max Pressure Right Left Max 24 22 Pupils Pupils Dark Shape APD Right PERRL 3.5 Round None Left PERRL 3.5 Round None Neuro/Psych Oriented x3: Yes Mood/Affect: Normal [...] heme Normal, no Drance heme C/D Ratio V 0.6 x H 0.55 0.75 DIAGNOSTIC TESTS: HVF 24-2 Right: 2% FP, 0% FN, 07/02 [place], wnl Left: 0% FP, 0% FN, 11/29 [place], defects inferotemporally IMPRESSION & PLAN: ??? Glaucoma suspect, bilateral - Prior history: Notes available from [facility] starting from 03/2012. Listed as [...] rnfl 04/10/18 normal both eyes. HVF 24-2 today (09/21/18) nl right eye which is c/w available outside records 2014, 2015 (2017 shows inferotemporal defect). Left eye shows persistent defects inferiorly 2014, 2016, 2017 (most dense). OCTs from prior records not in color. IOP today (09/21/18)19/17 by josé manuel, 19/16 by on latanoprost qhs both eyes. Will continue to consider gl. suspect given normal OCT and good VFs. - continue latanoprost qhs both eyes - f/u 4 months for an IOP check ?? Scotoma involving central area of left eye - improved - Amsler grid PRN - observe ??? [...] my own HPI and have reviewed the [facility]'s ROS as well. I completed this exam personally. Paola Antonio MD I am scribing for Paola Antonio MD, while she is personally performing the service. MICHAEL Nunez Patient Education Topic: glaucoma suspect Method: Verbal Taught to: Patient Barriers: None Outcomes: independent Signature: Paola Antonio MD documented in this encounter Plan of Treatment Upcoming Encounters Date Type Department Care Team (Late st Contact Info) Description 04/16/2024 14:00 EDT Office Visit [facility] Ophthalmology - [place] [address] [place] [address] Paola Antonio MD [address] [place] [phone] documented as of this encounter Visit Diagnoses Diagnosis Glaucoma suspect, bilateral- Primary Dry eye syndrome, bilateral documented in this encounter Eye Exam Visual Acuity (Snellen - Linear) Right eye Left eye Dist sc 20/25 20/25 -1 Tonometry #1 (Applanation, 14:00) Right eye Left eye Pressure 19 17 Tonometry #2 (Applanation-MD, 14:27) Right eye Left eye Pressure 19 16 Max Pressure Right eye Left eye Max 24 22 Pupils Pupils Dark Shape APD Right eye PERRL 3.5 Round None Left eye PERRL 3.5 Round None Neuro/Psych Oriented x3: Yes Mood/Affect: Normal [...] Normal, n o Drance heme C/D Ratio V 0.6 x H 0.55 0.75 Care Teams Employment Legal Assistant Relationship Specialty Start Date End Date Kaylynn Christensen MD [address] [place] [address] [place] [address] PCP - General 12/24/10 03/11/19 documented as of this encounter
--- OUTSIDE RECORDS SUMMARY | 2024-02-01 20:06 | XMS_ITS | Encounter Summary ---
Author Organization [facility] Address [address] [place] [address] Care Team Providers Care Print Color Matcher Name Role Phone Kaylynn Christensen MD Primary Care Provider [phone] Reason for Visit * Reason Onset Date Comments Medications Refill 09/10/2018 Encounter Details Date Type Department Care Team (Late st Contact Info) Description 09/10/2018 Refill [facility] Ophthalmology [facility] [address] [place] [address] Paola Antonio MD [address] [place] [phone] Medications Refill Social History Tobacco Use Types Packs/Day Years [...] No 06/05/2018 documented as of this encounter Ordered Prescriptions Prescription Sig Dispensed Refills Start Date End Da te latanoprost (XALATAN) 0.005 % ophthalmic solution Place 1 drop into both eyes at bedtime. 7.5 mL 3 09/11/2018 documented in this encounter Miscellaneous Notes * Telephone Encounter - Mary Lou Storm - 09/10/2018 1507 EDT Refill Lantanoprost to [facility]. documented in this encounter Plan of Treatment Upcoming Encounters Date Type Department Care Team (Late st Contact Info) Description 04/16/2024 14:00 EDT Office Visit [facility] Ophthalmology [facility] [address] [place] [address] Paola Antonio MD [address] [place] [phone] documented as of this encounter Visit Diagnoses Not on filedocumented in this encounter Care Teams Print Color Matcher Relationship Specialty Start Date End Date Kaylynn Christensen MD [address] [place] [address] [place] [address] PCP - General 12/24/10 03/11/19 documented as of this encounter
--- OUTSIDE RECORDS SUMMARY | 2024-02-01 20:06 | XMS_ITS | Encounter Summary ---
Author Organization [facility] Address [address] [place] [address] Care Team Providers Care Osteopathic Physician Name Role Phone Kaylynn Fuller MD Primary Care Provider Encounter Details Date Type Department Care Team (Late st Contact Info) Description 01/31/[address] [facility] Laboratory Services - [facility] [address] [place], [place] [address] Kaylynn Fuller MD [address] [place] [address] [address] [place] [employer], [place] [phone] Social History Tobacco Use Types Packs/Day Years [...] Info) Description 04/16/2024 14:00 EDT Office Visit [facility] Ophthalmology - [place] [address] [place] [address] Paola Antonio MD [address] [place] [phone] documented as of this encounter Procedures Procedure Name Priority Date/Time Associated Diagnosis Comments PAP TEST- RESULT ONLY Routine 01/31/2013 0:00 EDT documented in this encounter Results * PAP TEST- RESULT ONLY (01/31/2013 0:00 EDT) Pathology Report: CYTOPATHOLOGY REPORT Reports generated via electronic interface contain original data; however they are lacking the format of the original report. Caution should be taken when reading/interpreti ng unformatted reports. Name: ? NAKIA SHER ? Accession #: ? [id number] : ? 1945 (Age: 67) ??F ?Collect Date: ? 01/31/2013 Location: ? [facility] ? Receive Date: ? 02/04/2013 Provider: ?KAYLYNN FULLER MD Copy to: ? Specimen/Source: ?Pap Test, Cervix/Endocervix, ThinPrep Imaging System with manual evaluation Last Menstrual Period: ? Menstrual/Pregnanc y Status: ? Post Menopausal Hormonal/Contracep tive Status: ? Yes: Levothyroxine ? SPECIMEN ADEQUACY ? Satisfactory for Evaluation - assessment of transformation zone component not applicable ( e.g. atrophy, vaginal sample, hysterectomy) GENERAL CATEGORIZATION ? Negative for Intraepithelial Lesion or Malignancy ? Document reviewed and electronically signed by: ? BRANNON Yoder(ASCP) ? Report Date: ??02/11/2013 08:47 End of Report VEENA MUÑOZ 01/31/2013 02/04/2013 Kaylynn Fuller MD PATHOLOGY ORDERABLES VEENA MUÑOZ [address] [place] [address] documented in this encounter Visit Diagnoses Not on filedocumented in this encounter Care Teams Osteopathic Physician Relationship Specialty Start Date End Date Kaylynn Fuller MD [address] [place] [address] [place] [address] PCP - General 12/24/10 03/11/19 documented as of this encounter
--- OUTSIDE RECORDS SUMMARY | 2024-02-01 20:06 | XMS_ITS | Encounter Summary ---
Author Organization [facility] Address [address] [place] [address] Care Team Providers Care Lineman Apprentice Name Role Phone Kaylynn Christensen MD Primary Care Provider [phone] Reason for Referral * Other (Routine) - Closed Specialty Diagnoses / Procedures Referred By Bryanna aguilar Referred To Contact Diagnoses Glaucoma suspect, bilateral Procedures GONIOSCOPY (SPECIAL EYE EVAL, GONIOSCOPY) Paola Antonio MD [address] [place] [phone] Referral ID Status Reason Start Date Expiration Date Visits Re quested Visits Authorized [id number] Closed 06/05/2018 1 1 Reason for Visit * Reason Comments Follow-up Glaucoma suspect f/u here for IOP check & gonio Encounter Details Date Type Department Care Team (Late st Contact Info) Description 06/05/2018 12:45 EST Office Visit [facility] Ophthalmology [facility] [address] [place], [place] [address] Paola Antonio MD [address] [place] [phone] Social History Tobacco Use Types Packs/Day Years [...] * Patient Instructions* Paola Antonio MD - 06/05/2018 12:45 EST Images from the original note were not included. How to use the Amsler Grid: Wear the eyeglasses that you normally wear for reading. Position the chart 14 inches away from your face. Cover one eye at a time with your hand. Stare at the dot in the center. Do not let your eye drift from the center dot. Contact your eye doctor immediately if: ?? Any of the straight lines appear wavy or bent ?? Any of the boxes differ in size or shape from the others ?? Any of the lines are missing, blurry or discolored documented in this encounter Progress Notes * Paola Antonio MD - 06/05/2018 1245 EST Chief Complaint Patient presents with ??? Follow-up Glaucoma suspect f/u here for IOP check & gonio HPI The patient is a 72 y.o. [...] of art tears qid- a new one. Isexperiencing a interruption in the vision of her left eye- a spot in the center of her vision that is constantly central- started a couple of weeks ago- has not changed. Is also noticing increased frequency of seeing jagged lines to the side of the vision on both sides which lasts about 1/2 hour. Has difficulty with VF testing due to neck pain. Used latanoprost last night. Right Eye: Blurred Vision Left Eye: Blurred Vision, Distorted Vision Visual Aid: Glasses(prescription reading) Current Rx Age > 2 years Location: Left eye Pain: Quality: Severity: Duration: Weeks Timing: Constant Lasts: Continuous Context: Glaucoma suspect ehre for gonio & IOP check. Using Latanoprost qhs in both eyes. Modifying factors: Pt sees a small area of interuption in her vision in left eye. Not blured, nota floater. Using eye lubricant (not sure of the name) 4-5 times a day. Associated Signs & Symptoms: Patient has had symptoms of ocular migraine a few times a month. Has jagged stained glass effect in VA in both eyes that lasts for about 1/2 hour. Attestation: ROS Constitutional: NL ENT/Mouth NL Cardiovascular: High Blood Pressure Respiratory: NL Gastrointestinal: NL Genitourinary: NL Musculoskeletal: NL Integumentary: NL Neurologic: NL Psychiatric: NL Endocrine: NL Hematologic: NL Immunologic: NL Marine Designer: NL Exposures: None Other: Attestation: Base Eye Exam Visual Acuity (Snellen - Linear) Right Left Dist sc 20/25 20/25 Tonometry (Applanation, 13:02) Right Left Pressure 15 14 Tonometry #2 (Applanation- MD, 13:19) Right Left Pressure 16 15 Gonioscopy Right Left Temporal CBB CBB Nasal CBB SS Superior SS CBB Inferior CBB ? sampaolesi line CBB Pupils Pupils APD Right PERRL None Left [...] Normal C/D Ratio V 0.6 x H 0.55, no Drance heme 0.75, no Drance heme DIAGNOSTIC TESTS: IMPRESSION & PLAN: ??? Glaucoma suspect, bilateral - One note available for review from [facility] 10/26/17. 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 Per pt has been on drops for many years. OCT noted to show a thin sup quadrant right eye, normal left eye. IOP at that visit 16, target IOP documented as 15/15. Pachy wnl from 03/2012 both eyes. No management changes were noted at 10/2017 visit. Today TIDs noted on undilated exam. No distinct K spindle, although does have some endothelial pigment/guttata. 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 OCT rnfl 04/10/18 normal both eyes. I have no prior OCTs with which to compare. IOP today (06/05/18) 15/14 by josé manuel, 16/15 by on latanoprost qhs both eyes. For now will consider aglaucoma suspect until more records are available. - continue latanoprost qhs both eyes - waiting for records, studies - f/u 6 weeks HVF 24-2, VA/IOP ?? 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 Combined forms of age-related cataract of [...] my own HPI and have reviewed the [facility]'s ROS as well. I completed this exam [...] Info) Description 04/16/2024 14:00 EDT Office Visit [facility] Ophthal[facility] [address] [place] [address] Paola Antonio MD [address] [place] [phone] Scheduled Orders Name Type Priority Associated Diagnoses Orde r Schedule GONIOSCOPY (SPECIAL EYE EVAL, GONIOSCOPY) Ophthalmology Routine Glaucoma Suspect, Bilateral Ordered: 06/05/2018 documented as of this encounter Visit Diagnoses Diagnosis Glaucoma suspect, bilateral- Primary Scotoma involving central area of left eye Scotoma involving central area in visual field documented in this encounter Historical Medications * This list may reflect changes made after this encounter. Medication Sig Dispensed Refills Start Date End Date homeopathic drugs (SIMILASAN OPHT) Apply to eye 4 times daily as needed. added in this encounter Eye Exam Visual Acuity (Snellen - Linear) Right eye Left eye Dist sc 20/25 20/25 Tonometry #1 (Applanation, 13:02) Right eye Left eye Pressure 15 14 Tonometry #2 (Applanation- MD, 13:19) Right eye Left eye Pressure 16 15 Max Pressure Right eye Left eye Max 24 22 Gonioscopy Right eye Left eye Temporal CBB CBB Nasal CBB SS Superior SS CBB Inferior CBB ? sampaolesi line CBB Pupils Pupils APD Right eye PERRL None [...] Normal C/D Ratio V 0.6 x H 0.55, no Drance heme 0 .75, no Drance heme Care Teams Lineman Apprentice Relationship Specialty Start Date End Date Kaylynn Christensen MD [address] [place] [address] [place] [address] PCP - General 12/24/10 03/11/19 documented as of this encounter
[2024-02-01 20:09] VITALS: BP 203/86; PULSE 73; RESP 14; TEMP 36.3; O2SAT 96
[2024-02-01 20:17] VITALS: BP 203/86; PULSE 73; RESP 14; TEMP 36.3; O2SAT 96
[2024-02-01 20:22] LABS: Bilirubin Negative (Negative); Blood Moderate (Negative); Clarity Clear (Clear); Glucose Negative (Negative); Ketones Negative (Negative); Leukocyte Esterase Small (Negative); Nitrite Negative (Negative); Specific Gravity <= 1.005 (1.005-1.025); Urobilinogen 0.2 mg/dL (Up to 0.2); pH 5.5 (5-8)
[2024-02-01 20:28] LABS: Bacteria Rare HPF (Negative); C & S Indicated? No; Casts Negative LPF (Negative); Crystals Negative HPF (Negative); Epithelial Cells Few HPF (Negative); Mucus Negative (Negative); Other Cells Few Transitional (Negative)
[2024-02-01] MEDS: Phenazopyridine 100 MG TAB, 2 TABS/BTL PO (21:05)
[2024-02-01] MEDS: Phenazopyridine 200 MG TAB PO (21:05)
[2024-02-01] MEDS: Fosfomycin Tromethamine 3 GM PACKET PO (21:05)
--- NOTE | 2024-02-01 22:03 | W.ED.GENAD ---
Discharge Plan Disposition Patient Disposition: Home Condition: Stable Discharge Details Clinical Impression: Dysuria Primary Care Provider: Isidro Schmidt ED Provider: James So Home Meds and New Rx's Prescriptions: New phenazopyridine [Pyridium] 100 mg tablet 100 mg PO TID PRNQty: 6 0RF No Action amlodipine 10 mg tablet 5 mg PO DAILY Xarelto 20 mg tablet 20 mg PO DAILY Rx Instructions: must administer with evening meal vitamin B complex Tablet 1 tab PO DAILY magnesium oxide 400 mg magnesium capsule 1,200 mg PO DAILY labetalol 200 mg tablet 300 mg PO BID atorvastatin [Lipitor] 10 mg tablet 10 mg PO QHS lisinopril 20 mg tablet 40 mg PO DAILY Qty: 180 sotalol 80 mg tablet 120 mg PO BID cholecalciferol (vitamin D3) 25 mcg (1,000 unit) capsule 25 mcg PO DAILY trazodone 50 mg tablet Discharge Instructions Instructions: Dysuria (ED) Additional Instructions: Return with any symptoms of fever, chills, vomiting, decreased urine output or worsening pain Take Pyridium as needed for urgency frequency and burning Discharge Data Discharge Date/Time-TO BE ENTERED AT DEPARTURE: 02/01/24 21:06 HPI General Date/Time Provider Initiated Documentation: 02/01/24 20:00. Limitations to Documentation: no limitations. Information obtained by: patient. HPI Narrative: 78y F with PMH of CHF, HTN, a fib presents for evaluation of concern for UTI. patient reports that a few hours ago she started having burning with urination, urgency, frequency. reports that shes urinated multiple times. denies any abodminal pain, nausea or vomiting. no fever or chills. no flank pain. reports symptoms consistent wtih prior UTI. Related Data Home Medications ?Medication ?Instructions ?Recorded ?Confirmed rivaroxaban 20 mg tablet (Xarelto) 20 mg PO DAILY 10/01/19 02/01/24 atorvastatin 10 mg tablet (Lipitor) 10 mg PO QHS 10/12/20 02/01/24 labetalol 200 mg tablet 300 mg PO BID 10/12/20 02/01/24 amlodipine 10 mg tablet 5 mg PO DAILY 12/18/20 02/01/24 cholecalciferol (vitamin D3) 25 25 mcg PO DAILY 11/03/23 02/01/24 mcg (1,000 unit) capsule lisinopril 20 mg tablet 40 mg PO DAILY #180 tabs 11/03/23 02/01/24 sotalol 80 mg tablet 120 mg PO BID 11/03/23 02/01/24 magnesium oxide 1,200 mg PO DAILY 11/07/23 02/01/24 vitamin B complex 1 tab PO DAILY 11/07/23 02/01/24 phenazopyridine 100 mg tablet 100 mg PO TID PRN 6 doses #6 tabs 02/01/24 (Pyridium) trazodone 50 mg tablet mg 02/01/24 Previous Rx's ?Medication ?Instructions ?Recorded phenazopyridine 100 mg tablet 100 mg PO TID PRN 6 doses #6 tabs 02/01/24 (Pyridium) Allergies Allergy/AdvReac Type Severity Reaction Status Date / Time No Known Allergies Allergy Verified 02/01/24 20:12 General Stated Complaint: Urinary JOSE: 3 Exam Narrative Exam Narrative: Review of Systems: All systems reviewed & are unremarkable except as noted in HPI and below Well-developed, no acute distress NCAT PERRL, normal conjunctiva RRR Unlabored respiratory effort Nondistended abdomen Extremities w/o deformity, no cyanosis, no edema No rashes or lesions. no focal neurologic deficits Appropriate mood and affect Course Vital Signs Vital signs: Vital Signs Temperature 36.3 C L 02/01/24 20:09 Pulse 73 02/01/24 20:09 Respiratory Rate 14 02/01/24 20:09 Blood Pressure 203/86 H 02/01/24 20:09 Pulse Oximetry 96 02/01/24 20:09 Temperature 36.3 C L 02/01/24 20:17 Temperature Source Skin 02/01/24 20:17 Pulse 73 02/01/24 20:17 Respiratory Rate 14 02/01/24 20:17 Respiratory Effort Normal 02/01/24 20:14 Blood Pressure 203/86 H 02/01/24 20:17 Blood Pressure Position Sitting 02/01/24 20:17 Pulse Oximetry 96 02/01/24 20:17 Oxygen Delivery Method Room Air 02/01/24 20:17 Oxygen Flow Rate 0 02/01/24 20:09 Pain Level 10 02/01/24 20:17 Lab/Test Results Lab/Test Results: Laboratory Tests Range/Units 02/01/24 20:07 Urine Color (Yellow) Yellow Urine Clarity (Clear) Clear Urine pH (5-8) 5.5 Ur Specific [place] (1.005-1.025) <= 1.005 Urine Protein (Neg-Trace) mg/dL Negative Urine Ketones (Negative) mg/dL Negative Urine Blood (Negative) Moderate H Urine Nitrite (Negative) Negative Urine Bilirubin (Negative) Negative Urine Urobilinogen (Up to 0.2) mg/dL 0.2 Ur Leukocyte Esterase (Negative) Small H Urine RBC (0-2) HPF 3-5 H Urine WBC (0-5) HPF 3-5 Ur Epithelial Cells (Negative) HPF Few Urine Crystals (Negative) HPF Negative Urine Bacteria (Negative) HPF Rare Urine Casts (Negative) LPF Negative Urine Mucus (Negative) Negative Urine Other (Negative) Few Transitional Ur Culture Indicated? No Urine Glucose (Negative) mg/dL Negative Medical Decision Making Patient presents for evaluation of urgency frequency and dysuria. Symptoms have only been ongoing for the last few hours. No fever. Abdominal examination is benign. Initial differential includes UTI, less likely renal colic. The patient urinalysis does have some blood leukocyte esterase, there are a few white blood cells, rare bacteria. Given her symptoms, we will treat with single dose fosfomycin. Will also give Pyridium. She has noted to be hypertensive and recommend that she take her blood pressure medication and follow her blood pressure regularly. She should return for reevaluation if she has worsening symptoms, fever chills or pain. Quality:SDOH Health Related Social Needs: No Data to Display PFSH All Active Problems Dysuria (Acute) Advanced care planning/counseling discussion (Acute) Adjustment disorder with depressed mood (Acute) Heart failure, unspecified (Acute) DNI (do not intubate) (Acute) DNR (do not resuscitate) (Acute) Dysphagia, pharyngeal phase (Acute) Elevated TSH (Acute) Snoring (Acute) Obstructive sleep apnea (Chronic) Periodic limb movement disorder (Acute) Central apnea (Acute) Elevated levels of transaminase & lactic acid dehydrogenase (Acute) Elevated ferritin (Acute) Neck pain (Acute) Knee pain, right (Acute) Dyspnea on exertion (Acute) Nausea (Acute) Lower extremity edema (Acute) Hypertension (Chronic) Pacemaker (Acute) Prolifiq Software PPM on 07/10/2020 Sick sinus syndrome (Acute) Diastolic heart failure (Chronic) Hypokalemia (Acute) CHF (congestive heart failure) (Chronic) CHF exacerbation (Acute) Hypertensive urgency (Acute) Atrial fibrillation (Chronic) Hyponatremia (Acute) COVID-19 ruled out (Acute) Atrial fibrillation (Chronic) Acute kidney injury (Acute) SOB (shortness of breath) (Acute) Dysphagia (Acute) DVT prophylaxis (Acute) Discharge planning issues (Acute) Chest discomfort (Acute) Hypertensive urgency (Acute) S/P hernia repair (Chronic) Atrial flutter (Acute) HTN (hypertension) (Chronic) Medical History Abscess of right foot Neuritis of right foot Elevated liver enzymes Hematoma Palpitations Localized edema Paroxysmal atrial fibrillation Rheumatic mitral stenosis Insomnia Overweight Disorder of bilirubin metabolism HLD (hyperlipidemia) Total bilirubin, elevated Family History Father Essential hypertension Heart disease Stroke Sister Essential hypertension Personal history of malignant neoplasm BREAST Grandfather Heart disease Grandfather Personal history of malignant neoplasm Lung Heart disease Grandmother Heart disease Stroke Social History Smoking/Tobacco Use Status: Former Tobacco Use Quit Date: 06/19/84 Tobacco: How many years used: 20 Smoking risk assessment performed?: Yes Alcohol Intake: current Alcohol Intake frequency: holidays/special occasions only Alcohol type: beer and wine Drug use: Daily Substance use type: marijuana Details: makes a cannabis tea to help sleep Housing: house What type of physical activity do you participate in: walking and other Details: hikes Duration: 15-30 minutes/day Frequency: daily Do you feel safe at home: Yes Do you feel safe in your relationship?: Yes
== END 2024-02-01 21:06 | disposition home or self-care (01) ==
PROVIDERS: Emergency Provider Emergency Medicine; PCP Family Medicine
DX: R30.0 Dysuria (principal); R35.0 Frequency of micturition; R39.15 Urgency of urination
CPT/HCPCS: 99283; 81003; 81015; 99284; J3490

== ENCOUNTER 2024-02-05 15:25 | Outpatient (REF) | payer MEDICARE, BC, SELFPAY ==
--- OUTSIDE RECORDS SUMMARY | 2024-02-05 15:33 | XMS_ITS | Encounter Summary ---
Author Organization [facility] Address [address] [place] [address] Care Team Providers Care Screw Down Name Role Phone Gaurav Schmidt MD Primary [...] Info) Description 04/16/2024 14:00 EDT Office Visit [facility] Ophthalmology [facility] [address] [place] [address] Paola Antonio MD [address] [place] [phone] documented as of this encounter Visit Diagnoses Not on filedocumented in this encounter Care Teams Screw Down Relationship Specialty Start Date End Date Gaurav Schmidt MD [address] [place] [address] [address] [place], [place] [phone] PCP - General 03/12/19 documented as of this encounter
--- OUTSIDE RECORDS SUMMARY | 2024-02-05 15:33 | XMS_ITS | Encounter Summary ---
Author Organization [facility] Address [address] [place] [address] Care Team Providers Care Manager Commission Name Role Phone Kaylynn Christensen MD Primary Care Provider [phone] Reason for Visit * Reason Comments Glaucoma Suspicion Here for 4 month IOP check Encounter Details Date Type Department Care Team (Late st Contact Info) Description 01/22/2019 12:45 EDT Office Visit [facility] Ophthal[facility] [address] [place] [address] Paola Antonio MD [address] [place] [phone] Social History Tobacco Use Types Packs/Day Years [...] Musculoskeletal: Integumentary: Neurologic: Psychiatric: Endocrine: Hematologic: Immunologic: Telemetry Technician: Exposures: None Other: Attestation: Base Eye Exam [...] history: Notes available from [facility] starting from 03/2012. Listed as suspected pig [...] 14:00 EDT Office Visit [facility] Ophthal[facility] [address] [place] [address] Paola Antonio MD [address] [place] [phone] documented as of this encounter [...] Ratio V0.6 x H0.55 0.75 Care Teams Manager Commission Relationship Specialty Start Date End Date Kaylynn Christensen MD [address] [place] [address] [place] [address] PCP - General 12/24/10 03/11/19 documented as of this encounter
--- OUTSIDE RECORDS SUMMARY | 2024-02-05 15:33 | XMS_ITS | Encounter Summary ---
Author Organization [facility] Address [address] [place] [address] Care Team Providers Care Dairy Machine Operator Farmworker Name Role Phone Gaurav Schmidt MD Primary [...] Info) Description 04/16/2024 14:00 EDT Office Visit [facility] Ophthalmology [facility] [address] [place] [address] Paola Antonio MD [address] [place] [phone] documented as of this encounter Visit Diagnoses Not on filedocumented in this encounter Care Teams Dairy Machine Operator Farmworker Relationship Specialty Start Date End Date Gaurav Schmidt MD [address] [place] [address] [address] [place], [place] [phone] PCP - General 03/12/19 documented as of this encounter
--- OUTSIDE RECORDS SUMMARY | 2024-02-05 15:33 | XMS_ITS | Encounter Summary ---
Author Organization [facility] Address [address] [place] [address] Care Team Providers Care Housefellow Name Role Phone Gaurav Schmidt MD Primary Care Provide r Reason for Visit * Reason Comments Glaucoma Suspicion Both eyes for HVF 24 -2, RNFL OCT and DFE today Encounter Details Date Type Department Care Team (Late st Contact Info) Description 04/14/2020 15:00 EDT Office Visit [facility] Ophthalmology [facility] [address] [place] [address] Paola Antonio MD [address] [place] [phone] Social History Tobacco Use Types Packs/Day Years [...] Endocrine: NL Hematologic: (on Xalelto) Immunologic: NL Claim Professional: Exposures: None Other: Attestation: Base Eye Exam [...] Normal Normal Refraction Manifest Refraction Sphere Cylinder Blair Dist VA Right +0.50 +0.75 005 20/30 Left -1.00 +0.75 130 20/20 Manifest Refraction #2 Sphere Cylinder [place] Dist VA Right +0.50 +0.25 005 20/30 Left Marty +0.50 140 20/25-1 DIAGNOSTIC TESTS: OCT, Optic [...] history: Notes available from [facility] starting from 03/2012. Listed as suspected [...] Info) Description 04/16/2024 14:00 EDT Office Visit [facility] [place] [address] [place] [address] Paola Antonio MD [address] [place] [phone] documented as of this encounter Procedures Procedure [...] - BOTH EYES (04/14/2020 16:39 EDT) Narrative [facility] POINT OF CARE - 04/14/2020 16:39 EDT HVF 24-2 Right: 8% FP, 2% FN, 0/14 FL, wnl Left: ??4% FP, 5% FN, 2/18 FL, inferior defects Paola Antonio MD OPHTH VISUAL FIELD Performing Organization Address City/[facility]/ZIP Co de Phone Number [facility] POINT OF CARE * OCT, OPTIC NERVE - OU - BOTH EYES (04/14/2020 16:39 EDT) Narrative [facility] POINT OF CARE - 04/14/2020 16:39 EDT OCT Optic Nerve Head and RNFL Right: signal strength: 07/10, Avg thickness 72 microns, borderline superiorly Left: signal strength: 07/10, Avg thickness 75 microns, wnl Ganglion Cell Analysis Right: wnl Left: wnl Paola Antonio MD OPHTH TOMOGRAPHY Performing Organization Address [facility] Co de Phone Number [facility] documented in this encounter Visit Diagnoses Diagnosis [...] Normal Normal Manifest Refraction #1 Sphere Cylinder Blair Dist VA Right eye +0.50 +0.75 005 20/30 Left eye -1.00 +0.75 130 20/20 Manifest Refraction #2 Sphere Cylinder [place] Dist VA Right eye +0.50 +0.25 005 20/30 Left eye Marty +0.50 140 20/25-1 Care Teams Housefellow Relationship Specialty Start Date End Date Gaurav Schmidt MD [address] [place] [id number] PCP - General 03/12/19 documented as of this encounter
--- OUTSIDE RECORDS SUMMARY | 2024-02-05 15:33 | XMS_ITS | Encounter Summary ---
Author Organization [facility] Address [address] [place] [address] Care Team Providers Care Registered Nurse First Assistant Name Role Phone Kaylynn Christensen MD Primary Care Provider [phone] Reason for Visit * Reason Comments Eye Exam Complete exam Encounter Details Date Type Department Care Team (Late st Contact Info) Description 04/10/2018 14:00 EDT Office Visit [facility] Ophthalmology [facility] [address] [place] [address] Paola Antonio MD [address] [place] [phone] Social History Tobacco Use Types Packs/Day Years [...] few months ago at [facility]. They have followed her for cataracts [...] NL Endocrine: NL Hematologic: NL Immunologic: NL Fine Grade Bulldozer Operator: NL Exposures: None Other: Attestation: Base Eye [...] Normal Refraction Manifest Refraction (Auto) Sphere Cylinder [place] Dist Add Right [place] +0.50 007 Left -1.25 +1.25 149 Manifest Refraction #2 Sphere Cylinder [place] Dist Add Right +0.25 +0.25 010 20/20 +2.50 Left -0.50 +0.25 135 20/20 +2.50 Dist VA Both: 20/20-1 Near VA Both: J1+ Cycloplegic Refraction Sphere Cylinder [place] Right [place] Left -0.75 +0.75 140 DIAGNOSTIC TESTS: OCT Optic Nerve Head and RNFL Right: signal strength: 9/10, Avg thickness 76 microns, wnl Left: signal strength: 8/10, Avg thickness 75 microns, wnl Ganglion Cell Analysis Right: abnl Left: abnl IMPRESSION & PLAN: ??? Glaucoma suspect, bilateral - One note available for review from [facility] 10/26/17. Diagnosis of pigmentary glaucoma in both [...] Office Visit [facility] Ophthalmology [facility] [address] [place] [address] Paola Antonio MD [address] [place] [phone] documented as of this encounter Visit Diagnoses [...] Normal Manifest Refraction #1 (Auto) Sphere Cylinder [place] Dist VA Add Right eye [place] +0.50 007 Left eye -1.25 +1.25 149 Manifest Refraction #2 Sphere Cylinder [place] Dist VA Add Right eye +0.25 +0.25 010 20/20 +2.50 Left eye -0.50 +0.25 135 20/20 +2.50 Dist VA Both: 20/20-1 Near VA Both: J1+ Cycloplegic Refraction Sphere Cylinder Gardner Right eye [place] Left eye -0.75 +0.75 140 Care Teams Registered Nurse First Assistant Relationship Specialty Start Date End Date Kaylynn Christensen MD [facility] [place] [address] PCP - General 12/24/10 03/11/19 documented as of this encounter
--- OUTSIDE RECORDS SUMMARY | 2024-02-05 15:33 | XMS_ITS | Encounter Summary ---
Author Organization [facility] Address [address] [place] [address] Care Team Providers Care Machine Ii Cutter Name Role Phone Kaylynn Fuller MD Primary Care Provider [phone] Encounter Details Date Type Department Care Team (Late st Contact Info) Description 01/31/2013 Results Only [facility] Laboratory Services - [facility] ([facility]) [address] [place], [place] [address] Kaylynn Fuller MD [address] [place] [address] [address] [place], [place] [phone] Social History Tobacco Use Types Packs/Day Years [...] Info) Description 04/16/2024 14:00 EDT Office Visit [facility] Ophthalmology - [place] [address] [place] [address] Paola Antonio MD [address] [place] [phone] documented as of this encounter Procedures Procedure [...] ? NAKIA SHER ? Accession #: ? [id number] : ? 1945 (Age: 67) ??F ?Collect [...] Fuller MD PATHOLOGY ORDERABLES VEENA MUÑOZ [address] [place] [address] documented in this encounter Visit Diagnoses Not on filedocumented in this encounter Care Teams Machine Ii Cutter Relationship Specialty Start Date End Date Kaylynn Fuller MD [address] [place] [address] [place] [address] PCP - General 12/24/10 03/11/19 documented as of this encounter
--- OUTSIDE RECORDS SUMMARY | 2024-02-05 15:33 | XMS_ITS | Encounter Summary ---
Author Organization [facility] Address [address] [place] [address] Care Team Providers Care Web Architect Name Role Phone Kaylynn Christensen MD Primary Care Provider [phone] Encounter Details Date Type Department Care Team (Latest Contact Info) Description 06/10/2016 9:44 EST - 06/10/2016 23:59 EST Hospital Encounter [address] [address] Unknown, Provider, Discharge Disposition: Home or Self [...] Code Departure Means Destination Home or Self Alf documented in this encounter Plan of Treatment Upcoming Encounters Date Type Department Care Team (Late st Contact Info) Description 04/16/2024 14:00 EDT Office Visit [facility] Ophthalmology - [place] 58 [place] [address] Paola Antonio MD 58 [place] [phone] documented as of this encounter Visit Diagnoses Not on filedocumented in this encounter Care Teams Web Architect Relationship Specialty Start Date End Date Kaylynn Christensen MD [address] [place] [address] [place] [address] PCP - General 12/24/10 03/11/19 documented as of this encounter
--- OUTSIDE RECORDS SUMMARY | 2024-02-05 15:33 | XMS_ITS | Encounter Summary ---
Author Organization [facility] Address [address] [place] [address] Care Team Providers Care Human Capital Consultant Name Role Phone Gaurav Schmidt MD Primary Care Provide r Reason for Visit * Reason Comments Follow-up Glaucoma suspect, bi lateral - here for an IOP check Encounter Details Date Type Department Care Team (Late st Contact Info) Description 12/11/2019 10:30 EDT Office Visit [facility] Ophthalmology [facility] [address] [place] [address] Paola Antonio MD [address] [place] [phone] Social History Tobacco Use Types Packs/Day Years [...] Musculoskeletal: Integumentary: Neurologic: Psychiatric: Endocrine: Hematologic: Immunologic: Cop: Exposures: None Other: Attestation: Base Eye Exam [...] history: Notes available from [facility] starting from 03/2012. Listed as suspected pig [...] Info) Description 04/16/2024 14:00 EDT Office Visit [facility] Ophthalmology [facility] [address] [place] [address] Paola Antonio MD [address] [place] [phone] documented as of this encounter Visit Diagnoses [...] Ratio V0.6 x H0.55 0.75 Care Teams Human Capital Consultant Relationship Specialty Start Date End Date Gaurav Schmidt MD [address] [facility] [address] [place] [address] PCP - General 03/12/19 documented as of this encounter
--- OUTSIDE RECORDS SUMMARY | 2024-02-05 15:33 | XMS_ITS | Encounter Summary ---
Author Organization [facility] Address [address] [place] [address] Care Team Providers Care Obgyn Hospitalist Physician Name Role Phone Gaurav Schmidt MD Primary Care Provide r Reason for Visit * Reason Onset Date Comments Eye Problem 10/06/2022 Encounter Details Date Type Department Care Team (Late st Contact Info) Description 10/06/2022 Telephone [facility] Ophthalmology [facility] [address] [place] [address] Paola Antonio MD [address] [place] [phone] Eye Problem Social History Tobacco Use Types [...] 04/16/2024 14:00 EDT Office Visit [facility] Ophthalmology [facility] [address] [place] [address] Paola Antonio MD [address] [place] [phone] documented as of this encounter Visit Diagnoses Not on filedocumented in this encounter Care Teams Obgyn Hospitalist Physician Relationship Specialty Start Date End Date Gaurav Schmidt MD [address] [facility] [address] [place] [address] PCP - General 03/12/19 documented as of this encounter
--- OUTSIDE RECORDS SUMMARY | 2024-02-05 15:33 | XMS_ITS | Encounter Summary ---
Author Organization [facility] Address [address] [place] [address] Care Team Providers Care Resolution Rep Name Role Phone Kaylynn Christensen MD Primary Care Provider [phone] Gaurav Schmidt MD Primary Care Provide r Encounter Details Date Type Department Care Team (Late st Contact Info) Description 06/10/[address] [facility] Radiology Results [address] [place] [address] Gaurav Schmidt MD [address] [place] [address] [phone] Social History Tobacco Use Types Packs/Day Years [...] Info) Description 04/16/2024 14:00 EDT Office Visit [facility] Ophthalmology [facility] [address] [place], [place] [address] Paola Antonio MD [address] [place] [phone] documented as of this encounter Procedures Procedure [...] CC: ? Transcribed Date/Time: 06/14/2016 (1128) ? Probation Manager: DAVID ? Printed Date/Time: 12/01/2018 (0023) ? PAGE 1 ? Signed Report ? Procedure Note Bhavik Frost E - 04/24/2019 EXAM: ULTRASOUND/RENAL ARTERY DUPLEX SCAN EX. D/ (09) CLINICAL INFORMATION: I10 HYPTERTENSION TREATMENT RESISTENT HYPERTENSION, R/O RENAL ARTERY STENOSIS See attached report. Report also available in PACS. REM:[email or web address] Reported By: Bhavik Frost MD CC: Transcribed Date/Time: 06/14/2016 (1128) Probation Manager: DAVID Printed Date/Time: 12/01/2018 (0025) PAGE 1 Signed Report Gaurav Schmidt MD IMG US ORDERA BLES documented in this encounter Visit Diagnoses Not on filedocumented in this encounter Care Teams Resolution Rep Relationship Specialty Start Date End Date Kaylynn Christensen MD [address] [place] [address] [place] [address] PCP - General 12/24/10 03/11/19 Gaurav Schmidt MD [address] [place] [address] PCP - General 03/12/19 documented as of this encounter
--- OUTSIDE RECORDS SUMMARY | 2024-02-05 15:33 | XMS_ITS | Encounter Summary ---
Author Organization [facility] Address [address] [place] [address] Care Team Providers Care Production Supv Name Role Phone Kaylynn Christensen MD Primary Care Provider [phone] Reason for Referral * Other (Routine) - Closed Specialty Diagnoses / Procedures Referred By Bryanna aguilar Referred To Contact Diagnoses Glaucoma suspect, bilateral Procedures GONIOSCOPY (SPECIAL EYE EVAL, GONIOSCOPY) Paola Antonio MD [address] [place] [phone] Referral ID Status Reason Start Date Expiration Date Visits Re quested Visits Authorized [id number] Closed 06/05/2018 1 1 Reason for Visit * Reason Comments Follow-up Glaucoma suspect f/u here for IOP check & gonio Encounter Details Date Type Department Care Team (Late st Contact Info) Description 06/05/2018 12:45 EST Office Visit [facility] Ophthalmology [facility] [address] [place], [place] [address] Paola Antonio MD [address] [place] [phone] Social History Tobacco Use Types Packs/Day [...] NL Endocrine: NL Hematologic: NL Immunologic: NL Study Specialist: NL Exposures: None Other: Attestation: Base Eye [...] available for review from [facility] 10/26/17. Diagnosis of pigmentary glaucoma [...] my own HPI and have reviewed the [facility]'s ROS as well. I completed this exam [...] 04/16/2024 14:00 EDT Office Visit [facility] Ophthalmology [facility] [address] [place] [address] Paola Antonio MD [address] [place] [phone] Scheduled Orders Name Type Priority Associated Diagnoses [...] 0 .75, no Drance heme Care Teams Production Supv Relationship Specialty Start Date End Date Kaylynn Christensen MD [address] [place] [address] [place] [address] PCP - General 12/24/10 03/11/19 documented as of this encounter
--- OUTSIDE RECORDS SUMMARY | 2024-02-05 15:33 | XMS_ITS | Encounter Summary ---
Author Organization [facility] Address [address] [place] [address] Care Team Providers Care Golf Course Assistant Name Role Phone Kaylynn Christensen MD Primary Care Provider [phone] Reason for Visit * Reason Comments Glaucoma Suspicion Here for HVF and IOP check. Encounter Details Date Type Department Care Team (Late st Contact Info) Description 09/21/2018 13:45 EDT Office Visit [facility] Ophthalmology [facility] [address] [place] [address] Paola Antonio MD [address] [place] [phone] Social History Tobacco Use Types Packs/Day Years [...] Musculoskeletal: Integumentary: Neurologic: Psychiatric: Endocrine: Hematologic: Immunologic: Tax Services Manager: Exposures: None Other: Attestation: Base Eye Exam [...] history: Notes available from [facility] starting from 03/2012. Listed as suspected pig [...] my own HPI and have reviewed the [facility]'s ROS as well. I completed [...] Info) Description 04/16/2024 14:00 EDT Office Visit [facility] Ophthalmology - [place] [address] [place] [address] Paola Antonio MD [address] [place] [phone] documented as of this encounter Visit Diagnoses [...] 0.6 x H 0.55 0.75 Care Teams Golf Course Assistant Relationship Specialty Start Date End Date Kaylynn Christensen MD [address] [place] [address] [place] [address] PCP - General 12/24/10 03/11/19 documented as of this encounter
--- OUTSIDE RECORDS SUMMARY | 2024-02-05 15:33 | XMS_ITS | Encounter Summary ---
Author Organization [facility] Address [address] [place] [address] Care Team Providers Care Targeting Acquisition Officer Name Role Phone Gaurav Schmidt MD Primary Care Provide r Encounter Details Date Type Department Care Team (Late st Contact Info) Description 05/13/2020 Lab Requisition [facility] Pathology & Laboratory Medicine - [address] [address] Outr Resulting Lab, Provider Social History Tobacco [...] Info) Description 04/16/2024 14:00 EDT Office Visit [facility] [address] [place] [address] Paola Antonio MD [address] [place] [phone] documented as of this encounter Procedures Procedure Name Priority Date/Time Associated Diagnosis Comments ACUTE HEPATITIS PROFILE After X-Ray 04/16/2020 13:18 EDT documented in this encounter Results * ACUTE HEPATITIS PROFILE (04/16/2020 13:18 EDT) Hep B Surface Ag Negative Negative 06/04/2020 14:22 EST [facility] Hep C Antibody Negative Negative 06/04/2020 14:22 EST [facility] Hepatitis A Antibody, IgM Negative Negative 06/04/2020 14:22 EST [facility] Comment:The results of this assay can be falsely lowered due to the consumption of Biotin. Hepatitis B Core Ab, Total Negative Negative 06/04/2020 14:22 EST [facility] Blood VENOUS BLOOD / Unknown 04/16/2020 13:18 EDT 06/03/2020 8:35 EST Provider Outr Resulting Lab CHEMISTRY & BLOOD GAS ORDERABLES [facility] [address] [place] [address] documented in this encounter Visit Diagnoses Not on filedocumented in this encounter Care Teams Targeting Acquisition Officer Relationship Specialty Start Date End Date Gaurav Schmidt MD [address] [facility] [address] [place] [address] PCP - General 03/12/19 documented as of this encounter
--- OUTSIDE RECORDS SUMMARY | 2024-02-05 15:33 | XMS_ITS | Encounter Summary ---
Author Organization [facility] Address [address] [place] [address] Care Team Providers Care Forging Dies Final Finisher Name Role Phone Gaurav Schmidt MD Primary Care Provide r Encounter Details Date Type Department Care Team (Late st Contact Info) Description 05/13/2020 Lab Requisition [facility] Pathology & Laboratory Medicine - [address] [address] Outr Resulting Lab, Provider Social History Tobacco [...] Office Visit [facility] Ophthalmology [facility] [address] [place] [address] Paola Antonio MD [address] [place] [address] documented as of this encounter Procedures Procedure Name Priority Date/Time Associated Diagnosis Comments TRANSFERRIN After X-Ray 04/16/2020 13:18 EDT documented in this encounter Results * TRANSFERRIN (04/16/2020 13:18 EDT) Transferrin 230 201 - 352 mg/dL 06/04/2020 14:21 EST [facility] Blood VENOUS BLOOD / Unknown 04/16/2020 13:18 EDT 06/03/2020 8:35 EST Provider Outr Resulting Lab CHEMISTRY & BLOOD GAS ORDERABLES [facility] [address] [place] [address] documented in this encounter Visit Diagnoses Not on filedocumented in this encounter Care Teams Forging Dies Final Finisher Relationship Specialty Start Date End Date Gaurav Schmidt MD 4 [facility] [address] [place] [address] PCP - General 03/12/19 documented as of this encounter
--- OUTSIDE RECORDS SUMMARY | 2024-02-05 15:33 | XMS_ITS | Encounter Summary ---
Author Organization [facility] Address [address] [place] [address] Care Team Providers Care Retail Seasonal Specialist Name Role Phone Kaylynn Christensen MD Primary Care Provider [phone] Reason for Visit * Reason Onset Date Comments Medications Refill 09/10/2018 Encounter Details Date Type Department Care Team (Late st Contact Info) Description 09/10/2018 Refill [facility] Ophthalmology [facility] [address] [place] [address] Paola Antonio MD [address] [place] [phone] Medications Refill Social History Tobacco Use Types [...] - 09/10/2018 1507 EDT Refill Lantanoprost to [facility]. documented in this encounter Plan of Treatment Upcoming Encounters Date Type Department Care Team (Late st Contact Info) Description 04/16/2024 14:00 EDT Office Visit [facility] Ophthalmology [facility] [address] [place] [address] Paola Antonio MD [address] [place] [address] documented as of this encounter Visit Diagnoses Not on filedocumented in this encounter Care Teams Retail Seasonal Specialist Relationship Specialty Start Date End Date Kaylynn Christensen MD [address] [place] [address] [place] [address] PCP - General 12/24/10 03/11/19 documented as of this encounter
--- OUTSIDE RECORDS SUMMARY | 2024-02-05 15:33 | XMS_ITS | Encounter Summary ---
Author Organization [facility] Address [address] [place] [address] Care Team Providers Care Farm Management Teacher Name Role Phone Kaylynn Christensen MD Primary Care Provider [phone] Reason for Visit * Reason Onset Date Comments Medical Records 06/05/2018 Encounter Details Date Type Department Care Team (Late st Contact Info) Description 06/05/2018 Telephone [facility] Ophthalmology - [place] [address] [place] [address] Paola Antonio MD [address] [place] [phone] Medical Records Social History Tobacco Use Types [...] Info) Description 04/16/2024 14:00 EDT Office Visit [facility] Ophthalmology [facility] [address] [place] [address] Paola Antonio MD [address] [place] [phone] documented as of this encounter Visit Diagnoses Not on filedocumented in this encounter Care Teams Farm Management Teacher Relationship Specialty Start Date End Date Kaylynn Christensen MD [address] [place] [address] [place] [address] PCP - General 12/24/10 03/11/19 documented as of this encounter
--- OUTSIDE RECORDS SUMMARY | 2024-02-05 15:33 | XMS_ITS | Encounter Summary ---
Author Organization [facility] Address [address] [place] [address] Care Team Providers Care Cement Railroad Car Loader Name Role Phone Gaurav Schmidt MD Primary Care Provide r Reason for Visit * Reason Comments Tech Appointment Here for Tech only H VF 24-2 Encounter Details Date Type Department Care Team (Late st Contact Info) Description 09/29/2022 11:[address] [facility] [address] [place] [address] Paola Antonio MD [address] [place] [phone] Social History Tobacco Use Types Packs/Day Years [...] ?? Notes available from [facility] starting from 03/2012. Listed as suspected pig [...] 04/16/2024 14:00 EDT Office Visit [facility] Ophthalmology - [address] [address] Paola Antonio MD [address] [place] [phone] documented as of this encounter Procedures Procedure Name Priority Date/Time Associated Diagnosis Comments KERR VF 24-2 STANDARD - OU - BOTH EYES Routine 09/29/2022 11:30 EDT Glaucoma suspect of both eyes Scotoma involving central area of left eye documented in this encounter Results * KERR VF 24-2 STANDARD - OU - BOTH EYES (09/29/2022 11:30 EDT) Narrative [facility] OPHTHALMOLOGY - 10/03/2022 19:07 EDT HVF 24-2 Right: 0% FP, 0% FN, 07/02 FL, defects inferotemporally Left: ??1% FP, 0% FN, 0/17 FL, defects inferiorly Paola Antonio MD OPHTH VISUAL FIELD 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
--- OUTSIDE RECORDS SUMMARY | 2024-02-05 15:33 | XMS_ITS | Clinical Summary ---
Author Organization [facility] Address [address] [place] [address] Care Team Providers Care Heel Former Name Role Phone Gaurav Schmidt MD Primary [...] sleep apnea 07/09/2020 PAF (paroxysmal atrial fibrillation) ([facility]) 0 07/09/2020 CARLIN on CPAP 07/09/2020 Acute on chronic heart failu re with preserved ejection fraction ([facility]) 07/09/2020 Medical History Medical History Date Comments Hypertension Atrial fibrillation ([facility]) Family History Medical History Relation Comments [...] 14:00 EDT Office Visit [facility] Ophthalmology [facility] [address] [place] [address] Paola Antonio MD [address] [place] [phone] Health Maintenance Due Date Last Done Comments Hepatitis C Screen 1945 RSV Immunization ( o r 60+ Years) (1 - 1-dose 60+ series) 2007 Fall Risk Screening 2012 COVID-19 Vaccine (2022-24 season) 2023 Care Teams Heel Former Relationship Specialty Start Date End Date Gaurav Schmidt MD 4 [facility] [address] [place] [address] [facility] - General 03/12/19
--- OUTSIDE RECORDS SUMMARY | 2024-02-05 15:33 | XMS_ITS | Encounter Summary ---
Author Organization [facility] Address [address] [place] [address] Care Team Providers Care Ops Analyst Name Role Phone Gaurav Schmidt MD Primary Care Provide r Reason for Visit * Reason Comments Follow-up Glaucoma suspect of both eyes - here for a complete exam, HVF 24-2 + rNFL OCT Encounter Details Date Type Department Care Team (Late st Contact Info) Description 07/11/2022 13:00 EST Office Visit [facility] Ophthalmology [facility] [address] [place] [address] Paola Antonio MD [address] [place] [phone] Social History Tobacco Use Types Packs/Day Years [...] Musculoskeletal: Integumentary: Neurologic: Psychiatric: Endocrine: Hematologic: Immunologic: Oceanographer Physical: Exposures: None Other: Attestation: Base Eye Exam [...] Sphere Type: SVL-reading Manifest Refraction Sphere Cylinder [place] Dist VA Add Near VA Right +1.00 +0.25 180 20/30 +2.50 J1+ Left [place] +0.50 140 20/20 +2.50 J1+ Cycloplegic Refraction Sphere Cylinder [place] Right +0.50 +0.50 180 Left [place] +0.50 140 DIAGNOSTIC TESTS: OCT, Optic Nerve - OU - Both Eyes OCT Optic Nerve Head and RNFL Right: signal strength: 7/10, Avg thickness 77 microns, wnl Left: signal strength: 8/10, Avg thickness 77 microns, wnl Ganglion Cell Analysis Right: abnormal Left: abnormal IMPRESSION & PLAN: ??? Glaucoma suspect, bilateral - Prior history: Notes available from [facility] starting from 03/2012. Listed as suspected [...] HVF 24-2 03/2020. - Repeat HVF 24-2 central lab technician only, next available (see above) ??? [...] Info) Description 04/16/2024 14:00 EDT Office Visit [facility] Ophthalmology - [place] [address] [place] [address] Paola Antonio MD [address] [place] [phone] documented as of this encounter Procedures Procedure Name Priority Date/Time Associated Diagnosis Comments OCT, OPTIC NERVE - OU - BOTH EYES Routine 07/11/2022 16:53 EST Glaucoma suspect of both eyes documented in this encounter Results * OCT, OPTIC NERVE - OU - BOTH EYES (07/11/2022 16:53 EST) Narrative [facility] OPHTHALMOLOGY - 07/11/2022 16:53 EST OCT Optic Nerve Head and RNFL Right: signal strength: 7/10, Avg thickness 77 microns, wnl Left: signal strength: 8/10, Avg thickness 77 microns, wnl Ganglion Cell Analysis Right: abnormal Left: abnormal Paola Antonio MD OPHTH TOMOGRAPHY [facility] OPHTHALMOLOGY documented in this encounter [...] Sphere Type: SVL-reading Manifest Refraction Sphere Cylinder [place] Dist VA Add Near VA Right eye +1.00 +0.25 180 20/30 +2.50 J1+ Left eye [place] +0.50 140 20/20 +2.50 J1+ Cycloplegic Refraction Sphere Cylinder [place] Right eye +0.50 +0.50 180 Left eye [place] +0.50 140 Care Teams Ops Analyst Relationship Specialty Start Date End Date Gaurav Schmidt MD [address] [place] [address] PCP - General 03/12/19 documented as of this encounter
--- OUTSIDE RECORDS SUMMARY | 2024-02-05 15:33 | XMS_ITS | Encounter Summary ---
Author Organization [facility] Address [address] [place] [address] Care Team Providers Care Camera Prototyping Engineer Name Role Phone Gaurav Schmidt MD Primary Care Provide r Encounter Details Date Type Department Care Team (Late st Contact Info) Description 07/07/2020 Lab Requisition [facility] Pathology & Laboratory Medicine - [address] [address] Outr Resulting Lab, Provider Social History Tobacco [...] Info) Description 04/16/2024 14:00 EDT Office Visit [facility] Ophthalmology [address] [address] Paola Antonio MD [address] [place] [phone] documented as of this encounter Procedures Procedure Name Priority Date/Time Associated Diagnosis Comments ZZCOVID-19 TEST [facility] PCR Today 07/06/2020 19:30 EST COVID-19 TESTING Routine 07/06/2020 19:3 0 EST documented in this encounter Results * COVID-19 TEST [facility] PCR (07/06/2020 19:30 EST) Swab ENTIRE NASOPHARYNX / Unknown 07/06/2020 19:30 EST 07/07/2020 16:31 EST Provider Outr Resulting Lab MICROBIOLOGY - GENERAL ORDERABLES Performing Organization Address City/State/[facility] Co de Phone Number [facility] [address] [place] [address] * COVID-19 TESTING (07/06/2020 19:30 EST) COVID-19 rt-PCR Result Negative Negative 07/08/2020 17:11 EST [facility] Comment: Negative results do not preclude 2019-nCoV infection and should not be used as the sole basis for treatment or other patient management decisions. Negative results must be combined with clinical observations, patient history, and epidemiological information. This test was developed and its performance characteristics determined by [facility]. It has not been cleared or [...] testing. This test is based on the [facility] COVID-19 Emergency Use Authorization (EUA) assay, with minor modification as defined by the FDA Performed on the [employer] 7 Flex RT-PCR System. Performing Lab [facility] 07/08/2020 17:11 EST [facility] Swab 07/06/2020 19:3 0 EST 07/07/2020 16:31 EST Provider Outr Resulting Lab MICROBIOLOGY - GENERAL ORDERABLES [facility] [address] [place] [address] documented in this encounter Visit Diagnoses Not on filedocumented in this encounter Care Teams Camera Prototyping Engineer Relationship Specialty Start Date End Date Gaurav Schmidt MD [address] [place] [address] PCP - General 03/12/19 documented as of this encounter
--- OUTSIDE RECORDS SUMMARY | 2024-02-05 15:33 | XMS_ITS | Encounter Summary ---
Author Organization [facility] Address [address] [place] [address] Care Team Providers Care Internet Marketing Assistant Name Role Phone Gaurav Schmidt MD Primary Care Provide r Encounter Details Date Type Department Care Team (Late st Contact Info) Description 02/17/2020 Lab Requisition [facility] Pathology & Laboratory Medicine - [address] [address] Outr Resulting Lab, Provider Social History Tobacco [...] Description 04/16/2024 14:00 EDT Office Visit [facility] Ophthalmology [address] [address] Paola Antonio MD [address] [place] [address] documented as of this encounter Procedures Procedure Name Priority Date/Time Associated Diagnosis Comments DO NOT ORDER STANDALONE - BROAD COVID TEST Today 02/17/2020 9:33 EDT COVID-19 TESTING Routine 02/17/2020 9:33 EDT documented in this encounter Results * DO NOT ORDER STANDALONE - BROAD COVID TEST (02/17/2020 9:33 EDT) COVID-19 rt-PCR Result NEGATIVE Negative 02/18/2020 13:10 EDT [facility] Comment: 2019-novel Coronavirus (2019-nCoV) not detected [...] in accordance with CLIA regulations, [employer] [place] (CAP) guidelines (Sep 05, 2019), and FDA guidance (Aug 17, 2019). This test is only for use under the Food and Drug Administration's Emergency Use Authorization. Swab ENTIRE NASOPHARYNX / Unknown 02/17/2020 9:33 EDT 02/17/2020 16:16 EDT Provider Outr Resulting Lab MICROBIOLOGY - GENERAL ORDERABLES [facility] [place] * COVID-19 TESTING (02/17/2020 9:33 EDT) [...] in accordance with CLIA regulations, [employer] [place] (CAP) guidelines (Sep 05, 2019), and FDA guidance (Aug 17, 2019). This test is only for use under the Food and Drug Administration's Emergency Use Authorization. Performing Lab [facility] [employer] [facility] 02/18/2020 14:35 EDT [facility] Swab 02/17/2020 9:33 EDT 02/17/2020 16:16 EDT Provider Outr Resulting Lab MICROBIOLOGY - GENERAL ORDERABLES [facility] [address] [place] [address] [facility] [place] documented in this encounter Visit Diagnoses Not on filedocumented in this encounter Care Teams Internet Marketing Assistant Relationship Specialty Start Date End Date Gaurav Schmidt MD [address] [facility] [address] [place] [address] PCP - General 03/12/19 documented as of this encounter
--- OUTSIDE RECORDS SUMMARY | 2024-02-05 15:33 | XMS_ITS | Encounter Summary ---
Author Organization [facility] Address [address] [place] [address] Care Team Providers Care Rib Stiffener And Heel Dipper Name Role Phone Gaurav Schmidt MD Primary Care Provide r Reason for Visit * Reason Comments Glaucoma Suspicion Encounter Details Date Type Department Care Team (Late st Contact Info) Description 06/26/2023 13:45 EST Office Visit [facility] [address] [place] [address] Paola Antonio MD [address] [place] [phone] Social History Tobacco Use Types Packs/Day Years [...] Notes * Paola Antonio MD - 06/26/2023 7035 EST Chief Complaint Patient presents with Glaucoma Suspicion HPI The patient is a 78 y.o. female glaucoma suspect both eyes, for years. However, has h/o pigmentary glaucoma of both eyes [facility]. Was on gtts for about 15 years- has had allergic reactions to two in the past. Has been off latanoprost since 01/2019. Since last visit came Anonymessr tech only HVF. Has noticed that near [...] NL Endocrine: NL Hematologic: NL Immunologic: NL Acute Care Assistant: Exposures: None Other: CARLIN Attestation: Base Eye [...] Normal Normal Refraction Manifest Refraction Sphere Cylinder [place] Dist [place] Add Right +0.75 +0.25 160 [...] history: Notes available from [facility] starting from 03/2012. Listed as suspected [...] Description 04/16/2024 14:00 EDT Office Visit [facility] [address] [place] [address] Paola Antonio MD [address] [place] [phone] documented as of this encounter Procedures Procedure Name Priority Date/Time Associated Diagnosis Comments OCT, OPTIC NERVE - OU - BOTH EYES Routine 06/26/2023 13:45 EST Glaucoma suspect of both eyes documented in this encounter Results * OCT, OPTIC NERVE - OU - BOTH EYES (06/26/2023 13:45 EST) Narrative [facility] OPHTHALMOLOGY - 06/27/2023 11:05 EST OCT Optic Nerve Head and RNFL Right: signal strength: 7/10, Avg thickness 77 microns, borderline thinning superiorly Left: signal strength: 8/10, Avg thickness 78 microns, wnl Ganglion Cell Analysis Right: abnl Left: abnl Paola Antonio MD OPHTH TOMOGRAPHY [facility] OPHTHALMOLOGY documented in this encounter [...] Periphery Normal Normal Manifest Refraction Sphere Cylinder [place] Dist VA Add Right eye +0.75 +0.25 160 20/30 +2.50 Left eye +0.50 +0.25 140 20/25 +2.50 Dist VA Both: 20/20-2 Near VA Both: J1+ Care Teams Rib Stiffener And Heel Dipper Relationship Specialty Start Date End Date Gaurav Schmidt MD [address] [place] [address] PCP - General 03/12/19 documented as of this encounter
--- OUTSIDE RECORDS SUMMARY | 2024-02-05 15:33 | XMS_ITS | Encounter Summary ---
Author Organization [facility] Address [address] [place] [address] Care Team Providers Care Lockstitch Waistband Setter Name Role Phone Gaurav Schmidt MD Primary Care Provide r Reason for Visit * Reason Comments Follow-up 4-6 wk f/u GS, both eyes - IOP check Encounter Details Date Type Department Care Team (Late st Contact Info) Description 03/12/2019 13:00 EDT Office Visit [facility] Ophthalmology [facility] [address] [place] [address] Paola Antonio MD [address] [place] [phone] Social History Tobacco Use Types Packs/Day Years [...] Musculoskeletal: Integumentary: Neurologic: Psychiatric: Endocrine: Hematologic: Immunologic: Leather Colorer: Exposures: None Other: Attestation: Base Eye Exam [...] history: Notes available from [facility] starting from 03/2012. Listed as suspected [...] Info) Description 04/16/2024 14:00 EDT Office Visit [facility] Ophthalmology [address] [address] Paola Antonio MD [address] [place] [phone] documented as of this encounter Visit Diagnoses [...] Ratio V0.6 x H0.55 0.75 Care Teams Lockstitch Waistband Setter Relationship Specialty Start Date End Date Gaurav Schmidt MD [address] [place] [address] PCP - General 03/12/19 documented as of this encounter
--- OUTSIDE RECORDS SUMMARY | 2024-02-05 15:33 | XMS_ITS | Referral Summary ---
Author Organization [facility] Address [address] [place] [address] Care Team Providers Care Forger Helper Name Role Phone Gaurav Schmidt MD Primary [...] sleep apnea 07/09/2020 PAF (paroxysmal atrial fibrillation) ([facility]) 0 07/09/2020 CARLIN on CPAP 07/09/2020 Acute on chronic heart failu re with preserved ejection fraction ([facility]) 07/09/2020 Social History Tobacco Use Types Packs/Day [...] Info) Description 04/16/2024 14:00 EDT Office Visit [facility] Ophthalmology [facility] [address] [place] [address] Paola Antonio MD [address] [place] [phone] Care Teams Forger Helper Relationship Specialty Start Date End Date Gaurav Schmidt MD [address] [place] [address] [facility] - General 03/12/19
--- OUTSIDE RECORDS SUMMARY | 2024-02-05 15:33 | XMS_ITS | Encounter Summary ---
Author Organization [facility] Address [address] [place] [address] Care Team Providers Care Public Bath Attendant Name Role Phone Gaurav Schmidt MD Primary [...] Info) Description 04/16/2024 14:00 EDT Office Visit [facility] [address] [place], [place] [phone] Paola Antonio MD [address] [place] [phone] documented as of this encounter Visit Diagnoses Not on filedocumented in this encounter Care Teams Public Bath Attendant Relationship Specialty Start Date End Date Gaurav Schmidt MD [address] [place] [address] [address] [place] [address] PCP - General 03/12/19 documented as of this encounter
--- OUTSIDE RECORDS SUMMARY | 2024-02-05 15:33 | XMS_ITS | Encounter Summary ---
Author Organization [facility] Address [address] [place] [address] Care Team Providers Care Steward/Stewardess Club Car Name Role Phone Kaylynn Christensen MD Primary Care Provider [phone] Reason for Visit * Reason Comments Urinary Tract Infection onset yesterday with burning urination c/o freq Encounter Details Date Type Department Care Team (Late st Contact Info) Description 12/24/2010 8:51 EDT - 12/24/2010 10:04 EDT Emergency [facility] Emergency Department - [address] [address] Lisandro Carrillo, PA-C [address] [phone] Emergency, MD Ange Urinary tract [...] TRACT INFECTION IN WOMEN: AFTER YOUR VISIT (BELARUSIAN) documented in this encounter Medications at Time [...] encounter Miscellaneous Notes * Scanned Note-Null - Field Machinist, Scan - 12/24/2010 0000 EDT documented in this encounter Plan of Treatment Upcoming Encounters Date Type Department Care Team (Late st Contact Info) Description 04/16/2024 14:00 EDT Office Visit [facility] [address] [place] [address] Paola Antonio MD [address] [place] [phone] documented as of this encounter Procedures Procedure Name Priority Date/Time Associated Diagnosis Comments POCT URINALYSIS Routine 12/24/2010 9:33 EDT documented in this encounter Results * (ABNORMAL) POCT URINALYSIS (12/24/2010 9:33 EDT) Color YELLOW [facility] Clarity, UA Clear [facility] Glucose Neg NEG [facility] Bilirubin Neg NEG [facility] Ketones Neg NEG [facility] Specific [place] 1.010 1.001 - 1.035 [facility] Blood 2+(A) NEG [facility] pH 5.0 4.6 - 8.0 [facility] Protein Neg NEG [facility] Urobilinogen 0.2 0.2 - 1.0 E.U./dl [facility] Nitrite Neg NEG [facility] Leuk Esterase 1+(A) NEG [facility] paper folding machine operator ID [id number] Test Performed by Nursing Services [facility] 12/24/2010 9:33 EDT 12/24/2010 9:34 EDT Of Care User Point POINT OF CARE TEST O RDERABLES Performing Organization Address City/State/[place] Co de Phone Number [facility] [address] [place] [address] documented in this encounter Visit Diagnoses Diagnosis [...] 12/24/2010 documented in this encounter Care Teams Steward/Stewardess Club Car Relationship Specialty Start Date End Date Kaylynn Christensen MD [address] [place] [address] [place] [address] PCP - General 12/24/10 03/11/19 documented as of this encounter
--- OUTSIDE RECORDS SUMMARY | 2024-02-05 15:33 | XMS_ITS | Encounter Summary ---
Author Organization [facility] Address [address] [place] [address] Care Team Providers Care Any Commodity Buyer Name Role Phone Gaurav Schmidt MD Primary Care Provide r Encounter Details Date Type Department Care Team (Late st Contact Info) Description 10/17/2019 Lab Requisition [facility] Pathology & Laboratory Medicine - [address] [phone] Outr Resulting Lab, Provider Social History Tobacco [...] Info) Description 04/16/2024 14:00 EDT Office Visit [facility] Ophthalmology [address] [address] Paola Antonio MD [address] [place] [phone] documented as of this encounter Procedures Procedure Name Priority Date/Time Associated Diagnosis Comments ZZCOVID-19 TEST [facility] PCR Today 10/16/2019 22:11 EDT COVID-19 TESTING Routine 10/16/2019 22:1 1 EDT documented in this encounter Results * COVID-19 TEST [facility] PCR (10/16/2019 22:11 EDT) Swab ENTIRE NASOPHARYNX / Unknown 10/16/2019 22:11 EDT 10/17/2019 15:44 EDT Provider Outr Resulting Lab MICROBIOLOGY - GENERAL ORDERABLES [facility] [address] [place] [address] * COVID-19 TESTING (10/16/2019 22:11 EDT) COVID-19 rt-PCR Result Negative Negative 10/17/2019 20:16 EDT [facility] Comment: Negative results do [...] terminated or revoked sooner. Performed on the [employer] Fusion instrument Performing Lab [facility] Lab 10/17/2019 20:16 EDT [facility] Swab ENTIRE NASOPHARYNX / Unknown 10/16/2019 22:11 EDT 10/17/2019 15:44 EDT Provider Outr Resulting Lab MICROBIOLOGY - GENERAL ORDERABLES [facility] [address] [place] [address] documented in this encounter Visit Diagnoses Not on filedocumented in this encounter Care Teams Any Commodity Buyer Relationship Specialty Start Date End Date Gaurav Schmidt MD [address] [place] [address] PCP - General 03/12/19 documented as of this encounter
--- OUTSIDE RECORDS SUMMARY | 2024-02-05 15:34 | XMS_ITS | Encounter Summary ---
Author Organization [facility] Address [address] [place] [address] Care Team Providers Care Bobj Developer Name Role Phone Unavailable Primary Care Provider Unavailabl e Encounter Details Date Type Department Care Team (Late st Contact Info) Description 08/16/2007 Results Only [facility] - [facility] conversion [address] [place] [address] Cam Ryder MD [address] [place] [phone] Social History Tobacco Use Types Packs/Day Years Used Date Smoking Tobacco: Never Assessed Sex and Gender Information Value Date Recorded Sex Assigned at Not on file Gender Identity Not on file Sexual Orientation Not on file documented as of this encounter Plan of Treatment Upcoming Encounters Date Type Department Care Team (Late st Contact Info) Description 04/16/2024 14:00 EDT Office Visit [facility] Ophthalmology [address] [address] Paola Antonio MD [address] [place] [phone] documented as of this encounter Procedures Procedure Name Priority Date/Time Associated Diagnosis Comments RAST PEANUT Routine 08/16/2007 16:51 EST documented in this encounter Results * RAST PEANUT (08/16/2007 16:51 EST) RAST Peanut <0.35Unit: kU/L(Note) Class 0 (Negative <0.35) ? Performed by: [facility] [address] , [address], [place] [address], Lab Dir: ??Massimo Sen ? III, M.D. ? [facility] 08/16/2007 16:5 1 EST 08/16/2007 16:53 EST Cam Ryder MD IMMUNOLOGY AND RICARDO HOPKINS ORDERABLES [facility] [address] [place] [address] documented in this encounter Visit Diagnoses Not on filedocumented in this encounter
--- OUTSIDE RECORDS SUMMARY | 2024-02-05 15:34 | XMS_ITS | Encounter Summary ---
Author Organization [facility] Address [address] [place] [address] Care Team Providers Care Tire Room Supervisor Name Role Phone Unavailable Primary Care Provider Unavailabl e Encounter Details Date Type Department Care Team (Late st Contact Info) Description 09/05/2008 Before PRISM Converted Visit (Maple) [facility] - [facility] conversion [address] [place] [address] Kaylynn Christensen MD [address] [place] [address] [place] [address] Social History Tobacco Use Types Packs/Day Years Used Date Smoking Tobacco: Never Assessed Sex and Gender Information Value Date Recorded Sex Assigned at Not on file Gender Identity Not on file Sexual Orientation Not on file documented as of this encounter Plan of Treatment Upcoming Encounters Date Type Department Care Team (Late st Contact Info) Description 04/16/2024 14:00 EDT Office Visit [facility] [address] [place] [address] Paola Anotnio MD [address] [place] [address] documented as of this encounter Procedures Procedure [...] GENER AL ORDERABLES [facility] [address] [place] [address] * CYTOPATHOLOGY (09/05/2008 0:00 EDT) Pathology Report: CYTOPATHOLOGY REPORT ? Reports generated via electronic interface contain original data; ? however they are lacking the format of the original report. ? Caution should be taken when reading/interpreti ng unformatted reports. ? Name: ? NAKIA PATEL ? Accession #: ? [id number] ? : ? 1945 (Age: 63) ??F ?Collect Date: ? 09/05/2008 ? Location: ? [facility] ? Receive Date: ? 09/09/2008 ? Provider: ?KAYLYNN ERISMAN MD ? Copy to: ? Specimen/Source: ?Pap Test, Cervix, ThinPrep Imaging System with manual ?? evaluation ? Last Menstrual Period: ? Menstrual/Pregnanc y Status: ? Menopausal ? Other: ? Additional clinical information: Sand Polisher clinical & treatment hx:normal ? HPVDX - [...] Christensen MD PATHOLOGY ORDERABLES [facility] [address] [place] [address] documented in this encounter Visit Diagnoses Not on filedocumented in this encounter
--- OUTSIDE RECORDS SUMMARY | 2024-02-05 15:34 | XMS_ITS | Encounter Summary ---
Author Organization [facility] Address [address] [place] [address] Care Team Providers Care Accident Report Clerk Name Role Phone Unavailable Primary Care Provider Unavailabl e Encounter Details Date Type Department Care Team (Late st Contact Info) Description 09/04/2007 Results Only [facility] - Maple conversion [address] [place] [address] Kaylynn Fuller MD [address] [place] [address] [place] [address] Social History Tobacco Use Types Packs/Day Years Used Date Smoking Tobacco: Never Assessed Sex and Gender Information Value Date Recorded Sex Assigned at Not on file Gender Identity Not on file Sexual Orientation Not on file documented as of this encounter Plan of Treatment Upcoming Encounters Date Type Department Care Team (Late st Contact Info) Description 04/16/2024 14:00 EDT Office Visit [address] [address] Paola Antonio MD [address] [place] [address] documented as of this encounter Procedures Procedure [...] ? NAKIA PATEL ? Accession #: ? [id number] : ? 1945 (Age: 62) ??F ?Collect Date: ? 09/04/2007 Location: ? [facility] ? Receive Date: ? 09/06/2007 Provider: ?KAYLYNN FULLER MD Copy to: ? Specimen/Source: ?ThinPrep Pap Test, Source Not Provided, processed on [employer] ThinPrep Imaging System, with manual evaluation Last [...] Fuller MD PATHOLOGY ORDERABLES [facility] [address] [place] [address] documented in this encounter Visit Diagnoses Not on filedocumented in this encounter
--- OUTSIDE RECORDS SUMMARY | 2024-02-05 15:34 | XMS_ITS | Encounter Summary ---
Author Organization [facility] Address [address] [place] [address] Care Team Providers Care Chiller Operator Name Role Phone Unavailable Primary Care Provider Unavailabl e Encounter Details Date Type Department Care Team (Latest Contact Info) Description 08/16/2007 16:29 EST Hospital Encounter [address] [address] Cam Ryder MD [address] [place] [phone] Discharge Disposition: Auto Discharge Social History Tobacco [...] Info) Description 04/16/2024 14:00 EDT Office Visit [facility] Ophthalmology [facility] [address] [place] [address] Paola Antonio MD [address] [place] [phone] documented as of this encounter Visit Diagnoses Not on filedocumented in this encounter
== END 2024-02-05 15:26 | disposition home or self-care (01) ==
LOC: NCHCN 15:25
PROVIDERS: PCP Family Medicine; Referring Provider Family Medicine; Visit Provider Family Medicine
DX: R30.0 Dysuria (principal); R82.89 Other abnormal findings on cytological and histological examination of urine
CPT/HCPCS: 87086

== ENCOUNTER 2024-09-17 16:46 | Outpatient (REF) | payer MEDICARE, BC, SELFPAY ==
[2024-09-17 21:50] LABS: HCT 40.8 % (36.0-46.0); HGB 13.4 g/dL (11.2-15.7); MCH 30.1 pg (27.0-33.0); MCHC 32.8 % (32.0-36.0); MCV 92 fL (80-95); MPV 10.8 fL (8.0-11.0); Platelet Count 269 10^3/uL (130-400); RBC 4.45 10^6/uL (3.93-5.22); RDW 12.4 % (11.7-14.6); RDW-SD 41.7 fL; WBC 6.07 10^3/uL (4.4-10.8)
[2024-09-17 22:30] LABS: ALT 25 U/L (14-59); AST 20 U/L (15-37); Albumin 4.1 g/dL (3.4-5.0); Alkaline Phosphatase 99 U/L (46-116); Anion Gap 10.3 mmol/L (3-11); BUN 10 mg/dL (7-18); Bilirubin, Total 1.5 mg/dL (0.2-1.0); CO2 25.7 mmol/L (21.0-32.0); CREATININE 0.8 mg/dL (0.55-1.02); Calcium 9.7 mg/dL (8.5-10.1); Calculated LDL 81 mg/dL (<100); Chloride 104 mmol/L (98-107); Cholesterol 169 mg/dL (<200); Estimated GFR 75.84 (mL/min/1.73m2); Glucose 100 mg/dL (74-106); HDL Cholesterol 67 mg/dL (>or=50); Potassium 4.3 mmol/L (3.5-5.1); Sodium 140 mmol/L (136-145); Total Protein 7.4 g/dL (6.4-8.2); Triglyceride 109 mg/dL (<150)
== END 2024-09-17 16:47 | disposition home or self-care (01) ==
LOC: NCHCN 16:46
PROVIDERS: PCP Family Medicine; Visit Provider Family Medicine
DX: E78.5 Hyperlipidemia, unspecified (principal); I48.91 Unspecified atrial fibrillation
CPT/HCPCS: 80053; 80061; 85027

== ENCOUNTER 2024-09-23 01:26 | Outpatient (CLI) | payer MEDICARE, BC, SELFPAY ==
--- NOTE | 2024-09-23 | DI.RAD_ITS ---
Exam(s) XR CHEST 2V PA LATERAL EXAM: XR CHEST 2V PA LATERAL CLINICAL HISTORY: CHRONIC COUGH R05.3 TECHNIQUE: 2D digital imaging was performed. Two views. COMPARISON: CR,XR XR PORTABLE CHEST AP from 07/06/2020 FINDINGS: HEART: Normal size. Pacemaker. Aorta: Not dilated. PULMONARY VASCULATURE: Normal. MEDIASTINUM: Unremarkable. LUNGS: Clear. PLEURAL SPACE: No pleural effusion or pneumothorax. BONE:Unremarkable for age. SOFT TISSUES: Unremarkable. IMPRESSION: No acute abnormality. DATA REPOSITORY: RADIATION DOSE DELIVERED:
== END 2024-09-23 01:46 ==
LOC: DI 01:27
PROVIDERS: PCP Family Medicine; Visit Provider Family Medicine
DX: R05.3 Chronic cough (principal)
CPT/HCPCS: 71046

== ENCOUNTER 2024-10-10 01:12 | Outpatient (CLI) | payer MEDICARE, BC, SELFPAY ==
--- NOTE | 2024-10-10 | DI.MAMMO_ITS ---
Exam(s) MAMMO SCREENING EXAM: MAMMO SCREENING CLINICAL HISTORY: SCREENING MAMMOGRAPHY, Z12.31 TECHNIQUE: Bilateral full field digital CC and MLO mammographic images were obtained with 3D tomosyn thesis and utilizing computer aided detection (CAD). COMPARISON: Available for comparison. FINDINGS: Masses/Architectural Distortion: No suspicious masses or areas of architectural distortion are presen t. Microcalcifications: No suspicious pleomorphic-type are seen. Skin Thickening/Nipple Retraction: None. IMPRESSION: 1. No significant interval change with no specific features of malignancy noted. 2. Unless there is more urgent need, screening mammography is recommended, as per [place] [employer] guidelines. BI-RADS Category 1 - Negative Breast Density - Category B - Scattered areas of fibroglandular density Breast density category C or D implies that the patient has dense breast tissue. Dense breast tissue is very common and is not abnormal but dense breast tissue can make it harder to find cancer on a ma mmogram. Also, dense breast tissue may increase their breast cancer risk. This information about the result of the mammogram report was provided to the patient to raise their awareness. Use this report when you speak with the patient about their risks for breast cancer, which includes their family hist ory. At that time, you may recommend for more screening tests (Ultrasound or MRI) as they might be us eful based on their risk. A negative radiographic report should not delay biopsy if a dominant or clinically suspicious mass is present. Up to ten percent of cancers are not identified on mammography. A negative report may reinforce clinical impression. Adenosis and dense breasts may obscure an underlying neoplasm. False positive reports average 6 to 10%. Patient will receive a letter notifying them of these results.
== END 2024-10-10 01:32 ==
LOC: DI 01:12
PROVIDERS: PCP Family Medicine; Visit Provider Family Medicine
DX: Z12.31 Encounter for screening mammogram for malignant neoplasm of breast (principal); R92.323 Mammographic fibroglandular density, bilateral breasts
CPT/HCPCS: 77063; 77067

== ENCOUNTER 2024-10-23 13:17 | Emergency (ER) | payer MEDICARE, BC, SELFPAY ==
--- NOTE | 2024-10-23 13:15 | RT.EKG_ITS ---
APPROVED REPORT Exam: Resting ECG Reason for Exam: chf Patient Location: E HR:60 bpm ECG Measurements Heart Rate 60 AXIS VT 200 P [id number] QRSd 98 QRS 41 QT 492 T 27 QTc 492 Conclusion Atrial-paced rhythm Anterior infarct, old...Q >40mS, abnormal ST-T, V2-V5
[2024-10-23 13:18] VITALS: BP 200/80; PULSE 62; RESP 15; TEMP 36.8; O2SAT 98
--- NOTE | 2024-10-23 13:39 | DI.RAD_ITS ---
Exam(s) XR CHEST 2V PA LATERAL EXAM: XR CHEST 2V PA LATERAL CLINICAL HISTORY: ?pneumonia TECHNIQUE: 2D digital imaging was performed. Two views. COMPARISON: CR XR CHEST 2V PA LATERAL from 09/23/2024 FINDINGS: HEART: Normal size. Pacemaker. Aorta: Not dilated. PULMONARY VASCULATURE: Normal. MEDIASTINUM: Unremarkable. LUNGS: Clear. PLEURAL SPACE: No pleural effusion or pneumothorax. BONE:Unremarkable for age. SOFT TISSUES: Unremarkable. IMPRESSION: No acute abnormality. DATA REPOSITORY: RADIATION DOSE DELIVERED:
--- NOTE | 2024-10-23 13:44 | ED.GENADUL_ITS ---
Discharge Plan Disposition Patient Disposition: Home Condition: Stable Discharge Details Clinical Impression: Weakness Primary Care Provider: Isidro Schmidt ED Provider: Bony Hurley Home Meds and New Rx's Prescriptions: Continued amlodipine 10 mg tablet 5 mg PO DAILY Xarelto 20 mg tablet 20 mg PO DAILY Rx Instructions: must administer with evening meal vitamin B complex Tablet 1 tab PO DAILY magnesium oxide 400 mg magnesium capsule 1,200 mg PO DAILY labetalol 200 mg tablet 300 mg PO BID atorvastatin [Lipitor] 10 mg tablet 10 mg PO QHS lisinopril 20 mg tablet 40 mg PO DAILY Qty: 180 sotalol 80 mg tablet 120 mg PO BID cholecalciferol (vitamin D3) 25 mcg (1,000 unit) capsule 25 mcg PO DAILY trazodone 50 mg tablet 50 mg PO DAILY Discharge Instructions Additional Instructions: Your blood work and urine and x-ray did not show any concerning findings at this time. Follow-up with your primary care provider especially if your symptoms continue in the next week or 2. If you feel significantly more ill or have new symptoms such as difficulty breathing or severe abdominal pain return to the emergency department for reevaluation. HPI General Date/Time Provider Initiated Documentation: 10/23/24 13:17 . Limitations to Documentation: no limitations . Information obtained by: patient . History of Present Illness 79 year old F presents to the emergency department with the chief complaint of feels weak, described as moderate, Patient started experiencing this week(s) (2) and it has been constant. No relieving factors improve symptom(s), No exacerbating factors reported . Patient notes no other symptoms.; denies chest pain, fever/chills, nausea/vomiting and shortness of breath. Patient did receive the following treatments prior to arrival, none Related Data Home Medications ?Medication ?Instructions ?Recorded ?Confirmed rivaroxaban 20 mg tablet (Xarelto) 20 mg PO DAILY 10/01/19 10/23/24 atorvastatin 10 mg tablet (Lipitor) 10 mg PO QHS 10/12/20 10/23/24 labetalol 200 mg tablet 300 mg PO BID 10/12/20 10/23/24 amlodipine 10 mg tablet 5 mg PO DAILY 12/18/20 10/23/24 cholecalciferol (vitamin D3) 25 25 mcg PO DAILY 11/03/23 10/23/24 mcg (1,000 unit) capsule lisinopril 20 mg tablet 40 mg PO DAILY #180 tabs 11/03/23 10/23/24 sotalol 80 mg tablet 120 mg PO BID 11/03/23 10/23/24 magnesium oxide 1,200 mg PO DAILY 11/07/23 10/23/24 vitamin B complex 1 tab PO DAILY 11/07/23 10/23/24 trazodone 50 mg tablet 50 mg PO DAILY 02/01/24 10/23/24 Allergies Allergy/AdvReac Type Severity Reaction Status Date / Time No Known Allergies Allergy Verified 10/23/24 13:22 General Stated Complaint: Dizzy/Sync JOSE: 3 Review of Systems All systems reviewed & are unremarkable except as noted in HPI and below Constitutional Constitutional: Denies chills, Denies fever(s) and Reports weakness Cardiovascular Cardiovascular: Denies chest pain and Denies dyspnea Respiratory Respiratory: Denies cough and Denies dyspnea Gastrointestinal Gastrointestinal: Denies abdominal pain, Denies nausea and Denies vomiting Neurologic Neurologic: Reports weakness Exam Const General: no acute distress Orientation: alert [facility] Head: normal to inspection Ears: external ears normal General nose exam: external nose normal Mouth: moist mucous membranes Eyes General: appearance normal, both eyes and all related structures Neck Neck: normal visual inspection Resp Effort & Inspection: normal respiratory effort and able to speak in complete sentences Auscultation: clear to auscultation bilaterally Cardio Jugular venous pressure: no JVD Rate: regular rate GI Palpation: soft and nontender Skin General skin exam: no rashes or lesions noted Neuro General: patient alert and patient oriented x3 Cranial Nerves: CN's II-XI intact bilaterally Cognition: normal cognition Speech: speech normal Motor: muscle tone normal throughout Sensory Exam: no sensory deficits noted Extrem General: normal to inspection Psych Mental Status: mental status grossly normal Course Vital Signs Vital signs: Vital Signs Temperature 36.8 C 10/23/24 13:18 Pulse 62 10/23/24 13:18 Respiratory Rate 15 10/23/24 13:18 Blood Pressure 200/80 H 10/23/24 13:18 Pulse Oximetry 98 10/23/24 13:18 Temperature 36.8 C 10/23/24 13:18 Temperature Source Oral 10/23/24 13:18 Pulse 62 10/23/24 13:18 Respiratory Rate 15 10/23/24 13:18 Blood Pressure 200/80 H 10/23/24 13:18 Blood Pressure Position Sitting 10/23/24 13:18 Pulse Oximetry 98 10/23/24 13:18 Oxygen Delivery Method Room Air 10/23/24 13:18 Oxygen Flow Rate 0 10/23/24 13:18 Medical Decision Making 79-year-old female with history of CHF, hypertension atrial flutter on rivaroxaban who comes in with several months of general weakness but feels she is more weak over the last 2 weeks. She denies any speech changes, vision changes, headaches, unilateral weakness. She states that she just does not feel like she has any energy. She has any fevers, chest pain, difficulty breathing, abdominal pain, vomiting. She is moving all extremities equally, renal nerves II to XII are intact, she has no deficits on exam. Her symptoms do not seem consistent with CVA and do not feel head imaging is indicated. Will evaluate for anemia with a CBC and obtain a CMP and troponins to evaluate for possible electrolyte abnormality, AILYN or NSTEMI. Will also check UA and chest x-ray. She has no abdominal tenderness so I doubt surgical pathology such as cholecystitis or appendicitis. Labs and x-ray unremarkable, she has had symptoms for over 2 weeks I do not feel delta troponin is indicated. She has no chest pain. She feels well and currently states she feels well enough for discharge. I recommended following u p with her primary care provider and return precautions Differential Diagnosis Differential Diagnosis: Anemia, electrolyte abnormality, UTI Medical Records Medical records reviewed: Yes I reviewed the patient's medical records. Lab Data Lab results reviewed: Yes I reviewed the patient's lab results. ECG Data Attestation: I personally reviewed and interpreted this ECG (s) as follows: Prior ECG tracings: available for review Interpretation: atrial paced rhythm, rate of 60, no stemi Quality:SDOH Health Related Social Needs: No Data to Display [facility] All Active Problems (Updated 10/23/24 @ 15:09 by Bony Hurley MD) Weakness (Acute) Advanced care planning/counseling discussion (Acute) Adjustment disorder with depressed mood (Acute) Heart failure, unspecified (Acute) DNI (do not intubate) (Acute) DNR (do not resuscitate) (Acute) Dysphagia, pharyngeal phase (Acute) Elevated TSH (Acute) Snoring (Acute) Obstructive sleep apnea (Chronic) Periodic limb movement disorder (Acute) Central apnea (Acute) Elevated levels of transaminase & lactic acid dehydrogenase (Acute) Elevated ferritin (Acute) Neck pain (Acute) Knee pain, right (Acute) Dyspnea on exertion (Acute) Nausea (Acute) Lower extremity edema (Acute) Hypertension (Chronic) Pacemaker (Acute) [employer] PPM on 07/10/2020 Sick sinus syndrome (Acute) Diastolic heart failure (Chronic) Hypokalemia (Acute) CHF (congestive heart failure) (Chronic) CHF exacerbation (Acute) Hypertensive urgency (Acute) Atrial fibrillation (Chronic) Hyponatremia (Acute) COVID-19 ruled out (Acute) Atrial fibrillation (Chronic) Acute kidney injury (Acute) SOB (shortness of breath) (Acute) Dysphagia (Acute) DVT prophylaxis (Acute) Discharge planning issues (Acute) Chest discomfort (Acute) Hypertensive urgency (Acute) S/P hernia repair (Chronic) Atrial flutter (Acute) HTN (hypertension) (Chronic) Medical History Abscess of right foot Neuritis of right foot Elevated liver enzymes Hematoma Palpitations Localized edema Paroxysmal atrial fibrillation Rheumatic mitral stenosis Insomnia Overweight Disorder of bilirubin metabolism HLD (hyperlipidemia) Total bilirubin, elevated Family History Father Essential hypertension Heart disease Stroke Sister Essential hypertension Personal history of malignant neoplasm BREAST Grandfather Heart disease Grandfather Personal history of malignant neoplasm Lung Heart disease Grandmother Heart disease Stroke Social History Smoking/Tobacco Use Status: Former Tobacco Use Quit Date: 06/19/84 Tobacco: How many years used: 20 Smoking risk assessment performed?: Yes Alcohol Intake: current Alcohol Intake frequency: holidays/special occasions only Alcohol type: beer and wine Drug use: Daily Substance use type: marijuana Details: makes a cannabis tea to help sleep Housing: house What type of physical activity do you participate in: walking and other Details: hikes Duration: 15-30 minutes/day Frequency: daily Do you feel safe at home: Yes Do you feel safe in your relationship?: Yes
[2024-10-23 13:48] LABS: Abs Immature Grans 0.03 10^3/uL (0.0-0.06); Absolute Basophil Count 0.07 10^3/uL (0.0-0.2); Absolute Eosinophil Count 0.06 10^3/uL (0.0-0.7); Absolute Lymphocyte Count 1.15 10^3/uL (1.2-3.4); Absolute Monocyte Count 0.47 10^3/uL (0.1-0.8); Basophils % 1.3 %; Eosinophils % 1.1 %; HCT 40.7 % (36.0-46.0); HGB 13.6 g/dL (11.2-15.7); Immature Grans % 0.5 %; Lymphocytes % 20.6 %; MCH 30.2 pg (27.0-33.0); MCHC 33.4 % (32.0-36.0); MCV 90 fL (80-95); Monocytes % 8.4 %; Neutrophils % 68.1 %; Platelet Count 257 10^3/uL (130-400); RDW-SD 43.1 fL; WBC 5.58 10^3/uL (4.4-10.8)
[2024-10-23 14:16] LABS: INR 1.2 (0.9-1.1); PTT Activated 25.8 sec (20.6-30.2); Prothrombin Time 11.6 sec (9.1-11.1)
[2024-10-23 14:17] LABS: ALT 17 U/L (14-59); AST 16 U/L (15-37); Alkaline Phosphatase 89 U/L (46-116); Anion Gap 10.1 mmol/L (3-11); BUN 13 mg/dL (7-18); Bilirubin, Direct 0.4 mg/dL (0.0-0.2); Bilirubin, Total 1.7 mg/dL (0.2-1.0); CO2 27.9 mmol/L (21.0-32.0); Calcium 9.7 mg/dL (8.5-10.1); Chloride 103 mmol/L (98-107); Estimated GFR 58.02 (mL/min/1.73m2); Glucose 113 mg/dL (74-106); Magnesium 2.3 mg/dL (1.8-2.4); NT-proBNP 2227 pg/mL (<300); Sodium 141 mmol/L (136-145); Total Protein 7.1 g/dL (6.4-8.2)
[2024-10-23 14:22] LABS: Troponin I 21 ng/L (<or=51)
[2024-10-23 14:32] LABS: Procalcitonin < 0.10 ng/mL
[2024-10-23 14:45] LABS: Bilirubin Negative (Negative); Blood Negative (Negative); Clarity Clear (Clear); Glucose Negative (Negative); Ketones Negative (Negative); Leukocyte Esterase Trace (Negative); Nitrite Negative (Negative); Urobilinogen 0.2 mg/dL (Up to 0.2); pH 7.5 (5-8)
[2024-10-23 15:05] LABS: Bacteria Rare HPF (Negative); C & S Indicated? No; Casts Negative LPF (Negative); Crystals Negative HPF (Negative); Epithelial Cells Negative HPF (Negative); Mucus Negative (Negative); Other Cells Negative (Negative); RBC Negative HPF (0-2)
[2024-10-23 15:17] LABS: COVID-19 PCR Negative (Negative); Influenza A PCR Negative (Negative); Influenza B PCR Negative (Negative); RSV PCR Negative (Negative)
[2024-10-23 15:23] LABS: Source Nasopharynx
== END 2024-10-23 15:32 | disposition home or self-care (01) ==
PROVIDERS: Emergency Provider Emergency Medicine; PCP Family Medicine
DX: R53.1 Weakness (principal); I50.9 Heart failure, unspecified; I10 Essential (primary) hypertension
CPT/HCPCS: 99285; 99284; 36415; 36416; 82962; 80053; 84145; 87637; 93005; 71046; 81003; 81015; 82248; 83735; 83880; 84443; 84484; 85025; 85610; 85730; 93010